=== PATIENT | male | born 1945 | race Caucasian/White ===

== ENCOUNTER 2019-11-08 08:17 | Observation (INO) ==
[2019-11-08] MEDS ORDERED: fentaNYL citrate 100 MCG/2 ML VIAL ONE (10:12)
[2019-11-08] MEDS ORDERED: MIDAZOLAM HCL 1 MG/ML 2ML VIAL ONE ×3 (10:12→12:33)
[2019-11-08] MEDS ORDERED: HEPARIN (PORCINE) 1000 UNIT/ML 10 ML (CATH LAB USE ONLY) ONE ×2 (10:12→12:31)
[2019-11-08] MEDS ORDERED: NiCARDipine HCL INJ 2.5 MG/ML 10 ML AMP ONE (10:12)
[2019-11-08] MEDS ORDERED: NITROGLYCERIN/D5W 100MCG/ML 20ML SYR ONE (10:13)
--- NOTE | 2019-11-08 10:23 | Pre Anesthesia Assessment ---
Date of Service November 08, 2019 Pre Sedation Assessment Vital Signs Temp Pulse Pulse Pulse Pulse Resp BP 11/09/19 07:48 36.7 C 71 18 159/84 H 11/09/19 03:35 36.7 C 74 16 136/77 11/08/19 23:16 36.8 C 77 16 142/76 H 11/08/19 19:45 36.7 C 70 18 156/75 H 11/08/19 18:44 72 138/69 11/08/19 17:45 72 153/92 H 11/08/19 17:00 74 154/80 H 11/08/19 16:43 60 154/82 H 11/08/19 16:30 69 11/08/19 16:28 71 157/85 H 11/08/19 16:13 67 163/79 H 11/08/19 16:00 36.5 C 70 22 159/81 H 11/08/19 15:15 65 18 11/08/19 15:00 66 18 11/08/19 14:45 68 18 11/08/19 14:30 64 18 11/08/19 14:15 66 18 11/08/19 14:00 63 18 11/08/19 13:45 61 18 11/08/19 13:30 75 18 11/08/19 13:15 36.5 C 82 18 BP Pulse Ox 11/09/19 07:48 95 11/09/19 03:35 94 11/08/19 23:16 94 11/08/19 19:45 93 11/08/19 18:44 11/08/19 17:45 11/08/19 17:00 11/08/19 16:43 11/08/19 16:30 11/08/19 16:28 11/08/19 16:13 11/08/19 16:00 96 11/08/19 15:15 147/89 H 96 11/08/19 15:00 148/98 H 96 11/08/19 14:45 165/92 H 96 11/08/19 14:30 152/90 H 96 11/08/19 14:15 148/73 H 96 11/08/19 14:00 135/69 96 11/08/19 13:45 131/78 96 11/08/19 13:30 130/87 96 11/08/19 13:15 191/56 H 96 Cardiovascular + irregularly irregular + S1 normal, + S2 normal and + murmur (1/6 holosystolic murmur heard best at the apex) + femoral pulses present and + radial pulses present; no JVD no edema Respiratory normal respiratory effort, lungs clear to auscultation Pre-Sedation Airway Assessment Smoking Status: Former smoker Hx Difficult Intubation: No Mallampati Class: III ASA: ASA3 Procedure Planning Contraindications for Sedation: none Current Medications Reviewed: Yes Notes The planned sedation has been discussed with the patient. Informed Consent was obtained. I have identified the patient, determined the appropriateness of sedation and have assessed the patient immediately prior to the procedure. All medicine(s) and interventions are by my order.
--- NOTE | 2019-11-08 10:24 | History & Physical Bridge Note ---
Date of Service November 08, 2019 History & Physical Bridge Note I have examined the patient, reviewed the History & Physical and in the interval since the performance of the History & Physical I have noted the following changes of clinical significance: no changes noted
--- NOTE | 2019-11-08 11:37 | Post Anesthesia Assessment ---
Date of Service November 08, 2019 Post Sedation Assessment Vital Signs Temp Pulse Pulse Pulse Pulse Resp BP 11/09/19 07:48 36.7 C 71 18 159/84 H 11/09/19 03:35 36.7 C 74 16 136/77 11/08/19 23:16 36.8 C 77 16 142/76 H 11/08/19 19:45 36.7 C 70 18 156/75 H 11/08/19 18:44 72 138/69 11/08/19 17:45 72 153/92 H 11/08/19 17:00 74 154/80 H 11/08/19 16:43 60 154/82 H 11/08/19 16:30 69 11/08/19 16:28 71 157/85 H 11/08/19 16:13 67 163/79 H 11/08/19 16:00 36.5 C 70 22 159/81 H 11/08/19 15:15 65 18 11/08/19 15:00 66 18 11/08/19 14:45 68 18 11/08/19 14:30 64 18 11/08/19 14:15 66 18 11/08/19 14:00 63 18 11/08/19 13:45 61 18 11/08/19 13:30 75 18 11/08/19 13:15 36.5 C 82 18 BP Pulse Ox 11/09/19 07:48 95 11/09/19 03:35 94 11/08/19 23:16 94 11/08/19 19:45 93 11/08/19 18:44 11/08/19 17:45 11/08/19 17:00 11/08/19 16:43 11/08/19 16:30 11/08/19 16:28 11/08/19 16:13 11/08/19 16:00 96 11/08/19 15:15 147/89 H 96 11/08/19 15:00 148/98 H 96 11/08/19 14:45 165/92 H 96 11/08/19 14:30 152/90 H 96 11/08/19 14:15 148/73 H 96 11/08/19 14:00 135/69 96 11/08/19 13:45 131/78 96 11/08/19 13:30 130/87 96 11/08/19 13:15 191/56 H 96 Recovery Score Activity: Moves 4 extremities Respiration: Deep Breath/Cough Circulation: +/-20% PreAnes Value Consciousness: Fully Awake Oxygen Saturation: > 92% On Room Air Discharge Sedation Level of Care: Phase I Post Sedation Plan On clinical assessment, the patient appears to have tolerated the sedation without complications. Patient is recovering as anticipated. Patient will continue to be monitored by nursing and may be discharged when sedation discharge criteria are met per below protocol. Upon Completions of procedure up to 15 minutes continue every 5 minute vital si gns and the P.A.R. score; then discharge to a Phase I or Fast Track to Phase II per the following guidelines: * Discharge Patient to appropriate Phase II area if PAR is 8 or greater or return to pre- procedure baseline. The post - procedure orders will be as directed. * If PAR score is less than 8 or not return to pre-procedure baseline then patient will follow Phase I monitoring till PAR is reached for Phase II. The Phase I may be done in procedure room or may call to secure a Phase I area. * If naloxone or flumazenil are used for reversal, hold in Phase I for continued monitoring from when last reversal dose was given for a minimum of 60 minutes or longer pending the nurse and/or physician discretion of patient condition before discharge to Phase II. Please call the Sedation Physician to re-evaluate and complete post-note for discharge to Phase II area. Do NOT discharge from procedure sedation or Phase 1 until post- sedation evaluation note is complete by procedure /sedation MD Sedation Discharge Instructions to be given to the patient at discharge to home.
--- NOTE | 2019-11-08 11:39 | Cardiac Catheterization ---
Cardiac Cath Procedure Full Procedure Date November 08, 2019 Pre-Procedure Diagnosis Pre-Procedure Diagnosis: Positive Stress Test AUC Score AUC Score: 7 Post-Procedure Diagnosis Post-Procedure Diagnosis: Severe CAD Procedure(s) Performed Procedure(s) Performed: Coronary Angiography, Left Heart Cath and Right Heart Cath Vision Therapist Brandon Alarcon DO Consumer Science Teacher(s) Randy RTBjorn Estimated Blood Loss Estimated Blood Loss: 8cc Medication(s) Medication(s): Fentanyl, Heparin, Lidocaine 1%, Nicardipine and Versed Summary of Findings Right heart catheterization demonstrates moderate pulmonary hypertension and elevated PCWP. Pulmonary capillary wedge pressure waveforms demonstrating large V waves s uggesting significant mitral regurgitation. CO per yolanda : 6.55 CI per yolanda : 2.84 CO per thermodilution: 6.93 Coronary angiography demonstrates 40% proximal LAD followed by a 70% mid stenosis. The second diagonal branch vessel is totally occluded. The apical segment of the diagonal fills via left to left collaterals. There is a moderate caliber ramus intermedius with a 60% mid stenosis. The left circumflex is a large nondominant vessel giving rise to a moderate caliber posterior lateral branch vessel. Circumflex and its branch vessels demonstrate mild luminal irregularities. The right coronary artery is a large dominant vessel giving rise to posterior descending artery and 2 posterior lateral branch vessels. The right coronary artery and its branch vessels demonstrate luminal irregularities, 10%, without significant obstructive disease. Hemodynamics Rest Ao:: 121/62/86 Final Ao: 164/77/109 LV: 119/3/13 RA: 10 RV: 45/1/12 PA: 50/22/33 PW: 20 Recommendations Recommendations: PCI without planned CABG Specimens Specimens: None Radiation Exposure (mGy) 1724 Contrast (mls) 75 Fluids (cc crystalloids) Fluids (cc crystalloids): 17 Nss Drains Drains: N/A Anesthesia Moderate sedation. Start 1040. End 1142. Sedation monitor, Clay GUIDO Procedural Complication(s) None Disposition Patient remained in [employer] for FFR of LAD I attest to the content of the Intraoperative Record and any orders documented therein. Any exceptions are noted below. ACC Data: [employer] Cardiac Status Clinical evaluation leading to the procedure CAD Presenation: Positive Stress Test and Stable angina Anginal Classification: CCS II Heart Failure: No Imaging Studies Past 6 Months: Yes Stress Studies Past 6 Months: Yes Stress Testing w/SPECT MPI: Yes - Positive and Risk/Extent of Ischemia (High) Coronary Anatomy Dominant: Right LAD (% Stenosis): Proximal (40%) and Mid (70% distal to D2) D1 (% Stenosis): Mid (60%) D2 (% Stenosis): Proximal (100%) Circumflex (% Stenosis): Mid (10 -20% diffuse) L PL1 (% Stenosis): Mid (10%v diffuse) RCA (% Stenosis): Mid (10-20% diffuse) R PDA (% Stenosis): Distal (10%) R PL1 (% Stenosis): Mid (10%) R PL2 (% Stenosis): Mid (10%) Diagnostic Physicians Name: Brandon Alarcon DO Closure Device Recommendations: PCI without planned CABG Intraprocedure Events Significant Disection: No Perforation: No
[2019-11-08 11:43] LABS: iSTAT Arterial Blood Gas HCO3 26 meg/L (19-24); iSTAT Arterial Blood Gas pCO2 38 mmHg (35-46); iSTAT Arterial Blood Gas pH 7.44 (7.35-7.45); iSTAT Arterial Blood Gas pO2 63 mmHg (80-95); iSTAT Carbon Dioxide 27 mmol/L (24-31); iSTAT Hematocrit 40 % (42-52); iSTAT Hemoglobin 13.6 g/dl (14.0-18.0); iSTAT Potassium 3.6 mmol/L (3.3-5.0); iSTAT Sodium 138 mmol/L (135-144)
[2019-11-08 11:43] LABS: iSTAT Arterial Blood Gas HCO3 28 meg/L (19-24); iSTAT Arterial Blood Gas pCO2 42 mmHg (35-46); iSTAT Arterial Blood Gas pH 7.43 (7.35-7.45); iSTAT Arterial Blood Gas pO2 37 mmHg (80-95); iSTAT Carbon Dioxide 29 mmol/L (24-31); iSTAT Hematocrit 41 % (42-52); iSTAT Hemoglobin 13.9 g/dl (14.0-18.0); iSTAT Potassium 3.5 mmol/L (3.3-5.0); iSTAT Sodium 139 mmol/L (135-144)
[2019-11-08] MEDS ORDERED: ADENOSINE IV SOLN 3 MG/ML 20 ML VIAL IV ONE (12:03)
[2019-11-08] MEDS ORDERED: CLOPIDOGREL BISULFATE 300 MG TAB ONE (12:52)
[2019-11-08] MEDS ORDERED: NITROGLYCERIN SL 0.4 MG/TAB TAB SL PRN (12:58)
[2019-11-08] MEDS ORDERED: ACETAMINOPHEN 325 MG TAB PO PRN (12:58)
[2019-11-08] MEDS ORDERED: ONDANSETRON INJ 2 MG/ML 2 ML VIAL IV PRN (12:58)
[2019-11-08] MEDS ORDERED: SODIUM CHLORIDE 0.9% 1000ML 1,000 ML IV SCH (13:00)
--- NOTE | 2019-11-08 13:08 | Post Anesthesia Assessment ---
Date of Service November 08, 2019 Post Sedation Assessment Vital Signs Temp Pulse Resp BP Pulse Ox 11/08/19 08:40 98.8 F 92 H 16 163/81 H 98 Recovery Score Activity: Moves 4 extremities Respiration: Deep Breath/Cough Circulation: +/-20% PreAnes Value Consciousness: Fully Awake Oxygen Saturation: > 92% On Room Air Discharge Sedation Level of Care: Fast Track Phase II Post Sedation Plan On clinical assessment, the patient appears to have tolerated the sedation without complications. Patient is recovering as anticipated. Patient will continue to be monitored by nursing and may be discharged when sedation discharge criteria are met per below protocol. Upon Completions of procedure up to 15 minutes continue every 5 minute vital signs and the P.A.R. score; then discharge to a Phase I or Fast Track to Phase II per the following guidelines: * Discharge Patient to appropriate Phase II area if PAR is 8 or greater or return to pre- procedure baseline. The post - procedure orders will be as directed. * If PAR score is less than 8 or not return to pre-procedure baseline then patient will follow Phase I monitoring till PAR is reached for Phase II. The Phase I may be done in procedure room or may call to secure a Phase I area. * If naloxone or flumazenil are used for reversal, hold in Phase I for continued monitoring from when last reversal dose was given for a minimum of 60 minutes or longer pending the nurse and/or physician discretion of patient condition before discharge to Phase II. Please call the Sedation Physician to re-evaluate and complete post-note for discharge to Phase II area. Do NOT discharge from procedure sedation or Phase 1 until post- sedation evaluation note is complete by procedure /sedation MD Sedation Discharge Instructions to be given to the patient at discharge to home.
--- NOTE | 2019-11-08 13:11 | Cardiac Catheterization ---
[facility] Data: [place] Cardiac Status Clinical evaluation leading to the procedure CAD Presenation: Positive Stress Test Anginal Classification: CCS III Heart Failure: No Cardiogenic Shock within 24 Hours: No Cardiac Arrest within 24 Hours: No Imaging Studies Past 6 Months: Yes Stress Studies Past 6 Months: Yes Stress Echocardiogram: Yes - Positive Diagnostic Physicians Name: Filemon Rome MD Status: Elective Closure Device Percutaneous Entry Location: Radial Closure Device: Radial Band Recommendations: PCI without planned CABG PCI Indication: + Stress Test Lesion Segment Name: Mid LAD Culprit Artery: Yes Stenosis Prior to Rx (%): 70 Chronic Total Occlusion: No IVUS: No FFR: Yes Ratio: less than or equal to 0.75% Pre-Procedure CALEB Flow: 3 Previously Treated Lesion: No Lesion Complexity: Non-High/Non-C Lesion Length (mm): 28 Thrombus Present: No Bifurcation Lesion: Yes Guidewire Across Lesion: Stenosis Post-Procedure (%): 0 Post-Procedure CALEB Flow: 3 Devices(s) Deployed: Yes Yes Intraprocedure Events Significant Disection: No Perforation: No Cardiac Cath Procedure Full Procedure Date November 08, 2019 Pre-Procedure Diagnosis Pre-Procedure Diagnosis: Positive Stress Test AUC Score AUC Score: 7 Post-Procedure Diagnosis Post-Procedure Diagnosis: Severe CAD and Successful PCI Procedure(s) Performed Procedure(s) Performed: Coronary Angiography, Right Heart Cath and Drug Eluting Stent Plate Shear Operator Filemon Rome MD Weatherseal Technician(s) Randy KWON Estimated Blood Loss Estimated Blood Loss: 15 Medication(s) Medication(s): Clopidogrel, Fentanyl, Heparin, Nicardipine, Nitroglycerin and Versed Summary of Findings Indication: Positive stress test Access: 6 Fr slender right radial artery Catheters: EBU 3.5 guide Findings: For full details of patient's coronary angiography please see cath report dictated by Dr. Alarcon. Briefly, patient found to have moderate to severe single vessel disease with a 60 to 70% mid LAD stenosis. Decision to proceed with FFR and possible PCI --FFR/PCI -- Antithrombotic therapy: Heparin, clopidogrel Procedure: Left main cannulated with EBU 3.5 Second Vp Hr Assessment 50 wire passed across lesion into distal vessel ACIST FFR catheter placed into mid vessel across stenosis Pd/Pa 0.88 FFR 0.71 ACIST Catheter removed and decision to proceed with PCI Mid LAD lesion predilated with 2.5 compliant balloon Dilated lesion stented with 2.5 x 30 mm [place] drug-eluting Stent post-dilated with 2.75 noncompliant balloon IC vasodilators administered for spasm Post procedure CALEB 3 flow, stent well expanded with minimal residual stenosis and no apparent cardiac complications. Arterial Closure: TR band Summary: 1. Severe diffuse mid LAD coronary artery disease (FFR 0.71). 2. Successful PCI of proximal to mid LAD with single drug-eluting stent (2.5 x 30 mm [place]; postdilated with 2.75 NC). Recommendations: To PCU for continued monitoring Loaded with clopidogrel 600 mg in [place] Continue triple therapy with aspirin, clopidogrel, Xarelto while admitted Long-term on dual therapy with clopidogrel, Xarelto for at least 1 year. Hemodynamics Rest Ao:: 160/79/117 Final Ao: 132/78/95 LV: -- Recommendations Recommendations: PCI without planned CABG Specimens Specimens: None Radiation Exposure (mGy) 3732 Contrast (mls) 140 Fluids (cc crystalloids) Fluids (cc crystalloids): 35 Drains Drains: N/A Anesthesia Moderate sedation. Procedural Complication(s) None Disposition PCU I attest to the content of the Intraoperative Record and any orders documented therein. Any exceptions are noted below. [facility] Card Cath Procedure Codes Cardiac Catheterization Procedure 1: Cardiovascular Cath Procedures: 89032 (Doppler) Pressure Wire Moderate Sedation Procedure 1: Sedation/Anesthesia: 95821 Mod Sedation by a different physician ;Init15 Min Child Age 5&Up Procedure 2: Sedation/Anesthesia: 91356 Mod Sedation by a different physician;Ea Additional 15 Minutes Stenting Procedure 1: Cardiovascular Stent Procedures: 90404 Perc transcatheter placement of intracoronary stent(s), with ang PG Care Time/CCT Total # of Minutes Spent Total Time Spent with Patient: Total time spent is greater than 50% in coordination of care (as documented) at patient's floor/unit and/or counseling patient:
[2019-11-09 07:15] LABS: Basophils # (auto) 0.05 K/uL (0-0.2); Basophils % (auto) 0.9 %; Eosinophils # (auto) 0.24 K/uL (0-0.5); Eosinophils % (auto) 4.3 %; Hemoglobin 13.1 g/dL (14.0-18.0); Immature Granulocytes # (auto) 0.01 K/uL (0.00-0.02); Immature Granulocytes % (auto) 0.2 %; Lymphocytes # (auto) 1.65 K/uL (1.2-3.4); Lymphocytes % (auto) 29.5 %; Mean Corpuscular Hemoglobin 27.8 pg (25-34); Mean Corpuscular Hgb Conc 31.2 g/dL (32-36); Monocytes # (auto) 0.83 K/uL (0.11-0.59); Monocytes % (auto) 14.8 %; Neutrophils # (auto) 2.82 K/uL (1.4-6.5); Neutrophils % (auto) 50.3 %; Platelet Count 245 K/uL (130-400); RDW Standard Deviation 48.5 fL (36.4-46.3); Red Blood Count 4.72 M/uL (4.7-6.1)
[2019-11-09 07:43] LABS: BUN Creatinine Ratio 17.8 (10-20); Calcium 8.5 mg/dl (8.5-10.1); Est GFR (African American) 91.2; Est GFR (Non-African American) 78.7; Potassium 4.2 mmol/L (3.5-5.1)
[2019-11-09] MEDS ORDERED: hydroCHLOROthiazide 25 MG TAB PO SCH (09:00)
[2019-11-09] MEDS ORDERED: FLUTICASONE/VILANTEROL 200/25MCG 14 PUFFS/INHALER INH SCH (09:00)
[2019-11-09] MEDS ORDERED: CLOPIDOGREL BISULFATE 75 MG TAB PO SCH (09:00)
[2019-11-09] MEDS ORDERED: MULTIVITAMIN TAB PO SCH (09:00)
[2019-11-09] MEDS ORDERED: AMLODIPINE BESYLATE 5 MG TAB PO SCH (09:00)
[2019-11-09] MEDS ORDERED: LOSARTAN POTASSIUM 50 MG TAB PO SCH (09:00)
[2019-11-09] MEDS ORDERED: ASPIRIN 81 MG ECTAB PO SCH (09:00)
[2019-11-09] MEDS ORDERED: RIVAROXABAN 20 MG TAB PO SCH (09:00)
--- NOTE | 2019-11-09 09:46 | Cardiology Progress Note ---
Date of Service November 09, 2019 Assessment & Plan (1) Abnormal nuclear stress test: (2) Status post insertion of drug-eluting stent into left anterior descending (LAD) artery: (3) Mitral regurgitation: (4) Pulmonary HTN: (5) Atrial fibrillation: Post cardiac catheterization activity restrictions noted below. Continue triple therapy, aspirin, Plavix, and Xarelto for 4 weeks. Patient will then continue Plavix plus Xarelto long-term. Add atorvastatin 40 mg daily. Current medications clarified: Digoxin discontinued. Resume metoprolol succinate 50 mg daily. Other medications as previously ordered. Discuss outpatient sleep medicine evaluation. Patient reports history of sleep apnea treated surgically. Outpatient cardiology follow-up in 1 to 2 weeks. Subjective Patient seen exam at the bedside. Feeling well from a cardiovascular perspective. Notes improvement of dyspnea since stent implantation. Denies chest discomfort or heaviness. Telemetry demonstrates rate controlled atrial fibrillation. Review of Systems Review of Systems: All systems reviewed & are unremarkable except as noted in HPI & below Physical Exam ENMT: Mallampati Class: III Respiratory: normal respiratory effort, lungs clear to auscultation Cardiovascular: Rate/Rhythm: + irregularly irregular Heart Sounds: normal S1, normal S2 and + murmur (1/6 holosystolic murmur heard best at the apex) Vessels: femoral pulses present and radial pulses present; no JVD Extremities: no edema Gastrointestinal (Abdomen): Inspection/Auscultation: abdomen normal to inspection, normal bowel sounds and + abdominal edema; abdomen not distended Percussion/Palpation: abdomen soft; abdomen nontender, no guarding and abdomen not rigid Musculoskeletal: Extremities: strength 5/5 throughout Skin: no rashes, warm and dry Neurologic: moves all extremities and awake; no focal motor deficits Motor/ Sensory: no tremor Psychiatric: A+Ox3, euthymic affect Results & Data Vital Signs (Past 12 Hours) Vital Signs Temp Pulse Resp BP Pulse Ox 11/09/19 07:48 36.7 C 71 18 159/84 H 95 11/09/19 03:35 36.7 C 74 16 136/77 94 11/08/19 23:16 36.8 C 77 16 142/76 H 94 (1) Mitral regurgitation Cardiac valve disease etiology: nonrheumatic Qualified Code(s): I34.0 - Nonrheumatic mitral (valve) insufficiency (2) Atrial fibrillation Atrial fibrillation type: permanent Qualified Code(s): I48.21 - Permanent atrial fibrillation
--- NOTE | 2019-11-09 09:57 | Discharge Summary ---
Date of Service November 09, 2019 Discharge Data Allergies Allergy/AdvReac Type Severity Reaction Status Date / Time No Known Allergies Allergy Verified 07/12/19 08:59 Consultations 11/08/19 13:04 Consult Cardiac Rehabilitation Routine Procedures Performed Operation Date: 11/08/19 09:30 Actual Procedures p Cath, Right and Left Heart - DO radha Boudreaux Cineradiography w/Routine Exam - Jared Rome MD s Drug Eluting Stent SGl Vessel - Jared Rome MD s Fraction Flow [place] SGL Ves - Jared Rome MD Ordered Studies 11/08/19 06:50 CL Cath Imgs for PACS use only Stat Hospital Course (1) Abnormal nuclear stress test: (2) Status post insertion of drug-eluting stent into left anterior descending (LAD) artery: (3) Mitral regurgitation: (4) Pulmonary HTN: (5) Atrial fibrillation: Post cardiac catheterization activity restrictions noted below. Continue triple therapy, aspirin, Plavix, and Xarelto for 4 weeks. Patient will then continue Plavix plus Xarelto long-term. Add atorvastatin 40 mg daily. Current medications clarified: Digoxin discontinued. Resume metoprolol succinate 50 mg daily. Other medications as previously ordered. Discuss outpatient sleep medicine evaluation. Patient reports history of sleep apnea treated surgically. Outpatient cardiology follow-up in 1 to 2 weeks. Total Time Total Time Spent Total Time Spent (In Minutes): 30 Total Time Includes: Examination of the Patient, Discharge Planning, Medication Reconciliation and Communication With Other Providers Discharge Plan Discharge Items Reason For Visit: POST PCI Discharge Diagnosis: Abnormal nuclear stress testing status post drug-eluting stent implantation to the left anterior descending artery. Activity: Per Instructions section Non-emergency contact: Mail List Librarian Call non-emergency contact if: you have any medication questions and your pain is not controlled Follow-up/Referrals: Villa Duff MD [Primary Care Provider] - Diet: Heart Healthy Addtl Attending Provider Instructions: ACTIVITY RECOMMENDATIONS: It is common to feel weak and fatigue for a few days. * Do not drive or operate any motorized equipment for the next three days. * Limit stair usage (2 or 3 trips a day only) for the next three days. * Do not lift anything heavier than 10 pounds for the next three days. * Do not engage in vigorous exercise or any sports for the next five days. * You may shower the day after your procedure, but do not immerse the area for three days. Cleanse the site gently with soap and water. SPECIAL CARE INSTRUCTIONS: * You may replace the pressure dressing or band-aid the morning after the procedure. * After your procedure, it is normal to have a small bruise or small lump at the site. Examine your site daily for any change in the bruise or lump, redness, swelling, drainage or numbness. Notify your doctor if any change. BLEEDING: * If there is a small amount of bleeding at the site, lie down and apply firm pressure with a clean cloth for ten minutes. When the bleeding stops, lie quietly keeping the procedure limb straight for six hours. Notify your doctor as soon as possible. * If the bleeding does not stop after ten minutes or if there is a large amount of bleeding or spurting, call 911 immediately. Continue to lie down and hold firm pressure until help arrives. SKIN IRRITATION: * You may experience some redness and/or swelling in the area where radiation was administered. If any skin irritation occurs, please contact your family physician. FOLLOW UP VISIT: Keep any scheduled doctor appointments. Addtl Leave Coordinator Provider Instructions: Continue aspirin x4 weeks then stop. Continue Plavix plus Xarelto uninterrupted long-term. Pending Studies at Discharge: Yes Studies:: Sleep medicine evaluation. Repeat lipid panel and comprehensive metabolic panel in 6 weeks. Stand-Alone Forms: My [facility] [employer], Smoking Cessation Medications and DC Order Prescriptions: New metoprolol succinate 50 mg Tablet Extended Release 24 Hr 50 mg PO QAM Qty: 34 RF: 6 clopidogrel 75 mg Tablet 75 mg PO QAM Qty: 34 RF: 6 aspirin 81 mg Tablet,Delayed Release (Dr/Ec) 81 mg PO QAM Qty: 34 RF: 0 nitroglycerin [Nitrostat] 0.4 mg Tablet, Sublingual 0.4 mg sublingual PRN Qty: 1 RF: 3 atorvastatin 40 mg tablet 40 mg PO DAILY 34 Days Qty: 34 RF: 6 Continued betamethasone dipropionate 0.05 % cream 1 appln TOP BID Qty: 45 RF: 0 hydrochlorothiazide 50 mg tablet 50 mg PO DAILY RF: 0 amlodipine 10 mg tablet 10 mg PO DAILY RF: 0 Xarelto 20 mg tablet 20 mg PO DAILY RF: 0 Symbicort 160-4.5 mcg/actuation HFA aerosol inhaler 2 puffs INH BID RF: 0 multivitamin tablet 1 tab PO DAILY RF: 0 vit A-vit C-vit B-[id number]-[id number] 7,160-113-100 [id number]-[id number] tablet PO RF: 0 Changed losartan 50 mg tablet 100 mg PO DAILY Qty: 0 RF: 0 Discontinued digoxin 250 mcg (0.25 mg) tablet 250 mcg PO DAILY RF: 0 Admission Data Admit Date/Time: 11/08/19 12:38 Attending Provider: Brandon Alarcon Admit Provider: Brandon Alarcon Primary Care Provider: Villa Duff
[2019-11-09] MEDS ORDERED: METOPROLOL SUCC 50MG EXT REL TAB PO SCH (10:00)
--- NOTE | 2019-11-09 14:32 | Electrocardiogram Report ---
Test Reason : Blood Pressure : / mmHG Vent. Rate : 070 BPM Atrial Rate : 078 BPM P-R Int : 000 ms QRS Dur : 120 ms QT Int : 432 ms P-R-T Axes : 000 095 049 degrees QTc Int : 466 ms Atrial fibrillation with premature ventricular or aberrantly conducted complexes Rightward axis Pulmonary disease pattern Non-specific intra-ventricular conduction delay Nonspecific ST abnormality Anterolateral leads Abnormal ECG No previous ECGs available Confirmed by Issa Gomes ([id number]) on 11/09/2019 2:31:49 PM Referred By: Brandon Alarcon Confirmed By:Issa Gomes
[2019-11-09] MEDS ORDERED: DIGOXIN 0.25 MG TAB PO SCH (16:00)
== END 2019-11-09 11:05 | disposition home or self-care (01) ==
LOC: CC 08:17 → 2S 08:17

== ENCOUNTER 2019-12-28 10:27 | Inpatient (IN) ==
[2019-12-28] MEDS ORDERED: SODIUM CHLORIDE 0.9% 250 ML IV PRN ×3 (11:06→20:41)
--- NOTE | 2019-12-28 11:06 | Emergency Department Note ---
Impression & Plan Acute GI bleeding, Symptomatic anemia, Acute blood loss anemia ED Provider Note Normal QTCNAME: VY ROSALES AGE: 74 SEX: M : 1945 ARRIVES VIA: Walk-In INFORMANT: Patient ED PROVIDER(S): Enio Alex DO CHIEF COMPLAINT: Low hemoglobin HPI: Patient is a 74-year-old male who presents the ER referred in by PCP for low hemoglobin. He has been walking and getting short of breath over the past week. He admits to dark tarry stools that have been present for the past 3 weeks. He takes Xarelto and Plavix. He recently got a stent at the end of October. Denies any chest pain. No belly pain nausea vomiting or diarrhea. No dysuria urgency or frequency. No other exacerbating or remitting factors. Shortness of breath resolves with rest. He is never received blood before. ROS: See above HPI for pertinent positives & negatives. A total of 10 systems reviewed and were otherwise negative. PAST MEDICAL HISTORY:See Below PAST SURGICAL HISTORY:See Below FAMILY HISTORY:See Below SOCIAL HISTORY:See Below HOME MEDICATIONS:See Below ALLERGIES:See Below VITALS:See Below PHYSICAL EXAMINATION: GENERAL: Sitting up in bed, alert, well appearing, well nourished, no distress, non-toxic EYE EXAM: normal conjunctiva. OROPHARYNX: no exudate, no erythema, lips, buccal mucosa, and tongue normal and mucous membranes are moist NECK: supple, no nuchal rigidity, no adenopathy, non-tender LUNGS: Clear to auscultation. Normal chest wall mechanics HEART: no murmurs, S1 normal and S2 normal ABDOMEN: abdomen soft, non-tender, normo-active bowel sounds, no masses, no rebound or guarding. RECTAL: hem + BACK: Back is symmetrical on inspection and there is no deformity, no midline tenderness, no CVA tenderness. SKIN: no rashes and no bruising UPPER EXTREMITIES: upper extremities are grossly normal. LOWER EXTREMITIES: No pitting edema. NEURO EXAM: Normal sensorium, cranial nerves II-XII grossly intact, normal speech, no gross weakness of arms, no gross weakness of legs. MEDICAL DECISION MAKING: Patient is a 74-year-old male who presents the ER for dyspnea on exertion. He was evaluated by his PCP and found to have a low hemoglobin. He was referred into the ER. Recently had a drug-eluting stent placed in his LAD on Plavix, aspirin and NOAC. IV was established blood work was obtained. Labs show a hemoglobin of 7. INR at 1.7. BMP with mild hypokalemia. LFTs were unremarkable. Troponin was checked was 0.035. Patient was typed and crossed and given 2 units PRBCs while in the ER. Consent was signed at bedside by myself. Rectal was heme positive. He was updated at bedside and discussed with hospitalist for admission. Triage Nursing notes reviewed. Prior medical records reviewed Vital Signs: reviewed and remarkable for no significant abnormalities Differential diagnosis: Differential diagnosis includes etiologies such as diverticulitis, diverticulosis, AVM, coagulopathy, colitis, inflammatory bowel disease, malignancy, Rosemarie-Muñoz tear, esophagitis, peptic ulcer disease, variceal bleed, gastritis, epistaxis, fissure, hemorrhoids, as well as others were entertained. ER treatment provided: See below Diagnostics interpreted by me: ECG: A. fib rate of 67 Normal axis PVCs Normal QTC Cardiac Monitoring: An order was placed for continuous cardiac monitoring. The monitor shows a rate of 67 with sinus rhythm. Laboratory studies: As stated above and show below. Imaging studies: See below Consultation(s): Discussed with Dr. Kj Collier for admission ED COURSE: Procedures: none Critical Care: I have personally spent 32 minutes of critical care time in the direct management of this patient. This includes bedside care, interpretation of diagnostic studies, and testing, discussion with consultants, patient, and family members, and other required patient management activities. This 32 minutes is in excess of all separately billable procedures. Past Med/Surg History Medical History Asthma Atrial fibrillation Coronary artery disease Surgical History No significant past surgical history Family History Other Hypertension Social History Smoking Status: Former smoker Cigarettes Per Day: Quit 50 years ago; Smoking End Date: ; Second Hand Exposure: No; Do You Dip or Chew Tobacco: No; Tobacco Cessation Education Requested by Patient: No Hx Alcohol Use: No Hx Substance Use: No Preferred Language: [place] Communication Ability: Effective Automobile Painter Required: No Beliefs That Will Affect Care: None Current Living Situation: Spouse Other Information That Helps Us Care for You: No Feels Safe at Home: Yes Safety Concerns: Feels Safe At This Time Allergies Allergies Allergy/AdvReac Type Severity Reaction Status Date / Time No Known Allergies Allergy Verified 12/28/19 11:46 Home Meds Home Medications Medication Instructions Recorded Confirmed amlodipine 10 mg tablet 10 mg PO DAILY 03/31/19 12/28/19 budesonide-formoterol HFA 160 2 puffs INH BID 03/31/19 12/28/19 mcg-4.5 mcg/actuation aerosol inhaler multivitamin 1 tab PO DAILY 03/31/19 12/28/19 rivaroxaban 20 mg tablet 20 mg PO QPM 03/31/19 12/28/19 vit A 7,160 unit-vit C 113 mg-vit 1 tab PO DAILY 03/31/19 12/28/19 E 100 phtw-wrah-gqpbst tablet furosemide 40 mg PO DAILY 12/28/19 12/28/19 potassium chloride 10 meq PO DAILY 12/28/19 12/28/19 Previous Rx's Medication Instructions Recorded betamethasone dipropionate 0.05 % 1 appln TOP BID #45 gm 04/29/19 topical cream atorvastatin 40 mg PO DAILY 34 Days #34 tab 11/09/19 clopidogrel 75 mg PO QAM #34 tab 11/09/19 losartan 100 mg PO DAILY #0 tab 11/09/19 metoprolol succinate 50 mg PO QAM #34 tab 11/09/19 nitroglycerin [Nitrostat] 0.4 mg SUBLINGUAL PRN #1 btl 11/09/19 Results & Data (ED) Vital Signs Vital Signs - 24 hr 12/28/19 10:46 12/28/19 11:33 12/28/19 12:11 Temperature 36.8 C Temperature Source Oral Pulse Rate 75 Pulse Rate [Left Finger] 63 Respiratory Rate 16 20 Blood Pressure 127/68 Blood Pressure [Left Arm] 141/75 H Blood Pressure Mean 87 Blood Pressure Mean [Left Arm] 97 Pulse Oximetry 99 95 97 Oxygen Delivery Method Room Air Room Air Room Air Sepsis Recent Fever Within 48 Hours No Sepsis New/Unexplained Change in Mental Status N/A Sepsis Action Taken by Nursing No Action Required Laboratory Data Result diagrams: 12/28/19 11:14 12/28/19 11:14 Lab Results 12/28/19 12/28/19 12/28/19 Range/Units 11:14 11:14 11:14 WBC 5.32 (4.8-10.8) K/uL RBC 2.79 L (4.7-6.1) M/uL Hgb 7.0 L (14.0-18.0) g/dL Hct 23.6 L (42-52) % MCV 84.6 (80-100) fL MCH 25.1 (25-34) pg MCHC 29.7 L (32-36) g/dL RDW Std Deviation 52.8 H (36.4-46.3) fL RDW Coeff of Eyad 17.1 H (11.5-14.5) % Plt Count 315 (130-400) K/uL MPV 9.0 (7.4-10.4) fL Immature Gran % (Auto) 0.6 % Neut % (Auto) 52.0 % Lymph % (Auto) 25.8 % Sebastian % (Auto) 16.2 % Eos % (Auto) 4.1 % Baso % (Auto) 1.3 % Neut # (Auto) 2.77 (1.4-6.5) K/uL Lymph # (Auto) 1.37 (1.2-3.4) K/uL Sebastian # (Auto) 0.86 H (0.11-0.59) K/uL Eos # (Auto) 0.22 (0-0.5) K/uL Baso # (Auto) 0.07 (0-0.2) K/uL Immature Gran # (Auto) 0.03 H (0.00-0.02) K/uL Polychromasia 1+ Hypochromasia Present Anisocytosis Present Microcytosis Present PT 17.7 H (9.0-12.0) Seconds INR 1.7 H (0.9-1.1) APTT 31.4 H (21.0-31.0) Seconds PTT Ratio 1.1 Sodium (136-145) mmol/L Potassium (3.5-5.1) mmol/L Chloride (98-107) mmol/L Carbon Dioxide (21-32) mmol/L Anion Gap (3-11) BUN (7-18) mg/dl Creatinine (0.6-1.4) mg/dl Est Cr Clr Drug Dosing ml/min Est GFR ( Amer) Est GFR (Non-Af Amer) BUN/Creatinine Ratio (10-20) Glucose (70-99) mg/dl Calcium (8.5-10.1) mg/dl Magnesium (1.8-2.4) mg/dl Iron (35-175) mcg/dl Transferrin (200-360) mg/dl Transferrin % Sat (20-50) % Total Bilirubin (0.2-1) mg/dl AST (15-37) U/L ALT (12-78) U/L Alkaline Phosphatase (45-117) U/L Troponin I (0-0.045) ng/ml Total Protein (6.4-8.2) gm/dl Albumin (3.4-5.0) gm/dl Globulin (2.5-4.0) gm/dl Albumin/Globulin Ratio (0.9-2) Blood Type O Positive Blood Type Recheck Antibody Screen NEGATIVE Crossmatch See Detail 12/28/19 12/28/19 12/28/19 Range/Units 11:14 11:14 11:33 WBC (4.8-10.8) K/uL RBC (4.7-6.1) M/uL Hgb (14.0-18.0) g/dL Hct (42-52) % MCV (80-100) fL MCH (25-34) pg MCHC (32-36) g/dL RDW Std Deviation (36.4-46.3) fL RDW Coeff of Eyad (11.5-14.5) % Plt Count (130-400) K/uL MPV (7.4-10.4) fL Immature Gran % (Auto) % Neut % (Auto) % Lymph % (Auto) % Sebastian % (Auto) % Eos % (Auto) % Baso % (Auto) % Neut # (Auto) (1.4-6.5) K/uL Lymph # (Auto) (1.2-3.4) K/uL Sebastian # (Auto) (0.11-0.59) K/uL Eos # (Auto) (0-0.5) K/uL Baso # (Auto) (0-0.2) K/uL Immature Gran # (Auto) (0.00-0.02) K/uL Polychromasia Hypochromasia Anisocytosis Microcytosis PT (9.0-12.0) Seconds INR (0.9-1.1) APTT (21.0-31.0) Seconds PTT Ratio Sodium 137 (136-145) mmol/L Potassium 3.2 L (3.5-5.1) mmol/L Chloride 102 (98-107) mmol/L Carbon Dioxide 29 (21-32) mmol/L Anion Gap 6.0 (3-11) BUN 19 H (7-18) mg/dl Creatinine 1.10 (0.6-1.4) mg/dl Est Cr Clr Drug Dosing 80.2 ml/min Est GFR ( Amer) 77.3 Est GFR (Non-Af Amer) 66.7 BUN/Creatinine Ratio 17.5 (10-20) Glucose 86 (70-99) mg/dl Calcium 8.7 (8.5-10.1) mg/dl Magnesium 1.9 (1.8-2.4) mg/dl Iron 15 L (35-175) mcg/dl Transferrin 332 (200-360) mg/dl Transferrin % Sat 3 L (20-50) % Total Bilirubin 0.7 (0.2-1) mg/dl AST 20 (15-37) U/L ALT 38 (12-78) U/L Alkaline Phosphatase 73 (45-117) U/L Troponin I 0.035 (0-0.045) ng/ml Total Protein 6.6 (6.4-8.2) gm/dl Albumin 3.6 (3.4-5.0) gm/dl Globulin 3.0 (2.5-4.0) gm/dl Albumin/Globulin Ratio 1.2 (0.9-2) Blood Type Blood Type Recheck O Positive Antibody Screen Crossmatch Administered Medications Pantoprazole Sodium 40 mg/ (Dextrose) 100 mls @ 20 mls/hr IV Q5H PENELOPE Stop: 01/27/20 12:29 Last Admin: 12/28/19 12:52 Dose: 8 mg/hr, 20 mls/hr Documented by: [id number] Discontinued Medications Potassium Chloride (K Malcolm / Wtr) 10 meq in 100 mls @ 100 mls/hr IV Q1H PENELOPE Stop: 12/28/19 14:19 Last Infusion: 12/28/19 16:27 Dose: 0 mls/hr Documented by: [id number] Admin: 12/28/19 14:30 Dose: 100 mls/hr Documented by: [id number] Infusion: 12/28/19 13:34 Dose: 100 mls/hr Documented by: [id number] Admin: 12/28/19 12:34 Dose: 100 mls/hr Documented by: [id number] Pantoprazole Sodium 80 mg/ (Dextrose) 120 mls @ 400 mls/hr IV NOW ONE Stop: 12/28/19 12:27 Last Infusion: 12/28/19 13:01 Dose: 0 mls/hr Documented by: [id number] Admin: 12/28/19 12:36 Dose: 400 mls/hr Documented by: [id number] Discharge Plan Visit Data Chief Complaint: Abnormal Labs/Diagnostic Testing Stated Complaint: SENT BY [facility] Betsy [facility] ED Provider: Enio Alex Discharge Problem: Acute GI bleeding, Symptomatic anemia, Acute blood loss anemia Patient Disposition: Admitted As Inpatient Discharge Instructions Interventions: ED Discharge Assessment Last Done: 12/28/19 13:00
[2019-12-28 11:26] LABS: Basophils # (auto) 0.07 K/uL (0-0.2); Basophils % (auto) 1.3 %; Eosinophils # (auto) 0.22 K/uL (0-0.5); Eosinophils % (auto) 4.1 %; Hematocrit (blood only) 23.6 % (42-52); Immature Granulocytes # (auto) 0.03 K/uL (0.00-0.02); Immature Granulocytes % (auto) 0.6 %; Lymphocytes # (auto) 1.37 K/uL (1.2-3.4); Lymphocytes % (auto) 25.8 %; Mean Corpuscular Hemoglobin 25.1 pg (25-34); Mean Corpuscular Hgb Conc 29.7 g/dL (32-36); Mean Corpuscular Volume 84.6 fL (80-100); Monocytes # (auto) 0.86 K/uL (0.11-0.59); Monocytes % (auto) 16.2 %; Neutrophils # (auto) 2.77 K/uL (1.4-6.5); Platelet Count 315 K/uL (130-400); RDW Coefficient of Variation 17.1 % (11.5-14.5); RDW Standard Deviation 52.8 fL (36.4-46.3); Red Blood Count 2.79 M/uL (4.7-6.1); White Blood Count 5.32 K/uL (4.8-10.8)
[2019-12-28 11:41] LABS: INR 1.7 (0.9-1.1); Partial Thromboplastin Ratio 1.1; Partial Thromboplastin Time 31.4 Seconds (21.0-31.0); Prothrombin Time 17.7 Seconds (9.0-12.0)
[2019-12-28 11:49] LABS: Albumin Level 3.6 gm/dl (3.4-5.0); BUN Creatinine Ratio 17.5 (10-20); Calcium 8.7 mg/dl (8.5-10.1); Creatinine Clr Calc Pharmacy 80.2 ml/min; Est GFR (African American) 77.3; Est GFR (Non-African American) 66.7; Potassium 3.2 mmol/L (3.5-5.1)
[2019-12-28 11:52] LABS: Anisocytosis Present; Hypochromasia Present; Microcytosis Present; Polychromasia 1+
[2019-12-28 11:54] LABS: Albumin Globulin Ratio 1.2 (0.9-2); Bilirubin,Total 0.7 mg/dl (0.2-1); Total Protein 6.6 gm/dl (6.4-8.2); Troponin I 0.035 ng/ml (0-0.045)
[2019-12-28] MEDS ORDERED: PANTOPRAZOLE BOLUS/DRIP 1 EA IV STA (11:58)
[2019-12-28] MEDS ORDERED: PANTOprazole 80 MG in DEXTROSE 5% 100 ML IV ONE (12:10)
[2019-12-28] MEDS: POTASSIUM CHLORIDE / WTR 10 MEQ/100 ML PLCT IV SCH ×2 (12:34→14:30)
--- NOTE | 2019-12-28 12:37 | History & Physical Report ---
Date of Service December 28, 2019 Assessment & Plan (1) Symptomatic anemia: Transfuse 1 unit repeat H&H. Aim Hgb > 8 or if having any shortness of breath on ambulation. (2) Acute blood loss anemia: Melena for 3 weeks. Suggests a slow GI bleed. We will discuss continuing Xarelto with gastroenterology, okay to hold 1 dose if needed for endoscopy however ideally should continue this given drug-eluting stent placed less than 3 months ago and suspect GI bleed will improve while continuing this but with the addition of pantoprazole (and already stopping aspirin). Continue clopidogrel 75 mg every morning given recent drug eluting stent. Consult gastroenterology (3) Acute congestive heart failure: Significantly improved symptoms with 40 mg p.o. Lasix given last night by his manager actuarial. Will avoid IV fluids, chest x-ray without pulmonary edema, given n.p.o. will avoid further Lasix today. Once off n.p.o. he should be on a heart healthy, low-sodium, fluid restricted diet. I&Os, daily weights (4) Leg swelling: As above (5) Dyspnea: Secondary to a combination of anemia and congestive heart failure as above. (6) Atrial fibrillation: Continue rate control with metoprolol succinate 50 mg p.o. every morning Xarelto discussion as above (7) Coronary artery disease: Continue clopidogrel, metoprolol succinate, losartan, atorvastatin Xarelto discussion as above (8) Status post insertion of drug-eluting stent into left anterior descending (LAD) artery: (9) Mitral regurgitation: (10) Pulmonary HTN: Recommend repeating outpatient sleep apnea testing given ongoing symptoms suggestive of this (11) Asthma: Continue Symbicort oral hospital equivalent inhaler Albuterol PRN No exacerbation suspected Admission and Anticipated Discharge Date Admission Date: 12/28/2019 History of Present Illness Chief Complaint: Anemia on outpatient labs Primary Care Provider: Villa Duff MD Tarun Zhong is a 74-year-old male with coronary artery disease and recent stent placement on November 07 who presents to the ER on the advice of his cardiology office due to significant anemia on his outpatient labs. Patient had a drug-eluting stent placed to LAD on November 07 after an abnormal myocardial perfusion scan for ongoing shortness of breath on exertion. He was placed on triple therapy with aspirin, clopidogrel, Xarelto for 1 month following this. Nearing the end of this month approximately 3 weeks ago he started having melena. For the last 3 weeks he has been getting progressively short of breath and on follow-up with his cardiology office arranged outpatient labs showing the anemia. He denies any abdominal pain, nausea, vomiting. No shortness of breath at rest. No fevers, chills, cough, loss of taste or smell, COVID-19 exposure. Allergies Allergy/AdvReac Type Severity Reaction Status Date / Time No Known Allergies Allergy Verified 12/28/19 11:46 Home Medications Home Medications Medication Instructions Recorded Confirmed Type amlodipine 10 mg tablet 10 mg PO DAILY 03/31/19 12/28/19 History budesonide-formoterol HFA 160 2 puffs INH BID 03/31/19 12/28/19 History mcg-4.5 mcg/actuation aerosol inhaler multivitamin 1 tab PO DAILY 03/31/19 12/28/19 History vit A 7,160 unit-vit C 113 mg-vit 1 tab PO DAILY 03/31/19 12/28/19 History E 100 xadr-ejkg-ifdoer tablet betamethasone dipropionate 0.05 % 1 appln TOP BID #45 gm 04/29/19 12/28/19 Rx topical cream atorvastatin 40 mg PO DAILY 34 Days #34 tab 11/09/19 12/28/19 Rx clopidogrel 75 mg PO QAM #34 tab 11/09/19 12/28/19 Rx losartan 100 mg PO DAILY #0 tab 11/09/19 12/28/19 Rx metoprolol succinate 50 mg PO QAM #34 tab 11/09/19 12/28/19 Rx nitroglycerin [Nitrostat] 0.4 mg SUBLINGUAL PRN #1 btl 11/09/19 12/28/19 Rx furosemide 40 mg PO DAILY 12/28/19 12/28/19 History potassium chloride 10 meq PO DAILY 12/28/19 12/28/19 History ferrous sulfate 325 mg PO BID #60 tab 12/29/19 Rx Past Med/Surg History Medical History Acute blood loss anemia Acute congestive heart failure Acute GI bleeding Asthma Atrial fibrillation Coronary artery disease Mitral regurgitation Pulmonary HTN Status post insertion of drug-eluting stent into left anterior descending (LAD) artery Done at end of October Surgical History No significant past surgical history Family History Other Hypertension Social History Smoking Status: Former smoker Cigarettes Per Day: Quit 50 years ago; Second Hand Exposure: No; Hx Alcohol Use: No Hx Substance Use: No Preferred Language: [place]in Communication Ability: Effective Embroidery Designer Required: No Beliefs That Will Affect Care: None Current Living Situation: Spouse Feels Safe at Home: Yes Review of Systems Review of Systems: All systems reviewed & are unremarkable except as noted in HPI & below Physical Exam Constitutional: well developed; + not well nourished and no acute distress Eyes: + conjunctival abnormality (Pale) ENMT: external ear and nose normal, oropharynx normal Neck: trachea midline, no thyromegaly Respiratory: normal respiratory effort, lungs clear to auscultation Cardiovascular: Rate/Rhythm: regular rate and + irregularly irregular Vessels: no JVD Extremities: normal capillary refill and + pedal edema (1+ bilateral equal to knees); no calf tenderness Gastrointestinal (Abdomen): normal bowel sounds, soft, nontender, no hepatosplenomegaly Musculoskeletal: no cyanosis or clubbing, extremities motor strength 5/5 Skin: no rashes, warm and dry Neurologic: moves all extremities and awake; not confused Psychiatric: A+Ox3, euthymic affect Genitourinary: no CVA tenderness Lymphatic: no cervical or axillary lymphadenopathy Results & Data Results & Data ([facility]) Vital Signs (Past 12 Hours) Vital Signs Temp Pulse Pulse Resp BP BP Pulse Ox 12/28/19 12:11 63 20 141/75 H 97 12/28/19 11:33 95 12/28/19 10:46 36.8 C 75 16 127/68 99 Diagnostic Findings XR chest 1V portable IMPRESSION: Cardiomegaly without acute process. ECG Indication: other (Irregular heart rate) Rate (beats per minute): 67 Rhythm: atrial fibrillation Findings: + PVC Comparison ECG Date: from (November 08, 2019) Change: no significant change Code Status & VTE Plan Code Status Full VTE Prophylaxis Plan VTE Prophylaxis will be ordered: No PG Care Time/CCT Total # of Minutes Spent Total Time Spent with Patient: Total time spent is greater than 50% in coordination of care (as documented) at patient's floor/unit and/or counseling patient: Coding Level of Care Code 22762 Initial Inpt Care Lvl 3 Diagnoses Symptomatic anemia D64.9 Acute blood loss anemia D62 Acute congestive heart failure I50.9 Leg swelling M79.89 Dyspnea R06.00 Atrial fibrillation I48.21 Atrial fibrillation type: permanent Coronary artery disease I25.10 Status post insertion of drug-eluting stent into left anterior descending (LAD) artery Z95.5 Mitral regurgitation I34.0 Cardiac valve disease etiology: nonrheumatic Pulmonary HTN I27.20 Asthma J45.909 (1) Atrial fibrillation Atrial fibrillation type: permanent Qualified Code(s): I48.21 - Permanent atrial fibrillation (2) Mitral regurgitation Cardiac valve disease etiology: nonrheumatic Qualified Code(s): I34.0 - Nonrheumatic mitral (valve) insufficiency
--- NOTE | 2019-12-28 12:42 | Electrocardiogram Report ---
Test Reason : Blood Pressure : / mmHG Vent. Rate : 067 BPM Atrial Rate : 072 BPM P-R Int : 000 ms QRS Dur : 106 ms QT Int : 430 ms P-R-T Axes : 000 053 -05 degrees QTc Int : 454 ms Atrial fibrillation with premature ventricular or aberrantly conducted complexes Nonspecific ST abnormality Abnormal ECG When compared with ECG of 08-NOV-2019 16:32, No significant change Confirmed by Matt Dorado ([id number]) on 12/28/2019 12:42:01 PM Referred By: James Cole Confirmed By:Matt Dorado
[2019-12-28] MEDS: PANTOprazole 40 MG in DEXTROSE 5% 100 ML IV SCH ×3 (12:52→22:10)
[2019-12-28 12:57] LABS: Magnesium 1.9 mg/dl (1.8-2.4)
--- NOTE | 2019-12-28 13:05 | XRay Report ---
XR chest 1V portable HISTORY: 74 years-old Male Shortness of breath acute shortness of breath COMPARISON: None TECHNIQUE: Portable AP view of the chest FINDINGS: Cardiac silhouette is moderately enlarged. Moderate right hemidiaphragmatic elevation. Calcified plaq ue of the thoracic aortic arch. No pneumothorax, pleural effusion, airspace consolidation or overt pu lmonary edema. Degenerative changes of the shoulders and spine. IMPRESSION: Cardiomegaly without acute process. ACT 112: Negative or not required by law. The above report was generated using voice recognition software. It may contain grammatical, syntax o r spelling errors. Electronically signed by: Teto Kwok M.D. 12/28/2019 1:04 PM
[2019-12-28 13:21] LABS: Folate (Folic Acid) > 24.00 ng/ml (>5.38); Vitamin B12 689 pg/ml (211-911)
--- NOTE | 2019-12-28 15:15 | Gastrointestinal Consultation ---
Date of Consultation December 28, 2019 Assessment & Plan (1) Acute blood loss anemia: 74 year old male s/p JOSR in October on triple therapy (ASA recently stopped, on clopidogrel, xarelto) who presents with symptomatic anemia, HGB 7 w/o BUN elevation w/ report of 1 dark, tarry BM daily x 2/3 weeks concerning for a slow UGI bleed. Has never had EGD, last colon as OSH in 2018 w/ TA due for recall in 2020 NPO after midnight No current plan for endoscopic evaluation, will re-evaluate in the AM Consult cardiology for risk assessment in the event any disruption is needed in dual therapy for endoscopic evaluation IV PPI and bolus for 72 hours Trend HGB Monitor and document all GI output Transfuse PRN No NSAIDs Thank you for allowing us to participate in the care of this patient. Please call with any acute changes, questions or concerns. Please see addendum below with additional recommendation from my supervising physician. Supervising Physician Co-Signing Physician Notes I have seen and examined the patient with NELIDA Hinton whose note reflects our findings and plan. Triple anticoag therapy with ASA, Plavix, and Xarelto with melena. Drop in H/H. Hemodynamically stable. ASA was stopped by cardiology. On PPI IV. EGD planned for . History of Present Illness Reason for Consultation: anemia, melena Requesting Physician: Amira Attending Physician: Kj Collier MD History of Present Illness 74 year old male w/ HTN, fatty liver, AFIB, COPD, status post diagnostic cardiac catheterization on November 08, 2019 demonstrating right-dominant coronary anatomy with mild diffuse RCA disease, mild diffuse left circumflex disease, and significant disease within the LAD including a 40% proximal LAD, 70% distal LAD stenosis beyond the 2nd diagonal branch, 60% 1st diagonal branch stenosis, 100% 2nd diagonal branch stenosis s/p JOSR treated with triple therapy (aspirin, clopidogrel, Xarelto) until December 06, 2019 at which time aspirin was discontinued. Notes a few days after DC ASA he started experiencing change in BM where his stools appeared dark. Dark, tarry. Once daily. No increased frequency. No abd pain. No nausea/vomiting. No GERD. No dysphagia. No prior emesis, coffee ground emesis or hematemesis. No BRBPR. Over the past 1-2 weeks noted dyspnea. Saw cardiology who repeated labs and noted anemia, HGB 6.8. In the ED he was started on IV PPI BID and continued xarelto and plavix. HGB 7. BUN 19. LFts unelevated. EGD: none Colonoscopy 2019: [facility] in 3 mm cecal polyp c/w tubular adenoma, due for recall 2020 Allergies Allergy/AdvReac Type Severity Reaction Status Date / Time No Known Allergies Allergy Verified 12/28/19 11:46 Home Medications Home Medications Medication Instructions Recorded Confirmed Type amlodipine 10 mg tablet 10 mg PO DAILY 03/31/19 12/28/19 History budesonide-formoterol HFA 160 2 puffs INH BID 03/31/19 12/28/19 History mcg-4.5 mcg/actuation aerosol inhaler multivitamin 1 tab PO DAILY 03/31/19 12/28/19 History rivaroxaban 20 mg tablet 20 mg PO QPM 03/31/19 12/28/19 History vit A 7,160 unit-vit C 113 mg-vit 1 tab PO DAILY 03/31/19 12/28/19 History E 100 rfht-ogqu-poqujk tablet betamethasone dipropionate 0.05 % 1 appln TOP BID #45 gm 04/29/19 12/28/19 Rx topical cream atorvastatin 40 mg PO DAILY 34 Days #34 tab 11/09/19 12/28/19 Rx clopidogrel 75 mg PO QAM #34 tab 11/09/19 12/28/19 Rx losartan 100 mg PO DAILY #0 tab 11/09/19 12/28/19 Rx metoprolol succinate 50 mg PO QAM #34 tab 11/09/19 12/28/19 Rx nitroglycerin [Nitrostat] 0.4 mg SUBLINGUAL PRN #1 btl 11/09/19 12/28/19 Rx furosemide 40 mg PO DAILY 12/28/19 12/28/19 History potassium chloride 10 meq PO DAILY 12/28/19 12/28/19 History Patient History Medical History Asthma Atrial fibrillation Coronary artery disease Surgical History No significant past surgical history Family History Other Hypertension Social History Smoking Status: Former smoker Cigarettes Per Day: Quit 50 years ago; Smoking End Date: ; Second Hand Exposure: No; Do You Dip or Chew Tobacco: No; Tobacco Cessation Education Requested by Patient: No Hx Alcohol Use: No Hx Substance Use: No Preferred Language: Yakut Communication Ability: Effective Lead Network Architect Required: No Beliefs That Will Affect Care: None Current Living Situation: Spouse Other Information That Helps Us Care for You: No Feels Safe at Home: Yes Safety Concerns: Feels Safe At This Time Review of Systems Constitutional: + fatigue; no fever and no chills Respiratory: + dyspnea; no cough Cardiovascular: + dyspnea; no chest pain Gastrointestinal: + melena; no abdominal pain, no nausea, no vomiting and no blood in stools Physical Exam Constitutional: well developed and well nourished; no acute distress Respiratory: normal respiratory effort Cardiovascular: Rate/Rhythm: regular rate and regular rhythm Gastrointestinal (Abdomen): Percussion/Palpation: abdomen soft; abdomen nontender, no guarding and abdomen not rigid Skin: no rashes, warm and dry Results & Data ([facility]) Vital Signs (Past 12 Hours) Vital Signs Temp Pulse Pulse Resp BP BP Pulse Ox 12/28/19 15:04 36.5 C 77 16 142/62 H 97 12/28/19 14:59 36.5 C 60 16 120/72 98 12/28/19 13:46 36.6 C 69 16 139/68 98 12/28/19 12:43 77 18 156/76 H 98 12/28/19 12:11 63 20 141/75 H 97 12/28/19 11:33 95 12/28/19 10:46 36.8 C 75 16 127/68 99 Laboratory Results 12/28/19 12/28/19 12/28/19 Range/Units Unknown 12:33 11:33 WBC (4.8-10.8) K/uL RBC (4.7-6.1) M/uL Hgb (14.0-18.0) g/dL Hct (42-52) % MCV (80-100) fL MCH (25-34) pg MCHC (32-36) g/dL RDW Std Deviation (36.4-46.3) fL RDW Coeff of Eyad (11.5-14.5) % Plt Count (130-400) K/uL MPV (7.4-10.4) fL Immature Gran % (Auto) % Neut % (Auto) % Lymph % (Auto) % Charles % (Auto) % Eos % (Auto) % Baso % (Auto) % Neut # (Auto) (1.4-6.5) K/uL Lymph # (Auto) (1.2-3.4) K/uL Charles # (Auto) (0.11-0.59) K/uL Eos # (Auto) (0-0.5) K/uL Baso # (Auto) (0-0.2) K/uL Immature Gran # (Auto) (0.00-0.02) K/uL Polychromasia Hypochromasia Anisocytosis Microcytosis PT (9.0-12.0) Seconds INR (0.9-1.1) APTT (21.0-31.0) Seconds PTT Ratio Sodium (136-145) mmol/L Potassium (3.5-5.1) mmol/L Chloride (98-107) mmol/L Carbon Dioxide (21-32) mmol/L Anion Gap (3-11) BUN (7-18) mg/dl Creatinine (0.6-1.4) mg/dl Est Cr Clr Drug Dosing ml/min Est GFR ( Amer) Est GFR (Non-Af Amer) BUN/Creatinine Ratio (10-20) Glucose (70-99) mg/dl Calcium (8.5-10.1) mg/dl Magnesium (1.8-2.4) mg/dl Iron (35-175) mcg/dl Transferrin (200-360) mg/dl Transferrin % Sat (20-50) % Total Bilirubin (0.2-1) mg/dl AST (15-37) U/L ALT (12-78) U/L Alkaline Phosphatase (45-117) U/L Troponin I (0-0.045) ng/ml Total Protein (6.4-8.2) gm/dl Albumin (3.4-5.0) gm/dl Globulin (2.5-4.0) gm/dl Albumin/Globulin Ratio (0.9-2) Vitamin B12 689 (211-911) pg/ml Folate > 24.00 (>5.38) ng/ml POC Stool Occult Blood Positive A (Negative) Blood Type Blood Type Recheck O Positive Antibody Screen Crossmatch 12/28/19 12/28/19 12/28/19 Range/Units 11:14 11:14 11:14 WBC (4.8-10.8) K/uL RBC (4.7-6.1) M/uL Hgb (14.0-18.0) g/dL Hct (42-52) % MCV (80-100) fL MCH (25-34) pg MCHC (32-36) g/dL RDW Std Deviation (36.4-46.3) fL RDW Coeff of Eyad (11.5-14.5) % Plt Count (130-400) K/uL MPV (7.4-10.4) fL Immature Gran % (Auto) % Neut % (Auto) % Lymph % (Auto) % Charles % (Auto) % Eos % (Auto) % Baso % (Auto) % Neut # (Auto) (1.4-6.5) K/uL Lymph # (Auto) (1.2-3.4) K/uL Charles # (Auto) (0.11-0.59) K/uL Eos # (Auto) (0-0.5) K/uL Baso # (Auto) (0-0.2) K/uL Immature Gran # (Auto) (0.00-0.02) K/uL Polychromasia Hypochromasia Anisocytosis Microcytosis PT 17.7 H (9.0-12.0) Seconds INR 1.7 H (0.9-1.1) APTT 31.4 H (21.0-31.0) Seconds PTT Ratio 1.1 Sodium 137 (136-145) mmol/L Potassium 3.2 L (3.5-5.1) mmol/L Chloride 102 (98-107) mmol/L Carbon Dioxide 29 (21-32) mmol/L Anion Gap 6.0 (3-11) BUN 19 H (7-18) mg/dl Creatinine 1.10 (0.6-1.4) mg/dl Est Cr Clr Drug Dosing 80.2 ml/min Est GFR ( Amer) 77.3 Est GFR (Non-Af Amer) 66.7 BUN/Creatinine Ratio 17.5 (10-20) Glucose 86 (70-99) mg/dl Calcium 8.7 (8.5-10.1) mg/dl Magnesium 1.9 (1.8-2.4) mg/dl Iron 15 L (35-175) mcg/dl Transferrin 332 (200-360) mg/dl Transferrin % Sat 3 L (20-50) % Total Bilirubin 0.7 (0.2-1) mg/dl AST 20 (15-37) U/L ALT 38 (12-78) U/L Alkaline Phosphatase 73 (45-117) U/L Troponin I 0.035 (0-0.045) ng/ml Total Protein 6.6 (6.4-8.2) gm/dl Albumin 3.6 (3.4-5.0) gm/dl Globulin 3.0 (2.5-4.0) gm/dl Albumin/Globulin Ratio 1.2 (0.9-2) Vitamin B12 (211-911) pg/ml Folate (>5.38) ng/ml POC Stool Occult Blood (Negative) Blood Type Blood Type Recheck Antibody Screen Crossmatch 12/28/19 12/28/19 Range/Units 11:14 11:14 WBC 5.32 (4.8-10.8) K/uL RBC 2.79 L (4.7-6.1) M/uL Hgb 7.0 L (14.0-18.0) g/dL Hct 23.6 L (42-52) % MCV 84.6 (80-100) fL MCH 25.1 (25-34) pg MCHC 29.7 L (32-36) g/dL RDW Std Deviation 52.8 H (36.4-46.3) fL RDW Coeff of Eyad 17.1 H (11.5-14.5) % Plt Count 315 (130-400) K/uL MPV 9.0 (7.4-10.4) fL Immature Gran % (Auto) 0.6 % Neut % (Auto) 52.0 % Lymph % (Auto) 25.8 % Charles % (Auto) 16.2 % Eos % (Auto) 4.1 % Baso % (Auto) 1.3 % Neut # (Auto) 2.77 (1.4-6.5) K/uL Lymph # (Auto) 1.37 (1.2-3.4) K/uL Charles # (Auto) 0.86 H (0.11-0.59) K/uL Eos # (Auto) 0.22 (0-0.5) K/uL Baso # (Auto) 0.07 (0-0.2) K/uL Immature Gran # (Auto) 0.03 H (0.00-0.02) K/uL Polychromasia 1+ Hypochromasia Present Anisocytosis Present Microcytosis Present PT (9.0-12.0) Seconds INR (0.9-1.1) APTT (21.0-31.0) Seconds PTT Ratio Sodium (136-145) mmol/L Potassium (3.5-5.1) mmol/L Chloride (98-107) mmol/L Carbon Dioxide (21-32) mmol/L Anion Gap (3-11) BUN (7-18) mg/dl Creatinine (0.6-1.4) mg/dl Est Cr Clr Drug Dosing ml/min Est GFR ( Amer) Est GFR (Non-Af Amer) BUN/Creatinine Ratio (10-20) Glucose (70-99) mg/dl Calcium (8.5-10.1) mg/dl Magnesium (1.8-2.4) mg/dl Iron (35-175) mcg/dl Transferrin (200-360) mg/dl Transferrin % Sat (20-50) % Total Bilirubin (0.2-1) mg/dl AST (15-37) U/L ALT (12-78) U/L Alkaline Phosphatase (45-117) U/L Troponin I (0-0.045) ng/ml Total Protein (6.4-8.2) gm/dl Albumin (3.4-5.0) gm/dl Globulin (2.5-4.0) gm/dl Albumin/Globulin Ratio (0.9-2) Vitamin B12 (211-911) pg/ml Folate (>5.38) ng/ml POC Stool Occult Blood (Negative) Blood Type O Positive Blood Type Recheck Antibody Screen NEGATIVE Crossmatch See Detail
--- NOTE | 2019-12-28 16:03 | Cardiology Consultation ---
Date of Consultation December 28, 2019 Assessment & Plan (1) Symptomatic anemia: Patient with melena times several weeks with associated fatigue dyspnea and lower extremity edema Now receiving transfusion Culprit may have been medical therapies with aspirin clopidogrel and chronic Xarelto usage Gastroenterology involved. Patient does carry history of chronic atrial fibrillation on chronic anticoagulation with Xarelto. Endoscopy may be helpful in management for long- term medication usage given recent coronary stent Ultimate goal be to continue anticoagulation and antiplatelet therapy for at least 6 months Anticipate if anticoagulation able to be resumed using Eliquis over Xarelto as it has indications for usage as single agent in chronic coronary artery disease. Anticoagulant on hold for now We will follow as clinical course progresses (2) Acute blood loss anemia: Receiving transfusion will need to follow volume status currently euvolemic (3) Coronary artery disease: (4) Status post insertion of drug-eluting stent into left anterior descending (LAD) artery: (5) Leg swelling: (6) Mitral regurgitation: (7) Pulmonary HTN: (8) Atrial fibrillation: History of Present Illness Reason for Consultation: Anemia, GI bleed Attending Physician: Kj Collier MD History of Present Illness Patient is a 74-year-old male with complex underlying history which includes 1. Coronary artery disease status post drug-eluting stent implantation to left anterior descending artery 11/08/2019 for exertional dyspnea and abnormal stress test 2. Chronic rate controlled atrial fibrillation on anticoagulation with Xarelto 3. Moderate mitral regurgitation 4. At least moderate pulmonary hypertension -multifactorial: SABINE, COPD 5. Dyslipidemia goal LDL less than 70mg/dL 6. HTN - controlled Patient referred after admission today for symptomatic anemia. Previously on "triple therapy" Xarelto, clopidogrel, aspirin following coronary invention as above. Aspirin discontinued on 12/06/2019 Patient seen yesterday for symptoms of increasing exertional fatigue shortness of breath and mild fluid retention edema. Lab work drawn and patient begun on increased diuretic with oral furosemide. Patient felt improved after initial dosing. Laboratory studies returned significant reduction in hemoglobin at 6.8. Patient had been aware of intermittent dark stools for the past 3 weeks. Noted no overt bleeding episode or hematochezia. Noted no syncope or near syncope. Patient currently comfortable receiving IV transfusion no shortness of breath, chest pain Allergies Allergy/AdvReac Type Severity Reaction Status Date / Time No Known Allergies Allergy Verified 12/28/19 11:46 Home Medications Home Medications Medication Instructions Recorded Confirmed Type amlodipine 10 mg tablet 10 mg PO DAILY 03/31/19 12/28/19 History budesonide-formoterol HFA 160 2 puffs INH BID 03/31/19 12/28/19 History mcg-4.5 mcg/actuation aerosol inhaler multivitamin 1 tab PO DAILY 03/31/19 12/28/19 History rivaroxaban 20 mg tablet 20 mg PO QPM 03/31/19 12/28/19 History vit A 7,160 unit-vit C 113 mg-vit 1 tab PO DAILY 03/31/19 12/28/19 History E 100 dubw-nykl-odizrt tablet betamethasone dipropionate 0.05 % 1 appln TOP BID #45 gm 04/29/19 12/28/19 Rx topical cream atorvastatin 40 mg PO DAILY 34 Days #34 tab 11/09/19 12/28/19 Rx clopidogrel 75 mg PO QAM #34 tab 11/09/19 12/28/19 Rx losartan 100 mg PO DAILY #0 tab 11/09/19 12/28/19 Rx metoprolol succinate 50 mg PO QAM #34 tab 11/09/19 12/28/19 Rx nitroglycerin [Nitrostat] 0.4 mg SUBLINGUAL PRN #1 btl 11/09/19 12/28/19 Rx furosemide 40 mg PO DAILY 12/28/19 12/28/19 History potassium chloride 10 meq PO DAILY 12/28/19 12/28/19 History Patient History Medical History Asthma Atrial fibrillation Coronary artery disease Surgical History No significant past surgical history Family History Other Hypertension Social History Smoking Status: Former smoker Cigarettes Per Day: Quit 50 years ago; Smoking End Date: ; Second Hand Exposure: No; Do You Dip or Chew Tobacco: No; Tobacco Cessation Education Requested by Patient: No Hx Alcohol Use: No Hx Substance Use: No Preferred Language: Greek Communication Ability: Effective Bag Hanger Required: No Beliefs That Will Affect Care: None Current Living Situation: Spouse Other Information That Helps Us Care for You: No Feels Safe at Home: Yes Safety Concerns: Feels Safe At This Time Physical Exam Constitutional: WD/WN, vitals as above Eyes: PERRL, conjunctivae normal, anicteric sclerae ENMT: external ear and nose normal, oropharynx normal Neck: trachea midline, no thyromegaly Respiratory: normal respiratory effort, lungs clear to auscultation Cardiovascular: Rate/Rhythm: + irregularly irregular Heart Sounds: normal S1 and normal S2; no gallop and no murmur Palpation: normal PMI Vessels: normal carotid upstroke and radial pulses present; no JVD and no carotid bruit Extremities: + edema (Trace to 1+) Gastrointestinal (Abdomen): normal bowel sounds, soft, nontender, no hepatosplenomegaly Musculoskeletal: no cyanosis or clubbing, extremities motor strength 5/5 Skin: no rashes, warm and dry Neurologic: PERRL, EOMI, accommodation nl, no face palsy, no dysarthria Psychiatric: A+Ox3, euthymic affect Results & Data ([facility]) Vital Signs (Past 12 Hours) Vital Signs Temp Pulse Pulse Resp BP BP Pulse Ox 12/28/19 15:35 36.5 C 67 18 131/69 97 12/28/19 15:20 36.4 C L 69 16 142/62 H 97 12/28/19 15:04 36.5 C 77 16 142/62 H 97 12/28/19 14:59 36.5 C 60 16 120/72 98 12/28/19 13:46 36.6 C 69 16 139/68 98 12/28/19 12:43 77 18 156/76 H 98 12/28/19 12:11 63 20 141/75 H 97 12/28/19 11:33 95 12/28/19 10:46 36.8 C 75 16 127/68 99 Laboratory Results Laboratory Results - last 24 hr 12/28/19 12/28/19 12/28/19 11:14 11:14 11:14 WBC 5.32 RBC 2.79 L Hgb 7.0 L Hct 23.6 L MCV 84.6 MCH 25.1 MCHC 29.7 L RDW Std Deviation 52.8 H RDW Coeff of Eyad 17.1 H Plt Count 315 MPV 9.0 Immature Gran % (Auto) 0.6 Neut % (Auto) 52.0 Lymph % (Auto) 25.8 Garfield % (Auto) 16.2 Eos % (Auto) 4.1 Baso % (Auto) 1.3 Neut # (Auto) 2.77 Lymph # (Auto) 1.37 Garfield # (Auto) 0.86 H Eos # (Auto) 0.22 Baso # (Auto) 0.07 Immature Gran # (Auto) 0.03 H Polychromasia 1+ Hypochromasia Present Anisocytosis Present Microcytosis Present PT 17.7 H INR 1.7 H APTT 31.4 H PTT Ratio 1.1 Sodium Potassium Chloride Carbon Dioxide Anion Gap BUN Creatinine Est Cr Clr Drug Dosing Est GFR ( Amer) Est GFR (Non-Af Amer) BUN/Creatinine Ratio Glucose Calcium Magnesium Iron Transferrin Transferrin % Sat Total Bilirubin AST ALT Alkaline Phosphatase Troponin I Total Protein Albumin Globulin Albumin/Globulin Ratio Vitamin B12 Folate POC Stool Occult Blood Blood Type O Positive Blood Type Recheck Antibody Screen NEGATIVE Crossmatch See Detail 12/28/19 12/28/19 12/28/19 11:14 11:14 11:33 WBC RBC Hgb Hct MCV MCH MCHC RDW Std Deviation RDW Coeff of Eyad Plt Count MPV Immature Gran % (Auto) Neut % (Auto) Lymph % (Auto) Garfield % (Auto) Eos % (Auto) Baso % (Auto) Neut # (Auto) Lymph # (Auto) Garfield # (Auto) Eos # (Auto) Baso # (Auto) Immature Gran # (Auto) Polychromasia Hypochromasia Anisocytosis Microcytosis PT INR APTT PTT Ratio Sodium 137 Potassium 3.2 L Chloride 102 Carbon Dioxide 29 Anion Gap 6.0 BUN 19 H Creatinine 1.10 Est Cr Clr Drug Dosing 80.2 Est GFR ( Amer) 77.3 Est GFR (Non-Af Amer) 66.7 BUN/Creatinine Ratio 17.5 Glucose 86 Calcium 8.7 Magnesium 1.9 Iron 15 L Transferrin 332 Transferrin % Sat 3 L Total Bilirubin 0.7 AST 20 ALT 38 Alkaline Phosphatase 73 Troponin I 0.035 Total Protein 6.6 Albumin 3.6 Globulin 3.0 Albumin/Globulin Ratio 1.2 Vitamin B12 Folate POC Stool Occult Blood Blood Type Blood Type Recheck O Positive Antibody Screen Crossmatch 12/28/19 12/28/19 12:33 Unknown WBC RBC Hgb Hct MCV MCH MCHC RDW Std Deviation RDW Coeff of Eyad Plt Count MPV Immature Gran % (Auto) Neut % (Auto) Lymph % (Auto) Garfield % (Auto) Eos % (Auto) Baso % (Auto) Neut # (Auto) Lymph # (Auto) Garfield # (Auto) Eos # (Auto) Baso # (Auto) Immature Gran # (Auto) Polychromasia Hypochromasia Anisocytosis Microcytosis PT INR APTT PTT Ratio Sodium Potassium Chloride Carbon Dioxide Anion Gap BUN Creatinine Est Cr Clr Drug Dosing Est GFR ( Amer) Est GFR (Non-Af Amer) BUN/Creatinine Ratio Glucose Calcium Magnesium Iron Transferrin Transferrin % Sat Total Bilirubin AST ALT Alkaline Phosphatase Troponin I Total Protein Albumin Globulin Albumin/Globulin Ratio Vitamin B12 689 Folate > 24.00 POC Stool Occult Blood Positive A Blood Type Blood Type Recheck Antibody Screen Crossmatch ECG Additional Comments: 28-DEC-2019 12:03:56 [facility]-EDSTAT ROUTINE RETRIEVAL Atrial fibrillation with premature ventricular or aberrantly conducted complexes Nonspecific ST abnormality Abnormal ECG When compared with ECG of 08-NOV-2019 16:32, No significant change (1) Mitral regurgitation Cardiac valve disease etiology: nonrheumatic Qualified Code(s): I34.0 - Nonrheumatic mitral (valve) insufficiency (2) Atrial fibrillation Atrial fibrillation type: permanent Qualified Code(s): I48.21 - Permanent atrial fibrillation
[2019-12-28 19:56] LABS: BUN Creatinine Ratio 18.8 (10-20); Calcium 8.5 mg/dl (8.5-10.1); Creatinine Clr Calc Pharmacy 91.9 ml/min; Est GFR (African American) 91.2; Est GFR (Non-African American) 78.7; Potassium 3.7 mmol/L (3.5-5.1)
[2019-12-28 20:02] LABS: Hematocrit (blood only) 26.2 % (42-52); Hemoglobin 7.9 g/dL (14.0-18.0)
[2019-12-28] MEDS ORDERED: APIXABAN 5 MG TABLET PO SCH (21:00)
[2019-12-28] MEDS: CLOTRIMAZOLE/BETAMETHASONE CR 15 GM TUBE EXT SCH (21:50)
[2019-12-29] MEDS: PANTOprazole 40 MG in DEXTROSE 5% 100 ML IV SCH ×3 (03:13→14:13)
[2019-12-29 05:59] LABS: Hematocrit (blood only) 26.4 % (42-52); Mean Corpuscular Hemoglobin 25.6 pg (25-34); Mean Corpuscular Hgb Conc 30.3 g/dL (32-36); Mean Corpuscular Volume 84.3 fL (80-100); Platelet Count 260 K/uL (130-400); RDW Coefficient of Variation 16.7 % (11.5-14.5); RDW Standard Deviation 51.4 fL (36.4-46.3); Red Blood Count 3.13 M/uL (4.7-6.1); White Blood Count 5.49 K/uL (4.8-10.8)
[2019-12-29 06:40] LABS: BUN Creatinine Ratio 16.6 (10-20); Calcium 8.7 mg/dl (8.5-10.1); Creatinine Clr Calc Pharmacy 90.9 ml/min; Est GFR (Non-African American) 77.7; Potassium 3.9 mmol/L (3.5-5.1)
[2019-12-29] MEDS: CLOTRIMAZOLE/BETAMETHASONE CR 15 GM TUBE EXT SCH (08:42)
--- NOTE | 2019-12-29 08:48 | Gastroenterology Progress Note ---
Date of Service December 29, 2019 Assessment & Plan (1) Acute blood loss anemia: 74 year old male s/p JOSR in October on triple therapy (ASA recently stopped, on clopidogrel, xarelto) who presents with symptomatic anemia, HGB 7 w/o BUN elevation w/ report of 1 dark, tarry BM daily x 2/3 weeks concerning for a slow UGI bleed. Has never had EGD, last colon as OSH in 2018 w/ TA due for recall in 2020. Was evaluated by cardiology, they note endoscopy would be helpful in determining the safely of continuous dual therapy NPO Tentative plan for EGD today pending anesthesia clearance Continue IV PPI drip No current plan for endoscopic evaluation, will re-evaluate in the AM Trend HGB Monitor and document all GI output Transfuse PRN No NSAIDs Thank you for allowing us to participate in the care of this patient. Please call with any acute changes, questions or concerns. Please see addendum below with additional recommendation from my supervising physician. Admission and Anticipated Discharge Date Admission Date: December 28, 2019 Supervising Physician Co-Signing Physician Notes I have seen and examined the patient with NELIDA Hinton whose note reflects our findings and plan. Heart cath and stent in late October. Triple anticoag therapy with ASA, Plavix, and Xarelto with melena. Drop in H/H. BUN not signif elevated. Received unit of blood. Hemodynamically stable. ASA was stopped by cardiology. On PPI IV. EGD planned for today. Subjective Pt was seen and evaluated, chart reviewed. S/P 2 units RBC HGB this AM 8 No BUN elevation No further melena reported Was evaluated by cardiology "Endoscopy may be helpful in management for long- term medication usage given recent coronary stent Ultimate goal be to continue anticoagulation and antiplatelet therapy for at least 6 months" Review of Systems Constitutional: no fever, no chills and no fatigue Respiratory: no cough and no dyspnea Cardiovascular: no chest pain and no dyspnea Gastrointestinal: no abdominal pain and no melena (last was two days ago) Physical Exam Constitutional: well developed and well nourished; no acute distress Neck: trachea midline Respiratory: normal respiratory effort Cardiovascular: Rate/Rhythm: regular rate Gastrointestinal (Abdomen): normal bowel sounds, soft, nontender, no hepatosplenomegaly Results & Data ([facility]) Vital Signs (Past 12 Hours) Vital Signs Temp Pulse Pulse Resp BP BP Pulse Ox 12/29/19 07:56 36.7 C 58 L 16 132/68 98 12/29/19 03:50 36.6 C 65 18 122/67 93 12/29/19 00:07 36.7 C 80 22 136/75 96 12/29/19 00:05 36.7 C 80 20 140/73 96 12/28/19 23:10 36.6 C 66 16 119/66 95 12/28/19 23:08 36.6 C 66 16 119/66 95 12/28/19 22:40 36.6 C 63 19 138/75 95 12/28/19 22:25 36.6 C 69 20 115/92 95 12/28/19 22:03 36.6 C 74 18 135/82 97
[2019-12-29] MEDS ORDERED: ATORVASTATIN 40 MG TAB PO SCH (09:00)
[2019-12-29] MEDS ORDERED: FUROSEMIDE 40 MG TAB PO SCH (09:00)
[2019-12-29] MEDS ORDERED: CEROVITE ADV FORMULA TAB PO SCH (09:00)
[2019-12-29] MEDS ORDERED: AMLODIPINE BESYLATE 5 MG TAB PO SCH (09:00)
[2019-12-29] MEDS ORDERED: POTASSIUM CHLORIDE 10 MEQ TABCR PO SCH (09:00)
[2019-12-29] MEDS ORDERED: CLOPIDOGREL BISULFATE 75 MG TAB PO SCH (09:00)
[2019-12-29] MEDS ORDERED: METOPROLOL SUCC 50MG EXT REL TAB PO SCH (09:00)
[2019-12-29] MEDS ORDERED: FLUTICASONE/VILANTEROL 200/25MCG 14 PUFFS/INHALER INH SCH (09:00)
[2019-12-29] MEDS ORDERED: MULTIVITAMIN TAB PO SCH ×2 (09:00)
[2019-12-29] MEDS ORDERED: LOSARTAN POTASSIUM 50 MG TAB PO SCH (09:00)
--- NOTE | 2019-12-29 09:26 | Anesthesiology Consultation ---
Date of Service December 29, 2019 Assessment & Plan (1) Encounter for pre-operative examination: Chart Review Chart Review: Acceptable Risk for Surgery and Patient NOT seen in Pre Admission Testing Consults Requested none ASA ASA4 Proposed Anesthesia Anesthesia Type: MAC Risk / Benefits Reviewed With: PT / POA / Parent / Guardian, Accepts Plan and Informed Consent Obtained History Surgery Operation Date: 12/29/19 09:00 Proposed Procedures p Esophagogastroduodenoscopy Dr Tripp - Katalina Tripp Height/Weight Height: 5 ft 10 in Weight: 123.8 kg Allergies Allergy/AdvReac Type Severity Reaction Status Date / Time No Known Allergies Allergy Verified 12/28/19 11:46 Medications Home Medications Medication Instructions Recorded Confirmed Last Taken amlodipine 10 mg tablet 10 mg PO DAILY 03/31/19 12/28/19 12/28/19 budesonide-formoterol HFA 160 2 puffs INH BID 03/31/19 12/28/19 12/28/19 mcg-4.5 mcg/actuation aerosol inhaler multivitamin 1 tab PO DAILY 03/31/19 12/28/19 12/28/19 rivaroxaban 20 mg tablet 20 mg PO QPM 03/31/19 12/28/19 12/27/19 vit A 7,160 unit-vit C 113 mg-vit 1 tab PO DAILY 03/31/19 12/28/19 12/28/19 E 100 [id number] tablet betamethasone dipropionate 0.05 % 1 appln TOP BID #45 gm 04/29/19 12/28/19 Unknown topical cream atorvastatin 40 mg PO DAILY 34 Days #34 tab 11/09/19 12/28/19 12/28/19 clopidogrel 75 mg PO QAM #34 tab 11/09/19 12/28/19 12/28/19 losartan 100 mg PO DAILY #0 tab 11/09/19 12/28/19 12/28/19 metoprolol succinate 50 mg PO QAM #34 tab 11/09/19 12/28/19 12/28/19 nitroglycerin [Nitrostat] 0.4 mg SUBLINGUAL PRN #1 btl 11/09/19 12/28/19 Unknown furosemide 40 mg PO DAILY 12/28/19 12/28/19 12/28/19 potassium chloride 10 meq PO DAILY 12/28/19 12/28/19 12/28/19 Active Medications Generic Name Dose Route Start Last Admin Trade Name Javid PRN Reason Stop Dose Admin Amlodipine Besylate 10 mg 12/29/19 09:00 12/29/19 08:45 Amlodipine Besylate 5 Mg Tab PO 01/28/20 08:59 10 mg DAILY PENELOPE Administration Apixaban 5 mg 12/28/19 21:00 12/28/19 21:49 Apixaban 5 Mg Tablet PO 01/27/20 20:59 5 mg BID PENELOPE Administration Atorvastatin Calcium 40 mg 12/29/19 09:00 12/29/19 08:42 Atorvastatin 40 Mg Tab PO 01/28/20 08:59 40 mg DAILY PENELOPE Administration Betamethasone/Clotrimazole 1 appln 12/28/19 21:00 12/29/19 08:42 Clotrimazole/Betamethasone Cr 15 Gm Tube EXT 01/04/20 20:59 1 appln BID PENELOPE Administration Clopidogrel Bisulfate 75 mg 12/29/19 09:00 12/29/19 08:45 Clopidogrel Bisulfate 75 Mg Tab PO 01/28/20 08:59 75 mg QAM PENELOPE Administration Fluticasone/Vilanterol 1 puffs 12/29/19 09:00 12/29/19 08:41 Fluticasone/Vilanterol 200/25mcg 14 Puffs/Inhaler INH 01/28/20 08:59 1 puffs DAILY PENELOPE Administration Furosemide 40 mg 12/29/19 09:00 12/29/19 08:44 Furosemide 40 Mg Tab PO 01/28/20 08:59 40 mg DAILY PENELOPE Administration Pantoprazole Sodium 40 mg/ 100 mls @ 20 mls/hr 12/28/19 12:30 12/29/19 08:40 Dextrose IV 01/27/20 12:29 8 mg/hr Q5H PENELOPE 20 mls/hr Administration 8 MG/HR Losartan Potassium 100 mg 12/29/19 09:00 12/29/19 08:44 Losartan Potassium 50 Mg Tab PO 01/28/20 08:59 100 mg DAILY PENELOPE Administration Metoprolol Succinate 50 mg 12/29/19 09:00 12/29/19 08:43 Metoprolol Succ 50mg Ext Rel Tab PO 01/28/20 08:59 50 mg QAM PENELOPE Administration Multivitamins/Minerals 1 tab 12/29/19 09:00 12/29/19 08:43 Cerovite Adv Formula Tab PO 01/28/20 08:59 1 tab DAILY PENELOPE Administration Potassium Chloride 10 meq 12/29/19 09:00 12/29/19 08:45 Potassium Chloride 10 Meq Tabcr PO 01/28/20 08:59 10 meq DAILY PENELOPE Administration NPO Date Last Intake of Fluids: 12/28/19 Time Last Intake of Fluids: 06:00 Date Last Intake of Solids: 12/27/19 Time Last Intake of Solids: 06:00 Past Medical History Medical History Acute blood loss anemia Acute congestive heart failure Acute GI bleeding Asthma Atrial fibrillation Coronary artery disease Mitral regurgitation Pulmonary HTN Status post insertion of drug-eluting stent into left anterior descending (LAD) artery Done at end october Exercise / Class Metabolic Activity III < 4 Walking/Shop/Light housework Negative for chest pain or shortness of breath. Past Family History Family History Other Hypertension Past Surgical History Surgical History No significant past surgical history Past Anesthesia History No Hx of Anesthesia Complications History of PONV No Hx of PONV Social History Smoking Status: Former smoker tobacco type: cigarettes Smoking cigarettes per day: Quit 50 years ago Do You Dip or Chew Tobacco: No Smoking End Date: Hx Alcohol Use: No Alcohol type: beer alcohol intake frequency: a few times a week Hx Substance Use: No substance use type: does not use Review of Systems Patient denies active symptoms of GERD. Physical Exam Vital Signs Last Vital Signs Temp 36.6 C 12/29/19 11:13 Pulse 81 12/29/19 11:13 Resp 20 12/29/19 11:13 BP 155/89 H 12/29/19 11:13 Pulse Ox 98 12/29/19 11:13 Constitutional + obese ENMT Mouth: no TMJ abnormality and oral opening not small Thyromental Distance: > or= 3.5 Finger Breadths Mallampati Class: II Mouth / Teeth: 1. Many missing teeth Neck normal visual inspection; neck extension not limited Respiratory normal respiratory effort Auscultation: lungs clear to auscultation bilaterally Cardiovascular Rate/Rhythm: regular rate; + abnormal rhythm Heart Sounds: no murmur Neurologic moves all extremities Psychiatric Orientation: alert and oriented x 3 Testing Laboratory Results 12/29/19 05:47 12/29/19 05:47 PT 17.7 Seconds (9.0-12.0) H 12/28/19 11:14 INR 1.7 (0.9-1.1) H 12/28/19 11:14 APTT 31.4 Seconds (21.0-31.0) H 12/28/19 11:14 Blood Type O Positive 12/28/19 11:14 Antibody Screen NEGATIVE 12/28/19 11:14 Electrocardiogram Date: 12/28/19 Findings: + AFIB @ (97) Atrial fibrillation with premature ventricular or aberrantly conducted complexes Nonspecific ST abnormality Abnormal ECG When compared with ECG of 08-NOV-2019 16:32, No significant change Chest X-Ray Date: 12/28/19 Cardiomegaly without acute process.
--- NOTE | 2019-12-29 10:44 | Cardiology Progress Note ---
Date of Service December 29, 2019 Assessment & Plan (1) Symptomatic anemia: Patient with melena times several weeks with associated fatigue dyspnea and lower extremity edema Now receiving transfusion Culprit may have been medical therapies with aspirin clopidogrel and chronic Xarelto usage Gastroenterology involved. Patient does carry history of chronic atrial fibrillation on chronic anticoagulation with Xarelto. Endoscopy may be helpful in management for long- term medication usage given recent coronary stent Ultimate goal be to continue anticoagulation and antiplatelet therapy for at least 6 months Anticipate if anticoagulation able to be resumed using Eliquis over Xarelto as it has indications for usage as single agent in chronic coronary artery disease. Anticoagulant on hold for now As above with anticipated endoscopy today (2) Acute blood loss anemia: Receiving transfusion will need to follow volume status currently euvolemic (3) Coronary artery disease: (4) Status post insertion of drug-eluting stent into left anterior descending (LAD) artery: Single-vessel significant disease with successful stent (5) Leg swelling: (6) Mitral regurgitation: (7) Pulmonary HTN: (8) Atrial fibrillation: Admission and Anticipated Discharge Date Admission Date: December 28, 2019 Subjective Patient seen and examined, chart, medications, telemetry reviewed. No cardiac complaints with only difficulties being poor sleep overnight. No overt bleeding no worsening shortness of breath. Hemoglobin up to 8 point Physical Exam Constitutional: WD/WN, vitals as above Eyes: PERRL, conjunctivae normal, anicteric sclerae ENMT: external ear and nose normal, oropharynx normal Neck: trachea midline, no thyromegaly Respiratory: normal respiratory effort, lungs clear to auscultation Cardiovascular: Rate/Rhythm: + irregularly irregular Heart Sounds: normal S1 and normal S2; no gallop and no murmur Palpation: normal PMI Vessels: normal carotid upstroke and radial pulses present; no JVD and no carotid bruit Extremities: + edema (Trace to 1+) Gastrointestinal (Abdomen): normal bowel sounds, soft, nontender, no hepatosplenomegaly Musculoskeletal: no cyanosis or clubbing, extremities motor strength 5/5 Skin: no rashes, warm and dry Neurologic: PERRL, EOMI, accommodation nl, no face palsy, no dysarthria Psychiatric: A+Ox3, euthymic affect Results & Data ([facility]) Vital Signs (Past 12 Hours) Vital Signs Temp Pulse Pulse Resp BP BP Pulse Ox 12/29/19 07:56 36.7 C 58 L 16 132/68 98 12/29/19 03:50 36.6 C 65 18 122/67 93 12/29/19 00:07 36.7 C 80 22 136/75 96 12/29/19 00:05 36.7 C 80 20 140/73 96 12/28/19 23:10 36.6 C 66 16 119/66 95 12/28/19 23:08 36.6 C 66 16 119/66 95 Laboratory Results Laboratory Results - last 24 hr 12/28/19 12/28/19 12/28/19 11:14 11:14 11:14 WBC 5.32 RBC 2.79 L Hgb 7.0 L Hct 23.6 L MCV 84.6 MCH 25.1 MCHC 29.7 L RDW Std Deviation 52.8 H RDW Coeff of Eyad 17.1 H Plt Count 315 MPV 9.0 Immature Gran % (Auto) 0.6 Neut % (Auto) 52.0 Lymph % (Auto) 25.8 [place] % (Auto) 16.2 Eos % (Auto) 4.1 Baso % (Auto) 1.3 Neut # (Auto) 2.77 Lymph # (Auto) 1.37 [place] # (Auto) 0.86 H Eos # (Auto) 0.22 Baso # (Auto) 0.07 Immature Gran # (Auto) 0.03 H Polychromasia 1+ Hypochromasia Present Anisocytosis Present Microcytosis Present PT 17.7 H INR 1.7 H APTT 31.4 H PTT Ratio 1.1 Sodium Potassium Chloride Carbon Dioxide Anion Gap BUN Creatinine Est Cr Clr Drug Dosing Est GFR ( Amer) Est GFR (Non-Af Amer) BUN/Creatinine Ratio Glucose Calcium Magnesium Iron Transferrin Transferrin % Sat Ferritin Total Bilirubin AST ALT Alkaline Phosphatase Troponin I Total Protein Albumin Globulin Albumin/Globulin Ratio Vitamin B12 Folate POC Stool Occult Blood Blood Type O Positive Blood Type Recheck Antibody Screen NEGATIVE Crossmatch See Detail 12/28/19 12/28/19 12/28/19 11:14 11:14 11:33 WBC RBC Hgb Hct MCV MCH MCHC RDW Std Deviation RDW Coeff of Eyad Plt Count MPV Immature Gran % (Auto) Neut % (Auto) Lymph % (Auto) [place] % (Auto) Eos % (Auto) Baso % (Auto) Neut # (Auto) Lymph # (Auto) [place] # (Auto) Eos # (Auto) Baso # (Auto) Immature Gran # (Auto) Polychromasia Hypochromasia Anisocytosis Microcytosis PT INR APTT PTT Ratio Sodium 137 Potassium 3.2 L Chloride 102 Carbon Dioxide 29 Anion Gap 6.0 BUN 19 H Creatinine 1.10 Est Cr Clr Drug Dosing 80.2 Est GFR ( Amer) 77.3 Est GFR (Non-Af Amer) 66.7 BUN/Creatinine Ratio 17.5 Glucose 86 Calcium 8.7 Magnesium 1.9 Iron 15 L Transferrin 332 Transferrin % Sat 3 L Ferritin Total Bilirubin 0.7 AST 20 ALT 38 Alkaline Phosphatase 73 Troponin I 0.035 Total Protein 6.6 Albumin 3.6 Globulin 3.0 Albumin/Globulin Ratio 1.2 Vitamin B12 Folate POC Stool Occult Blood Blood Type Blood Type Recheck O Positive Antibody Screen Crossmatch 12/28/19 12/28/19 12/28/19 12:33 19:00 19:49 WBC RBC Hgb 7.9 L Hct 26.2 L MCV MCH MCHC RDW Std Deviation RDW Coeff of Eyad Plt Count MPV Immature Gran % (Auto) Neut % (Auto) Lymph % (Auto) [place] % (Auto) Eos % (Auto) Baso % (Auto) Neut # (Auto) Lymph # (Auto) [place] # (Auto) Eos # (Auto) Baso # (Auto) Immature Gran # (Auto) Polychromasia Hypochromasia Anisocytosis Microcytosis PT INR APTT PTT Ratio Sodium 138 Potassium 3.7 D Chloride 104 Carbon Dioxide 26 Anion Gap 8.0 BUN 18 Creatinine 0.96 Est Cr Clr Drug Dosing 91.9 Est GFR ( Amer) 91.2 Est GFR (Non-Af Amer) 78.7 BUN/Creatinine Ratio 18.8 Glucose 78 Calcium 8.5 Magnesium Iron Transferrin Transferrin % Sat Ferritin Total Bilirubin AST ALT Alkaline Phosphatase Troponin I Total Protein Albumin Globulin Albumin/Globulin Ratio Vitamin B12 689 Folate > 24.00 POC Stool Occult Blood Blood Type Blood Type Recheck Antibody Screen Crossmatch 12/28/19 12/29/19 12/29/19 Unknown 05:47 05:47 WBC 5.49 RBC 3.13 L Hgb 8.0 L Hct 26.4 L MCV 84.3 MCH 25.6 MCHC 30.3 L RDW Std Deviation 51.4 H RDW Coeff of Eyad 16.7 H Plt Count 260 MPV 9.0 Immature Gran % (Auto) Neut % (Auto) Lymph % (Auto) [place] % (Auto) Eos % (Auto) Baso % (Auto) Neut # (Auto) Lymph # (Auto) [place] # (Auto) Eos # (Auto) Baso # (Auto) Immature Gran # (Auto) Polychromasia Hypochromasia Anisocytosis Microcytosis PT INR APTT PTT Ratio Sodium 139 Potassium 3.9 Chloride 105 Carbon Dioxide 29 Anion Gap 5.0 BUN 16 Creatinine 0.97 Est Cr Clr Drug Dosing 90.9 Est GFR ( Amer) 90.0 Est GFR (Non-Af Amer) 77.7 BUN/Creatinine Ratio 16.6 Glucose 79 Calcium 8.7 Magnesium Iron Transferrin Transferrin % Sat Ferritin Total Bilirubin AST ALT Alkaline Phosphatase Troponin I Total Protein Albumin Globulin Albumin/Globulin Ratio Vitamin B12 Folate POC Stool Occult Blood Positive A Blood Type Blood Type Recheck Antibody Screen Crossmatch 12/29/19 09:54 WBC RBC Hgb Hct MCV MCH MCHC RDW Std Deviation RDW Coeff of Eyad Plt Count MPV Immature Gran % (Auto) Neut % (Auto) Lymph % (Auto) [place] % (Auto) Eos % (Auto) Baso % (Auto) Neut # (Auto) Lymph # (Auto) [place] # (Auto) Eos # (Auto) Baso # (Auto) Immature Gran # (Auto) Polychromasia Hypochromasia Anisocytosis Microcytosis PT INR APTT PTT Ratio Sodium Potassium Chloride Carbon Dioxide Anion Gap BUN Creatinine Est Cr Clr Drug Dosing Est GFR ( Amer) Est GFR (Non-Af Amer) BUN/Creatinine Ratio Glucose Calcium Magnesium Iron Transferrin Transferrin % Sat Ferritin 7.8 L Total Bilirubin AST ALT Alkaline Phosphatase Troponin I Total Protein Albumin Globulin Albumin/Globulin Ratio Vitamin B12 Folate POC Stool Occult Blood Blood Type Blood Type Recheck Antibody Screen Crossmatch (1) Atrial fibrillation Atrial fibrillation type: permanent Qualified Code(s): I48.21 - Permanent atrial fibrillation (2) Mitral regurgitation Cardiac valve disease etiology: nonrheumatic Qualified Code(s): I34.0 - Nonrheumatic mitral (valve) insufficiency
--- NOTE | 2019-12-29 12:22 | GI REPORT ---
Patient Name: Tarun Zhong Procedure Date: 12/29/2019 11:48 AM Date of : 1945 Admit Type: Inpatient Age: 74 Gender: Male Attending MD: Katalina Tripp DO Procedure: Upper GI endoscopy Providers: Katalina Tripp DO Referring MD: Chetan Cowan Indications: Melena Medicines: Propofol per Anesthesia Complications: No immediate complications. Estimated blood loss: None. Estimated Blood Loss: Estimated blood loss: none. Procedure: Pre-Anesthesia Assessment: - Prior to the procedure, a History and Physical was performed, and patient medications, allergies and sensitivities were reviewed. The patient's tolerance of previous anesthesia was reviewed. - The risks and benefits of the procedure and the sedation options and risks were discussed with the patient. All questions were answered and informed consent was obtained. - Patient identification and proposed procedure were verified prior to the procedure by the physician and the nurse. The procedure was verified in the pre-procedure area in the procedure room. - Mental Status Examination: alert and oriented. Airway Examination: normal oropharyngeal airway and neck mobility. Respiratory Examination: clear to auscultation. CV Examination: normal. Abdominal Examination: bowel sounds present, abdomen soft and non-tender, no masses or organomegaly noted. - ASA Grade Assessment: III - A patient with severe systemic disease. After obtaining informed consent, the endoscope was passed under direct vision. Throughout the procedure, the patient's blood pressure, pulse, and oxygen saturations were monitored continuously. The Endoscope was introduced through the mouth, and advanced to the third part of duodenum. The upper GI endoscopy was accomplished without difficulty. The patient tolerated the procedure well. Findings: The esophagus was normal. The stomach was normal. The examined duodenum was normal. Impression: - Normal esophagus. - Normal stomach. No fresh or altered blood. No ulcers. No dielafoys or AVM visualized. - Normal examined duodenum. No AVMs visualized. - No specimens collected. Recommendation: - Consider colonoscopy. - Return patient to [facility] for ongoing care. Liz Arguello DO 12/29/2019 12:22:19 PM This report has been signed electronically. Note Initiated On: 12/29/2019 11:48 AM Number of Addenda: 0 I attest to the content of the Intraoperative Record and orders documented therein, exceptions below {[id number]}
--- NOTE | 2019-12-29 12:55 | Anesthesiology Progress Note ---
Date of Service December 29, 2019 Anesthesia Post Procedure Vital Signs Vital Signs: Temp Pulse Pulse Resp BP BP Pulse Ox 12/29/19 12:40 71 16 147/78 H 94 12/29/19 12:25 89 16 138/98 92 12/29/19 11:13 36.6 C 81 20 155/89 H 98 12/29/19 08:00 82 12/29/19 07:56 36.7 C 58 L 16 132/68 98 12/29/19 03:50 36.6 C 65 18 122/67 93 12/29/19 00:07 36.7 C 80 22 136/75 96 12/29/19 00:05 36.7 C 80 20 140/73 96 12/28/19 23:10 36.6 C 66 16 119/66 95 12/28/19 23:08 36.6 C 66 16 119/66 95 12/28/19 22:40 36.6 C 63 19 138/75 95 12/28/19 22:25 36.6 C 69 20 115/92 95 12/28/19 22:03 36.6 C 74 18 135/82 97 12/28/19 19:34 36.5 C 73 22 145/81 H 94 12/28/19 17:31 36.6 C 68 16 131/87 94 12/28/19 17:05 36.6 C 72 18 140/77 92 12/28/19 16:05 36.6 C 64 18 128/64 96 12/28/19 15:35 36.5 C 67 18 131/69 97 12/28/19 15:20 36.4 C L 69 16 142/62 H 97 12/28/19 15:04 36.5 C 77 16 142/62 H 97 12/28/19 15:00 69 12/28/19 14:59 36.5 C 60 16 120/72 98 12/28/19 13:46 36.6 C 69 16 139/68 98 12/28/19 13:37 68 Transfer of Care Handoff Completed per policy Notes Mental Status: alert / awake / arousable and participated in evaluation Nausea / Vomiting: adequately controlled Pain: adequately controlled Airway Patency, RR, SpO2: stable & adequate BP & HR: stable & adequate Hydration State: stable & adequate Anesthetic Complications: no major complications apparent and Pt Satisfied with anesthetic care
[2019-12-29] MEDS ORDERED: IRON SUCROSE 200 MG in 0.9 % SODIUM CHLORIDE 100 ML IV ONE (14:30)
--- NOTE | 2019-12-29 15:27 | Discharge Summary ---
Date of Service December 29, 2019 Admission HPI Per Admitting Provider Tarun Zhong is a 74-year-old male with coronary artery disease and recent stent placement on November 07 who presents to the ER on the advice of his cardiology office due to significant anemia on his outpatient labs. Patient had a drug-eluting stent placed to LAD on November 07 after an abnormal myocardial perfusion scan for ongoing shortness of breath on exertion. He was placed on triple therapy with aspirin, clopidogrel, Xarelto for 1 month following this. Nearing the end of this month approximately 3 weeks ago he started having melena. For the last 3 weeks he has been getting progressively short of breath and on follow-up with his cardiology office arranged outpatient labs showing the anemia. He denies any abdominal pain, nausea, vomiting. No shortness of breath at rest. No fevers, chills, cough, loss of taste or smell, COVID-19 exposure. Principal Diagnosis Blood loss anemia, profound iron deficiency Discharge Exam Constitutional WD/WN, vitals as above Eyes PERRL, conjunctivae normal, anicteric sclerae ENMT external ear and nose normal, oropharynx normal Neck trachea midline, no thyromegaly Respiratory normal respiratory effort, lungs clear to auscultation Cardiovascular Rate/Rhythm: regular rate and + irregularly irregular Heart Sounds: normal S1 and normal S2; no murmur Extremities: normal capillary refill; no edema Gastrointestinal (Abdomen) normal bowel sounds, soft, nontender, no hepatosplenomegaly Musculoskeletal no cyanosis or clubbing, extremities motor strength 5/5 Skin no rashes, warm and dry Neurologic patellar DTR's 2+ bilat, sensation intact and PERRL, EOMI, accommodation nl, no face palsy, no dysarthria Psychiatric A+Ox3, euthymic affect Lymphatic no cervical or axillary lymphadenopathy Discharge Data Allergies Allergy/AdvReac Type Severity Reaction Status Date / Time No Known Allergies Allergy Verified 12/28/19 11:46 Consultations 12/28/19 11:36 ED Decision to Admit Stat 12/28/19 14:19 Consult Gastroenterology Routine 12/28/19 14:53 Consult Cardiology Routine Procedures Performed Operation Date: 12/29/19 09:00 Actual Procedures p Esophagogastroduodenoscopy(Not Applicable) - Katalina Tripp Hospital Course (1) Symptomatic anemia: transfused one unit PRBC, Hb up to 8, no need to transfuse further as he has no active coronary ischemia found to be profoundly iron deficient with ferritin level of 7 gave dose of Venofer 200mg IV x 1 will arrange for outpatient infusion of Venofer at [facility] for 4 doses next week start on Ferrous Sulfate 325mg BID (2) Acute blood loss anemia: Melena for 3 weeks. Suggests a slow GI bleed. EGD today with normal findings GI recommends getting colonoscopy, offered to complete bowel prep here and get colonoscopy tomorrow, he would rather go home [facility] will contact him to arrange a colonoscopy soon discussed with cardiology, they recommend to continue holding aspirin, will stop Xarelto continue on Plavix and monitor for any further blood loss (3) Acute congestive heart failure: Significantly improved symptoms with 40 mg p.o. Lasix given last night by his district attorney. Will avoid IV fluids, chest x-ray without pulmonary edema, given n.p.o. will avoid further Lasix today. continue Lasix on discharge (4) Leg swelling: As above (5) Dyspnea: Secondary to a combination of anemia and congestive heart failure as above. (6) Atrial fibrillation: Continue rate control with metoprolol succinate 50 mg p.o. every morning Xarelto discontinued may consider single agent with Eliquis in the future and stop Plavix will follow up with cardiology (7) Coronary artery disease: Continue clopidogrel, metoprolol succinate, losartan, atorvastatin Xarelto stopped again, might consider single agent with Eliquis in the future need to determine source of bleeding (8) Status post insertion of drug-eluting stent into left anterior descending (LAD) artery: (9) Mitral regurgitation: (10) Pulmonary HTN: Recommend repeating outpatient sleep apnea testing given ongoing symptoms suggestive of this (11) Asthma: Continue Symbicort oral hospital equivalent inhaler Albuterol PRN No exacerbation suspected Total Time Total Time Spent Total Time Spent (In Minutes): 32 minutes Total Time Includes: Examination of the Patient, Discharge Planning, Medication Reconciliation, Communication With Other Providers (Dr. Tripp, Dr. James Cole) and Other Discharge Plan Discharge Items Patient Disposition: Home - Self-Care Reason For Visit: SYMPTOMATIC ANEMIA Discharge Diagnosis: Iron deficiency anemia Coronary artery disease with recent stent to LAD Possible GI bleed Condition on Discharge: Good Goals: follow up with [facility] for colonoscopy follow up with [facility] for intravenous iron treatments, need 4 more treatments follow up with cardiology in a few weeks, discuss anticoagulation Activity: Resume your previous activity Non-emergency contact: Primary Care Provider, Executive Creative Director and Brush Cutter Call non-emergency contact if: you have any medication questions and your symptoms worsen Follow-up/Referrals: Brandon Alarcon DO [Executive Creative Director] - (2-3 weeks) Katalina Tripp [Physician] - (next few weeks for colonoscopy, GI office will contact patient) Villa Duff MD [Primary Care Provider] - (one week) Diet: Heart Healthy Addtl Attending Provider Instructions: Medications: cardiology recommends STOPPING Xarelto, will continue on Plavix, no other changes Dark stools, worsening anemia, profound iron deficiency suspected GI bleed, EGD today was completely normal need to get colonoscopy, GI will contact you about setting that up in near future you will need IV iron to quickly restore your iron levels in addition to oral iron twice a day Dr. Alarcon will need to see you in a few weeks, they may consider stopping the Plavix and only using Eliquis as treatment for CAD if you would have any signs of brisk GI bleeding such are bloody stools, frequent loose dark stools, feeling light headed, return to hospital for repeat work up Pending Studies at Discharge: No Stand-Alone Forms: [facility], Smoking Cessation Medications and DC Order Prescriptions: New ferrous sulfate 325 mg (65 mg iron) tablet 325 mg PO BID Qty: 60 RF: 3 Continued betamethasone dipropionate 0.05 % cream 1 appln TOP BID Qty: 45 RF: 0 amlodipine 10 mg tablet 10 mg PO DAILY RF: 0 Symbicort 160-4.5 mcg/actuation HFA aerosol inhaler 2 puffs INH BID RF: 0 multivitamin tablet 1 tab PO DAILY RF: 0 vit A-vit C-vit H-wdjy-jabkxc 7,160-113-100 wzrl-fh-iuis tablet 1 tab PO DAILY RF: 0 metoprolol succinate 50 mg Tablet Extended Release 24 Hr 50 mg PO QAM Qty: 34 RF: 6 clopidogrel 75 mg Tablet 75 mg PO QAM Qty: 34 RF: 6 nitroglycerin [Nitrostat] 0.4 mg Tablet, Sublingual 0.4 mg sublingual PRN Qty: 1 RF: 3 losartan 50 mg tablet 100 mg PO DAILY Qty: 0 RF: 0 atorvastatin 40 mg tablet 40 mg PO DAILY 34 Days Qty: 34 RF: 6 furosemide 40 mg tablet 40 mg PO DAILY RF: 0 potassium chloride 10 mEq tablet,ER particles/crystals 10 meq PO DAILY RF: 0 Discontinued Xarelto 20 mg tablet 20 mg PO QPM RF: 0 Discharge Orders: Discharge Order (Routine); Ordered 12/29/19 Ordered By: Chetan Chanel/Other Patient Handouts: Iron tablets capsules extended-release tablets Admission Data Admit Date/Time: 12/28/19 12:13 Attending Provider: Chetan Taylor Admit Provider: Kj Collier Primary Care Provider: Villa Duff Other Providers: Kj Collier ; Katalina Tripp ; Brandon Alarcon Other Interventions: Discharge Summary Assessment (RN) Last Done: 12/29/19 16:01 Coding Level of Care Code D/C Day Management >30 mins Diagnoses Symptomatic anemia D64.9 Acute blood loss anemia D62 Acute congestive heart failure I50.9 Leg swelling M79.89 Dyspnea R06.00 Atrial fibrillation I48.21 Atrial fibrillation type: permanent Coronary artery disease I25.10 Status post insertion of drug-eluting stent into left anterior descending (LAD) artery Z95.5 Mitral regurgitation I34.0 Cardiac valve disease etiology: nonrheumatic Pulmonary HTN I27.20 Asthma J45.909
== END 2019-12-29 16:36 | disposition home or self-care (01) | DRG 812 ==
LOC: ED 10:27 → SUATTDRO 12:13 → 2E 12:13

== ENCOUNTER 2020-01-13 10:22 | Inpatient (IN) ==
[2020-01-13] MEDS ORDERED: SODIUM CHLORIDE 0.9% 1000ML 500 ML IV ONE (11:21)
--- NOTE | 2020-01-13 11:26 | Emergency Department Note ---
Impression & Plan Ventricular tachycardia, Status post insertion of drug-eluting stent into left anterior descending (LAD) artery, Vertigo, Breath, shortness ED Provider Note NAME: VY ROSALES AGE: 75 SEX: M : 1945 ARRIVES VIA: Walk-In INFORMANT: Patient ED PROVIDER(S): Enio Alex DO CHIEF COMPLAINT: dizzy HPI: Patient is a 75-year-old male who presents the ER for dizziness. This started around 830 and lasted for about an hour. He felt as though the whole room was spinning. He had no chest pain. He has had shortness of breath since he woke up this morning. He denies any belly pain nausea vomiting or diarrhea. No dysuria urgency or frequency. The dizziness is completely resolved. He does admit that he had a recent catheterization back in October and had one stent placed. He is never had this dizziness before. He admits to chronic A. fib. He does take Plavix. ROS: See above HPI for pertinent positives & negatives. A total of 10 systems reviewed and were otherwise negative. PAST MEDICAL HISTORY:See Below PAST SURGICAL HISTORY:See Below FAMILY HISTORY:See Below SOCIAL HISTORY:See Below HOME MEDICATIONS:See Below ALLERGIES:See Below VITALS:See Below PHYSICAL EXAMINATION: GENERAL: Sitting up in bed, alert, well appearing, well nourished, no distress, non-toxic EYE EXAM: normal conjunctiva. PERRL and EOM's intact. OROPHARYNX: no exudate, no erythema, lips, buccal mucosa, and tongue normal and mucous membranes are moist NECK: supple, no nuchal rigidity, no adenopathy, non-tender LUNGS: Clear to auscultation. Normal chest wall mechanics HEART: no murmurs, S1 normal and S2 normal ABDOMEN: abdomen soft, non-tender, normo-active bowel sounds, no masses, no rebound or guarding. BACK: Back is symmetrical on inspection and there is no deformity, no midline tenderness, no CVA tenderness. SKIN: no rashes and no bruising UPPER EXTREMITIES: upper extremities are grossly normal. LOWER EXTREMITIES: No pitting edema. NEURO EXAM: Normal sensorium, cranial nerves II-XII intact, normal speech, no weakness of arms, no weakness of legs. No drift. Finger to nose intact. Gross sensation intact. MEDICAL DECISION MAKING: Patient is a 75-year-old male who presents the ER for dizziness. Upon arrival he had 2 episodes of VT which lasted about 3 to 4 seconds. IV was established blood work was obtained. He remained on the monitor. At this time I discussed the case with Dr. Tho Fernandez we made the decision to hold on any antiarrhythmics. Labs showed mild leukopenia. Mild anemia 10. BMP along with LFTs bilirubin was unremarkable. Troponin was detectable but not positive at 0.028. As he remained on the monitor he went back into V. tach following urinating. I was called to bedside. We loaded him with amiodarone IV bolus and placed him on amiodarone drip. Dr. Fernandez was again contacted and he agreed with this treatment. He continued to go in and out of VT and eventually went back into VT fairly consistently. He was bolused with IV lidocaine at this time. He was placed on a lidocaine drip. Dr. Fernandez was reconsulted and he recommended calling heart alert. Her alert was called. Dr. Rome presented to bedside. He was in agreement with current treatment and he took the patient to the [facility] Assistant as the patient still had stuttering VT with systolic pressures in the 130s to 140s. Patient is a full code. Chest x-ray was unremarkable. CT angios was performed as well which showed no PEs. Triage Nursing notes reviewed. Prior medical records reviewed Vital Signs: reviewed and remarkable for tachy Differential diagnosis: Differential diagnoses includes but is not limited to acute coronary syndrome, myocardial infarction, pericarditis, pulmonary embolus, aortic dissection, pneumonia, pneumothorax, musculoskeletal, shingles, esophageal. ER treatment provided: See below Diagnostics interpreted by me: ECG: A. fib rate of 95 Normal axis PVCs Nonspecific ST wave changes in the lateral leads Cardiac Monitoring: An order was placed for continuous cardiac monitoring. The monitor shows a rate of 110 with Afib rhythm. Laboratory studies: As stated above and show below. Imaging studies: See below Consultation(s): Discussed with Dr. Fernandez on 3 separate occasions. We initially held on anti- rhythmic's. Then gave amiodarone drip and bolus followed by lidocaine drip and bolus and both agreed to call heart alert. Discussed with Dr. Kj Collier at bedside for admission Discussed with Dr. Brian Rome for catheterization to assess recent LAD stent in light of persistent VT ED COURSE: Procedures: none Critical Care: I have personally spent 80 minutes of critical care time in the direct management of this patient. This includes bedside care, interpretation of diagnostic studies, and testing, discussion with consultants, patient, and family members, and other required patient management activities. This 80 minutes is in excess of all separately billable procedures. Past Med/Surg History Medical History Acute blood loss anemia Acute congestive heart failure Acute GI bleeding Asthma Atrial fibrillation Coronary artery disease Mitral regurgitation Pulmonary HTN Status post insertion of drug-eluting stent into left anterior descending (LAD) artery Done at end of October Surgical History H/O carpal tunnel repair B/L History of throat surgery No significant past surgical history Family History Other Hypertension Social History Smoking Status: Former smoker Cigarettes Per Day: Quit 50 years ago; Second Hand Exposure: No; Hx Alcohol Use: No Hx Substance Use: No Preferred Language: Kinyarwanda Communication Ability: Effective Speech Language Pathology Assistant Required: No Beliefs That Will Affect Care: None Current Living Situation: Spouse Feels Safe at Home: Yes Allergies Allergies Allergy/AdvReac Type Severity Reaction Status Date / Time banana Allergy Severe eyes swell Unverified 01/13/20 12:45 shut No Known Drug Allergies AdvReac Unknown Unknown Unverified 01/13/20 12:45 Home Meds Home Medications Medication Instructions Recorded Confirmed amlodipine 10 mg tablet 10 mg PO QAM 03/31/19 01/13/20 budesonide-formoterol HFA 160 2 puffs INH BID 03/31/19 01/13/20 mcg-4.5 mcg/actuation aerosol inhaler multivitamin 1 tab PO QAM 03/31/19 01/13/20 vit A 7,160 unit-vit C 113 mg-vit 1 tab PO QAM 03/31/19 01/13/20 E 100 nqst-gsmn-[id number] tablet furosemide 40 mg PO QAM 12/28/19 01/13/20 potassium chloride 10 meq PO QAM 12/28/19 01/13/20 atorvastatin 40 mg PO QAM 01/13/20 01/13/20 losartan 100 mg PO QAM 01/13/20 01/13/20 Previous Rx's Medication Instructions Recorded betamethasone dipropionate 0.05 % 1 appln TOP BID #45 gm 04/29/19 topical cream clopidogrel 75 mg PO QAM #34 tab 11/09/19 metoprolol succinate 50 mg PO QAM #34 tab 11/09/19 nitroglycerin [Nitrostat] 0.4 mg SUBLINGUAL PRN #1 btl 11/09/19 ferrous sulfate 325 mg PO BID #60 tab 12/29/19 Results & Data (ED) Vital Signs Vital Signs - 24 hr 01/13/20 10:27 01/13/20 11:15 01/13/20 11:27 Temperature 37.0 C Temperature Source Oral Pulse Rate 100 H 185 H Pulse Rate from SpO2 Sensor 92 H Pulse Rhythm Respiratory Rate 18 36 H Respiratory Effort / Characteristics Non-Labored Respiratory Depth Normal Respiratory Pattern Regular Blood Pressure 144/83 H 156/97 H Blood Pressure Mean 103 117 Blood Pressure Position Sitting Pulse Oximetry 98 95 Oxygen Delivery Method Room Air Sepsis Recent Fever Within 48 Hours No Sepsis New/Unexplained Change in Mental Status No Sepsis Action Taken by Nursing No Action Required 01/13/20 11:28 01/13/20 11:30 01/13/20 11:31 Temperature Temperature Source Pulse Rate 103 H 90 89 Pulse Rate from SpO2 Sensor 97 H 87 90 Pulse Rhythm Irregular Respiratory Rate 28 H 14 22 Respiratory Effort / Characteristics Respiratory Depth Respiratory Pattern Blood Pressure 143/100 H Blood Pressure Mean 117 Blood Pressure Position Pulse Oximetry 96 96 96 Oxygen Delivery Method Room Air Sepsis Recent Fever Within 48 Hours Sepsis New/Unexplained Change in Mental Status Sepsis Action Taken by Nursing 01/13/20 11:53 01/13/20 12:00 01/13/20 12:01 Temperature Temperature Source Pulse Rate 98 H 87 91 H Pulse Rate from SpO2 Sensor 97 H 91 H 96 H Pulse Rhythm Respiratory Rate 19 23 Respiratory Effort / Characteristics Respiratory Depth Respiratory Pattern Blood Pressure 155/85 H 145/76 H Blood Pressure Mean 102 78 Blood Pressure Position Pulse Oximetry 98 98 99 Oxygen Delivery Method Sepsis Recent Fever Within 48 Hours Sepsis New/Unexplained Change in Mental Status Sepsis Action Taken by Nursing 01/13/20 12:30 01/13/20 12:31 01/13/20 13:00 Temperature Temperature Source Pulse Rate 95 H 85 90 Pulse Rate from SpO2 Sensor 98 H 85 94 H Pulse Rhythm Respiratory Rate 16 23 Respiratory Effort / Characteristics Respiratory Depth Respiratory Pattern Blood Pressure 145/91 H 137/97 Blood Pressure Mean 116 118 Blood Pressure Position Pulse Oximetry 99 99 96 Oxygen Delivery Method Sepsis Recent Fever Within 48 Hours Sepsis New/Unexplained Change in Mental Status Sepsis Action Taken by Nursing 01/13/20 13:01 01/13/20 13:41 01/13/20 13:42 Temperature Temperature Source Pulse Rate 85 115 H 97 H Pulse Rate from SpO2 Sensor 90 119 H 94 H Pulse Rhythm Respiratory Rate 15 19 Respiratory Effort / Characteristics Respiratory Depth Respiratory Pattern Blood Pressure 129/80 Blood Pressure Mean 89 Blood Pressure Position Pulse Oximetry 98 99 99 Oxygen Delivery Method Sepsis Recent Fever Within 48 Hours Sepsis New/Unexplained Change in Mental Status Sepsis Action Taken by Nursing 01/13/20 13:55 01/13/20 14:00 Temperature Temperature Source Pulse Rate 83 88 Pulse Rate from SpO2 Sensor 99 H 85 Pulse Rhythm Respiratory Rate 27 H 33 H Respiratory Effort / Characteristics Respiratory Depth Respiratory Pattern Blood Pressure 151/82 H 149/86 H Blood Pressure Mean 122 120 Blood Pressure Position Pulse Oximetry 87 L 97 Oxygen Delivery Method Sepsis Recent Fever Within 48 Hours Sepsis New/Unexplained Change in Mental Status Sepsis Action Taken by Nursing Laboratory Data Result diagrams: 01/13/20 11:20 01/13/20 13:48 Lab Results 01/13/20 01/13/20 01/13/20 Range/Units 11:20 11:20 13:48 WBC 4.59 L (4.8-10.8) K/uL RBC 3.73 L (4.7-6.1) M/uL Hgb 9.9 L (14.0-18.0) g/dL Hct 33.9 L (42-52) % MCV 90.9 (80-100) fL MCH 26.5 (25-34) pg MCHC 29.2 L (32-36) g/dL RDW Std Deviation 72.4 H (36.4-46.3) fL RDW Coeff of Eyad 22.2 H (11.5-14.5) % Plt Count 208 (130-400) K/uL MPV 10.0 (7.4-10.4) fL Immature Gran % (Auto) 0.4 % Neut % (Auto) 61.3 % Lymph % (Auto) 20.9 % [place] % (Auto) 12.6 % Eos % (Auto) 3.9 % Baso % (Auto) 0.9 % Neut # (Auto) 2.81 (1.4-6.5) K/uL Lymph # (Auto) 0.96 L (1.2-3.4) K/uL [place] # (Auto) 0.58 (0.11-0.59) K/uL Eos # (Auto) 0.18 (0-0.5) K/uL Baso # (Auto) 0.04 (0-0.2) K/uL Immature Gran # (Auto) 0.02 (0.00-0.02) K/uL Polychromasia 1+ Sodium 139 (136-145) mmol/L Potassium 4.2 (3.5-5.1) mmol/L Chloride 104 (98-107) mmol/L Carbon Dioxide 28 (21-32) mmol/L Anion Gap 7.0 (3-11) BUN 17 (7-18) mg/dl Creatinine 1.04 (0.6-1.4) mg/dl Est Cr Clr Drug Dosing Not Reportable Est GFR ( Amer) 82.2 Est GFR (Non-Af Amer) 70.9 BUN/Creatinine Ratio 16.1 (10-20) Glucose 89 (70-99) mg/dl Calcium 9.4 (8.5-10.1) mg/dl Magnesium 2.3 (1.8-2.4) mg/dl Total Bilirubin 0.6 (0.2-1) mg/dl AST 18 (15-37) U/L ALT 28 (12-78) U/L Alkaline Phosphatase 78 (45-117) U/L Troponin I 0.029 (0-0.045) ng/ml Total Protein 7.0 (6.4-8.2) gm/dl Albumin 3.6 (3.4-5.0) gm/dl Globulin 3.4 (2.5-4.0) gm/dl Albumin/Globulin Ratio 1.1 (0.9-2) Administered Medications Amiodarone HCl/Dextrose (Nexterone / D5w) 360 mg in 200 mls @ 33.333 mls/hr IV ONE ONE Stop: 01/13/20 20:12 Last Admin: 01/13/20 14:52 Dose: 33.3 mls/hr Documented by: [id number] Cosigned by: [id number] Discontinued Medications Amiodarone HCl (Amiodarone Iv Bolus & Drip) 1 ea IV NOW STA; Protocol Stop: 01/13/20 14:14 Last Admin: 01/13/20 16:15 Dose: 1 ea Documented by: [id number] Sodium Chloride (Nss 1000ml) 500 mls @ 999 mls/hr IV .Q31M ONE Stop: 01/13/20 11:51 Last Infusion: 01/13/20 13:26 Dose: 0 mls/hr Documented by: [id number] Admin: 01/13/20 12:01 Dose: 999 mls/hr Documented by: [id number] N/A (0.2 Micron Filter Set 17" W/Clave,Non-Dehp) 0 mls @ 0.333 mls/hr IV ONE ONE Stop: 01/13/20 14:14 Last Admin: 01/13/20 16:15 Dose: 0.333 mls/hr Documented by: [id number] Amiodarone HCl/Dextrose (Nexterone / D5w) 150 mg in 100 mls @ 600 mls/hr IV NOW STA Stop: 01/13/20 14:22 Last Infusion: 01/13/20 14:49 Dose: 0 mls/hr Documented by: [id number] Cosigned by: [id number] Admin: 01/13/20 14:38 Dose: 600 mls/hr Documented by: [id number] Cosigned by: [id number] Lidocaine HCl/Dextrose (Xylocaine/D5w Drip 4mg/Ml) 2,000 mg in 500 mls @ 30 mls/hr IV .[id number] [facility]; Protocol Stop: 02/12/20 15:14 Last Admin: 01/13/20 15:13 Dose: 2 mg/min, 30 mls/hr Documented by: [id number] Cosigned by: [id number] Ioversol (Optiray 320 125ml) 118 ml IV ONCE ONE Stop: 01/13/20 13:39 Last Admin: 01/13/20 13:39 Dose: 118 ml Documented by: [id number] Lidocaine HCl (Lidocaine 2% 20 Mg/Ml 5 Ml Syr) 100 mg IV NOW STA Stop: 01/13/20 14:57 Last Admin: 01/13/20 14:57 Dose: 100 mg Documented by: [id number] Miscellaneous (Stat Iv Infusion Titration Per Protocol) 1 pop N/A NOW STA Stop: 01/13/20 14:14 Last Admin: 01/13/20 16:16 Dose: 1 ea Documented by: [id number] Discharge Plan Visit Data Chief Complaint: Dizziness Stated Complaint: DIZZINESS, CAN'T STAND UP, SOB ED Provider: Enio Alex Discharge Problem: Ventricular tachycardia, Status post insertion of drug-eluting stent into left anterior descending (LAD) artery, Vertigo, Breath, shortness Patient Disposition: Still a Patient Discharge Instructions Interventions: ED Discharge Assessment Last Done: 01/13/20 15:07
[2020-01-13 11:48] LABS: Hematocrit (blood only) 33.9 % (42-52); Hemoglobin 9.9 g/dL (14.0-18.0); Mean Corpuscular Hemoglobin 26.5 pg (25-34); Mean Corpuscular Hgb Conc 29.2 g/dL (32-36); Mean Corpuscular Volume 90.9 fL (80-100); Platelet Count 208 K/uL (130-400); RDW Coefficient of Variation 22.2 % (11.5-14.5); RDW Standard Deviation 72.4 fL (36.4-46.3); Red Blood Count 3.73 M/uL (4.7-6.1); White Blood Count 4.59 K/uL (4.8-10.8)
--- NOTE | 2020-01-13 11:51 | CT Scan Report ---
CT head/brain wo con CLINICAL HISTORY: Dizziness COMPARISON STUDY: No previous studies for comparison. TECHNIQUE: Axial CT of the brain is performed from the vertex to the skull base. IV contrast was not administered for this examination. A dose lowering technique was utilized adhering to the principles of ALARA. CT DOSE: 1547.15 mGy.cm FINDINGS: No intra or extra-axial mass lesions are visualized. There is no CT evidence of acute cortical infarc tion. There is no evidence of midline shift. There is no acute hemorrhage. No calvarial fractures ar e visualized. There are minor white matter hypodensities likely on a small vessel basis. There is no evidence of pathologic ventricular dilatation. There is no evidence of acute sinusitis IMPRESSION: No acute intracranial findings ACT 112: Negative or not required by law. Electronically signed by: Luke Lloyd M.D. 01/13/2020 11:49 AM
[2020-01-13 12:09] LABS: Basophils # (auto) 0.04 K/uL (0-0.2); Basophils % (auto) 0.9 %; Eosinophils # (auto) 0.18 K/uL (0-0.5); Eosinophils % (auto) 3.9 %; Immature Granulocytes # (auto) 0.02 K/uL (0.00-0.02); Immature Granulocytes % (auto) 0.4 %; Lymphocytes # (auto) 0.96 K/uL (1.2-3.4); Lymphocytes % (auto) 20.9 %; Monocytes # (auto) 0.58 K/uL (0.11-0.59); Monocytes % (auto) 12.6 %; Neutrophils # (auto) 2.81 K/uL (1.4-6.5); Neutrophils % (auto) 61.3 %; Polychromasia 1+
[2020-01-13 12:19] LABS: Alanine Aminotransferase 28 U/L (12-78); Albumin Globulin Ratio 1.1 (0.9-2); Albumin Level 3.6 gm/dl (3.4-5.0); Alkaline Phosphatase 78 U/L (45-117); BUN Creatinine Ratio 16.1 (10-20); Bilirubin,Total 0.6 mg/dl (0.2-1); Blood Urea Nitrogen 17 mg/dl (7-18); Calcium 9.4 mg/dl (8.5-10.1); Carbon Dioxide 28 mmol/L (21-32); Chloride 104 mmol/L (98-107); Est GFR (African American) 82.2; Est GFR (Non-African American) 70.9; Globulin 3.4 gm/dl (2.5-4.0); Glucose 89 mg/dl (70-99); Sodium 139 mmol/L (136-145); Troponin I 0.029 ng/ml (0-0.045)
[2020-01-13] MEDS ORDERED: OPTIRAY 320 125ml IV ONE (13:38)
--- NOTE | 2020-01-13 13:50 | CT Scan Report ---
CT angio chest PE protocol CT DOSE: 1039.99 mGy.cm HISTORY: 75 years-old Male with SOB intermittent VT. Acute shortness of breath with ventricular tac hycardia TECHNIQUE: Multiple CTA images of the chest were obtained after the intravenous administration of 119 ml Optiray 320. Coronal and sagittal MIPS were obtained from the axial data set and were submitted for review. All measurements were obtained according to NASCET criteria. A dose lowering technique w as utilized adhering to the principles of ALARA. COMPARISON: Chest radiograph 12/28/2019 FINDINGS: CTA: Moderate cardiomegaly. No pericardial effusion. Extensive coronary artery calcifications. Mild fusifo rm dilation of the ascending thoracic aorta, 4.2 x 4.2 cm. Moderate calcified plaque the thoracic aor tic arch. Patency of the imaged great vessels. No dissection. Dilation of the pulmonary artery measur es up to 4.6 cm. No filling defects identified to suggest pulmonary thromboembolic disease. The subse gmental pulmonary arterial branches are suboptimally opacified which limits the study. CT CHEST: Unremarkable thyroid. Mildly enlarged paratracheal, and subcarinal lymph nodes measure up to 1.4 cm i n short axis. Prominent bilateral hilar lymph nodes. Trace pleural effusions. No pneumothorax. Modera te right hemidiaphragmatic elevation. Intralobular septal thickening with intermixed groundglass opac ities and bronchial wall thickening. Linear subsegmental consolidation of the right lung base. 5 mm s ubpleural nodule of the posterior segment right upper lobe. 4 mm subpleural nodule of the left upper lobe, image 239 series 4. Central airways appear patent. Enlarged periportal lymph nodes measure up to 1.4 cm. No acute process of the imaged upper abdomen. T he soft tissues are within normal limits. Degenerative changes of the spine and shoulders. No acute f racture or suspicious bone lesion. IMPRESSION: 1. Cardiomegaly with mild pulmonary edema and trace pleural effusions. 2. No evidence of pulmonary thromboembolic disease. 3. Fusiform dilation of the ascending thoracic aorta, 4.2 x 4.2 cm. No dissection. 4. Dilated pulmonary artery is suggestive of pulmonary artery hypertension. 5. Moderate right diaphragmatic elevation with linear subsegmental right lung base atelectasis. 6. Nonspecific mediastinal and periportal adenopathy. ACT 112: Negative or not required by law. The above report was generated using voice recognition software. It may contain grammatical, syntax o r spelling errors. Electronically signed by: Teto Kwok M.D. 01/13/2020 1:49 PM
--- NOTE | 2020-01-13 13:53 | History & Physical Report ---
Date of Service January 13, 2020 Assessment & Plan (1) Sustained ventricular tachycardia: Admit to ICU - discussed patient with Dr Oh Patient to go to the cardiac chemical laboratory assistant emergently due to concern for ischemic cause since he has only been on clopidogrel since Dec 28 with JOSR placed on 11/07. Discussed with Dr Alex, Dr Rome at bedside and Dr Fernandez over the phone. Start IV amiodarone (2) Dizziness: Although description is that of vertigo suspect he is actually having hypoperfusion during ventricular tachyarrythmias. CT head negative for acute pathology. (3) Atrial fibrillation: Restart on Eliquis for anticoagulation when recommended per ICU - discussed with Dr Oh. (4) Hx of gastrointestinal hemorrhage: Will need follow up outpaitent colonoscopy if not already arranged. Occurred initially in setting of DAPT and Xarelto (5) Breath, shortness: Secondary to above (6) Coronary artery disease: Clopidogrel + start Eliquis (discussed with Dr Oh and will defer this for now pending EP study), atorvastatin 40mg PO HS (7) Status post insertion of drug-eluting stent into left anterior descending (LAD) artery: 11/07 PCI with single JOSR to LAD - Dr Rome (8) Hypertension: Continue losartan, amlodipine. Will defer diuresis with lasix to ICU team as patient present with mild pulmonary edema on CT Admission and Anticipated Discharge Date Admission Date: 01/13/2020 History of Present Illness Chief Complaint: Dizziness Primary Care Provider: Villa Duff MD Tarun Zhong is a 75-year-old male with coronary artery disease who presents to the ER due to dizziness. Reports acute onset room spinning sensation starting at 8:30 AM this morning. Approximately 30 minutes later he started having associated shortness of breath. No chest pain, orthopnea, PND, claudication. Never had similar vertigo-like sensations before. He feels his dizziness is more consistent with the room spinning than lightheadedness, presyncope or lack of coordination. He was recently admitted from December 27- due to melena and symptomatic anemia after a month of dual antiplatelet therapy and Xarelto after cardiac drug-eluting stent placed on November 07. He was off aspirin prior to that admission, but had continued melanic stools. EGD during hospitalization did not show any source of his bleeding. His Xarelto was discontinued at that time and he remains on single antiplatelet therapy with clopidogrel coming into hospital today. He denies any cough, loss of taste or smell, fevers or chills, known COVID-19 exposure. In the ER he was noted to have increasing runs of nonsustained ventricular tachycardia, discussed case with Dr. Fernandez and patient was started on IV amiodarone. Stat echocardiogram ordered. Despite amiodarone he went into sustained ventricular tachycardia after going to the bathroom. Discussed case with Dr. Rome from interventional cardiology at bedside and he will be taken to the cardiac catheter lab at this time. Allergies Allergy/AdvReac Type Severity Reaction Status Date / Time banana Allergy Severe eyes swell Unverified 01/13/20 12:45 shut No Known Drug Allergies AdvReac Unknown Unknown Unverified 01/13/20 12:45 Home Medications Home Medications Medication Instructions Recorded Confirmed Type amlodipine 10 mg tablet 10 mg PO QAM 03/31/19 01/13/20 History budesonide-formoterol HFA 160 2 puffs INH BID 03/31/19 01/13/20 History mcg-4.5 mcg/actuation aerosol inhaler multivitamin 1 tab PO QAM 03/31/19 01/13/20 History vit A 7,160 unit-vit C 113 mg-vit 1 tab PO QAM 03/31/19 01/13/20 History E 100 enzf-zakq-gfkwtb tablet betamethasone dipropionate 0.05 % 1 appln TOP BID #45 gm 04/29/19 01/13/20 Rx topical cream clopidogrel 75 mg PO QAM #34 tab 11/09/19 01/13/20 Rx metoprolol succinate 50 mg PO QAM #34 tab 11/09/19 01/13/20 Rx nitroglycerin [Nitrostat] 0.4 mg SUBLINGUAL PRN #1 btl 11/09/19 01/13/20 Rx furosemide 40 mg PO QAM 12/28/19 01/13/20 History potassium chloride 10 meq PO QAM 12/28/19 01/13/20 History ferrous sulfate 325 mg PO BID #60 tab 12/29/19 01/13/20 Rx atorvastatin 40 mg PO QAM 01/13/20 01/13/20 History losartan 100 mg PO QAM 01/13/20 01/13/20 History Past Med/Surg History Medical History Acute blood loss anemia Acute congestive heart failure Acute GI bleeding Asthma Atrial fibrillation Coronary artery disease Mitral regurgitation Pulmonary HTN Status post insertion of drug-eluting stent into left anterior descending (LAD) artery Done at end of October Surgical History H/O carpal tunnel repair B/L History of throat surgery No significant past surgical history Family History Other Hypertension Social History Smoking Status: Former smoker Cigarettes Per Day: quit 50 years ago; Second Hand Exposure: No; Hx Alcohol Use: Yes Alcohol type: beer Hx Substance Use: No Preferred Language: Nauruan Communication Ability: Effective 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 Beliefs That Will Affect Care: None Current Living Situation: Spouse Feels Safe at Home: Yes Review of Systems Review of Systems: All systems reviewed & are unremarkable except as noted in HPI & below Physical Exam Constitutional: well developed; + not well nourished and no acute distress Eyes: + anicteric sclerae; normal pupil size and no nystagmus ENMT: external ear and nose normal, oropharynx normal Neck: trachea midline, no thyromegaly Respiratory: normal respiratory effort and able to speak in complete sentences; no respiratory distress and does not use accessory muscles Auscultation: + crackles (bibasal) Cardiovascular: Rate/Rhythm: regular rate and regular rhythm Heart Sounds: no murmur Extremities: normal capillary refill and + pedal edema; no calf tenderness Gastrointestinal (Abdomen): normal bowel sounds, soft, nontender, no hepatosplenomegaly Musculoskeletal: no cyanosis or clubbing, extremities motor strength 5/5 Skin: no rashes, warm and dry Neurologic: moves all extremities and awake; no focal motor deficits and not confused Motor/Sensory: no tremor and no pronator drift Psychiatric: A+Ox3, euthymic affect Genitourinary: no CVA tenderness Lymphatic: no cervical or axillary lymphadenopathy Results & Data Results & Data ([facility]) Vital Signs (Past 12 Hours) Vital Signs Temp Pulse Resp BP Pulse Ox 01/13/20 13:01 85 15 98 01/13/20 13:00 90 137/97 96 01/13/20 12:31 85 23 99 01/13/20 12:30 95 H 16 145/91 H 99 01/13/20 12:01 91 H 99 01/13/20 12:00 87 23 145/76 H 98 01/13/20 11:53 98 H 19 155/85 H 98 01/13/20 11:31 89 22 96 01/13/20 11:30 90 14 143/100 H 96 01/13/20 11:28 103 H 28 H 96 01/13/20 11:27 156/97 H 95 01/13/20 11:15 185 H 36 H 01/13/20 10:27 37.0 C 100 H 18 144/[address] head/brain wo con IMPRESSION: No acute intracranial findings CT angio chest PE protocol IMPRESSION: 1. Cardiomegaly with mild pulmonary edema and trace pleural effusions. 2. No evidence of pulmonary thromboembolic disease. 3. Fusiform dilation of the ascending thoracic aorta, 4.2 x 4.2 cm. No dissection. 4. Dilated pulmonary artery is suggestive of pulmonary artery hypertension. 5. Moderate right diaphragmatic elevation with linear subsegmental right lung base atelectasis. 6. Nonspecific mediastinal and periportal adenopathy. ECG Indication: chest pain Rate (beats per minute): 95 Findings: + PVC Comparison ECG Date: from (Dec 28, 2019) Change: no significant change Code Status & VTE Plan Code Status Full as discussed with the patient and his VTE Prophylaxis Plan VTE Prophylaxis will be ordered: Yes Critical Care Time Prolonged Care Time Prolonged Care Time: Yes PG Care Time/CCT Total # of Minutes Spent Total Time Spent: 130 Total Time Spent with Patient: Total time spent is greater than 50% in coordination of care (as documented) at patient's floor/unit and/or counseling patient: Prolonged Care Time Prolonged Care Time: Yes Coding Level of Care Code 33444 Initial Inpt Care Lvl 3 Diagnoses Sustained ventricular tachycardia I47.2 Dizziness R42 Atrial fibrillation I48.21 Atrial fibrillation type: permanent Hx of gastrointestinal hemorrhage Z87.19 Breath, shortness R06.02 Coronary artery disease I25.10 Status post insertion of drug-eluting stent into left anterior descending (LAD) artery Z95.5 Hypertension I10 Additional Codes Prolonged Care Time - Prolonged Care Time: Yes ([id number]) (1) Atrial fibrillation Atrial fibrillation type: permanent Qualified Code(s): I48.21 - Permanent atrial fibrillation
[2020-01-13] MEDS ORDERED: AMIODARONE IV BOLUS & DRIP IV STA (14:13)
[2020-01-13] MEDS ORDERED: AMIODARONE / D5W 150 MG/100 ML BAG IV STA (14:13)
[2020-01-13] MEDS ORDERED: STAT IV Infusion **Titration per Protocol STA ×2 (14:13→16:20)
[2020-01-13] MEDS ORDERED: AMIODARONE / D5W 360 MG/200 ML BAG IV ONE ×2 (14:13→16:20)
[2020-01-13] MEDS ORDERED: 0.2 MICRON FILTER SET 1 EA IV ONE ×2 (14:13→16:20)
[2020-01-13 14:19] LABS: Potassium 4.2 mmol/L (3.5-5.1)
[2020-01-13 14:25] LABS: Magnesium 2.3 mg/dl (1.8-2.4)
[2020-01-13] MEDS ORDERED: LIDOCAINE 2% 20 MG/ML 5 ML SYR IV STA (14:56)
[2020-01-13] MEDS ORDERED: LIDOCAINE IV BOLUS & DRIP IV STA (15:03)
[2020-01-13] MEDS ORDERED: LIDOCAINE/D5W DRIP 4MG/ML 2,000 MG/500 ML BAG IV SCH (15:15)
[2020-01-13] MEDS: ESMOLOL / NSS 2,500 MG/250 ML BAG IV SCH ×2 (16:00→21:04)
--- NOTE | 2020-01-13 16:03 | Pre Anesthesia Assessment ---
Date of Service January 13, 2020 Pre Sedation Assessment Vital Signs Temp Pulse Resp BP Pulse Ox 01/13/20 15:07 172 H 27 H 125/107 H 01/13/20 15:01 103 H 35 H 96 01/13/20 15:00 100 H 34 H 161/88 H 97 01/13/20 14:56 102 H 28 H 148/94 H 95 01/13/20 14:51 165 H 28 H 208/190 H 95 01/13/20 14:50 134 H 33 H 172/154 H 01/13/20 14:31 95 01/13/20 14:30 149/94 H 95 01/13/20 14:01 100 H 32 H 96 01/13/20 14:00 88 33 H 149/86 H 97 01/13/20 13:55 83 27 H 151/82 H 87 L 01/13/20 13:42 97 H 129/80 99 01/13/20 13:41 115 H 19 99 01/13/20 13:01 85 15 98 01/13/20 13:00 90 137/97 96 01/13/20 12:31 85 23 99 01/13/20 12:30 95 H 16 145/91 H 99 01/13/20 12:01 91 H 99 01/13/20 12:00 87 23 145/76 H 98 01/13/20 11:53 98 H 19 155/85 H 98 01/13/20 11:31 89 22 96 01/13/20 11:30 90 14 143/100 H 96 01/13/20 11:28 103 H 28 H 96 01/13/20 11:27 156/97 H 95 01/13/20 11:15 185 H 36 H 01/13/20 10:27 98.6 F 100 H 18 144/83 H 98 Cardiovascular RRR, no murmur, no edema Respiratory normal respiratory effort, lungs clear to auscultation Pre-Sedation Airway Assessment Smoking Status: Former smoker Hx Sleep Apnea: No Hx Difficult Intubation: No Short, Thick Neck: No Thyromental Distance: > or= 3.5 Finger Breadths Mallampati Class: III ASA: ASA3 Procedure Planning Contraindications for Sedation: none Current Medications Reviewed: Yes Notes The planned sedation has been discussed with the patient. Informed Consent was obtained. I have identified the patient, determined the appropriateness of sedation and have assessed the patient immediately prior to the procedure. All medicine(s) and interventions are by my order.
--- NOTE | 2020-01-13 16:04 | Post Anesthesia Assessment ---
Date of Service January 13, 2020 Post Sedation Assessment Vital Signs Temp Pulse Resp BP Pulse Ox 01/13/20 15:07 172 H 27 H 125/107 H 01/13/20 15:01 103 H 35 H 96 01/13/20 15:00 100 H 34 H 161/88 H 97 01/13/20 14:56 102 H 28 H 148/94 H 95 01/13/20 14:51 165 H 28 H 208/190 H 95 01/13/20 14:50 134 H 33 H 172/154 H 01/13/20 14:31 95 01/13/20 14:30 149/94 H 95 01/13/20 14:01 100 H 32 H 96 01/13/20 14:00 88 33 H 149/86 H 97 01/13/20 13:55 83 27 H 151/82 H 87 L 01/13/20 13:42 97 H 129/80 99 01/13/20 13:41 115 H 19 99 01/13/20 13:01 85 15 98 01/13/20 13:00 90 137/97 96 01/13/20 12:31 85 23 99 01/13/20 12:30 95 H 16 145/91 H 99 01/13/20 12:01 91 H 99 01/13/20 12:00 87 23 145/76 H 98 01/13/20 11:53 98 H 19 155/85 H 98 01/13/20 11:31 89 22 96 01/13/20 11:30 90 14 143/100 H 96 01/13/20 11:28 103 H 28 H 96 01/13/20 11:27 156/97 H 95 01/13/20 11:15 185 H 36 H 01/13/20 10:27 98.6 F 100 H 18 144/83 H 98 Recovery Score Activity: Moves 4 extremities Respiration: Deep Breath/Cough Circulation: +/-20% PreAnes Value Consciousness: Fully Awake Oxygen Saturation: O2 needed for >90% Discharge Sedation Level of Care: Fast Track Phase II Post Sedation Plan On clinical assessment, the patient appears to have tolerated the sedation without complications. Patient is recovering as anticipated. Patient will continue to be monitored by nursing and may be discharged when sedation discharge criteria are met per below protocol. Upon Completions of procedure up to 15 minutes continue every 5 minute vital signs and the P.A.R. score; then discharge to a Phase I or Fast Track to Phase II per the following guidelines: * Discharge Patient to appropriate Phase II area if PAR is 8 or greater or return to pre- procedure baseline. The post - procedure orders will be as directed. * If PAR score is less than 8 or not return to pre-procedure baseline then patient will follow Phase I monitoring till PAR is reached for Phase II. The Phase I may be done in procedure room or may call to secure a Phase I area. * If naloxone or flumazenil are used for reversal, hold in Phase I for continued monitoring from when last reversal dose was given for a minimum of 60 minutes or longer pending the nurse and/or physician discretion of patient condition before discharge to Phase II. Please call the Sedation Physician to re-evaluate and complete post-note for discharge to Phase II area. Do NOT discharge from procedure sedation or Phase 1 until post- sedation evaluation note is complete by procedure /sedation MD Sedation Discharge Instructions to be given to the patient at discharge to home.
--- NOTE | 2020-01-13 16:20 | Cardiac Catheterization ---
[facility] Data: Monitor Tech Cardiac Status Clinical evaluation leading to the procedure CAD Presenation: Sx unlikely to be ischemic (Sustained VT) and Unstable angina Anginal Classification: CCS III Heart Failure: NYHA Class: CCS III Cardiogenic Shock within 24 Hours: No Cardiac Arrest within 24 Hours: No Imaging Studies Past 6 Months: Yes Stress Studies Past 6 Months: No Diagnostic Physicians Name: Filemon Rome MD Status: Emergency Closure Device Percutaneous Entry Location: Radial Closure Device: Radial Band Recommendations: Medical Therapy and/or Counseling Intraprocedure Events Significant Disection: No Perforation: No Cardiac Cath Procedure Full Procedure Date January 13, 2020 Pre-Procedure Diagnosis Pre-Procedure Diagnosis: Arrhythmia (Sustainded VT) AUC Score AUC Score: 8 Post-Procedure Diagnosis Post-Procedure Diagnosis: Severe CAD and Elevated Intracardiac Pressures Procedure(s) Performed Procedure(s) Performed: Coronary Angiography, Left Heart Cath and Ultrasound Guided Vascular Access Site Inspector Filemon Rome MD Photography Assistant(s) Ike Estimated Blood Loss Estimated Blood Loss: 15 Medication(s) Medication(s): Fentanyl, Heparin, Lidocaine 1%, Nicardipine, Nitroglycerin and Versed Summary of Findings Indication: Dyspnea, recurrent sustained VT Access: 6 Fr slender right radial artery under ultrasound guidance Catheters: JL4, JR4, pigtail Findings: LM -large caliber, 20% ostial, 20% distal disease at bifurcation LAD -moderate caliber, widely patent proximal to mid stent. Mid and distal vessel small with luminal irregularities second diagonal occluded at the ostium. Circumflex -medium caliber, luminal irregularities, large OM 2 without significant disease Ramus - small, 60% mid segment stenosis RCA -dominant, large caliber vessel without significant disease. Small PDA with mild diffuse disease LVEDP -25 Arterial Closure: TR band Patient came to the Monitor Tech hemodynamically stable but with intermittent sustained VT. Patient post bolus/IV amiodarone and lidocaine. In Monitor Tech received additional metoprolol 5 mg IV and then started on esmolol infusion. Ventricular ectopy reduced. Lidocaine, IV fluids discontinued during procedure. Summary: 1. Widely patent proximal to mid LAD stent 2. Chronic second diagonal total occlusion 3. Elevated intracardiac filling pressure 4. Intermittent sustained VT Recommendations: Admit to ICU Continue on IV amiodarone, esmolol Continue antiplatelet therapy with clopidogrel alone in the setting of prior GI bleeding Further evaluation by EP Hemodynamics Rest Ao:: 129/74/94 Final Ao: 129/76/98 LV: 138/23 Recommendations Recommendations: Medical Therapy and/or Counseling Specimens Specimens: None Radiation Exposure (mGy) 1365 Contrast (mls) 50 Fluids (cc crystalloids) Fluids (cc crystalloids): 50 Drains Drains: None Anesthesia Moderate Procedural Complication(s) None Disposition ICU I attest to the content of the Intraoperative Record and any orders documented therein. Any exceptions are noted below. [facility] [place] Card Cath Procedure Codes Cardiac Catheterization Procedure 1: Cardiovascular Cath Procedures: 85697 Coronaries and LHC (+/-LV) Therapeutic Services & Ancillary Proc Procedure 1: Cardiovascular Tx and Anc Procedures: 71161 IV Ultrasound (Coronary or Graft) Moderate Sedation Procedure 1: Sedation/Anesthesia: 77349 Mod Sedation by the same physician;Init15 Min Child Age 5 & Up Procedure 2: Sedation/Anesthesia: 39342 Mod Sedation by the same physician; Ea [id number] Minutes PG Care Time/CCT Total # of Minutes Spent Total Time Spent with Patient: Total time spent is greater than 50% in coordination of care (as documented) at patient's floor/unit and/or counseling patient:
--- NOTE | 2020-01-13 16:28 | Cardiology Consultation ---
Date of Consultation January 13, 2020 Assessment & Plan (1) NSVT (nonsustained ventricular tachycardia): (2) Atrial fibrillation: (3) CAD (coronary artery disease): (4) Coronary stent patent: The patient will be admitted to the ICU. The amiodarone and esmolol infusions will be continued. I spoke directly to the EP service, Dr. Geiger. An echocardiogram will be obtained for LV function that will provide prognostic information that will be utilized to determine further care. Patient should remain on Eliquis and Plavix. History of Present Illness Attending Physician: Kj Collier History of Present Illness This is a 75-year-old male patient who follows with Dr. Mast through our clinic. He has a history of chronic atrial fibrillation that dates back approximately 10 years. He was a refugee from cardiac care until this summer when he presented with increasing shortness of breath and dyspnea with activity. He underwent a nuclear stress test which indicated anterior wall ischemia. Both nuclear stress test and echocardiogram indicated normal LV function with an estimated left ventricular ejection fraction of 55%. The patient underwent a cardiac catheterization in November and was found to have a high-grade stenosis of the LAD for which she received a drug-eluting stent. He was then discharged and returned in December with melanotic stools while on Xarelto and dual antiplatelet therapy. A GI evaluation failed to show any etiology of his melanotic stools. He was then started on Xarelto and Plavix only. He had additional melena and the Xarelto was discontinued and the patient remained on Plavix only. He had been doing well up until this past week when he noticed some lower extremity edema. He was told to increase his Lasix for 3 days which improved his edema and he felt better. This morning he awoke and was having episodic lightheadedness and dizziness with associated shortness of breath. He came to the emergency department for an evaluation. He had a CT scan which excluded pulmonary emboli. He was in his chronic atrial fibrillation with appropriate heart rates and then began to have a wide-complex tachycardia which increased in duration up to 30 to 40 seconds reproducing his presenting symptoms. He was brought emergently to the cardiac catheterization lab where his coronary anatomy including the prior stent in the LAD were found to be widely patent. The patient now was admitted to the ICU. He is currently on an amiodarone and esmolol infusion. His wide-complex tachycardia has stabilized and he is in a rate controlled atrial fibrillation without complaints. Allergies Allergy/AdvReac Type Severity Reaction Status Date / Time banana Allergy Severe eyes swell Unverified 01/13/20 12:45 shut No Known Drug Allergies AdvReac Unknown Unknown Unverified 01/13/20 12:45 Home Medications Home Medications Medication Instructions Recorded Confirmed Type amlodipine 10 mg tablet 10 mg PO QAM 03/31/19 01/13/20 History budesonide-formoterol HFA 160 2 puffs INH BID 03/31/19 01/13/20 History mcg-4.5 mcg/actuation aerosol inhaler multivitamin 1 tab PO QAM 03/31/19 01/13/20 History vit A 7,160 unit-vit C 113 mg-vit 1 tab PO QAM 03/31/19 01/13/20 History E 100 swip-zroj-naksfd tablet betamethasone dipropionate 0.05 % 1 appln TOP BID #45 gm 04/29/19 01/13/20 Rx topical cream clopidogrel 75 mg PO QAM #34 tab 11/09/19 01/13/20 Rx metoprolol succinate 50 mg PO QAM #34 tab 11/09/19 01/13/20 Rx nitroglycerin [Nitrostat] 0.4 mg SUBLINGUAL PRN #1 btl 11/09/19 01/13/20 Rx furosemide 40 mg PO QAM 12/28/19 01/13/20 History potassium chloride 10 meq PO QAM 12/28/19 01/13/20 History ferrous sulfate 325 mg PO BID #60 tab 12/29/19 01/13/20 Rx atorvastatin 40 mg PO QAM 01/13/20 01/13/20 History losartan 100 mg PO QAM 01/13/20 01/13/20 History Patient History Medical History Acute blood loss anemia Acute congestive heart failure Acute GI bleeding Asthma Atrial fibrillation Coronary artery disease Mitral regurgitation Pulmonary HTN Status post insertion of drug-eluting stent into left anterior descending (LAD) artery Done at end of October Surgical History H/O carpal tunnel repair B/L History of throat surgery No significant past surgical history Family History Other Hypertension Social History Smoking Status: Former smoker Cigarettes Per Day: Quit 50 years ago; Second Hand Exposure: No; Hx Alcohol Use: No Hx Substance Use: No Preferred Language: Kinyarwanda Communication Ability: Effective Gin Clerk Required: No Beliefs That Will Affect Care: None Current Living Situation: Spouse Feels Safe at Home: Yes Review of Systems Review of Systems: All systems reviewed & are unremarkable except as noted in HPI & below Nothing additional to add Physical Exam Physical Exam: General: no acute distress and stated age Head: normocephalic, no masses, lesions, tenderness or abnormalities Eyes: conjunctiva are pink and non-injected, sclera clear Neck: supple, no adenopathy, no bruits, normal jugular venous pulse, no hepatojugular reflux Chest: normal shape and normal respiratory effort Lungs: clear to auscultation and percussion Cardiac Exam: - regular rate & rhythm, no murmurs gallops or rubs - normal S1, normal S2 Pulses: 2(+) throughout Abdomen: abdomen soft, non-tender, no abnormal masses and no hepatosplenomegaly Musculoskeletal: no gait disturbance, no joint inflammation, no deforming arthritis Extremities: no edema and no cyanosis Neuro: grossly normal exam Results & Data ([facility]) Vital Signs (Past 12 Hours) Vital Signs Temp Pulse Resp BP Pulse Ox 01/13/20 15:07 172 H 27 H 125/107 H 01/13/20 15:01 103 H 35 H 96 01/13/20 15:00 100 H 34 H 161/88 H 97 01/13/20 14:56 102 H 28 H 148/94 H 95 01/13/20 14:51 165 H 28 H 208/190 H 95 01/13/20 14:50 134 H 33 H 172/154 H 01/13/20 14:31 95 01/13/20 14:30 149/94 H 95 01/13/20 14:01 100 H 32 H 96 01/13/20 14:00 88 33 H 149/86 H 97 01/13/20 13:55 83 27 H 151/82 H 87 L 01/13/20 13:42 97 H 129/80 99 01/13/20 13:41 115 H 19 99 01/13/20 13:01 85 15 98 01/13/20 13:00 90 137/97 96 01/13/20 12:31 85 23 99 01/13/20 12:30 95 H 16 145/91 H 99 01/13/20 12:01 91 H 99 01/13/20 12:00 87 23 145/76 H 98 01/13/20 11:53 98 H 19 155/85 H 98 01/13/20 11:31 89 22 96 01/13/20 11:30 90 14 143/100 H 96 01/13/20 11:28 103 H 28 H 96 01/13/20 11:27 156/97 H 95 01/13/20 11:15 185 H 36 H 01/13/20 10:27 37.0 C 100 H 18 144/83 H 98 Laboratory Results Laboratory Results - last 24 hr 01/13/20 01/13/20 01/13/20 11:20 11:20 13:48 WBC 4.59 L RBC 3.73 L Hgb 9.9 L Hct 33.9 L MCV 90.9 MCH 26.5 MCHC 29.2 L RDW Std Deviation 72.4 H RDW Coeff of Eyad 22.2 H Plt Count 208 MPV 10.0 Immature Gran % (Auto) 0.4 Neut % (Auto) 61.3 Lymph % (Auto) 20.9 [place] % (Auto) 12.6 Eos % (Auto) 3.9 Baso % (Auto) 0.9 Neut # (Auto) 2.81 Lymph # (Auto) 0.96 L [place] # (Auto) 0.58 Eos # (Auto) 0.18 Baso # (Auto) 0.04 Immature Gran # (Auto) 0.02 Polychromasia 1+ Sodium 139 Potassium 4.2 Chloride 104 Carbon Dioxide 28 Anion Gap 7.0 BUN 17 Creatinine 1.04 Est Cr Clr Drug Dosing Not Reportable Est GFR ( Amer) 82.2 Est GFR (Non-Af Amer) 70.9 BUN/Creatinine Ratio 16.1 Glucose 89 Calcium 9.4 Magnesium 2.3 Total Bilirubin 0.6 AST 18 ALT 28 Alkaline Phosphatase 78 Troponin I 0.029 Total Protein 7.0 Albumin 3.6 Globulin 3.4 Albumin/Globulin Ratio 1.1 COVID-19 Eval Order SARS-CoV-2, RNA, NAAT 01/13/20 01/13/20 Unknown Unknown WBC RBC Hgb Hct MCV MCH MCHC RDW Std Deviation RDW Coeff of Eyad Plt Count MPV Immature Gran % (Auto) Neut % (Auto) Lymph % (Auto) [place] % (Auto) Eos % (Auto) Baso % (Auto) Neut # (Auto) Lymph # (Auto) [place] # (Auto) Eos # (Auto) Baso # (Auto) Immature Gran # (Auto) Polychromasia Sodium Potassium Chloride Carbon Dioxide Anion Gap BUN Creatinine Est Cr Clr Drug Dosing Est GFR ( Amer) Est GFR (Non-Af Amer) BUN/Creatinine Ratio Glucose Calcium Magnesium Total Bilirubin AST ALT Alkaline Phosphatase Troponin I Total Protein Albumin Globulin Albumin/Globulin Ratio COVID-19 Eval Order Covid19 [facility] SARS-CoV-2, RNA, NAAT NEGATIVE Medications Administered Current Inpatient Medications Amiodarone HCl/Dextrose (Nexterone / D5w) 360 mg in 200 mls @ 33.333 mls/hr IV ONE ONE Stop: 01/13/20 20:12 Last Admin: 01/13/20 14:52 Dose: 33.3 mls/hr Documented by: Amiodarone HCl/Dextrose (Nexterone / D5w) 360 mg in 200 mls @ 16.667 mls/hr IV .Q12H [facility] Stop: 02/12/20 20:12 Esmolol HCl (Brevibloc) 2,500 mg in 250 mls @ 44.906 mls/hr IV .Q5H35M [facility]; Protocol Stop: 02/12/20 16:29
[2020-01-13] MEDS ORDERED: AMIODARONE / D5W 360 MG/200 ML BAG IV SCH (16:30)
[2020-01-13] MEDS ORDERED: ONDANSETRON INJ 2 MG/ML 2 ML VIAL IV PRN (17:24)
[2020-01-13] MEDS ORDERED: POLYETHYLENE (MIRALAX) 17 GM PACK PO PRN (17:24)
[2020-01-13] MEDS ORDERED: NITROGLYCERIN SL 0.4 MG/TAB TAB SL PRN (17:24)
[2020-01-13] MEDS ORDERED: ALUMINUM/MAGNESIUM SUSP 30 ML UDC PO PRN (17:24)
--- NOTE | 2020-01-13 18:07 | Critical Care Consultation ---
Date of Consultation January 13, 2020 Assessment & Plan (1) Ventricular tachycardia: Reason Critically Ill: Continued episodes of nonsustained ventricular tachycardia PLAN: Neuro: Dizziness -Likely secondary to hemodynamic instabilities Resp: Wean oxygen as tolerated CV: Coronary artery disease -Continue Plavix Paroxysmal atrial fibrillation -Previously on systemic anticoagulation Nonsustained ventricular tachycardia -Amiodarone infusion -Esmolol infusion -Pending electrophysiology evaluation Fluids/Renal: Maintenance fluids after midnight when n.p.o. -Optimize electrolytes ID: Monitor fever curve GI/Nutrition: Heart healthy diet this evening -N.p.o. after midnight Heme: Anemia -Likely secondary to recent GI losses DVT prophylaxis: Lovenox to begin after any possible cardiac procedure tomorrow. Endocrine: ICU hyperglycemia protocol Vascular access: Peripheral IVs Code Status: Full code Disposition: ICU (2) Breath, shortness: (3) Coronary stent patent: (4) CAD (coronary artery disease): (5) Atrial fibrillation: (6) NSVT (nonsustained ventricular tachycardia): (7) Sustained ventricular tachycardia: (8) Vertigo: (9) Hx of gastrointestinal hemorrhage: History of Present Illness Reason for Consultation: Post cardiac cath management status post sustained ventricular tachycardia with hemodynamic instability Requesting Physician: Kj Collier MD Attending Physician: Filemon Rome MD History of Present Illness Patient is a 75-year-old male with a known history of cardiac disease who presents to the emergency department with dizziness. Patient was found to be undergoing nonsustained episodes of ventricular tachycardia. Eventually the episodes lasted longer and developed a sustained pattern which included hemodynamic instability and the patient was taken emergently to the cardiac Super[facility] [employer] for additional evaluation. Patient has been started on esmolol infusion as well as amiodarone. He has been seen by the cardiology service who spoke with the electrophysiology service. Cardiac catheterization did not reveal a intervene able lesion. Of note the patient has had a recent gastrointestinal hemorrhage (approximately 12/29/2019) which has led to Plavix use alone given recent (November 08, 2019) drug- eluting stent placement During my evaluation the patient was chest pain-free, denied shortness of breath, denied dizziness or vertigo. Denies abdominal pain belly pain. He does not feel palpitations when they occur. Allergies Allergy/AdvReac Type Severity Reaction Status Date / Time banana Allergy Severe eyes swell Unverified 01/13/20 12:45 shut No Known Drug Allergies AdvReac Unknown Unknown Unverified 01/13/20 12:45 Home Medications Home Medications Medication Instructions Recorded Confirmed Type amlodipine 10 mg tablet 10 mg PO QAM 03/31/19 01/13/20 History budesonide-formoterol HFA 160 2 puffs INH BID 03/31/19 01/13/20 History mcg-4.5 mcg/actuation aerosol inhaler multivitamin 1 tab PO QAM 03/31/19 01/13/20 History vit A 7,160 unit-vit C 113 mg-vit 1 tab PO QAM 03/31/19 01/13/20 History E 100 gqtg-ygor-alqfeb tablet betamethasone dipropionate 0.05 % 1 appln TOP BID #45 gm 04/29/19 01/13/20 Rx topical cream clopidogrel 75 mg PO QAM #34 tab 11/09/19 01/13/20 Rx metoprolol succinate 50 mg PO QAM #34 tab 11/09/19 01/13/20 Rx nitroglycerin [Nitrostat] 0.4 mg SUBLINGUAL PRN #1 btl 11/09/19 01/13/20 Rx furosemide 40 mg PO QAM 12/28/19 01/13/20 History potassium chloride 10 meq PO QAM 12/28/19 01/13/20 History ferrous sulfate 325 mg PO BID #60 tab 12/29/19 01/13/20 Rx atorvastatin 40 mg PO QAM 01/13/20 01/13/20 History losartan 100 mg PO QAM 01/13/20 01/13/20 History Patient History Medical History Acute blood loss anemia Acute congestive heart failure Acute GI bleeding Asthma Atrial fibrillation Coronary artery disease Mitral regurgitation Pulmonary HTN Status post insertion of drug-eluting stent into left anterior descending (LAD) artery Done at end of October Surgical History H/O carpal tunnel repair B/L History of throat surgery No significant past surgical history Family History Other Hypertension Social History Smoking Status: Former smoker Cigarettes Per Day: quit 50 years ago; Second Hand Exposure: No; Hx Alcohol Use: Yes Alcohol type: beer Hx Substance Use: No Preferred Language: Lithuanian Communication Ability: Effective Family Practice Doctor Required: No Beliefs That Will Affect Care: None Current Living Situation: Spouse Feels Safe at Home: Yes Review of Systems Review of Systems: All systems reviewed & are unremarkable except as noted in HPI & below Physical Exam Physical Exam: General: Alert. nontoxic. Skin: Warm, dry, Head: Atraumatic Ears, nose, mouth and throat: airway patent Cardiovascular: Normal peripheral perfusion bedside monitor demonstrates nonsustained ventricular tachycardia approximately 3-second duration or less Respiratory: no respiratory distress, speaks in full sentences Gastrointestinal: Non distended Musculoskeletal: No deformity Results & Data Results & Data ([facility]) Vital Signs (Past 12 Hours) Vital Signs Temp Pulse Resp BP Pulse Ox 01/13/20 15:07 172 H 27 H 125/107 H 01/13/20 15:01 103 H 35 H 96 01/13/20 15:00 100 H 34 H 161/88 H 97 01/13/20 14:56 102 H 28 H 148/94 H 95 01/13/20 14:51 165 H 28 H 208/190 H 95 01/13/20 14:50 134 H 33 H 172/154 H 01/13/20 14:31 95 01/13/20 14:30 149/94 H 95 01/13/20 14:01 100 H 32 H 96 01/13/20 14:00 88 33 H 149/86 H 97 01/13/20 13:55 83 27 H 151/82 H 87 L 01/13/20 13:42 97 H 129/80 99 01/13/20 13:41 115 H 19 99 01/13/20 13:01 85 15 98 01/13/20 13:00 90 137/97 96 01/13/20 12:31 85 23 99 01/13/20 12:30 95 H 16 145/91 H 99 01/13/20 12:01 91 H 99 01/13/20 12:00 87 23 145/76 H 98 01/13/20 11:53 98 H 19 155/85 H 98 01/13/20 11:31 89 22 96 01/13/20 11:30 90 14 143/100 H 96 01/13/20 11:28 103 H 28 H 96 01/13/20 11:27 156/97 H 95 01/13/20 11:15 185 H 36 H 01/13/20 10:27 37.0 C 100 H 18 144/83 H 98 Laboratory Results 01/13/20 01/13/20 01/13/20 Range/Units Unknown Unknown 13:48 WBC (4.8-10.8) K/uL RBC (4.7-6.1) M/uL Hgb (14.0-18.0) g/dL Hct (42-52) % MCV (80-100) fL MCH (25-34) pg MCHC (32-36) g/dL RDW Std Deviation (36.4-46.3) fL RDW Coeff of Eyad (11.5-14.5) % Plt Count (130-400) K/uL MPV (7.4-10.4) fL Immature Gran % (Auto) % Neut % (Auto) % Lymph % (Auto) % [place] % (Auto) % Eos % (Auto) % Baso % (Auto) % Neut # (Auto) (1.4-6.5) K/uL Lymph # (Auto) (1.2-3.4) K/uL [place] # (Auto) (0.11-0.59) K/uL Eos # (Auto) (0-0.5) K/uL Baso # (Auto) (0-0.2) K/uL Immature Gran # (Auto) (0.00-0.02) K/uL Polychromasia Sodium (136-145) mmol/L Potassium 4.2 (3.5-5.1) mmol/L Chloride (98-107) mmol/L Carbon Dioxide (21-32) mmol/L Anion Gap (3-11) BUN (7-18) mg/dl Creatinine (0.6-1.4) mg/dl Est Cr Clr Drug Dosing Est GFR ( Amer) Est GFR (Non-Af Amer) BUN/Creatinine Ratio (10-20) Glucose (70-99) mg/dl Calcium (8.5-10.1) mg/dl Magnesium 2.3 (1.8-2.4) mg/dl Total Bilirubin (0.2-1) mg/dl AST 18 (15-37) U/L ALT (12-78) U/L Alkaline Phosphatase (45-117) U/L Troponin I (0-0.045) ng/ml Total Protein (6.4-8.2) gm/dl Albumin (3.4-5.0) gm/dl Globulin (2.5-4.0) gm/dl Albumin/Globulin Ratio (0.9-2) COVID-19 Eval Order [facility] SARS-CoV-2, RNA, NAAT NEGATIVE (NEGATIVE) 01/13/20 01/13/20 Range/Units 11:20 11:20 WBC 4.59 L (4.8-10.8) K/uL RBC 3.73 L (4.7-6.1) M/uL Hgb 9.9 L (14.0-18.0) g/dL Hct 33.9 L (42-52) % MCV 90.9 (80-100) fL MCH 26.5 (25-34) pg MCHC 29.2 L (32-36) g/dL RDW Std Deviation 72.4 H (36.4-46.3) fL RDW Coeff of Eyad 22.2 H (11.5-14.5) % Plt Count 208 (130-400) K/uL MPV 10.0 (7.4-10.4) fL Immature Gran % (Auto) 0.4 % Neut % (Auto) 61.3 % Lymph % (Auto) 20.9 % [place] % (Auto) 12.6 % Eos % (Auto) 3.9 % Baso % (Auto) 0.9 % Neut # (Auto) 2.81 (1.4-6.5) K/uL Lymph # (Auto) 0.96 L (1.2-3.4) K/uL [place] # (Auto) 0.58 (0.11-0.59) K/uL Eos # (Auto) 0.18 (0-0.5) K/uL Baso # (Auto) 0.04 (0-0.2) K/uL Immature Gran # (Auto) 0.02 (0.00-0.02) K/uL Polychromasia 1+ Sodium 139 (136-145) mmol/L Potassium (3.5-5.1) mmol/L Chloride 104 (98-107) mmol/L Carbon Dioxide 28 (21-32) mmol/L Anion Gap 7.0 (3-11) BUN 17 (7-18) mg/dl Creatinine 1.04 (0.6-1.4) mg/dl Est Cr Clr Drug Dosing Not Reportable Est GFR ( Amer) 82.2 Est GFR (Non-Af Amer) 70.9 BUN/Creatinine Ratio 16.1 (10-20) Glucose 89 (70-99) mg/dl Calcium 9.4 (8.5-10.1) mg/dl Magnesium (1.8-2.4) mg/dl Total Bilirubin 0.6 (0.2-1) mg/dl AST (15-37) U/L ALT 28 (12-78) U/L Alkaline Phosphatase 78 (45-117) U/L Troponin I 0.029 (0-0.045) ng/ml Total Protein 7.0 (6.4-8.2) gm/dl Albumin 3.6 (3.4-5.0) gm/dl Globulin 3.4 (2.5-4.0) gm/dl Albumin/Globulin Ratio 1.1 (0.9-2) COVID-19 Eval Order SARS-CoV-2, RNA, NAAT (NEGATIVE) Diagnostic Findings I have reviewed the cardiac cath results. Coding Level of Care Code Critical Care 1st 30-74 mins Diagnoses Ventricular tachycardia I47.2 Breath, shortness R06.02 Coronary stent patent Z95.5 CAD (coronary artery disease) I25.10 Coronary Disease-Associated Artery/Lesion type: [place] artery [place] vs. transplanted heart: [place] heart Associated angina: without angina Atrial fibrillation I48.0 Atrial fibrillation type: paroxysmal NSVT (nonsustained ventricular tachycardia) I47.2 Sustained ventricular tachycardia I47.2 Vertigo R42 Hx of gastrointestinal hemorrhage Z87.19 Time Spent (min) 45 Comment I have personally spent 45 minutes of critical care time in the direct management of this patient. This is a life/limb threatening event. This includes time spent evaluating patient, direct bedside care, chart review, placing orders, interpretation of diagnostic studies, discussion with consul tants, patient, and/or family members regarding treatment decisions, as well as other required patient management activities. This time is exclusive of all separately billable procedures, and teaching time and separate from and in addition to any other critical care service time. (1) CAD (coronary artery disease) Coronary Disease-Associated Artery/Lesion type: [place] artery [place] vs. transplanted heart: [place] heart Associated angina: without angina Qualified Code(s): I25.10 - Atherosclerotic heart disease of [place] coronary artery without angina pectoris (2) Atrial fibrillation Atrial fibrillation type: paroxysmal Qualified Code(s): I48.0 - Paroxysmal atrial fibrillation
[2020-01-13] MEDS ORDERED: METOPROLOL TARTRATE 1 MG/ML VIAL IV ONE (19:03)
[2020-01-13] MEDS ORDERED: METOPROLOL TARTRATE 1 MG/ML VIAL IV STA (19:15)
[2020-01-13] MEDS: AMIODARONE / D5W 360 MG/200 ML BAG IV SCH (20:40)
[2020-01-13] MEDS: FERROUS SULFATE 325 MG TAB PO SCH (20:44)
[2020-01-14] MEDS: NORMOSOL-R 1,000 ML IV SCH ×2 (01:23→13:52)
[2020-01-14] MEDS: ESMOLOL / NSS 2,500 MG/250 ML BAG IV SCH (03:22)
--- NOTE | 2020-01-14 05:43 | Critical Care Progress Note ---
Date of Service January 14, 2020 Assessment & Plan (1) Ventricular tachycardia: Reason Critically Ill: 75y/o male with coronary artery disease presented to the hospital following dizziness, was found to be in nonsustained wide- complex tachycardia. Status post cardiac catheterization demonstrating patent coronary anatomy including prior stent. Continuing to require amiodarone infusion, with the new addition of an increased Toprol-XL dose, and addition of amiodarone p.o. 200mg TID. Neuro: -CAM ICU negative -Dizziness -Likely secondary to hemodynamic instabilities Resp: -No previous home oxygen supplementation requirements -Wean oxygen as tolerated Cardiac/Vascular: -Coronary artery disease -Continue Plavix -Paroxysmal atrial fibrillation -Previously on systemic anticoagulation, stopped due to melanotic stool -Nonsustained ventricular tachycardia -Continue amiodarone infusion, with addition of 200 mg p.o. 3 times daily -Stopped esmolol infusion -Restarted Toprol 75 mg daily GI/Nutrition: -Heart healthy diet Endocrine: -No history of diabetes or thyroid disorder -ICU hyperglycemia protocol Renal/Lytes: -No significant electrolyte abnormalities -Continue to monitor Heme: -Anemia -Likely secondary to recent GI losses ID: -No current concern for infectious etiology Lines: -PIV x2 DVT prophylaxis: -Lovenox to be started following cardiac evaluation (2) Breath, shortness: (3) Coronary stent patent: (4) CAD (coronary artery disease): (5) Atrial fibrillation: (6) NSVT (nonsustained ventricular tachycardia): Admission and Anticipated Discharge Date Admission Date: January 13, 2020 Supervising Physician Co-Signing Physician Notes Dr. Loyd was resident physician during care of patient. I separately evaluated patient for nicole portions of the history and the exam. I was present during the critical portion of medical decision making, and I discussed the case with the resident. I generally agree with the findings and plan. Increased beta-blockade from 50 mg to 75 milligrams discontinued esmolol per cardiology recommendations we will continue amiodarone IV while also initiating oral. Patient critically ill due to ongoing ventricular tachycardia and needs for intravenous vasoactive medication. Subjective Last night patient feels like he did very well, had no events where he felt lightheaded, dizziness, shortness of breath; since being started on the IV medications patient feels like he is done considerably better. Last observed episodes of wide-complex tachycardia demonstrated on telemetry were at approximately 1900 last night. Review of Systems Review of Systems: All systems reviewed & are unremarkable except as noted in Subjective Physical Exam Constitutional: WD/WN, vitals as above Eyes: PERRL, conjunctivae normal, anicteric sclerae ENMT: external ear and nose normal, oropharynx normal Respiratory: normal respiratory effort, lungs clear to auscultation Cardiovascular: Rate/Rhythm: regular rate Heart Sounds: no gallop, no murmur and no cardiac rub Vessels: normal peripheral pulses; no JVD Gastrointestinal (Abdomen): normal bowel sounds, soft, nontender, no hepatosplenomegaly Musculoskeletal: no cyanosis or clubbing, extremities motor strength 5/5 Skin: no rashes, warm and dry Neurologic: patellar DTR's 2+ bilat, sensation intact and PERRL, EOMI, accommodation nl, no face palsy, no dysarthria Psychiatric: Orientation: alert and oriented x 3 Lymphatic: no cervical lymphadenopathy Results & Data Results & Data ([facility]) Vital Signs (Past 12 Hours) Vital Signs Temp Pulse Resp BP Pulse Ox 01/14/20 02:05 36.4 C L 52 L 21 137/80 95 01/14/20 01:05 52 L 21 127/76 95 01/14/20 00:05 36.4 C L 59 L 13 115/58 L 89 L 01/14/20 00:00 73 01/13/20 23:05 36.6 C 65 30 H 130/80 98 01/13/20 22:05 36.7 C 76 19 136/81 91 01/13/20 21:05 64 27 H 143/91 H 01/13/20 20:00 62 29 H 140/71 01/13/20 19:45 74 19 153/77 H 01/13/20 19:30 68 26 H 149/77 H 01/13/20 19:26 176 H 01/13/20 19:15 79 21 145/95 H 97 01/13/20 19:08 83 29 H 144/90 H 95 01/13/20 19:04 105 H 35 H 90/88 L 96 01/13/20 19:03 167 H 23 162/104 H 92 01/13/20 19:00 169 H 25 H 144/112 H 95 01/13/20 18:45 68 36 H 147/92 H 99 01/13/20 18:30 70 26 H 169/92 H 98 01/13/20 18:15 68 36 H 149/99 H 95 01/13/20 18:00 36.5 C 70 19 136/85 98 Laboratory Results 01/14/20 01/14/20 01/13/20 Range/Units 06:04 06:04 Unknown WBC Pending (4.8-10.8) K/uL RBC Pending (4.7-6.1) M/uL Hgb Pending (14.0-18.0) g/dL Hct Pending (42-52) % MCV Pending (80-100) fL MCH Pending (25-34) pg MCHC Pending (32-36) g/dL RDW Std Deviation (36.4-46.3) fL RDW Coeff of Eyad (11.5-14.5) % Plt Count Pending (130-400) K/uL MPV (7.4-10.4) fL Immature Gran % (Auto) % Neut % (Auto) % Lymph % (Auto) % Dolores % (Auto) % Eos % (Auto) % Baso % (Auto) % Neut # (Auto) (1.4-6.5) K/uL Lymph # (Auto) (1.2-3.4) K/uL [place]ores # (Auto) (0.11-0.59) K/uL Eos # (Auto) (0-0.5) K/uL Baso # (Auto) (0-0.2) K/uL Immature Gran # (Auto) (0.00-0.02) K/uL Polychromasia Sodium Pending (136-145) mmol/L Potassium Pending (3.5-5.1) mmol/L Chloride Pending (98-107) mmol/L Carbon Dioxide Pending (21-32) mmol/L Anion Gap Pending (3-11) BUN Pending (7-18) mg/dl Creatinine Pending (0.6-1.4) mg/dl Est Cr Clr Drug Dosing Pending Est GFR ( Amer) Pending Est GFR (Non-Af Amer) Pending BUN/Creatinine Ratio Pending (10-20) Glucose Pending (70-99) mg/dl Calcium Pending (8.5-10.1) mg/dl Magnesium (1.8-2.4) mg/dl Total Bilirubin (0.2-1) mg/dl AST (15-37) U/L ALT (12-78) U/L Alkaline Phosphatase (45-117) U/L Troponin I (0-0.045) ng/ml Total Protein (6.4-8.2) gm/dl Albumin (3.4-5.0) gm/dl Globulin (2.5-4.0) gm/dl Albumin/Globulin Ratio (0.9-2) COVID-19 Eval Order SARS-CoV-2, RNA, NAAT NEGATIVE (NEGATIVE) 01/13/20 01/13/20 01/13/20 Range/Units Unknown 13:48 11:20 WBC (4.8-10.8) K/uL RBC (4.7-6.1) M/uL Hgb (14.0-18.0) g/dL Hct (42-52) % MCV (80-100) fL MCH (25-34) pg MCHC (32-36) g/dL RDW Std Deviation (36.4-46.3) fL RDW Coeff of Eyad (11.5-14.5) % Plt Count (130-400) K/uL MPV (7.4-10.4) fL Immature Gran % (Auto) % Neut % (Auto) % Lymph % (Auto) % [place]ores % (Auto) % Eos % (Auto) % Baso % (Auto) % Neut # (Auto) (1.4-6.5) K/uL Lymph # (Auto) (1.2-3.4) K/uL [place] # (Auto) (0.11-0.59) K/uL Eos # (Auto) (0-0.5) K/uL Baso # (Auto) (0-0.2) K/uL Immature Gran # (Auto) (0.00-0.02) K/uL Polychromasia Sodium 139 (136-145) mmol/L Potassium 4.2 (3.5-5.1) mmol/L Chloride 104 (98-107) mmol/L Carbon Dioxide 28 (21-32) mmol/L Anion Gap 7.0 (3-11) BUN 17 (7-18) mg/dl Creatinine 1.04 (0.6-1.4) mg/dl Est Cr Clr Drug Dosing Not Reportable Est GFR ( Amer) 82.2 Est GFR (Non-Af Amer) 70.9 BUN/Creatinine Ratio 16.1 (10-20) Glucose 89 (70-99) mg/dl Calcium 9.4 (8.5-10.1) mg/dl Magnesium 2.3 (1.8-2.4) mg/dl Total Bilirubin 0.6 (0.2-1) mg/dl AST 18 (15-37) U/L ALT 28 (12-78) U/L Alkaline Phosphatase 78 (45-117) U/L Troponin I 0.029 (0-0.045) ng/ml Total Protein 7.0 (6.4-8.2) gm/dl Albumin 3.6 (3.4-5.0) gm/dl Globulin 3.4 (2.5-4.0) gm/dl Albumin/Globulin Ratio 1.1 (0.9-2) COVID-19 Eval [facility] SARS-CoV-2, RNA, NAAT (NEGATIVE) 01/13/20 Range/Units 11:20 WBC 4.59 L (4.8-10.8) K/uL RBC 3.73 L (4.7-6.1) M/uL Hgb 9.9 L (14.0-18.0) g/dL Hct 33.9 L (42-52) % MCV 90.9 (80-100) fL MCH 26.5 (25-34) pg MCHC 29.2 L (32-36) g/dL RDW Std Deviation 72.4 H (36.4-46.3) fL RDW Coeff of Eyad 22.2 H (11.5-14.5) % Plt Count 208 (130-400) K/uL MPV 10.0 (7.4-10.4) fL Immature Gran % (Auto) 0.4 % Neut % (Auto) 61.3 % Lymph % (Auto) 20.9 % Dolores % (Auto) 12.6 % Eos % (Auto) 3.9 % Baso % (Auto) 0.9 % Neut # (Auto) 2.81 (1.4-6.5) K/uL Lymph # (Auto) 0.96 L (1.2-3.4) K/uL [place]ores # (Auto) 0.58 (0.11-0.59) K/uL Eos # (Auto) 0.18 (0-0.5) K/uL Baso # (Auto) 0.04 (0-0.2) K/uL Immature Gran # (Auto) 0.02 (0.00-0.02) K/uL Polychromasia 1+ Sodium (136-145) mmol/L Potassium (3.5-5.1) mmol/L Chloride (98-107) mmol/L Carbon Dioxide (21-32) mmol/L Anion Gap (3-11) BUN (7-18) mg/dl Creatinine (0.6-1.4) mg/dl Est Cr Clr Drug Dosing Est GFR ( Amer) Est GFR (Non-Af Amer) BUN/Creatinine Ratio (10-20) Glucose (70-99) mg/dl Calcium (8.5-10.1) mg/dl Magnesium (1.8-2.4) mg/dl Total Bilirubin (0.2-1) mg/dl AST (15-37) U/L ALT (12-78) U/L Alkaline Phosphatase (45-117) U/L Troponin I (0-0.045) ng/ml Total Protein (6.4-8.2) gm/dl Albumin (3.4-5.0) gm/dl Globulin (2.5-4.0) gm/dl Albumin/Globulin Ratio (0.9-2) COVID-19 Eval Order SARS-CoV-2, RNA, NAAT (NEGATIVE) Medications Administered Current Inpatient Medications Acetaminophen (Acetaminophen 325 Mg Tab) 650 mg PO Q4H PRN PRN Reason: Pain or Fever Stop: 02/12/20 17:23 Al Hydrox/Mg Hydrox/Simethicone (Aluminum/Magnesium Susp 30 Ml Udc) 15 ml PO Q4H PRN PRN Reason: Dyspepsia Stop: 02/12/20 17:23 Amlodipine Besylate (Amlodipine Besylate 5 Mg Tab) 10 mg PO QAM [facility] Stop: 02/13/20 08:59 Atorvastatin Calcium (Atorvastatin 40 Mg Tab) 40 mg PO QAM [facility] Stop: 02/13/20 08:59 Clopidogrel Bisulfate (Clopidogrel Bisulfate 75 Mg Tab) 75 mg PO QAM [facility] Stop: 02/13/20 08:59 Ferrous Sulfate (Ferrous Sulfate 325 Mg Tab) 325 mg PO BID [facility] Stop: 02/12/20 20:59 Last Admin: 01/13/20 20:44 Dose: 325 mg Documented by: Fluticasone/Vilanterol (Fluticasone/Vilanterol 200/25mcg 14 Puffs/Inhaler) 1 puffs INH DAILY [facility] Stop: 02/13/20 08:59 Amiodarone HCl/Dextrose (Nexterone / D5w) 360 mg in 200 mls @ 16.667 mls/hr IV .Q12H [facility] Stop: 02/12/20 20:12 Last Admin: 01/13/20 20:40 Dose: 0.5 mg/min, 16.7 mls/hr Documented by: Esmolol HCl (Brevibloc) 2,500 mg in 250 mls @ 44.906 mls/hr IV .Q5H35M [facility]; Protocol Stop: 02/12/20 16:29 Last Admin: 01/14/20 03:22 Dose: 50 mcg/kg/min, 44.9 mls/hr Documented by: Parenteral Electrolytes (Normosol-R) 1,000 mls @ 80 mls/hr IV .[id number] [facility] Stop: 02/13/20 00:59 Last Admin: 01/14/20 01:23 Dose: 80 mls/hr Documented by: Losartan Potassium (Losartan Potassium 50 Mg Tab) [facility] Stop: 02/13/20 08:59 Multivitamins (Multivitamin Tab) 1 tab PO [facility] Stop: 02/13/20 08:59 Nitroglycerin (Nitroglycerin Sl 0.4 Mg/Tab Tab) 0.4 mg SL UD PRN PRN Reason: Chest Pain Stop: 02/12/20 17:23 Polyethylene Glycol (Polyethylene (Miralax) 17 Gm Pack) 17 gm PO DAILY PRN PRN Reason: Constipation Stop: 02/12/20 17:23 Potassium Chloride (Potassium Chloride 10 Meq Tabcr) 10 meq PO QAM [facility] Stop: 02/13/20 08:59 Critical Care Time Critical Care Time: Yes Total Critical Care Time: 35 I have personally spent 35 minutes of critical care time in the direct management of this patient. This is a life/limb threatening event. This includes time spent evaluating patient, direct bedside care, chart review, placing orders, interpretation of diagnostic studies, discussion with consultants, patient, and/or family members regarding treatment decisions, as well as other required patient management activities. This time is exclusive of all separately billable procedures, and teaching time and separate from and in addition to any other critical care service time. Resident Activity Tracking Resident Involvement: Resident Care Provided Care Provided: Adult [facility] Medicine (Critical Care) (1) CAD (coronary artery disease) Associated angina: without angina Coronary Disease-Associated Artery/Lesion type: [place] artery [place] vs. transplanted heart: [place] heart Qualified Code(s): I25.10 - Atherosclerotic heart disease of [place] coronary artery without angina pectoris (2) Atrial fibrillation Atrial fibrillation type: paroxysmal Qualified Code(s): I48.0 - Paroxysmal atrial fibrillation
[2020-01-14 06:22] LABS: Basophils # (auto) 0.05 K/uL (0-0.2); Basophils % (auto) 1.2 %; Eosinophils # (auto) 0.23 K/uL (0-0.5); Eosinophils % (auto) 5.4 %; Hematocrit (blood only) 31.9 % (42-52); Hemoglobin 9.5 g/dL (14.0-18.0); Immature Granulocytes # (auto) 0.02 K/uL (0.00-0.02); Immature Granulocytes % (auto) 0.5 %; Lymphocytes # (auto) 0.95 K/uL (1.2-3.4); Lymphocytes % (auto) 22.1 %; Mean Corpuscular Hemoglobin 27.8 pg (25-34); Mean Corpuscular Hgb Conc 29.8 g/dL (32-36); Mean Corpuscular Volume 93.3 fL (80-100); Mean Platelet Volume 9.6 fL (7.4-10.4); Monocytes % (auto) 11.7 %; Neutrophils # (auto) 2.54 K/uL (1.4-6.5); Neutrophils % (auto) 59.1 %; Platelet Count 260 K/uL (130-400); RDW Standard Deviation 74.3 fL (36.4-46.3); Red Blood Count 3.42 M/uL (4.7-6.1); White Blood Count 4.29 K/uL (4.8-10.8)
[2020-01-14 06:38] LABS: BUN Creatinine Ratio 16.9 (10-20); Calcium 8.6 mg/dl (8.5-10.1); Est GFR (African American) 86.2; Est GFR (Non-African American) 74.3; Potassium 4.6 mmol/L (3.5-5.1)
[2020-01-14 06:44] LABS: Anisocytosis Present; Hypochromasia Present
[2020-01-14] MEDS: AMIODARONE / D5W 360 MG/200 ML BAG IV SCH ×2 (07:34→18:48)
[2020-01-14] MEDS: FERROUS SULFATE 325 MG TAB PO SCH ×2 (08:20→21:32)
[2020-01-14] MEDS: FLUTICASONE/VILANTEROL 200/25MCG 14 PUFFS/INHALER INH SCH (08:20)
[2020-01-14] MEDS: MULTIVITAMIN TAB PO SCH (08:20)
[2020-01-14] MEDS: METOPROLOL SUCC 25MG EXT REL TAB PO SCH (08:20)
[2020-01-14] MEDS: ATORVASTATIN 40 MG TAB PO SCH (08:21)
[2020-01-14] MEDS: CLOPIDOGREL BISULFATE 75 MG TAB PO SCH (08:21)
[2020-01-14] MEDS: LOSARTAN POTASSIUM 50 MG TAB PO SCH (08:21)
[2020-01-14] MEDS: AMLODIPINE BESYLATE 5 MG TAB PO SCH (08:21)
[2020-01-14] MEDS: POTASSIUM CHLORIDE 10 MEQ TABCR PO SCH (08:21)
[2020-01-14] MEDS ORDERED: [UNRECOGNIZED DRUG - OTHER] PO SCH (09:00)
[2020-01-14] MEDS ORDERED: METOPROLOL SUCC 50MG EXT REL TAB PO SCH (09:00)
--- NOTE | 2020-01-14 09:47 | Billing Data ---
Date of Service January 14, 2020 Coding Level of Care Code 26276 Subseq Hosp Care Lvl 3
--- NOTE | 2020-01-14 10:37 | Cardiology Progress Note ---
Date of Service January 14, 2020 Assessment & Plan (1) NSVT (nonsustained ventricular tachycardia): Patient presented yesterday 01/13/2020 to the emergency room having had abrupt onset of episodic dizziness. He notes never having felt this in the past. While monitored on telemetry in the emergency room he was noted to have sustained episodes of monomorphic wide-complex tachycardia with rate over 200 bpm, the morphology of which is consistent with ventricular tachycardia. Treatment was initiated with amiodarone and IV esmolol with interval improvement in the arrhythmia. Emergent cardiac catheterization performed revealing patent LAD stent, 100% proximal stenosis of the second diagonal branch of the LAD which was a chronic finding noted on the 11/08/2019 catheterization. No culprit stenosis elsewhere. Echocardiogram performed yesterday revealed grossly normal LVEF. Most recent episode of ventricular tachycardia occurred 01/13/2020 at 19:03, noted rate controlled atrial fibrillation in the meantime. Per review of historical EKGs, rate controlled atrial fibrillation is been noted in the past, with occasional monomorphic PVCs captured on previous EKG tracings. The patient denies any previous history of syncope or near syncope recently, or otherwise prior to yesterday. Electrolytes are within normal limits. IV esmolol discontinued. Prior to hospital dose of metoprolol succinate 50 mg daily has been increased to 75 mg daily. Continue IV plus oral amiodarone loading. The IV infusion of amiodarone is to continue at 0.5 mg/h, the interim 200 mg p.o. 3 times daily with meals for heart rate less than 50 bpm. Liver function tests are baseline this admission. TSH performed today 01/13/2021 within normal limits. Repeat transthoracic echocardiogram planned for today for reassessment of LVEF the arrhythmia has subsided. Anticipate consideration of ICD prior to discharge unless reversible cause of the arrhythmia is otherwise determined. (2) Atrial fibrillation: Patient with a history of (permanent) atrial fibrillation. At the time of his LAD drug-eluting stent which was placed on 11/08/2019, been discharged on triple therapy including aspirin, clopidogrel, Xarelto. At time of hospital follow-up last month, December,, he described 3 weeks of interval melena, hemoglobin found to be severely diminished just below 7 patient, prompting hospitalization 12/28/2019, during which time patient received 1 unit of packed red blood cells. But has trended up to 9.9 yesterday, 9.5 today, on iron supplementation. EGD performed 12/29/2019 without culprit for bleeding. Aspirin and Xarelto have been on hold since discharge 12/29/2019. He has been on clopidogrel monotherapy. (3) CAD (coronary artery disease): As noted above, emergent cardiac catheterization yesterday reveals patent stent. Percent proximal stenosis of the second diagonal branch of the LAD, unchanged compared to 11/08/2019. Patient on undergo monotherapy due to recent anemia episode. Continue metoprolol, atorvastatin. (4) Valvular heart disease: At least moderate mitral regurgitation, moderate tricuspid regurgitation noted on outpatient echo 11/08/2019, reassess today. Doubt valvular heart disease would be the inciting factor for his VT in the setting of normal LVEF. (5) Pulmonary HTN: Estimated pulmonary artery systolic pressure in the 60s on resting echo, precardiac catheterization,, 2019. Estimated to be in the 40s did focused echo, 01/13/2020. Pending reassessment. Allergies of the pulmonary hypertension include heart disease, or underlying lung disease diastolic dysfunction. -Would consider having the patient stay in the ICU and reassessment tomorrow. -Although patient had recent significant anemia, I have a low threshold for adding pharmacologic DVT prophylaxis given his risk, such as Lovenox 40 mg SQ daily. Admission and Anticipated Discharge Date Admission Date: January 13, 2020 Subjective Patient seen in cardiology follow-up. He was sitting in the bedside chair and feeling well. Amiodarone was infusing, as well having previously been discontinued. Per review of telemetry, his most recent episode of ventricular tachycardia occurred last evening 01/13/2020 at 1903. Previously, the majority of the episodes as taken place between [id number]. Review of Systems Review of Systems: All systems reviewed & are unremarkable except as noted in HPI & below Physical Exam Physical Exam: Temp Pulse Resp BP Pulse Ox 36.4 C L 52 L 22 136/75 93 01/14/20 05:05 01/14/20 08:00 01/14/20 05:05 01/14/20 05:05 01/14/20 05:05 Constitutional: WD/WN, vitals as above Respiratory: normal respiratory effort, lungs clear to auscultation Cardiovascular: Rate/Rhythm: + irregularly irregular Heart Sounds: + murmur (1/6 systolic murmur heard best at the apex) Vessels: no JVD Extremities: no edema Chest (Breasts): normal inspection/palpation of breasts Gastrointestinal (Abdomen): normal bowel sounds, soft, nontender, no hepatosplenomegaly Skin: no rashes, warm and dry Neurologic: PERRL, EOMI, accommodation nl, no face palsy, no dysarthria Results & Data ([facility]) Vital Signs (Past 12 Hours) Vital Signs Temp Pulse Resp BP Pulse Ox 01/14/20 08:00 52 L 01/14/20 05:05 36.4 C L 52 L 22 136/75 93 01/14/20 04:05 36.4 C L 56 L 18 121/67 86 L 01/14/20 03:49 48 L 18 130/72 89 L 01/14/20 03:05 36.4 C L 58 L 23 130/72 97 01/14/20 02:05 36.4 C L 52 L 21 137/80 95 01/14/20 01:05 52 L 21 127/76 95 01/14/20 00:05 36.4 C L 59 L 13 115/58 L 89 L 01/14/20 00:00 73 01/13/20 23:05 36.6 C 65 30 H 130/80 98 (1) Atrial fibrillation Atrial fibrillation type: paroxysmal Qualified Code(s): I48.0 - Paroxysmal atrial fibrillation (2) CAD (coronary artery disease) Coronary Disease-Associated Artery/Lesion type: [place] artery [place] vs. transplanted heart: [place] heart Associated angina: without angina Qualified Code(s): I25.10 - Atherosclerotic heart disease of [place] coronary artery without angina pectoris
[2020-01-14] MEDS: AMIODARONE 200 MG TAB PO SCH ×2 (11:49→16:52)
[2020-01-14] MEDS ORDERED: AMIODARONE 200 MG TAB PO SCH (17:00)
--- NOTE | 2020-01-14 18:05 | Hospitalist Progress Note ---
Date of Service January 14, 2020 Assessment & Plan (1) Sustained ventricular tachycardia: Admit to ICU s/p dairy and food laboratory assistant on 01/12, pat LAD stent, however chronic occlusion noted Was started on amio/esmolol on admission Cardiology has d/c'd esmolol and monitoring on amio and increased metoprolol d osing Awaiting ECHO Monitor, t/c ICD placement prior to d/c if ongoing issues (2) Dizziness: Although description is that of vertigo suspect he is actually having hypoperfusion during ventricular tachyarrythmias. CT head negative for acute pathology. (3) Atrial fibrillation: Restart on Eliquis for anticoagulation when recommended per ICU (4) Hx of gastrointestinal hemorrhage: Will need follow up outpaitent colonoscopy if not already arranged. Occurred initially in setting of DAPT and Xarelto (5) Breath, shortness: (6) Status post insertion of drug-eluting stent into left anterior descending (LAD) artery: (7) Pulmonary HTN: (8) Coronary artery disease: As above (9) Hypertension: Continue losartan, amlodipine. Will defer diuresis with lasix to ICU team as patient present with mild pulmonary edema Admission and Anticipated Discharge Date Admission Date: January 13, 2020 Subjective Pt states he has had no further SOB or dizziness. He has never had chest pain with any of this. Tolerating PO without issue. He is feeling overall improved. Pt denies fever, abd pain, n/v/c/d, LE pain. He has mild LE swelling that is at baseline. Review of Systems Review of Systems: Pertinent positives and negatives reviewed in HPI--all others negative Physical Exam Constitutional: WD/WN, vitals as above Eyes: normal visual ariza by confrontation and + anicteric sclerae Neck: normal visual inspection and trachea midline Respiratory: normal respiratory effort, lungs clear to auscultation Cardiovascular: Rate/Rhythm: regular rate and regular rhythm Extremities: + edema (trace) Gastrointestinal (Abdomen): Inspection/Auscultation: abdomen not distended Percussion/Palpation: abdomen soft; abdomen nontender Musculoskeletal: Head/Neck/Chest: normocephalic and head atraumatic peripheral pulses intact Skin: no rashes, warm and dry Neurologic: awake; not confused Speech / Cognition: normal speech Psychiatric: A+Ox3, euthymic affect Results & Data Results & Data ([facility]) Vital Signs (Past 12 Hours) Vital Signs Temp Pulse Resp BP Pulse Ox 01/14/20 16:05 36.6 C 67 27 H 169/77 H 94 01/14/20 16:00 68 01/14/20 15:05 65 7 L 157/85 H 91 01/14/20 14:05 66 10 L 153/93 H 92 01/14/20 13:05 66 23 155/76 H 90 01/14/20 12:32 36.6 C 72 30 H 159/80 H 88 L 01/14/20 10:05 75 29 H 144/80 H 90 01/14/20 09:05 64 25 H 160/82 H 92 01/14/20 08:05 66 26 H 161/98 H 91 01/14/20 08:00 52 L 01/14/20 07:05 55 L 21 149/75 H 91 PG Care Time/CCT Total # of Minutes Spent Total Time Spent with Patient: Total time spent is greater than 50% in coordination of care (as documented) at patient's floor/unit and/or counseling patient: Coding Level of Care Code 29244 Subseq Hosp Care Lvl 3 Diagnoses Sustained ventricular tachycardia I47.2 Dizziness R42 Atrial fibrillation I48.21 Atrial fibrillation type: permanent Hx of gastrointestinal hemorrhage Z87.19 Breath, shortness R06.02 Status post insertion of drug-eluting stent into left anterior descending (LAD) artery Z95.5 Pulmonary HTN I27.20 Coronary artery disease I25.10 Hypertension I10 (1) Atrial fibrillation Atrial fibrillation type: permanent Qualified Code(s): I48.21 - Permanent atrial fibrillation
[2020-01-15] MEDS: ACETAMINOPHEN 325 MG TAB PO PRN (02:12)
[2020-01-15] MEDS: NORMOSOL-R 1,000 ML IV SCH (02:13)
[2020-01-15 04:24] LABS: Basophils # (auto) 0.03 K/uL (0-0.2); Basophils % (auto) 0.5 %; Eosinophils # (auto) 0.15 K/uL (0-0.5); Eosinophils % (auto) 2.6 %; Hematocrit (blood only) 33.1 % (42-52); Hemoglobin 9.7 g/dL (14.0-18.0); Immature Granulocytes # (auto) 0.02 K/uL (0.00-0.02); Immature Granulocytes % (auto) 0.3 %; Lymphocytes # (auto) 0.88 K/uL (1.2-3.4); Lymphocytes % (auto) 15.1 %; Mean Corpuscular Hgb Conc 29.3 g/dL (32-36); Mean Corpuscular Volume 92.2 fL (80-100); Mean Platelet Volume 9.6 fL (7.4-10.4); Monocytes % (auto) 15.5 %; Neutrophils # (auto) 3.83 K/uL (1.4-6.5); Platelet Count 278 K/uL (130-400); RDW Coefficient of Variation 22.3 % (11.5-14.5); RDW Standard Deviation 74.2 fL (36.4-46.3); Red Blood Count 3.59 M/uL (4.7-6.1); White Blood Count 5.81 K/uL (4.8-10.8)
--- NOTE | 2020-01-15 04:42 | Electrocardiogram Report ---
Test Reason : Blood Pressure : / mmHG Vent. Rate : 095 BPM Atrial Rate : 120 BPM P-R Int : 000 ms QRS Dur : 112 ms QT Int : 372 ms P-R-T Axes : 000 013 038 degrees QTc Int : 467 ms Atrial fibrillation with premature ventricular or aberrantly conducted complexes Cannot rule out Anterior infarct , age undetermined Nonspecific ST abnormality Abnormal ECG When compared with ECG of 28-DEC-2019 12:03, No significant change was found Confirmed by Gerald Prescott ([id number]) on 01/15/2020 4:41:53 AM Referred By: REFERRED SELF Confirmed By:Gerald Prescott
[2020-01-15 04:44] LABS: Acanthocytes 1+; Anisocytosis Present; Polychromasia 1+; Tear Drop Cells 1+
[2020-01-15 04:47] LABS: Calcium 8.5 mg/dl (8.5-10.1); Creatinine Clr Calc Pharmacy 82.8 ml/min; Est GFR (African American) 81.2; Est GFR (Non-African American) 70.1; Magnesium 2.5 mg/dl (1.8-2.4); Phosphorus 3.7 mg/dl (2.5-4.9); Potassium 3.9 mmol/L (3.5-5.1)
[2020-01-15] MEDS ORDERED: ONDANSETRON INJ 2 MG/ML 2 ML VIAL IV PRN (07:25)
[2020-01-15] MEDS ORDERED: ONDANSETRON INJ 2 MG/ML 2 ML VIAL ONE (07:46)
[2020-01-15] MEDS: AMIODARONE / D5W 360 MG/200 ML BAG IV SCH (07:48)
[2020-01-15] MEDS: AMIODARONE 200 MG TAB PO SCH ×3 (07:54→17:12)
[2020-01-15] MEDS: FLUTICASONE/VILANTEROL 200/25MCG 14 PUFFS/INHALER INH SCH (08:32)
[2020-01-15] MEDS: MULTIVITAMIN TAB PO SCH (08:33)
[2020-01-15] MEDS: ATORVASTATIN 40 MG TAB PO SCH (08:33)
[2020-01-15] MEDS: LOSARTAN POTASSIUM 50 MG TAB PO SCH (08:33)
[2020-01-15] MEDS: METOPROLOL SUCC 25MG EXT REL TAB PO SCH (08:33)
[2020-01-15] MEDS: AMLODIPINE BESYLATE 5 MG TAB PO SCH (08:33)
[2020-01-15] MEDS: FERROUS SULFATE 325 MG TAB PO SCH ×2 (08:33→20:48)
[2020-01-15] MEDS: CLOPIDOGREL BISULFATE 75 MG TAB PO SCH (08:33)
[2020-01-15] MEDS: POTASSIUM CHLORIDE 10 MEQ TABCR PO SCH (08:33)
--- NOTE | 2020-01-15 08:56 | Critical Care Progress Note ---
Date of Service January 15, 2020 Assessment & Plan (1) Ventricular tachycardia: Reason Critically Ill: Continued episodes of nonsustained ventricular tachycardia PLAN: Neuro: Dizziness resolved Resp: No oxygen requirement CV: Coronary artery disease -Continue Plavix Paroxysmal atrial fibrillation -Previously on systemic anticoagulation -This is been held secondary to gastrointestinal hemorrhage will defer to cardiology opinion with regards to initiating systemic anticoagulation Nonsustained ventricular tachycardia -Amiodarone infusion: Discontinued -Amiodarone 200 mg 3 times daily -Esmolol infusion: Discontinued -Metoprolol succinate 50 mg home dose, increase to 75 mg yesterday, increased to 100 mg today Fluids/Renal: Discontinue additional IV fluids ID: Monitor fever curve GI/Nutrition: Heart healthy diet this evening Heme: Anemia -Likely secondary to recent GI losses DVT prophylaxis: Lovenox Endocrine: ICU hyperglycemia protocol Vascular access: Peripheral IVs Code Status: Full code Disposition: Stable for downgrade out of ICU (2) Breath, shortness: (3) Coronary stent patent: (4) CAD (coronary artery disease): (5) Atrial fibrillation: (6) NSVT (nonsustained ventricular tachycardia): Admission and Anticipated Discharge Date Admission Date: January 13, 2020 Subjective He is hoping to be discharged soon Pt states he has had no further SOB or dizziness. He has never had chest pain with any of this. Tolerating PO without issue. He is feeling overall improved. Pt denies fever, abd pain, n/v/c/d, LE pain. He has mild LE swelling that is at baseline. Review of Systems 2 Review of Systems: All systems reviewed & are unremarkable except as noted in Subjective Physical Exam Physical Exam: General: Alert. nontoxic. Skin: Warm, dry, Head: Atraumatic Ears, nose, mouth and throat: airway patent Cardiovascular: Normal peripheral perfusion bedside monitor demonstrates normal sinus rhythm Respiratory: no respiratory distress, speaks in full sentences Gastrointestinal: Non distended Musculoskeletal: No deformity Results & Data Results & Data ([facility]) Vital Signs (Past 12 Hours) Vital Signs Temp Pulse Resp BP Pulse Ox 01/15/20 08:05 36.7 C 76 25 H 150/81 H 88 L 01/15/20 08:00 64 01/15/20 07:06 62 20 158/71 H 96 01/15/20 06:06 36.5 C 64 26 H 186/98 H 92 01/15/20 05:05 65 26 H 167/83 H 91 01/15/20 04:05 36.4 C L 69 28 H 154/79 H 92 01/15/20 03:05 65 26 H 158/88 H 87 L 01/15/20 02:05 36.6 C 70 28 H 169/80 H 85 L 01/15/20 01:05 67 24 164/88 H 89 L 01/15/20 00:06 36.6 C 77 21 161/83 H 87 L 01/15/20 00:00 57 L 01/14/20 23:05 66 28 H 171/86 H 90 01/14/20 22:05 36.7 C 68 27 H 162/94 H 92 01/14/20 21:05 63 22 175/104 H 92 Laboratory Results 01/15/20 01/15/20 01/15/20 Range/Units 03:59 03:59 00:29 WBC 5.81 (4.8-10.8) K/uL RBC 3.59 L (4.7-6.1) M/uL Hgb 9.7 L (14.0-18.0) g/dL Hct 33.1 L (42-52) % MCV 92.2 (80-100) fL MCH 27.0 (25-34) pg MCHC 29.3 L (32-36) g/dL RDW Std Deviation 74.2 H (36.4-46.3) fL RDW Coeff of Eyad 22.3 H (11.5-14.5) % Plt Count 278 (130-400) K/uL MPV 9.6 (7.4-10.4) fL Immature Gran % (Auto) 0.3 % Neut % (Auto) 66.0 % Lymph % (Auto) 15.1 % [place] % (Auto) 15.5 % Eos % (Auto) 2.6 % Baso % (Auto) 0.5 % Neut # (Auto) 3.83 (1.4-6.5) K/uL Lymph # (Auto) 0.88 L (1.2-3.4) K/uL [place] # (Auto) 0.90 H (0.11-0.59) K/uL Eos # (Auto) 0.15 (0-0.5) K/uL Baso # (Auto) 0.03 (0-0.2) K/uL Immature Gran # (Auto) 0.02 (0.00-0.02) K/uL Polychromasia 1+ Anisocytosis Present Tear Drop Cells 1+ Acanthocytes (Spur) 1+ Sodium 139 (136-145) mmol/L Potassium 3.9 D (3.5-5.1) mmol/L Chloride 106 (98-107) mmol/L Carbon Dioxide 28 (21-32) mmol/L Anion Gap 5.0 (3-11) BUN 19 H (7-18) mg/dl Creatinine 1.05 (0.6-1.4) mg/dl Est Cr Clr Drug Dosing 82.8 ml/min Est GFR ( Amer) 81.2 Est GFR (Non-Af Amer) 70.1 BUN/Creatinine Ratio 18.0 (10-20) Glucose 107 H (70-99) mg/dl POC Glucose 120 H (70-99) mg/dl Calcium 8.5 (8.5-10.1) mg/dl Phosphorus 3.7 (2.5-4.9) mg/dl Magnesium 2.5 H (1.8-2.4) mg/dl TSH (0.300-4.500) uIu/ml 01/14/20 01/14/20 01/14/20 Range/Units 17:48 12:31 06:04 WBC (4.8-10.8) K/uL RBC (4.7-6.1) M/uL Hgb (14.0-18.0) g/dL Hct (42-52) % MCV (80-100) fL MCH (25-34) pg MCHC (32-36) g/dL RDW Std Deviation (36.4-46.3) fL RDW Coeff of Eyad (11.5-14.5) % Plt Count (130-400) K/uL MPV (7.4-10.4) fL Immature Gran % (Auto) % Neut % (Auto) % Lymph % (Auto) % [place] % (Auto) % Eos % (Auto) % Baso % (Auto) % Neut # (Auto) (1.4-6.5) K/uL Lymph # (Auto) (1.2-3.4) K/uL [place] # (Auto) (0.11-0.59) K/uL Eos # (Auto) (0-0.5) K/uL Baso # (Auto) (0-0.2) K/uL Immature Gran # (Auto) (0.00-0.02) K/uL Polychromasia Anisocytosis Tear Drop Cells Acanthocytes (Spur) Sodium (136-145) mmol/L Potassium (3.5-5.1) mmol/L Chloride (98-107) mmol/L Carbon Dioxide (21-32) mmol/L Anion Gap (3-11) BUN (7-18) mg/dl Creatinine (0.6-1.4) mg/dl Est Cr Clr Drug Dosing ml/min Est GFR ( Amer) Est GFR (Non-Af Amer) BUN/Creatinine Ratio (10-20) Glucose (70-99) mg/dl POC Glucose 130 H 116 H (70-99) mg/dl Calcium (8.5-10.1) mg/dl Phosphorus (2.5-4.9) mg/dl Magnesium (1.8-2.4) mg/dl TSH 2.660 (0.300-4.500) uIu/ml Diagnostic Findings I have reviewed the cardiology note of January 13 as well as the hospitalist note Coding Level of Care Code 72053 Subseq Hosp Care Lvl 3 Diagnoses Ventricular tachycardia I47.2 Breath, shortness R06.02 Coronary stent patent Z95.5 CAD (coronary artery disease) I25.10 Coronary Disease-Associated Artery/Lesion type: [place] artery [place] vs. transplanted heart: [place] heart Associated angina: without angina Atrial fibrillation I48.0 Atrial fibrillation type: paroxysmal NSVT (nonsustained ventricular tachycardia) I47.2 (1) CAD (coronary artery disease) Coronary Disease-Associated Artery/Lesion type: [place] artery [place] vs. transplanted heart: [place] heart Associated angina: without angina Qualified Code(s): I25.10 - Atherosclerotic heart disease of [place] coronary artery without angina pectoris (2) Atrial fibrillation Atrial fibrillation type: paroxysmal Qualified Code(s): I48.0 - Paroxysmal atrial fibrillation
[2020-01-15] MEDS ORDERED: METOPROLOL SUCC 25MG EXT REL TAB PO ONE (09:00)
[2020-01-15] MEDS: ENOXAPARIN INJ 40 MG/0.4 ML SYR SQ SCH (09:13)
--- NOTE | 2020-01-15 11:28 | Cardiology Progress Note ---
Date of Service January 15, 2020 Assessment & Plan (1) Ventricular tachycardia: Follow-up echocardiogram performed 01/14/2020 revealed stable findings compared to his pre-cardiac catheterization/pre-stent echo performed as an outpatient in October, with normal LVEF, mitral regurgitation, moderate tricuspid regurgitation, pulmonary hypertension. IV amiodarone infusion has been discontinued. Continue oral amiodarone 200 mg p.o. 3 times daily with meals. Agree with increase metoprolol to 100 mg daily. Patient stable from cardiac perspective for transfer to PCU. Would favor PCU/2 [facility], not 2 [place]. Patient to remain in hospital for tentative ICD, 01/17/2020. (2) CAD (coronary artery disease): Status post drug-eluting stent to the LAD 11/08/2019. PCI was performed for chief complaint of exertional shortness of breath, anterior ischemia on nuclear stress test. Chronic proximal occlusion of the second diagonal branch the LAD noted at that time. Repeat emergent cardiac catheterization this admission revealed patent LAD stent, chronic diagonal 2 occlusion which is chronic, no obstructive disease elsewhere. Due to presentation with 3-week history of melena, symptomatic anemia in December,, aspirin has been discontinued and he remains on clopidogrel monotherapy. Continue metoprolol and atorvastatin. (3) Hx of gastrointestinal hemorrhage: Presented with 3 weeks of melena, symptomatic anemia with presenting hemoglobin just under 7 as an outpatient. Hemoglobin has trended up on iron supplementation having received 1 unit of packed red blood cells during that admission. EGD without culprit that admission. Aspirin discontinued. He is on clopidogrel monotherapy, and his stroke prophylaxis for atrial fibrillation has been on hold since last month. Future considerations include resuming Eliquis (had been on Xarelto) however will hold off on this until after recovers from ICD to minimize risk of pocket hematoma or risk of recurrent anemia. (4) Atrial fibrillation: Has noted above. Continue metoprolol for rate control. Anticoagulation on hold given recent symptomatic anemia. (5) Hypertension: Continue metoprolol, losartan, amlodipine. Prior to home treatment with furosemide 40 mg p.o. daily reinitiated, 01/15/2020. (6) Valvular heart disease: Moderate mitral regurgitation, moderate tricuspid regurgitation on echocardiogram 01/14/2020 with moderate to severe pulmonary hypertension in the range of 45-66 mmHg. Furosemide reinitiated. Patient has a history of remote surgical uvuloplasty for sleep apnea. He has a consultation with sleep medicine tentatively planned as an outpatient on . DVT prophylaxis: Agree with cautious Lovenox 40 mg subcutaneous daily, future STOP order placed for p.m. 01/16/2020 in preparation for ICD 01/17/2020. Will reassess benefits and risks of bleeding and DVT prophylaxis strategy after ICD in an effort to reduce the risk of pocket hematoma. Admission and Anticipated Discharge Date Admission Date: January 13, 2020 Subjective Patient seen in follow-up of chief complaint of intermittent episodes of dizziness. He has had no additional episodes of ventricular tachycardia since 01/13/2020, 19: 03. Rate controlled atrial fibrillation in the 70s noted overnight last night and again this morning. Blood pressure has trended up. Review of Systems Review of Systems: All systems reviewed & are unremarkable except as noted in HPI & below Physical Exam Physical Exam: Temp Pulse Resp BP Pulse Ox 36.7 C 76 25 H 150/81 H 88 L 01/15/20 08:05 01/15/20 08:05 01/15/20 08:05 01/15/20 08:05 01/15/20 08:05 Constitutional: WD/WN, vitals as above Respiratory: normal respiratory effort, lungs clear to auscultation Cardiovascular: Rate/Rhythm: + irregularly irregular Heart Sounds: + murmur (I/ systolic murmur) Vessels: no JVD Extremities: no edema Gastrointestinal (Abdomen): normal bowel sounds, soft, nontender, no hepatosplenomegaly Neurologic: PERRL, EOMI, accommodation nl, no face palsy, no dysarthria Results & Data ([facility]) Vital Signs (Past 12 Hours) Vital Signs Temp Pulse Resp BP Pulse Ox 01/15/20 08:05 36.7 C 76 25 H 150/81 H 88 L 01/15/20 08:00 64 01/15/20 07:06 62 20 158/71 H 96 01/15/20 06:06 36.5 C 64 26 H 186/98 H 92 01/15/20 05:05 65 26 H 167/83 H 91 01/15/20 04:05 36.4 C L 69 28 H 154/79 H 92 01/15/20 03:05 65 26 H 158/88 H 87 L 01/15/20 02:05 36.6 C 70 28 H 169/80 H 85 L 01/15/20 01:05 67 24 164/88 H 89 L 01/15/20 00:06 36.6 C 77 21 161/83 H 87 L 01/15/20 00:00 57 L Laboratory Results CBC 01/15/20 Range/Units 03:59 WBC 5.81 (4.8-10.8) K/uL RBC 3.59 L (4.7-6.1) M/uL Hgb 9.7 L (14.0-18.0) g/dL Hct 33.1 L (42-52) % Plt Count 278 (130-400) K/uL Neut # (Auto) 3.83 (1.4-6.5) K/uL Lymph # (Auto) 0.88 L (1.2-3.4) K/uL [place] # (Auto) 0.90 H (0.11-0.59) K/uL Eos # (Auto) 0.15 (0-0.5) K/uL Baso # (Auto) 0.03 (0-0.2) K/uL Comprehensive Metabolic Panel 01/15/20 Range/Units 03:59 Sodium 139 (136-145) mmol/L Potassium 3.9 D (3.5-5.1) mmol/L Chloride 106 (98-107) mmol/L Carbon Dioxide 28 (21-32) mmol/L BUN 19 H (7-18) mg/dl Creatinine 1.05 (0.6-1.4) mg/dl Glucose 107 H (70-99) mg/dl Calcium 8.5 (8.5-10.1) mg/dl Intake and Output 01/14/20 01/15/20 01/15/20 22:59 06:59 14:59 Intake Total 537.597 / 3495.555 1188 / 3495.555 808.099 / 808.099 Output Total 101 / 751 375 / 751 Balance 436.597 / 2744.555 813 / 2744.555 808.099 / 808.099 Intake: IV 187.597 / 2775.555 1188 / 2775.555 572.099 / 572.099 NEXTERONE / D5W 360 mg In 200 187.597 / 569.627 200 / 569.627 21.432 / 21.432 ml @ 0.5 MG/MIN 16.667 mls/hr IV .Q12H PENELOPE Rx#:[id number] Normosol-R 1,000 ml @ 80 mls/hr 988 / 1986.667 550.667 / 550.667 IV .[id number] P[facility]ELOPE Rx#:[id number] Oral 350 / 720 236 / 236 Output: Urine 100 / 750 375 / 750 # Bowel Movements Other: # Unmeasured Voids 1 Weight 124.6 kg (1) CAD (coronary artery disease) Coronary Disease-Associated Artery/Lesion type: [place] artery [place] vs. transplanted heart: [place] heart Associated angina: without angina Qualified Code(s): I25.10 - Atherosclerotic heart disease of [place] coronary artery without angina pectoris (2) Atrial fibrillation Atrial fibrillation type: paroxysmal Qualified Code(s): I48.0 - Paroxysmal atrial fibrillation
[2020-01-15] MEDS: FUROSEMIDE 40 MG TAB PO SCH (12:16)
--- NOTE | 2020-01-15 16:01 | Hospitalist Progress Note ---
Date of Service January 15, 2020 Assessment & Plan (1) Sustained ventricular tachycardia: Admit to ICU s/p laboratory development technician on 01/12, pat LAD stent, however chronic occlusion noted Was started on amio/esmolol on admission Cardiology has d/c'd esmolol and converted IV amio to PO, further increased me toprolol dosing ECHO is stable from prior with EF WNL Monitor, planning ICD placement on 01/16 (2) Dizziness: Although description is that of vertigo suspect he is actually having hypoperfusion during ventricular tachyarrythmias. CT head negative for acute pathology. (3) Atrial fibrillation: Restart on Eliquis for anticoagulation when recommended per ICU (4) Hx of gastrointestinal hemorrhage: Will need follow up outpaitent colonoscopy if not already arranged. Occurr ed initially in setting of DAPT and Xarelto (5) Breath, shortness: (6) Status post insertion of drug-eluting stent into left anterior descending (LAD) artery: (7) Pulmonary HTN: (8) Coronary artery disease: As above (9) Hypertension: Continue losartan, amlodipine. Will defer diuresis with lasix to ICU team as patient present with mild pulmonary edema Admission and Anticipated Discharge Date Admission Date: January 13, 2020 Subjective Pt continues to feel improved. Pt denies fever, SOB, chest pain, abd pain, n/v/c/d, LE pain. Still with slight swelling in LE. Tolerating PO without issue. Review of Systems Review of Systems: Pertinent positives and negatives reviewed in HPI--all others negative Physical Exam Constitutional: WD/WN, vitals as above Eyes: normal visual ariza by confrontation and + anicteric sclerae Neck: normal visual inspection and trachea midline Respiratory: normal respiratory effort, lungs clear to auscultation Cardiovascular: Rate/Rhythm: regular rate and regular rhythm Extremities: + edema (trace) Gastrointestinal (Abdomen): Inspection/Auscultation: abdomen not distended Percussion/Palpation: abdomen soft; abdomen nontender Musculoskeletal: Head/Neck/Chest: normocephalic and head atraumatic Skin: no rashes, warm and dry Neurologic: awake; not confused Speech / Cognition: normal speech Psychiatric: A+Ox3, euthymic affect Results & Data Results & Data ([facility]) Vital Signs (Past 12 Hours) Vital Signs Temp Pulse Resp BP Pulse Ox 01/15/20 14:05 66 28 H 138/73 92 09/06/20 13:05 61 26 H 137/70 90 01/15/20 12:05 36.6 C 66 24 137/70 92 01/15/20 11:06 67 25 H 141/82 H 94 01/15/20 10:05 71 28 H 149/82 H 91 01/15/20 09:05 74 33 H 149/82 H 91 01/15/20 08:05 36.7 C 76 25 H 150/81 H 88 L 01/15/20 08:00 64 01/15/20 07:06 62 20 158/71 H 96 01/15/20 06:06 36.5 C 64 26 H 186/98 H 92 01/15/20 05:05 65 26 H 167/83 H 91 01/15/20 04:05 36.4 C L 69 28 H 154/79 H 92 PG Care Time/CCT Total # of Minutes Spent Total Time Spent with Patient: Total time spent is greater than 50% in coordination of care (as documented) at patient's floor/unit and/or counseling patient: Coding Level of Care Code 92904 Subseq Hosp Care Lvl 3 Diagnoses Sustained ventricular tachycardia I47.2 Dizziness R42 Atrial fibrillation I48.21 Atrial fibrillation type: permanent Hx of gastrointestinal hemorrhage Z87.19 Breath, shortness R06.02 Status post insertion of drug-eluting stent into left anterior descending (LAD) artery Z95.5 Pulmonary HTN I27.20 Coronary artery disease I25.10 Hypertension I10 (1) Atrial fibrillation Atrial fibrillation type: permanent Qualified Code(s): I48.21 - Permanent atrial fibrillation
[2020-01-16] MEDS: FLUTICASONE/VILANTEROL 200/25MCG 14 PUFFS/INHALER INH SCH (07:52)
[2020-01-16] MEDS: POTASSIUM CHLORIDE 10 MEQ TABCR PO SCH (07:53)
[2020-01-16] MEDS: LOSARTAN POTASSIUM 50 MG TAB PO SCH (07:53)
[2020-01-16] MEDS: FUROSEMIDE 40 MG TAB PO SCH (07:53)
[2020-01-16] MEDS: AMLODIPINE BESYLATE 5 MG TAB PO SCH (07:53)
[2020-01-16] MEDS: AMIODARONE 200 MG TAB PO SCH ×3 (07:53→17:41)
[2020-01-16] MEDS: CLOPIDOGREL BISULFATE 75 MG TAB PO SCH (07:54)
[2020-01-16] MEDS: MULTIVITAMIN TAB PO SCH (07:54)
[2020-01-16] MEDS: METOPROLOL SUCC 50MG EXT REL TAB PO SCH (07:54)
[2020-01-16] MEDS: ATORVASTATIN 40 MG TAB PO SCH (07:54)
[2020-01-16] MEDS: ENOXAPARIN INJ 40 MG/0.4 ML SYR SQ SCH (07:55)
[2020-01-16] MEDS: FERROUS SULFATE 325 MG TAB PO SCH ×2 (09:24→20:02)
--- NOTE | 2020-01-16 11:00 | Cardiology Progress Note ---
Date of Service January 16, 2020 Assessment & Plan (1) Ventricular tachycardia: Follow-up echocardiogram performed 01/14/2020 revealed stable findings compared to his pre-cardiac catheterization/pre-stent echo performed as an outpatient in October, with normal LVEF, mitral regurgitation, moderate tricuspid regurgitation, pulmonary hypertension. Patient on metoprolol succinate 100 mg p.o. daily and amiodarone p.o. 3 times daily Anticipated ICD tomorrow. EKG ordered for a.m. We will keep n.p.o. after midnight Additional dose of furosemide 40 mg p.o. ordered today with volume status positive (2) CAD (coronary artery disease): Status post drug-eluting stent to the LAD 11/08/2019. PCI was performed for chief complaint of exertional shortness of breath, anterior ischemia on nuclear stress test. Chronic proximal occlusion of the second diagonal branch the LAD noted at that time. Repeat emergent cardiac catheterization this admission revealed patent LAD stent, chronic diagonal 2 occlusion which is chronic, no obstructive disease elsewhere. Due to presentation with 3-week history of melena, symptomatic anemia in December,, aspirin has been discontinued and he remains on clopidogrel monotherapy. Continue metoprolol and atorvastatin. (3) Hx of gastrointestinal hemorrhage: Presented with 3 weeks of melena, symptomatic anemia with presenting hemoglobin just under 7 as an outpatient. Hemoglobin has trended up on iron supplementation having received 1 unit of packed red blood cells during that admission. EGD without culprit that admission. Aspirin discontinued. He is on clopidogrel monotherapy, and his stroke prophylaxis for atrial fibrillation has been on hold since last month. Future considerations include resuming Eliquis (had been on Xarelto) however will hold off on this until after recovers from ICD to minimize risk of pocket hematoma or risk of recurrent anemia. (4) Atrial fibrillation: Has noted above. Continue metoprolol for rate control. Anticoagulation on hold given recent symptomatic anemia. (5) Hypertension: Continue metoprolol, losartan, amlodipine. Prior to home treatment with furosemide 40 mg p.o. daily reinitiated, 01/15/2020. (6) Valvular heart disease: Moderate mitral regurgitation, moderate tricuspid regurgitation on echocardiogram 01/14/2020 with moderate to severe pulmonary hypertension in the range of 45-66 mmHg. Furosemide reinitiated. Patient has a history of remote surgical uvuloplasty for sleep apnea. He has a consultation with sleep medicine tentatively planned as an outpatient on . DVT prophylaxis: Agree with cautious Lovenox 40 mg subcutaneous daily, future STOP order placed for p.m. 01/16/2020 in preparation for ICD 01/17/2020. Will reassess benefits and risks of bleeding and DVT prophylaxis strategy after ICD in an effort to reduce the risk of pocket hematoma. Admission and Anticipated Discharge Date Admission Date: January 13, 2020 Subjective Patient seen and examined, chart, medications, telemetry reviewed. No complaints overnight no significant arrhythmias only 2 short brief 5 beat runs of ventricular tachycardia. No syncope or near syncope. No chest pains or shortness of breath. Review of Systems Review of Systems: All systems reviewed & are unremarkable except as noted in HPI & below Physical Exam Constitutional: WD/WN, vitals as above + obese; no acute distress Eyes: PERRL, conjunctivae normal, anicteric sclerae ENMT: external ear and nose normal, oropharynx normal Neck: trachea midline, no thyromegaly + thick neck Respiratory: normal respiratory effort, lungs clear to auscultation Cardiovascular: Rate/Rhythm: regular rate and regular rhythm Heart Sounds: normal S1 and normal S2; no gallop and no murmur Palpation: normal PMI Vessels: normal carotid upstroke and radial pulses present; no JVD and no carotid bruit Extremities: + edema (1-2+) Gastrointestinal (Abdomen): normal bowel sounds, soft, nontender, no hepatosplenomegaly Musculoskeletal: no cyanosis or clubbing, extremities motor strength 5/5 Skin: no rashes, warm and dry Neurologic: PERRL, EOMI, accommodation nl, no face palsy, no dysarthria Psychiatric: A+Ox3, euthymic affect Results & Data ([facility]) Vital Signs (Past 12 Hours) Vital Signs Temp Pulse Pulse Pulse Resp BP Pulse Ox 01/16/20 07:39 90 01/16/20 07:23 36.6 C 82 24 155/79 H 85 L 01/16/20 04:00 36.8 C 74 19 123/72 90 01/16/20 00:00 74 01/15/20 23:43 37 C 78 20 129/78 93 (1) CAD (coronary artery disease) Coronary Disease-Associated Artery/Lesion type: [place] artery [place] vs. transplanted heart: [place] heart Associated angina: without angina Qualified Code(s): I25.10 - Atherosclerotic heart disease of [place] coronary artery without angina pectoris (2) Atrial fibrillation Atrial fibrillation type: paroxysmal Qualified Code(s): I48.0 - Paroxysmal atrial fibrillation
[2020-01-16] MEDS ORDERED: POTASSIUM CHLORIDE 20 MEQ TABCR PO ONE (11:30)
[2020-01-16] MEDS ORDERED: FUROSEMIDE 40 MG TAB PO ONE (13:00)
--- NOTE | 2020-01-16 15:26 | Hospitalist Progress Note ---
Date of Service January 16, 2020 Assessment & Plan (1) Sustained ventricular tachycardia: Admit to ICU s/p labor relations teacher on 01/12, pat LAD stent, however chronic occlusion noted Was started on amio/esmolol on admission Cardiology has d/c'd esmolol and converted IV amio to PO, further increased me toprolol dosing to 100mg ECHO is stable from prior with EF WNL Monitor, planning ICD placement on 01/16 Additional lasix 01/15 AM per cardiology (2) Dizziness: Although description is that of vertigo suspect he is actually having hypoperfusion during ventricular tachyarrythmias. CT head negative for acute pathology. (3) Atrial fibrillation: Restart on Eliquis for anticoagulation when recommended per ICU (4) Hx of gastrointestinal hemorrhage: Will need follow up outpaitent colonoscopy if not already arranged. Occurred initially in setting of DAPT and Xarelto (5) Breath, shortness: Secondary to above (6) Coronary artery disease: Clopidogrel + start Eliquis (discussed with Dr Oh and will defer this for now pending EP study), atorvastatin 40mg PO HS (7) Status post insertion of drug-eluting stent into left anterior descending (LAD) artery: 11/07 PCI with single JOSR to LAD - Dr Rome (8) Hypertension: Continue losartan, amlodipine. Will defer diuresis with lasix to ICU team as patient present with mild pulmonary edema on CT Admission and Anticipated Discharge Date Admission Date: January 13, 2020 Subjective Pt continues to feel overall improved. He states that he has been sleeping a lot. He was placed on NC this AM due to his O2 sats when VS were checked. He did not have any SOB prompting this. Pt denies fever, chest pain, abd pain, n/v/c/d, LE pain. LE is ongoing and minimal, stable. Tolerating PO without issue. Review of Systems Review of Systems: Pertinent positives and negatives reviewed in HPI--all others negative Physical Exam Constitutional: WD/WN, vitals as above Eyes: normal visual ariza by confrontation and + anicteric sclerae Neck: normal visual inspection and trachea midline Respiratory: normal respiratory effort, lungs clear to auscultation Cardiovascular: Rate/Rhythm: regular rate and regular rhythm Extremities: + edema (trace) Gastrointestinal (Abdomen): Inspection/Auscultation: abdomen not distended Percussion/Palpation: abdomen soft; abdomen nontender Musculoskeletal: Head/Neck/Chest: normocephalic and head atraumatic Skin: no rashes, warm and dry Neurologic: awake; not confused Speech / Cognition: normal speech Psychiatric: A+Ox3, euthymic affect Results & Data Results & Data ([facility]) Vital Signs (Past 12 Hours) Vital Signs Temp Pulse Pulse Resp BP Pulse Ox 01/16/20 11:15 36.7 C 69 20 122/74 93 01/16/20 07:39 90 01/16/20 07:23 36.6 C 82 24 155/79 H 85 L 01/16/20 04:00 36.8 C 74 19 123/72 90 PG Care Time/CCT Total # of Minutes Spent Total Time Spent with Patient: Total time spent is greater than 50% in coordination of care (as documented) at patient's floor/unit and/or counseling patient: Coding Level of Care Code 15412 Subseq Hosp Care Lvl 3 Diagnoses Sustained ventricular tachycardia I47.2 Dizziness R42 Atrial fibrillation I48.21 Atrial fibrillation type: permanent Hx of gastrointestinal hemorrhage Z87.19 Breath, shortness R06.02 Coronary artery disease I25.10 Status post insertion of drug-eluting stent into left anterior descending (LAD) artery Z95.5 Hypertension I10 (1) Atrial fibrillation Atrial fibrillation type: permanent Qualified Code(s): I48.21 - Permanent atrial fibrillation
[2020-01-17 06:11] LABS: Hematocrit (blood only) 34.6 % (42-52); Hemoglobin 10.2 g/dL (14.0-18.0); Mean Corpuscular Hemoglobin 27.3 pg (25-34); Mean Corpuscular Hgb Conc 29.5 g/dL (32-36); Mean Corpuscular Volume 92.5 fL (80-100); Mean Platelet Volume 9.4 fL (7.4-10.4); Platelet Count 322 K/uL (130-400); RDW Coefficient of Variation 22.6 % (11.5-14.5); RDW Standard Deviation 75.2 fL (36.4-46.3); Red Blood Count 3.74 M/uL (4.7-6.1); White Blood Count 8.34 K/uL (4.8-10.8)
[2020-01-17 06:40] LABS: Albumin Level 3.5 gm/dl (3.4-5.0); BUN Creatinine Ratio 17.1 (10-20); Calcium 8.7 mg/dl (8.5-10.1); Creatinine Clr Calc Pharmacy 62.9 ml/min; Est GFR (African American) 57.9; Est GFR (Non-African American) 49.9; Potassium 4.2 mmol/L (3.5-5.1)
[2020-01-17 06:43] LABS: Bilirubin,Total 0.9 mg/dl (0.2-1); Globulin 3.6 gm/dl (2.5-4.0); Total Protein 7.1 gm/dl (6.4-8.2)
[2020-01-17] MEDS: FLUTICASONE/VILANTEROL 200/25MCG 14 PUFFS/INHALER INH SCH (08:01)
[2020-01-17] MEDS: AMIODARONE 200 MG TAB PO SCH ×3 (08:02→16:02)
[2020-01-17] MEDS: AMLODIPINE BESYLATE 5 MG TAB PO SCH (08:05)
[2020-01-17] MEDS: METOPROLOL SUCC 50MG EXT REL TAB PO SCH (08:05)
[2020-01-17] MEDS: MULTIVITAMIN TAB PO SCH (08:06)
[2020-01-17] MEDS: LOSARTAN POTASSIUM 50 MG TAB PO SCH (08:06)
[2020-01-17] MEDS: FERROUS SULFATE 325 MG TAB PO SCH ×2 (08:06→20:53)
[2020-01-17] MEDS: FUROSEMIDE 40 MG TAB PO SCH (08:06)
[2020-01-17] MEDS: POTASSIUM CHLORIDE 10 MEQ TABCR PO SCH (08:06)
[2020-01-17] MEDS: ATORVASTATIN 40 MG TAB PO SCH (08:06)
[2020-01-17 09:42] LABS: INR 1.4 (0.9-1.1); Partial Thromboplastin Ratio 1.1; Partial Thromboplastin Time 29.8 Seconds (21.0-31.0); Prothrombin Time 14.5 Seconds (9.0-12.0)
--- NOTE | 2020-01-17 10:19 | Hospitalist Progress Note ---
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 CT head negative for acute pathology. (3) Atrial fibrillation: Restart on Eliquis for anticoagulation when recommended per ICU (4) Hx of gastrointestinal hemorrhage: Will need follow up outpaitent colonoscopy if not already arranged. Occurred initially in setting of DAPT and Xarelto (5) Breath, shortness: Secondary to above (6) Coronary artery disease: Clopidogrel + start Eliquis (discussed with Dr Oh and will defer this for now pending EP study), atorvastatin 40mg PO HS (7) Status post insertion of drug-eluting stent into left anterior descending (LAD) artery: 11/07 PCI with single JOSR to LAD - Dr Rome (8) Hypertension: Continue losartan, amlodipine. Will defer diuresis with lasix to ICU team as patient present with mild pulmonary edema on CT Admission and Anticipated Discharge Date Admission Date: January 13, 2020 Subjective Pt is currently awaiting ICD placement later today. He is anxious to have the procedure completed, but otherwise feels as he has the last few days. Pt denies fever, SOB, chest pain, abd pain, n/v/c/d, LE pain. LE swelling is ongoing and minimal, stable. Tolerating PO without issue. Review of Systems Review of Systems: Pertinent positives and negatives reviewed in HPI--all others negative Physical Exam Constitutional: WD/WN, vitals as above Eyes: normal visual ariza by confrontation and + anicteric sclerae Neck: normal visual inspection and trachea midline Respiratory: normal respiratory effort, lungs clear to auscultation Cardiovascular: Rate/Rhythm: regular rate and regular rhythm Extremities: + edema (trace) Gastrointestinal (Abdomen): Inspection/Auscultation: abdomen not distended Percussion/Palpation: abdomen soft; abdomen nontender Musculoskeletal: Head/Neck/Chest: normocephalic and head atraumatic Skin: no rashes, warm and dry Neurologic: awake; not confused Speech / Cognition: normal speech Psychiatric: A+Ox3, euthymic affect Results & Data Results & Data ([facility]) Vital Signs (Past 12 Hours) Vital Signs Temp Pulse Pulse Resp BP Pulse Ox 01/17/20 07:26 70 01/17/20 07:06 36.4 C L 66 20 123/69 97 01/17/20 03:37 37.2 C 73 18 132/68 95 01/16/20 23:05 36.7 C 80 20 130/78 99 01/16/20 23:00 69 PG Care Time/CCT Total # of Minutes Spent Total Time Spent with Patient: Total time spent is greater than 50% in coordination of care (as documented) at patient's floor/unit and/or counseling patient: Coding Level of Care Code 49283 Subseq Hosp Care Lvl 2 Diagnoses Sustained ventricular tachycardia I47.2 Dizziness R42 Atrial fibrillation I48.21 Atrial fibrillation type: permanent Hx of gastrointestinal hemorrhage Z87.19 Breath, shortness R06.02 Coronary artery disease I25.10 Status post insertion of drug-eluting stent into left anterior descending (LAD) artery Z95.5 Hypertension I10 (1) Atrial fibrillation Atrial fibrillation type: permanent Qualified Code(s): I48.21 - Permanent atrial fibrillation
[2020-01-17] MEDS ORDERED: BACITRACIN INJ 50,000 UNIT VIAL ONE (10:22)
[2020-01-17] MEDS ORDERED: BUPIVACAINE 0.25% 30 ML VIAL ONE (10:22)
[2020-01-17] MEDS ORDERED: LIDOCAINE HCL 1% 20 ML VIAL ONE (10:22)
[2020-01-17] MEDS ORDERED: MIDAZOLAM HCL 5 MG/ML 1 ML VIAL ONE (10:43)
[2020-01-17] MEDS ORDERED: fentaNYL citrate 100 MCG/2 ML VIAL ONE (10:43)
[2020-01-17] MEDS ORDERED: CEFAZOLIN 250 MG/ML 1 GM VIAL ONE (10:43)
--- NOTE | 2020-01-17 10:44 | Pre Anesthesia Assessment ---
Date of Service January 17, 2020 Pre Sedation Assessment Vital Signs Temp Pulse Pulse Resp BP Pulse Ox 01/17/20 07:26 70 01/17/20 07:06 36.4 C L 66 20 123/69 97 01/17/20 03:37 37.2 C 73 18 132/68 95 01/16/20 23:05 36.7 C 80 20 130/78 99 01/16/20 23:00 69 01/16/20 19:12 37.0 C 72 19 124/58 L 96 01/16/20 16:00 71 01/16/20 15:12 36.7 C 77 18 112/68 96 01/16/20 11:15 36.7 C 69 20 122/74 93 Cardiovascular + irregularly irregular Respiratory normal respiratory effort, lungs clear to auscultation Pre-Sedation Airway Assessment Smoking Status: Former smoker Hx Sleep Apnea: No Hx Difficult Intubation: No Short, Thick Neck: No Thyromental Distance: > or= 3.5 Finger Breadths Mallampati Class: III ASA: ASA3 NPO Status Date of Last Intake of Fluids: 01/16/20 Date of Last Intake of Solid Food: 01/16/20 Procedure Planning Contraindications for Sedation: none Current Medications Reviewed: Yes Notes The planned sedation has been discussed with the patient. Informed Consent was obtained. I have identified the patient, determined the appropriateness of sedation and have assessed the patient immediately prior to the procedure. All medicine(s) and interventions are by my order.
--- NOTE | 2020-01-17 10:45 | History & Physical Bridge Note ---
Date of Service January 17, 2020 History & Physical Bridge Note I have examined the patient, reviewed the History & Physical and in the interval since the performance of the History & Physical I have noted the following changes of clinical significance: Pt with sustained VT; underlying permanent AF; cath revealed patent LAD stent; EF preserved; he is for a single chamber ICD due to VT.
--- NOTE | 2020-01-17 11:55 | Post Anesthesia Assessment ---
Date of Service January 17, 2020 Post Sedation Assessment Vital Signs Temp Pulse Pulse Resp BP Pulse Ox 01/17/20 07:26 70 01/17/20 07:06 36.4 C L 66 20 123/69 97 01/17/20 03:37 37.2 C 73 18 132/68 95 01/16/20 23:05 36.7 C 80 20 130/78 99 01/16/20 23:00 69 01/16/20 19:12 37.0 C 72 19 124/58 L 96 01/16/20 16:00 71 01/16/20 15:12 36.7 C 77 18 112/68 96 Recovery Score Activity: Moves 4 extremities Respiration: Deep Breath/Cough Circulation: +/-20% PreAnes Value Consciousness: Fully Awake Oxygen Saturation: O2 needed for >90% Discharge Sedation Level of Care: Fast Track Phase II Post Sedation Plan On clinical assessment, the patient appears to have tolerated the sedation without complications. Patient is recovering as anticipated. Patient will continue to be monitored by nursing and may be discharged when sedation discharge criteria are met per below protocol. Upon Completions of procedure up to 15 minutes continue every 5 minute vital si gns and the P.A.R. score; then discharge to a Phase I or Fast Track to Phase II per the following guidelines: * Discharge Patient to appropriate Phase II area if PAR is 8 or greater or return to pre- procedure baseline. The post - procedure orders will be as directed. * If PAR score is less than 8 or not return to pre-procedure baseline then patient will follow Phase I monitoring till PAR is reached for Phase II. The Phase I may be done in procedure room or may call to secure a Phase I area. * If naloxone or flumazenil are used for reversal, hold in Phase I for continued monitoring from when last reversal dose was given for a minimum of 60 minutes or longer pending the nurse and/or physician discretion of patient condition before discharge to Phase II. Please call the Sedation Physician to re-evaluate and complete post-note for discharge to Phase II area. Do NOT discharge from procedure sedation or Phase 1 until post- sedation evaluation note is complete by procedure /sedation MD Sedation Discharge Instructions to be given to the patient at discharge to home.
--- NOTE | 2020-01-17 11:55 | Operative Report ---
Post Operative Report Pre & Post Diagnosis VT Operation Date: 01/13/20 15:15 <No data on this case meets the specified criteria> Operation Date: 01/17/20 15:00 <No data on this case meets the specified criteria> I identified the patient and participated in the time-out.: Yes Procedure Operation Date: 01/13/20 15:15 Actual Procedures p Cath, Left with Cors and Vent - Jared Rome MD s Ultrasound Vascular Access - Jared Rome MD Operation Date: 01/17/20 15:00 Single [facility] Surgeon Kaylee Geiger, DO Camera Technician none Estimated Blood Loss 15 Findings Consistent with Post-Op Diagnosis Specimens nones Description of Procedure see official report I attest to the content of the Intraoperative Record and any orders documented therein. Any exceptions are noted below.
[2020-01-17] MEDS: CLOPIDOGREL BISULFATE 75 MG TAB PO SCH (12:24)
--- NOTE | 2020-01-17 13:34 | Cardiology Progress Note ---
Date of Service January 17, 2020 Assessment & Plan (1) Ventricular tachycardia: Follow-up echocardiogram performed 01/14/2020 revealed stable findings compared to his pre-cardiac catheterization/pre-stent echo performed as an outpatient in October, with normal LVEF, mitral regurgitation, moderate tricuspid regurgitation, pulmonary hypertension. Since the time the patient was seen and examined this morning, and the initiation of this note, he has since undergone single-chamber ICD performed by Dr. Geiger of EP. Continue metoprolol and amiodarone. Will likely transition amiodarone dosing to 200 mg twice daily tomorrow, 01/18/2020. (2) CAD (coronary artery disease): Status post drug-eluting stent to the LAD 11/08/2019. PCI was performed for chief complaint of exertional shortness of breath, anterior ischemia on nuclear stress test. Chronic proximal occlusion of the second diagonal branch the LAD noted at that time. Repeat emergent cardiac catheterization this admission revealed patent LAD stent, chronic diagonal 2 occlusion which is chronic, no obstructive disease elsewhere. Due to presentation with 3-week history of melena, symptomatic anemia in December,, aspirin has been discontinued and he remains on clopidogrel monotherapy. Continue metoprolol and atorvastatin. (3) Hx of gastrointestinal hemorrhage: Presented with 3 weeks of melena, symptomatic anemia with presenting hemoglobin just under 7 as an outpatient. Hemoglobin has trended up on iron supplementation having received 1 unit of packed red blood cells during that admission. EGD without culprit that admission. Aspirin discontinued. He is on clopidogrel monotherapy, and his stroke prophylaxis for atrial fibrillation has been on hold since last month. Future considerations include resuming Eliquis (had been on Xarelto) however will hold off on this until after recovers from ICD to minimize risk of pocket hematoma or risk of recurrent anemia. Patient has GI follow-up tentatively scheduled as an outpatient on 01/19/2020. We will likely proceed with anoscopy shortly after that appointment. In the meantime , remain off of andicoagulation for now. (4) Atrial fibrillation: Has noted above. Continue metoprolol for rate control. Anticoagulation on hold given recent symptomatic anemia. (5) Hypertension: Continue metoprolol, losartan, amlodipine. Prior to home treatment with furosemide 40 mg p.o. daily reinitiated, 01/15/2020. (6) Valvular heart disease: Moderate mitral regurgitation, moderate tricuspid regurgitation on echocardiogram 01/14/2020 with moderate to severe pulmonary hypertension in the range of 45-66 mmHg. Furosemide reinitiated. Patient has a history of remote surgical uvuloplasty for sleep apnea. He has a consultation with sleep medicine tentatively planned as an outpatient on . DVT prophylaxis: Pt ambulatory. SQ lovenox discontinued for ICD, remain off for now to reduce risk of pocket hematoma. Admission and Anticipated Discharge Date Admission Date: January 13, 2020 Subjective Patient seen this morning accompanied by his spouse. He was feeling well. He has not had any recurrent episodes of ventricular tachycardia on telemetry since day 1 of his hospital stay. Review of Systems Review of Systems: All systems reviewed & are unremarkable except as noted in HPI & below Physical Exam Physical Exam: Temp Pulse Resp BP Pulse Ox 37.0 C 61 20 109/62 91 01/17/20 13:11 01/17/20 13:11 01/17/20 13:11 01/17/20 13:11 01/17/20 13:11 Constitutional: WD/WN, vitals as above Respiratory: normal respiratory effort, lungs clear to auscultation Cardiovascular: RRR, no murmur, no edema Gastrointestinal (Abdomen): normal bowel sounds, soft, nontender, no hepatosplenomegaly Neurologic: PERRL, EOMI, accommodation nl, no face palsy, no dysarthria Results & Data ([facility]) Vital Signs (Past 12 Hours) Vital Signs Temp Pulse Pulse Resp BP Pulse Ox 01/17/20 13:11 37.0 C 61 20 109/62 91 01/17/20 12:41 37.2 C 77 20 126/45 L 91 01/17/20 12:11 37.2 C 77 20 153/73 H 92 01/17/20 12:00 84 16 171/90 H 93 01/17/20 07:26 70 01/17/20 07:06 36.4 C L 66 20 123/69 97 01/17/20 03:37 37.2 C 73 18 132/68 95 (1) CAD (coronary artery disease) Coronary Disease-Associated Artery/Lesion type: [place] artery [place] vs. transplanted heart: [place] heart Associated angina: without angina Qualified Code(s): I25.10 - Atherosclerotic heart disease of [place] coronary artery without angina pectoris (2) Atrial fibrillation Atrial fibrillation type: paroxysmal Qualified Code(s): I48.0 - Paroxysmal atrial fibrillation
--- NOTE | 2020-01-17 18:04 | Electrocardiogram Report ---
Test Reason : Blood Pressure : / mmHG Vent. Rate : 080 BPM Atrial Rate : 075 BPM P-R Int : 000 ms QRS Dur : 112 ms QT Int : 408 ms P-R-T Axes : 000 002 045 degrees QTc Int : 470 ms Atrial fibrillation with premature ventricular or aberrantly conducted complexes Abnormal ECG When compared with ECG of 13-JAN-2020 10:36, No significant change was found Confirmed by Filemon Fuentes ([id number]) on 01/17/2020 6:04:20 PM Referred By: REFERRED SELF Confirmed By:Emanuel Fuentes
--- NOTE | 2020-01-17 18:10 | Electrocardiogram Report ---
Test Reason : Blood Pressure : / mmHG Vent. Rate : 077 BPM Atrial Rate : 000 BPM P-R Int : 000 ms QRS Dur : 116 ms QT Int : 430 ms P-R-T Axes : 000 -38 095 degrees QTc Int : 486 ms Atrial fibrillation Left axis deviation Incomplete right bundle branch block Possible Anterior infarct , age undetermined Abnormal ECG When compared with ECG of 13-JAN-2020 16:56, (unconfirmed) Incomplete right bundle branch block is now Present Borderline criteria for Anterior infarct are now Present Confirmed by Filemon Fuentes ([id number]) on 01/17/2020 6:10:18 PM Referred By: REFERRED SELF Confirmed By:Emanuel Fuentes
--- NOTE | 2020-01-17 18:17 | Electrocardiogram Report ---
Test Reason : Blood Pressure : / mmHG Vent. Rate : 070 BPM Atrial Rate : 000 BPM P-R Int : 000 ms QRS Dur : 116 ms QT Int : 430 ms P-R-T Axes : 000 -24 105 degrees QTc Int : 464 ms Atrial fibrillation with premature ventricular or aberrantly conducted complexes Incomplete right bundle branch block Nonspecific ST and T wave abnormality Prolonged QT Abnormal ECG When compared with ECG of 17-JAN-2020 07:09, (unconfirmed) Nonspecific T wave abnormality now evident in Lateral leads Confirmed by Filemon Fuentes ([id number]) on 01/17/2020 6:16:37 PM Referred By: REFERRED SELF Confirmed By:Emanuel Fuentes
[2020-01-17] MEDS: ACETAMINOPHEN 325 MG TAB PO PRN (21:03)
[2020-01-18] MEDS: ACETAMINOPHEN 325 MG TAB PO PRN (05:06)
[2020-01-18 06:36] LABS: Creatinine Clr Calc Pharmacy 70.5 ml/min; Est GFR (African American) 66.4; Est GFR (Non-African American) 57.3
[2020-01-18] MEDS: FUROSEMIDE 40 MG TAB PO SCH (07:36)
[2020-01-18] MEDS: METOPROLOL SUCC 50MG EXT REL TAB PO SCH (07:36)
[2020-01-18] MEDS: MULTIVITAMIN TAB PO SCH (07:36)
[2020-01-18] MEDS: ATORVASTATIN 40 MG TAB PO SCH (07:37)
[2020-01-18] MEDS: CLOPIDOGREL BISULFATE 75 MG TAB PO SCH (07:37)
[2020-01-18] MEDS: LOSARTAN POTASSIUM 50 MG TAB PO SCH (07:37)
[2020-01-18] MEDS: FERROUS SULFATE 325 MG TAB PO SCH (07:37)
[2020-01-18] MEDS: AMIODARONE 200 MG TAB PO SCH (07:37)
[2020-01-18] MEDS: POTASSIUM CHLORIDE 10 MEQ TABCR PO SCH (07:37)
[2020-01-18] MEDS: AMLODIPINE BESYLATE 5 MG TAB PO SCH (07:38)
[2020-01-18] MEDS: FLUTICASONE/VILANTEROL 200/25MCG 14 PUFFS/INHALER INH SCH (07:41)
--- NOTE | 2020-01-18 08:44 | XRay Report ---
XR chest 2V PA/lateral CLINICAL HISTORY: Post ICD COMPARISON STUDY: Chest CT January 13, 2020. FINDINGS: There is no pneumothorax following placement of a left subclavian pacer/AICD. The tip proje cts over the right ventricle. There is moderate cardiomegaly without evidence for pulmonary edema. El evation of the right hemidiaphragm is unchanged. IMPRESSION: No pneumothorax placement of a left subclavian pacer/AICD. ACT 112: Negative or not required by law. Electronically signed by: August Duarte M.D. 01/18/2020 8:43 AM
--- NOTE | 2020-01-18 10:53 | Hospitalist Progress Note ---
Date of Service January 18, 2020 Assessment & Plan (1) Ventricular tachycardia: POD #1 s/p ICD placement by Dr Geiger. doing well from cardiac standpoint. will need incision check in her office within the next week. discussed with patient what restrictions he will have with the left arm. (2) CAD (coronary artery disease): no ischemic symptoms at this time. cont statin, plavix, ARB, BB, lasix. Admission and Anticipated Discharge Date Admission Date: January 13, 2020 Subjective pt resting comfortably in bed no issues overnight either a.fib or pacing on tele no chest pain, dyspnea, or LEPE Review of Systems Constitutional: no fever Respiratory: no cough and no dyspnea Cardiovascular: no chest pain and no dyspnea on exertion Gastrointestinal: no abdominal pain Physical Exam Constitutional: + obese; no acute distress ENMT: external ear and nose normal, oropharynx normal Respiratory: normal respiratory effort, lungs clear to auscultation Cardiovascular: Rate/Rhythm: regular rate and + irregularly irregular Heart Sounds: normal S1 and normal S2; no murmur Vessels: posterior tibial pulses present and dorsalis pedis pulses present; no JVD Extremities: + edema (1-2+ b/l ) Chest (Breasts): Additional Comments: dressing intact left upper chest Gastrointestinal (Abdomen): normal bowel sounds, soft, nontender, no hepatosplenomegaly Psychiatric: A+Ox3, euthymic affect Results & Data Results & Data ([facility]) Vital Signs (Past 12 Hours) Vital Signs Temp Pulse Resp BP Pulse Ox 01/18/20 07:24 36.2 C L 64 22 110/71 94 01/18/20 03:44 36.4 C L 64 18 135/80 92 01/17/20 23:40 36.6 C 57 L 18 114/68 95 Laboratory Results Laboratory Results - last 24 hr 01/18/20 05:33 Creatinine 1.24 Est Cr Clr Drug Dosing 70.5 Est GFR ( Amer) 66.4 Est GFR (Non-Af Amer) 57.3 PG Care Time/CCT Total # of Minutes Spent Total Time Spent with Patient: Total time spent is greater than 50% in coordination of care (as documented) at patient's floor/unit and/or counseling patient: Coding Level of Care Code None Diagnoses Ventricular tachycardia I47.2 CAD (coronary artery disease) I25.10 Coronary Disease-Associated Artery/Lesion type: [place] artery [place] vs. transplanted heart: [place] heart Associated angina: without angina (1) CAD (coronary artery disease) Coronary Disease-Associated Artery/Lesion type: [place] artery [place] vs. transplanted heart: [place] heart Associated angina: without angina Qualified Code(s): I25.10 - Atherosclerotic heart disease of [place] coronary artery without angina pectoris
--- NOTE | 2020-01-18 11:11 | Cardiology Progress Note ---
Date of Service January 18, 2020 Assessment & Plan (1) Ventricular tachycardia: Follow-up echocardiogram performed 01/14/2020 revealed stable findings compared to his pre-cardiac catheterization/pre-stent echo performed as an outpatient in October, with normal LVEF, mitral regurgitation, moderate tricuspid regurgitation, pulmonary hypertension. Patient status post single-chamber Medtronic ICD on 01/17/2020. Post procedure device interrogation performed this morning is within normal mcallister its. Chest x-ray reveals appropriate lead position, no pneumothorax. Plan to discharge on amiodarone 200 mg twice daily (new medication), metoprolol succinate 100 mg p.o. daily, increased compared to 50 mg prehospital. Continue remaining cardiac medications including amlodipine, atorvastatin, losartan, furosemide 40 mg daily. Continue clopidogrel monotherapy for now. (2) CAD (coronary artery disease): Status post drug-eluting stent to the LAD 11/08/2019. PCI was performed for chief complaint of exertional shortness of breath, anterior ischemia on nuclear stress test. Chronic proximal occlusion of the second diagonal branch the LAD noted at that time. Repeat emergent cardiac catheterization this admission revealed patent LAD stent, chronic diagonal 2 occlusion which is chronic, no obstructive disease elsewhere. Due to presentation with 3-week history of melena, symptomatic anemia in December,, aspirin has been discontinued and he remains on clopidogrel monotherapy. Continue metoprolol and atorvastatin. (3) Hx of gastrointestinal hemorrhage: Presented with 3 weeks of melena, symptomatic anemia with presenting hemoglobin just under 7 as an outpatient. Continue clopidogrel monotherapy. Has GI follow-up tomorrow 01/19/2020 at which time timing of colonoscopy will be discussed, hopefully next week. (4) Atrial fibrillation: Has noted above. Continue metoprolol for rate control. Anticoagulation on hold given recent symptomatic anemia. (5) Hypertension: Continue metoprolol, losartan, amlodipine, furosemide. (6) Valvular heart disease: Moderate mitral regurgitation, moderate tricuspid regurgitation on echocardiogram 01/14/2020 with moderate to severe pulmonary hypertension in the range of 45-66 mmHg. Furosemide reinitiated. Patient has a history of remote surgical uvuloplasty for sleep apnea. He has a consultation with sleep medicine tentatively planned as an outpatient on . DVT prophylaxis: Pt ambulatory. SQ lovenox discontinued for ICD, remain off for now to reduce risk of pocket hematoma. Stable for discharge from a cardiac perspective: Appointments: GI / Hepatology, Stephani Medrnao, 01/19/2020, 10:30 AM Cardiac Device clinic, Stephani Medrano, wound check and pacemaker interrogation, 01/24/2020, 1 PM General cardiology follow-up, Dr Alarcon, 01/30/2020, 8 AM Admission and Anticipated Discharge Date Admission Date: January 13, 2020 Subjective Patient seen and examined. He is without complaint. Telemetry reveals atrial fibrillation for the most part in the 60s, with occasional PVCs. No recurrence of ventricular tachycardia overnight last night. Tolerated implantation of left infraclavicular single-chamber ICD well. Physical Exam Physical Exam: Temp Pulse Resp BP Pulse Ox 36.2 C L 64 22 110/71 94 01/18/20 07:24 01/18/20 07:24 01/18/20 07:24 01/18/20 07:24 01/18/20 07:24 Constitutional: WD/WN, vitals as above Respiratory: normal respiratory effort, lungs clear to auscultation Cardiovascular: Rate/Rhythm: + irregularly irregular Heart Sounds: + murmur (1/6 systolic murmur) Vessels: no JVD Extremities: no edema Gastrointestinal (Abdomen): normal bowel sounds, soft, nontender, no hepatosplenomegaly Neurologic: PERRL, EOMI, accommodation nl, no face palsy, no dysarthria Results & Data ([facility]) Vital Signs (Past 12 Hours) Vital Signs Temp Pulse Resp BP Pulse Ox 01/18/20 07:24 36.2 C L 64 22 110/71 94 01/18/20 03:44 36.4 C L 64 18 135/80 92 01/17/20 23:40 36.6 C 57 L 18 114/68 95 Laboratory Results Comprehensive Metabolic Panel 01/18/20 Range/Units 05:33 Creatinine 1.24 (0.6-1.4) mg/dl Intake and Output 01/17/20 01/18/20 01/18/20 22:59 06:59 14:59 Intake Total 360 / 610 250 / 610 Output Total 500 / 1500 400 / 1500 Balance -140 / -890 -150 / -890 Intake: Oral 360 / 610 250 / 610 Output: Urine 500 / 1500 400 / 1500 Other: Weight 125.2 kg Diagnostic Findings EKG performed 01/17/2020, atrial fibrillation at 70 bpm with occasional PVCs, incomplete right bundle branch block, nonspecific repolarization changes, stable findings. (1) CAD (coronary artery disease) Coronary Disease-Associated Artery/Lesion type: [place] artery [place] vs. transplanted heart: [place] heart Associated angina: without angina Qualified Code(s): I25.10 - Atherosclerotic heart disease of [place] coronary artery without angina pectoris (2) Atrial fibrillation Atrial fibrillation type: paroxysmal Qualified Code(s): I48.0 - Paroxysmal atrial fibrillation
--- NOTE | 2020-01-18 16:04 | Discharge Summary ---
Date of Service date of admission - January 13, 2020 date of discharge - January 18, 2020 Admission HPI Per Admitting Provider Tarun Zhong is a 75-year-old male with coronary artery disease who presents to the ER due to dizziness. Reports acute onset room spinning sensation starting at 8:30 AM this morning. Approximately 30 minutes later he started having associated shortness of breath. No chest pain, orthopnea, PND, claudication. Never had similar vertigo-like sensations before. He feels his dizziness is more consistent with the room spinning than lightheadedness, presyncope or lack of coordination. He was recently admitted from December 27- due to melena and symptomatic anemia after a month of dual antiplatelet therapy and Xarelto after cardiac drug-eluting stent placed on November 07. He was off aspirin prior to that admission, but had continued melanic stools. EGD during hospitalization did not show any source of his bleeding. His Xarelto was discontinued at that time and he remains on single antiplatelet therapy with clopidogrel coming into hospital today. He denies any cough, loss of taste or smell, fevers or chills, known COVID-19 exposure. In the ER he was noted to have increasing runs of nonsustained ventricular tachycardia, discussed case with Dr. Fernandez and patient was started on IV amiodarone. Stat echocardiogram ordered. Despite amiodarone he went into sustained ventricular tachycardia after going to the bathroom. Discussed case with Dr. Rome from interventional cardiology at bedside and he will be taken to the cardiac labor standards director at this time. Principal Diagnosis ventricular tachycardia s/p AICD placement Discharge Exam Constitutional well developed, well nourished and + obese; no acute distress and no altered mental status ENMT Mouth: + oropharynx abnormality (anatomy c/w prior UPPP ) Respiratory normal respiratory effort, lungs clear to auscultation Auscultation: + diminished lung sounds (mild - bases ) Cardiovascular Rate/Rhythm: regular rate and + irregularly irregular Heart Sounds: normal S1 and normal S2; no murmur Vessels: posterior tibial pulses present and dorsalis pedis pulses present; no JVD Extremities: + edema (1-2+ b/l ) Chest (Breasts) Additional Comments: dressing intact left upper chest Gastrointestinal (Abdomen) normal bowel sounds, soft, nontender, no hepatosplenomegaly Psychiatric A+Ox3, euthymic affect Discharge Data Allergies Allergy/AdvReac Type Severity Reaction Status Date / Time banana Allergy Severe eyes swell Unverified 01/13/20 12:45 shut No Known Drug Allergies AdvReac Unknown Unknown Unverified 01/13/20 12:45 Consultations 1. [facility] Cardiology - Filemon Rome MD 2. [facility] Cardiology & electrophysiology - Kaylee Geiger DO 3. Multimedia Artist Procedures Performed Operation Date: 01/13/20 15:15 Actual Procedures p Cath, Left with Cors and Vent - Filemon Rome MD s Ultrasound Vascular Access - Filemon Rome MD Findings: LM -large caliber, 20% ostial, 20% distal disease at bifurcation LAD -moderate caliber, widely patent proximal to mid stent. Mid and distal vessel small with luminal irregularities second diagonal occluded at the ostium. Circumflex -medium caliber, luminal irregularities, large OM 2 without significant disease Ramus - small, 60% mid segment stenosis RCA -dominant, large caliber vessel without significant disease. Small PDA with mild diffuse disease Operation Date: 01/17/20 15:00 Actual Procedures p ICD Insertion Single - Kaylee Geiger DO Ordered Studies 01/13/20 11:21 CT head/brain wo con Stat - no acute findings 01/13/20 12:39 CT angio chest PE protocol Stat IMPRESSION: 1. Cardiomegaly with mild pulmonary edema and trace pleural effusions. 2. No evidence of pulmonary thromboembolic disease. 3. Fusiform dilation of the ascending thoracic aorta, 4.2 x 4.2 cm. No dissection. 4. Dilated pulmonary artery is suggestive of pulmonary artery hypertension. 5. Moderate right diaphragmatic elevation with linear subsegmental right lung base atelectasis. 6. Nonspecific mediastinal and periportal adenopathy. 7. 5 mm subpleural nodule of the posterior segment right upper lobe. 8. 4 mm subpleural nodule of the left upper lobe. echocardiogram: * mild concentric LVH * no regional wall motion abnormalities * moderate mitral regurgitation * moderate tricuspid regurgitation * mild pulmonary HTN (42mmHg) * EF grossly normal Hospital Course (1) Ventricular tachycardia: At time of presentation the patient was found to have recurrent episodes of nonsustained ventricular tachycardia. These episodes became more frequent and ultimately he developed sustained ventricular tachycardia. In light of the patient's known CAD history he was taken emergently to the cardiac labor standards director by Dr Filemon Rome. He was initiated on esmolol infusion as well as amiodarone infusion for the ventricular tachycardia. Cardiac catheterization revealed a patent LAD stent. Other major vessels had nonobstructive CAD. Thus, ischemia was ruled out as the cause of the ventricular tachycardia. Following the patient's cardiac catheterization he was admitted to the ICU and remained there until 01/15/2020. Amiodarone drip was continued and he was ultimately transitioned to PO amiodarone on 01/14/2020. He had no additional runs of ventricular tachycardia thereafter. Patient was transitioned to the telemetry unit on 01/15/2020 and remained hemodynamically stable. [facility] electrophysiology was consulted, and on 01/17/2020 Dr Kaylee Geiger performed AICD placement with a single-chamber Medtronic ICD. On day of discharge the patient was stable from a cardiac standpoint with normal vitals, telemetry, and chest x-ray (no complicating procedural pneumothorax). Device interrogation on 01/18/2020 prior to discharge was normal. He will follow-up with Dr Geiger's office within a week of discharge for incision check. He will remain on amiodarone 200mg BID upon discharge. (2) AICD (automatic cardioverter/defibrillator) present: s/p single-chamber Medtronic ICD placement on 01/17/20. by Dr Kaylee Geiger. (3) CAD (coronary artery disease): Patient was taken to the cardiac labor standards director with Dr Filemon Rome on hospital day #1 to ensure ischemia was not the cause of his recurrent ventricular tachycardia. LAD stent placed in October 2019 was fully patent; other vessels showed nonobstructive disease. Thus, ischemia was ruled out as the cause of his ventricular tachycardia. See above re: full cath results. He will remain on statin, plavix, ARB, BB, lasix. (4) Acute heart failure with preserved ejection fraction (HFpEF): Received multiple doses of lasix while here for mild decompensation in the setting of his recurrent ventricular tachycardia. He will continue beta stewart along with lasix 40mg daily as previous. He was counseled about importance of daily weights, etc. (5) Dizziness: 2nd to ventricular tachycardia. Resolved with treatment of the v-tach. CT head wnl. (6) Hypertension: Continue losartan, amlodipine and metoprolol xl. (7) Hx of gastrointestinal hemorrhage: Hospitalized in 12/2019 for GI bleeding, source uncertain. This was in the setting of dual antiplatelet therapy and xarelto. Both his aspirin and xarelto were discontinued at that time. EGD during that admission was completely normal. He will need follow up with Stephani MELTON for consideration of outpatient colonoscopy. He had no evidence of GI bleeding during this admission. Hb was 10.2 on 01/17/2020. (8) Atrial fibrillation: Anticoagulation currently on hold due to recent GI bleeding/iron deficiency. Remains on metoprolol xl. (9) Pulmonary HTN: As noted on echocardiogram. (10) SABINE (obstructive sleep apnea): Prior h/o UPPP surgery for such. Has f/u with sleep specialist in the near future for consideration of repeat sleep study. (11) Morbid obesity with BMI of 40.0-44.9, adult: BMI ~40 Total Time Total Time Spent Total Time Spent (In Minutes): 35 Total Time Includes: Examination of the Patient, Discharge Planning, Medication Reconciliation and Communication With Other Providers Discharge Plan Discharge Items Patient Disposition: Home - Self-Care Reason For Visit: VERTIGO,NSVT,SOB Discharge Diagnosis: Presyncope due to episodes of ventricular tachycardia Condition on Discharge: Good Activity: As commented below Activity Comment: do not raise the left elbow over the left shoulder for 1 week Lifting: No more than 10 pounds Lifting Comment: do not lift more than 10 pounds with the left arm for 2 weeks Bathing: Keep incision dry Bathing Comment: keep dressing on & dry until wound check next week; sponge bath around it Sexual Activity: After two weeks Non-emergency contact: Resident Associate Call non-emergency contact if: you have any medication questions, your symptoms worsen, your pain is not controlled, you have a fever, your wound has increased redness, your wound has increased drainage and your wound pain has increased Follow-up/Referrals: Villa Duff MD [Primary Care Provider] - Diet: Heart Healthy Addtl Attending Provider Instructions: UPCOMING APPOINTMENTS: GI / Hepatology, Stephani Medrano, 01/19/2020, 10:30 AM Sleep Medicine , [facility], 01/19/2020 1:00 PM Provider :Brenda Salinas, DO Device and wound check at [facility] Cardiology on Thursday01/24/2020 at 12:45pm General cardiology follow-up, Dr Alarcon, 01/30/2020, 8 AM Pending Studies at Discharge: No Stand-Alone Forms: My [facility] KUBOO, Smoking Cessation Medications and DC Order Prescriptions: New losartan 100 mg tablet 100 mg PO DAILY Qty: 30 RF: 11 amiodarone 200 mg tablet 200 mg PO BID Qty: 60 RF: 11 metoprolol succinate 100 mg tablet extended release 24 hr 100 mg PO DAILY Qty: 30 RF: 11 Continued betamethasone dipropionate 0.05 % cream 1 appln TOP BID Qty: 45 RF: 0 amlodipine 10 mg tablet 10 mg PO QAM RF: 0 Symbicort 160-4.5 mcg/actuation HFA aerosol inhaler 2 puffs INH BID RF: 0 multivitamin tablet 1 tab PO QAM RF: 0 vit A-vit C-vit N-jrdv-rrihvr 7,160-113-100 ffpy-ck-lvlm tablet 1 tab PO QAM RF: 0 clopidogrel 75 mg Tablet 75 mg PO QAM Qty: 34 RF: 6 nitroglycerin [Nitrostat] 0.4 mg Tablet, Sublingual 0.4 mg sublingual PRN Qty: 1 RF: 3 furosemide 40 mg tablet 40 mg PO QAM RF: 0 potassium chloride 10 mEq tablet,ER particles/crystals 10 meq PO QAM RF: 0 ferrous sulfate 325 mg (65 mg iron) tablet 325 mg PO BID Qty: 60 RF: 3 atorvastatin 40 mg tablet 40 mg PO QAM RF: 0 Discontinued metoprolol succinate 50 mg Tablet Extended Release 24 Hr 50 mg PO QAM Qty: 34 RF: 6 losartan 50 mg tablet 100 mg PO QAM RF: 0 Discharge Orders: Discharge Order (Routine); Ordered 01/18/20 Ordered By: Julio Cesar Hogan Admission Data Admit Date/Time: 01/13/20 14:01 Attending Provider: Jared Rome Admit Provider: Kj Collier Primary Care Provider: Villa Duff Other Providers: Kj Collier ; Jayden Fernandez ; Drew Oh Other Interventions: Discharge Summary Assessment (RN) Last Done: 01/18/20 11:22 Coding Level of Care Code D/C Day Management >30 mins Diagnoses Ventricular tachycardia I47.2 AICD (automatic cardioverter/defibrillator) present Z95.810 CAD (coronary artery disease) I25.10 Associated angina: without angina Coronary Disease-Associated Artery/Lesion type: [place] artery [place] vs. transplanted heart: [place] heart Acute heart failure with preserved ejection fraction (HFpEF) I50.31 Dizziness R42 Hypertension I10 Hx of gastrointestinal hemorrhage Z87.19 Atrial fibrillation I48.0 Atrial fibrillation type: paroxysmal Pulmonary HTN I27.20 SABINE (obstructive sleep apnea) G47.33 Morbid obesity with BMI of 40.0-44.9, adult E66.01; Z68.41
[2020-01-18] MEDS ORDERED: AMIODARONE 200 MG TAB PO SCH (17:00)
--- NOTE | 2020-01-24 16:44 | Operative Report (OR) ---
DATE OF OPERATION: 01/17/2020 PREOPERATIVE DIAGNOSIS: Sustained ventricular tachycardia. POSTOPERATIVE DIAGNOSIS: Sustained ventricular tachycardia. PROCEDURE: Single chamber rate responsive implantable cardiac defibrillator under fluoroscopic guidance. SURGEON: Kaylee Geiger DO. ASSISTANTS: None. BLOOD LOSS: 15 mL URINE OUTPUT: Not applicable. SPECIMENS: None. FINDINGS: See below. DRAINS: None. ANESTHESIA: Monitored conscious sedation administered under my supervision by Shanika Ruiz. Start time 11:05, end time 11:49. Total of 3 mg of Versed and 75 mcg fentanyl. INTRAVENOUS FLUIDS: 30 mL. INDICATIONS: This is a 75-year-old gentleman who was admitted to [facility] on 01/13/2020 secondary to sustained ventricular tachycardia. He underwent a cardiac catheterization which showed that his stent was patent and so prior to being discharged, he was recommended a defibrillator. His other past medical history is coronary artery disease where he is status post drug-eluting stent to the LAD on 11/08/2019. He also has a history of gastrointestinal hemorrhage, permanent atrial fibrillation, on Coumadin. No anticoagulation given the GI hemorrhage, hypertension, moderate mitral regurgitation, moderate tricuspid regurgitation and severe pulmonary hypertension. CONSENT: Consent was obtained prior to the patient going into electrophysiology lab. The patient was informed of the risks, benefits and alternative procedure. Risks include but not limited to sudden cardiac , myocardial infarction, , arrhythmias, injury to the blood vessels, chamber of the heart, lungs, bleeding and infection. The patient understood these risks and agreed to the procedure as planned. Informed consent was obtained. DESCRIPTION OF THE PROCEDURE: The patient was brought into the electrophysiology lab in fasting state was connected to continuous refrigerated company driver. Timeout was performed to ensure patient identity and procedure correctly. The patient was prepped and draped over the left inferior space in normal surgical standard fashion. Monitored conscious sedation was given throughout the procedure for patient's comfort level. He received prophylactic antibiotics prior to incision. [place] precautions obtained throughout the procedure. 10 mL of 1% lidocaine, bupivacaine mixture were given in the left deltopectoral groove. Incision was made in the left deltopectoral groove. Blunt dissection performed down to identify cephalic vein. Cephalic vein was identified and isolated using silk ties. The vein was nicked with an 11 blade and a guidewire was inserted without any resistance. A 9.5-[place] SafeSheath was advanced over the guidewire without any resistance. Guidewire and dilator removed. The right ventricular lead was then advanced into right ventricle and positioned in intraventricular apex under fluoroscopic guidance. There was adequate pacing and sensing thresholds and no diaphragmatic stimulation in high output pacing. The 9.5-[place] sheath was peeled away and lead was fixated to pectoralis muscle using 0 silk suture. A defibrillator pocket was created using blunt dissection over the pectoralis muscle within the pectoralis fascia. The pocket was flushed with copious amounts of bacitracin saline wash and inspected for hemostasis. Pulse generator was then attached to leads making sure the pins were in appropriate position, passed set screw and set screws were all tightened. The defibrillator was then placed in the antibiotic pouch followed then by being placed in the pocket, making sure the leads were lying flat beneath the device. The incision was then closed in 3-layer fashion with 2-0 Vicryl interrupted suture followed by 3-0 Vicryl interrupted suture, followed by 4-0 Monocryl running stitch and Dermabond was applied followed by a Telfa and Tegaderm dressing. EQUIPMENT: 1. The generator is a [employer] AF MRI VR SureScan [id number], serial number [id number]. 2. The Tyrx pouch is reference [id number], lot number [id number]. 3. Right ventricular lead, Medtronic 6935M-62 cm, serial number [id number]. INTRAOPERATIVE TESTING: Right ventricular lead R-wave 5.5 millivolts, impedance 593 ohms, threshold 0.4 volts at 0.4 milliseconds. FINAL MEASUREMENTS THROUGH THE DEVICE: 1. R-wave 5.8 millivolts, impedance 399 ohms, threshold 0.5 volts at 0.4 milliseconds. 2. The RV coil 60 ohms. FINAL PARAMETERS: VVI 40 with the right ventricular amplitude 3.5 volts, pulse width 0.4 milliseconds, sensitivity 0.3 millivolts and the VT monitor zone at 130 beats per minute for 32 detection intervals, VT zone at 154 beats per minute for 16 detection intervals and VF zone at 200 beats per minute for 30/40 detection intervals. IMPRESSION: Successful single chamber rate responsive implantable cardiac defibrillator implantation secondary to sustained ventricular tachycardia. PLAN: Monitor patient overnight, 12-lead ECG, chest x-ray. He cannot lift left elbow or left shoulder for 1 month. He cannot lift more than 10 pounds with the left arm for 2 weeks. He is to keep the dressing on and dry until his wound check next week in [place] cardiology office and recommend starting amiodarone. I attest to the content of the Intraoperative Record and any orders documented therein. Any exceptions are noted below. MTDD
== END 2020-01-18 13:18 | disposition home or self-care (01) | DRG 224 ==
LOC: ED 10:22 → CC 15:07 → 1E 16:37 → 2S 01-15 16:10
PROC: EPB.ICD (2020-01-17 15:00)

== ENCOUNTER 2021-01-02 05:56 | Inpatient (IN) ==
--- NOTE | 2020-12-10 16:37 | PAT Medication Instructions ---
Medication Instructions Date of Service December 10, 2020 Home Medications Medication Instructions Recorded nitroglycerin 0.4 mg sublingual 0.4 mg SUBLINGUAL PRN #1 btl 11/09/19 tablet (Nitrostat) ferrous sulfate 325 mg (65 mg 325 mg PO BID #60 tab 12/29/19 iron) tablet betamethasone dipropionate 0.05 % 1 applic TOP BID #45 gm 10/10/20 topical cream amlodipine 10 mg tablet 10 mg PO QAM multivitamin 1 tab PO QAM vit A 7,160 unit-vit C 113 mg-vit E 100 glcv-eerm-planxh tablet 1 tab PO QAM nitroglycerin 0.4 mg sublingual tablet (Nitrostat) 0.4 mg SUBLINGUAL PRN furosemide 40 mg tablet 40 mg PO QAM potassium chloride 10 mEq tablet,extended release(part/cryst) 10 meq PO QAM ferrous sulfate 325 mg (65 mg iron) tablet 325 mg PO BID atorvastatin 40 mg tablet 20 mg PO QAM amiodarone 200 mg tablet 200 mg PO QAM losartan 100 mg tablet 100 mg PO QAM metoprolol succinate 100 mg tablet,extended release 24 hr 50 mg PO QAM betamethasone dipropionate 0.05 % topical cream 1 applic TOP BID aspirin 81 mg tablet 81 mg PO QAM budesonide-formoterol HFA 160 mcg-4.5 mcg/actuation aerosol inhaler (Symbicort) 2 puff INHALATION BID Continue as directed nitroglycerin 0.4 mg sublingual tablet (Nitrostat) 0.4 mg SUBLINGUAL PRN (if needed) STOP taking 2 weeks before surgery vit A 7,160 unit-vit C 113 mg-vit E 100 ntau-byar-mqvsuq tablet 1 tab PO QAM STOP taking 24 hours before surgery betamethasone dipropionate 0.05 % topical cream 1 applic TOP BID DO NOT take the morning of surgery multivitamin 1 tab PO QAM furosemide 40 mg tablet 40 mg PO QAM potassium chloride 10 mEq tablet,extended release(part/cryst) 10 meq PO QAM ferrous sulfate 325 mg (65 mg iron) tablet 325 mg PO BID losartan 100 mg tablet 100 mg PO QAM Take morning of surgery With a small sip of water, OTHERWISE NOTHING TO EAT OR DRINK AFTER MIDNIGHT: amlodipine 10 mg tablet 10 mg PO QAM atorvastatin 40 mg tablet 20 mg PO QAM amiodarone 200 mg tablet 200 mg PO QAM metoprolol succinate 100 mg tablet,extended release 24 hr 50 mg PO QAM aspirin 81 mg tablet 81 mg PO QAM budesonide-formoterol HFA 160 mcg-4.5 mcg/actuation aerosol inhaler (Symbicort) 2 puff INHALATION BID Take evening before surgery ferrous sulfate 325 mg (65 mg iron) tablet 325 mg PO BID budesonide-formoterol HFA 160 mcg-4.5 mcg/actuation aerosol inhaler (Symbicort) 2 puff INHALATION BID Other Notes If you have any questions please call us at [phone] or [phone] or [phone] or [phone]
--- NOTE | 2020-12-13 15:38 | Anesthesiology Consultation ---
Date of Service December 13, 2020 Assessment & Plan (1) Encounter for pre-operative examination: Chart Review Chart Review: Acceptable Risk for Surgery (pending preop Covid testing results ) and Patient seen in Pre Admission Testing -Discussed with Dr. Ewing- patient will need pacer rep present DOS secondary to left sided ICD and left shoulder arthroplasty. Janice in the OR was made aware/also put on OR sheet Per PAT appointment 12/13/2020, patient denies any recent travel. No known Covid infection in the past 90 days. Patient is vaccinated for Covid. No known Covid positive contacts or Covid related symptoms. Preop Covid testing scheduled 12/18/20= will await results. Educated on importance of self quarantining, social distancing and wearing mask in public both for the patient after Covid testing done Patient seen by cardiology 11/27/2020 = seen for preoperative cardiovascular evaluation prior to left shoulder replacement. Patient feeling well from cardiovascular perspective. Reports significant discomfort involving his left shoulderplanning replacement in early December. Tolerating cardiovascular medications without issues. " Moderate perioperative cardiovascular risk." VTstatus post ICD implantationtolerating amiodarone. Chronic compensated HF. Symptomatic anemiastatus post IV iron infusions. CADstatus post JOSR to LADrepeat cardiac cath 01/13/2020 showed patent stent. Rate controlled chronic A. fib. Mild to moderate pulmonary hypertensionmultifactorialOSA/COPD/diastolic dysfunction. Echocardiogram was ordered. " Recommend discontinuation of clopidogrel in favor of aspirin. Eliquis may be held 48 hours prior to surgery and resumed 24-48 hours postoperatively when bleeding risk is deemed acceptable by the operating surgeon. Continue low-dose aspirin, metoprolol, and amiodarone uninterrupted perioperatively." History Surgery Operation Date: 12/20/20 11:30 Proposed Procedures p Left Total Shoulder Arthroplasty, Possible Reverse Total Shoulder Arthroplasty - Bassam Spain MD Height/Weight Height: 5 ft 10.5 in Weight: 125 kg Allergies Allergy/AdvReac Type Severity Reaction Status Date / Time banana Allergy Severe eyes swell Verified 12/10/20 14:50 shut No Known Drug Allergies AdvReac Unknown Unknown Verified 12/10/20 14:50 Medications Home Medications Medication Instructions Recorded Confirmed Last Taken amlodipine 10 mg tablet 10 mg PO QAM 03/31/19 12/10/20 03/14/20 07:00 multivitamin 1 tab PO QAM 03/31/19 12/10/20 03/13/20 vit A 7,160 unit-vit C 113 mg-vit 1 tab PO QAM 03/31/19 12/10/20 03/13/20 E 100 yyzg-ifar-ijgbgj tablet nitroglycerin 0.4 mg sublingual 0.4 mg SUBLINGUAL PRN #1 btl 11/09/19 12/10/20 Unknown tablet (Nitrostat) furosemide 40 mg tablet 40 mg PO QAM 12/28/19 12/10/20 03/13/20 potassium chloride 10 mEq 10 meq PO QAM 12/28/19 12/10/20 03/13/20 tablet,extended release(part/cryst) ferrous sulfate 325 mg (65 mg 325 mg PO BID #60 tab 12/29/19 12/10/20 03/07/20 iron) tablet atorvastatin 40 mg tablet 20 mg PO QAM 01/13/20 12/10/20 03/13/20 amiodarone 200 mg tablet 200 mg PO QAM 03/08/20 12/10/20 03/14/20 07:00 losartan 100 mg tablet 100 mg PO QAM 03/08/20 12/10/20 03/13/20 metoprolol succinate 100 mg 50 mg PO QAM 03/08/20 12/10/20 03/14/20 07:00 tablet,extended release 24 hr betamethasone dipropionate 0.05 % 1 applic TOP BID #45 gm 10/10/20 12/10/20 Unknown topical cream apixaban 5 mg tablet (Eliquis) 5 mg PO BID 12/10/20 12/10/20 Unknown aspirin 81 mg tablet 81 mg PO QAM 12/10/20 12/10/20 Unknown budesonide-formoterol HFA 160 2 puff INHALATION BID 12/10/20 12/10/20 Unknown mcg-4.5 mcg/actuation aerosol inhaler (Symbicort) Past Medical History Medical History (Updated 12/14/20 @ 12:31 by Rosi Luna PA-C) Asthma Well controlled per pt Breathing fluctuates with humidity Atrial fibrillation DX 2009> Eliquis CHF (congestive heart failure) Controlled per patient/stable Chronic obstructive pulmonary disease well controlled per pt Coronary artery disease follows Dr. Alarcon S/p cardiac stent to LAD 10/2019 Hyperlipidemia Hypertension ICD (implantable cardioverter-defibrillator) in place Due to ventricular tachycardia- s/p ICD/pacer- Medtronic> 02/2020 [facility] Mitral regurgitation Myocardial Infarction JAN 2020> [facility] Osteoarthritis Pulmonary HTN Sleep apnea no longer needs cpap > due to surgical intervention Exercise / Class Metabolic Activity III < 4 Walking/Shop/Light housework (one flight of stairs - no chest pain, mild SOB ) Past Family History Family History Mother Colon cancer Other Hypertension Past Surgical History Surgical History H/O carpal tunnel repair B/L History of cardiac cath x2> Jan 2020 > [facility] atrial fib History of cataract surgery RIGHT History of tonsillectomy History of tooth extraction History of uvulopalatopharyngoplasty had surgery for sleep apnea and doing well Hx of colonoscopy Hx of esophagogastroduodenoscopy Status post insertion of drug-eluting stent into left anterior descending (LAD) artery OCTOBER 2019 Past Anesthesia History No Hx of Anesthesia Complications and No Family Hx of Anesthesia Complications History of PONV No Hx of PONV and No Hx of Motion Sickness Social History Smoking Status: Former smoker tobacco type: cigarettes Smoking cigarettes per day: quit 50 years ago Do You Dip or Chew Tobacco: No Smoking End Date: quit 50 yrs ago Hx Alcohol Use: Yes Alcohol type: wine alcohol intake frequency: a few times a month Hx Substance Use: No substance use type: does not use Review of Systems Hx of blood transfusion one year ago secondary to anemia. Patient denies chest pain, shortness of breath at rest,, reflux, cough, wheezing, palpitations. No hx of seizures, stroke. No hx of blood clots. Physical Exam Vital Signs VITALS BP 138/85 P 65 TEMP 97.9 SP02 93% RESP 16 Constitutional no acute distress ENMT Mouth: no TMJ clicking Thyromental Distance: > or= 3.5 Finger Breadths (3.5) Mallampati Class: I (smaller airway ) Mouth / Teeth: 1. Chipped Temporary bridge to top left Neck + short neck, + thick neck and + limited neck extension (mild ) Respiratory normal respiratory effort; no respiratory distress Auscultation: lungs clear to auscultation bilaterally; no wheezes Cardiovascular Rate/Rhythm: regular rate and regular rhythm Heart Sounds: no murmur Vessels: no carotid bruit Musculoskeletal Spine: no pain with cervical ROM Extremities: extremities normal to inspection Psychiatric Orientation: alert Lab Results Anesthesia Preop Results Results Anesthesia Widget: WBC 5.21 K/uL (4.8-10.8) 12/13/20 Hgb 13.6 g/dL (14.0-18.0) L 12/13/20 Hct 41.1 % (42-52) L 12/13/20 Plt 232 K/uL (130-400) 12/13/20 Na 140 mmol/L (136-145) 12/13/20 K 4.7 mmol/L (3.5-5.1) 12/13/20 Cl 108 mmol/L (98-107) H 12/13/20 CO2 28 mmol/L (21-32) 12/13/20 BUN 19 mg/dl (7-18) H 12/13/20 Creat 1.09 mg/dl (0.6-1.4) 12/13/20 Glucose Level 82 mg/dl (70-99) 12/13/20 PT 12.3 Seconds (9.0-12.0) H 12/13/20 PTT 30.6 Seconds (21.0-31.0) 12/13/20 INR 1.2 (0.9-1.1) H 12/13/20 HA1c 5.0 % (4.5-5.6) 12/13/20 Urine Color Yellow 12/13/20 Urine Appearance Clear (Clear) 12/13/20 Urine pH 6.0 (4.5-7.5) 12/13/20 Urine Specific [place] 1.021 (1.000-1.030) 12/13/20 Urine Protein Negative (Negative) 12/13/20 Urine Glucose (UA) Negative (Negative) 12/13/20 Urine Ketones Trace (Negative) H 12/13/20 Urine Blood Negative (Negative) 12/13/20 Urine Nitrite Negative (Negative) 12/13/20 Urine Bilirubin Negative (Negative) 12/13/20 Urine Urobilinogen Negative (Negative) 12/13/20 Urine Leukocyte Esterase Negative (Negative) 12/13/20 Blood Type O Positive 12/13/20 Antibody Screen NEGATIVE 12/13/20 Testing Electrocardiogram Date: 11/27/20 Atrial fibrillation with premature ventricular or aberrantly conducted complexes at 75 bpm. Left axis deviation. Incomplete right bundle branch block. Prolonged QT interval at 2 fusion, consider myocardial ischemia, electrolyte imbalance, or drug effects. When compared to EKG from January 30, 2020the axis shifted left, nonspecific T wave abnormality no longer evident in inferior leads per cardio. Chest X-Ray Date: 12/13/20 Cardiac silhouette is enlarged. Single lead left subclavian pacer/AICD. Chronic right hemidiaphragmatic elevation. Unchanged mild bibasilar densities suggestive of atelectasis. No pneumothorax, large pleural effusion or overt pulmonary edema. Loose body of the left subscapularis recess. Degenerative changes of the shoulders and spine. IMPRESSION: Chronic findings as above without acute process. Echocardiogram Date: 12/06/20 EF: 55-59% LV Function: normal RWMA: + none Other Findings: + LVH (Borderline/concentric) Atrial fibrillation with controlled ventricular response during the examination LV cavity size is mildly enlarged. Trivial posterior loculated pericardial effusion is present localized area adjacent to the basal posterior LV wall. Cardiac tamponade is absent. Left atrium is severely enlarged. Right atrium m oderately enlarged. Mild AR. Moderate MR. Moderate TR. RV systolic function is normal. Dilated IVC with reduced collapsibility with sniff indicates an elevated right atrial pressure of 15 mmHg. Stress Test Date: 11/01/19 Type: nuclear Abnormal Lexiscan nuclear stress test suggesting ischemia involving the anterior apical wall and apex. Gated SPECT images reveal normal myocardial thickening and wall motion. LVEF is 55%. The study has what is deemed to be a "significant abnormality." (Had subsequent cardiac cath) Cardiac Catheterization Date: 01/13/20 LM -large caliber, 20% ostial, 20% distal disease at bifurcation LAD -moderate caliber, widely patent proximal to mid stent. Mid and distal vessel small with luminal irregularities second diagonal occluded at the ostium. Circumflex -medium caliber, luminal irregularities, large OM 2 without significant disease Ramus - small, 60% mid segment stenosis RCA -dominant, large caliber vessel without significant disease. Small PDA with mild diffuse disease Summary: Widely patent proximal to mid LAD stent. Chronic second diagonal total occlusion. Elevated intracardiac filling pressures. Intermittent sustained VT. Patient was admitted into the ICU on medications and further evaluation by EP was completed. Other Testing Defibrillator check 10/03/2020 = Medtronic ICD. RV paced 4.6%. Battery 3.01 V. No recent shocks. Pacemaker mode/rate: VVI at 40 bpm. VT/VF episodes (since last evaluation): 1 VT treated episodes of which the longest is 8 seconds with a ventricular rate of 171 bpm, 1 VT monitor episodes which the longest 31 seconds with a ventricular rate of 132 bpm, 39 VT nonsustained episodes of which the longest is 3 seconds with a ventricular rate of 171 bpm Impression: Normal defibrillator function. Adequate battery reserve.
--- NOTE | 2021-01-01 14:10 | History & Physical Report ---
Date of Service January 01, 2021 Assessment & Plan (1) Primary osteoarthritis, left shoulder: Plan: Treatment options discussed with patient. He has failed conservative measures and would like to proceed with surgical intervention. Risks, benefits and alternatives to surgery including but not limited to infection, DVT, pain, stiffness, need for revision surgery, damage to blood vessels, damage to nerves, PE, , were discussed with the patient and they wish to proceed. Plan for left shoulder total shoulder arthroplasty vs reverse total shoulder arthroplasty depending on intraoperative findings as patient was unable to undergo MRI or CT arthrogram preoperative to assess his rotator cuff. Will resume home Eliquis post op. All questions answered. F/u post operatively. History of Present Illness Chief Complaint: Left shoulder pain Primary Care Provider: Joana Alarcon DO 75 year old male with PMHx significant for COPD, hx of GA, afib, pacemaker, HTN, and CHF presents with ongoing right shoulder pain. Pain is interfering with his ability to carry out normal daily activities. He has failed conservative m easures and would like to proceed with surgical intervention. Patient denies headaches, sweats, fevers, chills, double vision, blurred vision, cough, sore throat, dysphagia, chest pain wheezing, n/v/d/c, numbness, tingling, fatigue, urinary symptoms, mood disorders. ROS positive for left shoulder pain and stiffness as well as shortness of breath at baseline. Allergies Allergy/AdvReac Type Severity Reaction Status Date / Time banana Allergy Severe eyes swell Verified 12/10/20 14:50 shut No Known Drug Allergies AdvReac Unknown Unknown Verified 12/10/20 14:50 Home Medications Medication Instructions Recorded Confirmed Type amlodipine 10 mg tablet 10 mg PO QAM 03/31/19 12/10/20 History multivitamin 1 tab PO QAM 03/31/19 12/10/20 History vit A 7,160 unit-vit C 113 mg-vit 1 tab PO QAM 03/31/19 12/10/20 History E 100 aerd-vxoa-tknfwy tablet nitroglycerin 0.4 mg sublingual 0.4 mg SUBLINGUAL PRN #1 btl 11/09/19 12/10/20 Rx tablet (Nitrostat) furosemide 40 mg tablet 40 mg PO QAM 12/28/19 12/10/20 History potassium chloride 10 mEq 10 meq PO QAM 12/28/19 12/10/20 History tablet,extended release(part/cryst) ferrous sulfate 325 mg (65 mg 325 mg PO BID #60 tab 12/29/19 12/10/20 Rx iron) tablet atorvastatin 40 mg tablet 20 mg PO QAM 01/13/20 12/10/20 History amiodarone 200 mg tablet 200 mg PO QAM 03/08/20 12/10/20 History losartan 100 mg tablet 100 mg PO QAM 03/08/20 12/10/20 History metoprolol succinate 100 mg 50 mg PO QAM 03/08/20 12/10/20 History tablet,extended release 24 hr betamethasone dipropionate 0.05 % 1 applic TOP BID #45 gm 10/10/20 12/10/20 Rx topical cream apixaban 5 mg tablet (Eliquis) 5 mg PO BID 12/10/20 12/10/20 History aspirin 81 mg tablet 81 mg PO QAM 12/10/20 12/10/20 History budesonide-formoterol HFA 160 2 puff INHALATION BID 12/10/20 12/10/20 History mcg-4.5 mcg/actuation aerosol inhaler (Symbicort) Past Med/Surg History Medical History (Updated 01/01/21 @ 14:04 by Matt Rock) Asthma Well controlled per pt Breathing fluctuates with humidity Atrial fibrillation DX 2009> Eliquis CHF (congestive heart failure) Controlled per patient/stable Chronic obstructive pulmonary disease well controlled per pt Coronary artery disease follows Dr. Alarcon S/p cardiac stent to LAD 10/2019 Hyperlipidemia Hypertension ICD (implantable cardioverter-defibrillator) in place Due to ventricular tachycardia- s/p ICD/pacer- Medtronic> 02/2020 [facility] Mitral regurgitation Myocardial Infarction JAN 2020> [facility] Osteoarthritis Pulmonary HTN Sleep apnea no longer needs cpap > due to surgical intervention Surgical History H/O carpal tunnel repair B/L History of cardiac cath x2> Jan 2020 > [facility] atrial fib History of cataract surgery RIGHT History of tonsillectomy History of tooth extraction History of uvulopalatopharyngoplasty had surgery for sleep apnea and doing well Hx of colonoscopy Hx of esophagogastroduodenoscopy Status post insertion of drug-eluting stent into left anterior descending (LAD) artery OCTOBER 2019 Family History Mother Colon cancer Other Hypertension Social History Smoking Status: Former smoker Cigarettes Per Day: quit 50 years ago; Second Hand Exposure: Yes; Hx Alcohol Use: Yes Alcohol type: beer Hx Substance Use: No Preferred Language: Upper Sorbian Communication Ability: Effective Metal Tube Cutter Required: No Beliefs That Will Affect Care: None Current Living Situation: Spouse Feels Safe at Home: Yes Assistive Devices: Glasses Review of Systems All systems reviewed & are unremarkable except as noted in HPI & below Physical Exam Constitutional: well developed and well nourished; no acute distress Eyes: PERRL, conjunctivae normal, anicteric sclerae ENMT: external ear and nose normal, oropharynx normal Neck: trachea midline, no thyromegaly Respiratory: normal respiratory effort, lungs clear to auscultation Cardiovascular: RRR, no murmur, no edema Musculoskeletal: Left shoulder: anterior glenoid and tenderness anterolateral acromion. Crepitation noted on ROM. Active painful ROM. Positive impingement signs. Dewey deformity noted. FF to 160, abduction to 100, ER to 40 degrees. Strength is decreased in all directinos. Skin: no rashes, warm and dry Neurologic: patellar DTR's 2+ bilat, sensation intact Psychiatric: A+Ox3, euthymic affect Results & Data ([place]) Diagnostic Findings X-rays left shoulder demonstrate there is advanced glenohumeral osteoarthritis, bone on bone in the glenohumeral joint with large inferior humeral osteophyte and superior humeral osteophyte. There is also advanced hypertrophic AC joint osteoarthritis with calcification of the capsule, subchondral cystic changes with advanced AC joint osteoarthritis. The acromion is type II out outlet view. On the axillary view he is completely bone on bone with type A concentric wear pattern.
[~2021-01-02 05:56] MED LIST: ACETAMINOPHEN 500 MG TAB PO SCH; CeleBREX 200 MG CAP PO SCH; FAMOTIDINE 20 MG TAB PO SCH; GABAPENTIN 300 MG CAP PO SCH; LR 15ML/HR IV SCH; METOCLOPRAMIDE HCL 10 MG TABLET PO SCH; TRANEXAMIC ACID 1,000 MG **IV Intra-op IV SCH; TRANEXAMIC ACID 1,000 MG **IV Pre-op IV SCH; dexAMETHasone 4 MG TAB PO SCH
[2021-01-02] MEDS ORDERED: CeleBREX 200 MG CAP PO SCH (06:00)
[2021-01-02] MEDS ORDERED: LR 15ML/HR IV SCH (06:00)
[2021-01-02] MEDS ORDERED: GABAPENTIN 300 MG CAP PO SCH (06:00)
[2021-01-02] MEDS ORDERED: TRANEXAMIC ACID 1,000 MG **IV Intra-op IV SCH (06:00)
[2021-01-02] MEDS ORDERED: dexAMETHasone 4 MG TAB PO SCH (06:00)
[2021-01-02] MEDS ORDERED: ACETAMINOPHEN 500 MG TAB PO SCH (06:00)
[2021-01-02] MEDS ORDERED: METOCLOPRAMIDE HCL 10 MG TABLET PO SCH (06:00)
[2021-01-02] MEDS ORDERED: TRANEXAMIC ACID 1,000 MG **IV Pre-op IV SCH (06:00)
[2021-01-02] MEDS ORDERED: FAMOTIDINE 20 MG TAB PO SCH (06:00)
[2021-01-02] MEDS ORDERED: ceFAZolin 2000MG 2,000 MG/15 ML SYR IV SCH (06:00)
[2021-01-02] MEDS ORDERED: BUPIVACAINE 0.5 % 5 MG/1 ML PF 10ML VIAL ONE (06:33)
[2021-01-02] MEDS ORDERED: PHENYLEPHRINE HCL 10 MG/ML VIAL ONE (09:25)
[2021-01-02] MEDS ORDERED: LARYING-O-JET KIT (LTA) ONE (09:25)
[2021-01-02] MEDS ORDERED: PROPOFOL IV EMULSION 10 MG/ML 20 ML VIAL IV ONE (09:25)
[2021-01-02] MEDS ORDERED: DEXAMETHASONE SOD INJ 4 MG/ML VIAL ONE (09:25)
[2021-01-02] MEDS ORDERED: ONDANSETRON INJ 2 MG/ML 2 ML VIAL ONE (09:25)
[2021-01-02] MEDS ORDERED: ROCURONIUM BROMIDE 10 MG/ML 5 ML VIAL IV ONE (09:25)
[2021-01-02] MEDS ORDERED: LIDOCAINE 2% 2 ML VIAL/AMP(20MG/ML) INFIL ONE (09:25)
[2021-01-02] MEDS ORDERED: fentaNYL citrate 100 MCG/2 ML VIAL ONE (09:26)
[2021-01-02] MEDS ORDERED: MIDAZOLAM HCL 1 MG/ML 2ML VIAL ONE (09:26)
[2021-01-02] MEDS ORDERED: fentaNYL citrate 100 MCG/2 ML VIAL IV PRN (09:37)
[2021-01-02] MEDS ORDERED: ATROPINE SULFATE 0.1 MG/ML 10ML SYR IV PRN (09:37)
[2021-01-02] MEDS ORDERED: ePHEDrine sulfate 50 MG/ML AMP IV PRN (09:37)
[2021-01-02] MEDS ORDERED: ONDANSETRON INJ 2 MG/ML 2 ML VIAL IV PRN ×2 (09:37→16:57)
[2021-01-02] MEDS ORDERED: HYDROmorphone INJ 2 MG/ML SYR/VIAL IV PRN (09:37)
--- NOTE | 2021-01-02 09:57 | History & Physical Bridge Note ---
Date of Service January 02, 2021 History & Physical Bridge Note I have examined the patient, reviewed the History & Physical and in the interval since the performance of the History & Physical I have noted the following changes of clinical significance: no changes noted
[2021-01-02] MEDS ORDERED: EPINEPHrine HCL INJ 1 MG/ML 30ML ONE (10:31)
[2021-01-02] MEDS ORDERED: ePHEDrine sulfate 50 MG/ML SYR ONE (10:49)
[2021-01-02] MEDS ORDERED: SUCCINYLCHOLINE 100MG/5ML SYR IV ONE (10:55)
--- NOTE | 2021-01-02 13:35 | Post Operative Brief Note ---
Immediate Post Op Note v1 Date of Surgery January 02, 2021 Pre & Post Diagnosis Operation Date: 01/02/21 09:10 Pre-Op Diagnosis: Primary Osteoarthritis, Left shoulder Post-Op Diagnosis: Primary Osteoarthritis, Left shoulder, chronic rotator cuff tear, rotator cuff tendonopathy, biceps tendon rupture I identified the patient and participated in the time-out.: Yes Procedure Operation Date: 01/02/21 09:10 Actual Procedures p Left Reverse Shoulder Arthroplasty, rotator cuff debridement(Left) - Bassam Spain MD Surgeon Bassam Spain MD Back Sewer John LIM Estimated Blood Loss 40 Findings Consistent with Post-Op Diagnosis Specimens Humeral head Drains Hemovac Drain (8" (3.2mm/10fr)) Anesthesia Type General Regional Complications none Disposition Disposition: Recovery Room Overlapping Procedure I was immediately available: during the entire case.
--- NOTE | 2021-01-02 13:53 | Operative Report ---
Post Operative Report Pre & Post Diagnosis Operation Date: 01/02/21 09:10 Pre-Op Diagnosis: Primary Osteoarthritis, Left shoulder, ipsilateral left pacemaker Post-Op Diagnosis: Primary Osteoarthritis, Left shoulder, chronic rotator cuff tear, rotator cuff tendonopathy, biceps tendon rupture, ipsilateral left pacemaker I identified the patient and participated in the time-out.: Yes Procedure Operation Date: 01/02/21 09:10 Actual Procedures p Left Reverse Shoulder Arthroplasty, rotator cuff debridement(Left) - Bassam Spain MD Surgeon Bassam Spain MD Processing Technician John LIM Estimated Blood Loss 40 Findings Consistent with Post-Op Diagnosis Specimens Bone cuts Drains 2 Hemovac Anesthesia Type General Regional Complications none Disposition Disposition: Recovery Room Indications 75-year-old male with chronic left shoulder pain. Radiographs demonstrate he has AC joint and glenohumeral osteoarthritis with grade 4 [id number] glenohumeral osteoarthritis. Patient due ipsilateral pacemaker could not have an MRI and radiology was uncomfortable with performing an arthrogram due to the location of the pacemaker so no advanced imaging was performed. Patient does have chronic pain and weakness. Description of Procedure The patient was taken to the operating room and anesthetized under regional block and general anesthetic. The patient was positioned on the operating table in a 30 beach chair position with a towel roll under the medial border of the left scapula. The arm was draped free to be able to manipulate the shoulder as needed. The left upper extremity was prepped and draped in usual sterile fashion. Exam demonstrated abduction 100 degrees forward flexion 140 degrees external rotation 30 degrees [id number] crepitation. Pacemaker is noted anterior left chest wall. An anterior deltopectoral approach was performed. A longitudinal incision was made in the deltopectoral interval. The skin was incised sharply. Subcutaneous flaps were elevated off the fascia. The deltopectoral interval was developed. Dissection was down identifying the cephalic vein. Proximally there was some sutures and scar tissue adjacent to the cephalic vein and due to the close proximity the pacemaker I chose to dissected out the cephalic vein and divide any branches extending to the deltoid so that the cephalic vein could be retracted medially staying away from any of the pacemaker wires. The clavipectoral fascia was divided at the lateral margin of the conjoined tendon and extended up to the CA ligament. The following findings were noted: Long head of biceps tendon was ruptured and retracted distally. There was some old tenosynovium noted which was resected. The subscapularis tendon was intact. The supraspinatus tendon had a complete rupture with moderate retraction and degenerative end of the tendon with frayed tissue and calcification of the tissue. The infraspinatus tendon was intact but the undersurface demonstrated marked tendinopathy partial tearing of the tendon tissue and more calcifications in the tissue. With amount of rotator cuff tendinopathy present I chose to proceed with reversed total shoulder replacement.. The upper centimeter of the pectoralis was released for inferior exposure. The subscapularis tendon was taken down off the lesser tuberosity using a subperi osteal dissection. A #1 Vicryl traction suture was placed into the free end of the subscapularis tendon and capsule. The subscapular muscle fibers were split longitudinally at the level of the circumflex vessels. The circumflex vessels were identified and tied off with silk ties and divided laterally. A Kitner elevator was used to free up the inferior fibers of the subscapularis off of the capsule. The axillary nerve was identified with a tug test and protected with a blunt Abida retractor between the nerve and the capsule. The subscapularis tendon was then taken down off of the lesser tuberosity subperiosteally and subperiosteal dissection was performed along the neck of the humerus as the arm is gradually externally rotated exposing the humeral head. The humeral head findings demonstrated large inferior humeral osteophytes complete eburnated bone on the humeral head with no articular cartilage. retractors were readjusted and the inferior osteophytes were all resected using an artist chisel. A Mcnamara elevator was used to assist in releasing the capsule of the neck of the humerus. The capsule was divided with Rodrigez scissors down to the glenoid released off the anterior glenoid and the rotator interval was released to meet the capsular release and a 360 release of the subscapularis was accomplished. A Fukuda retractor was placed into the joint retracting the humeral head posterior. Glenoid findings demonstrated a crescent rim of articular cartilage remaining at the anterior rim of the glenoid otherwise complete eburnated bone with some mild posterior glenoid bone wear. There was a degenerative labrum absent biceps tendon.. The labrum was resected. an anterior-inferior and posterior inferior capsular release were performed with electrocautery and a Mcnamara elevator on bone with the axillary nerve protected inferiorly by the retractor. Attention was then taken to the humeral preparation. The cutting guide was placed into the humeral head. It was positioned at 20 of retroversion. Oscillating saw was used to resect the humeral head giving the cut above the level of the posterior rotator cuff insertion site. The humerus was then prepared for the stem. I used the ascend flex stem from [employer]. The sizing broaches were used followed by trial broaches up to a size 5B long which had the appropriate fit and fill. The appropriate sized cut protector was placed. The humerus was then retracted posterior to the glenoid. I was able to better visualize the undersurface of the infraspinatus tendon at this time and there were undersurface tears and spl itting of the tendon and some degenerative flaps that were debrided and some calcifications from the undersurface of the tendon were debrided as well as well as some inflamed synovial tissue. There was only partial tearing but fairly deep partial tearing and tendinopathy of the infraspinatus. The glenoid was then sized for a 29 baseplate. The guide for the baseplate was positioned in a 10 inferior tilt and the central drill hole was made. The reamer for the aequalis hydroxyapatite-coated 29 mm baseplate was used. The central drill was widened for the peg. The aequalis hydroxyapatite-coated 29 mm baseplate was impacted into position. The base plate was transfixed with superior and inferior locking screws and anterior and posterior compression screws with stable fixation. It was noted that the bone was hard and solid. The fan reamer was used for the 42 millimeter glenoid sphere. After irrigation the 42 mm standard glenoid sphere was impacted onto the baseplate and the screw was tightened. Attention was taken back to the humerus. The cut protector was removed and the plus or high offset humeral tray trial was assembled to the trial stem rotated appropriately to get bony coverage and then screwed in position. A trial reduction was performed. A +6 trial insert demonstrated good stability and no shuck. The trials were removed. 3 drill holes are made into the harder bone in the bicipital groove area and 3 #5 FiberWire sutures were placed transosseously. The canal was irrigated with antibiotic solution with bacitracin. The final component was assembled. The final component was ascend flex 5B long stem assembled to the +0 high offset tray with a +6, 42 reversed insert. This was then impacted into the humerus with a tight press-fit. It was reduced to the glenoid sphere. Stability was verified. Subscapularis was repaired with the #5 FiberWire sutures using Marcelino-James suture technique. Lateral row soft tissue repair was performed with #2 FiberWire [id number] sutures. The pectoralis was repaired with #2 FiberWire dcwots-zh-anogy sutures. The arm was taken through a range of motion which demonstrated 150 degrees forward elevation 110 degrees of abduction and external rotation to 50 degrees without tension on repair. The implant was stable through the range of motion tested. The wound was copiously irrigated. 2 Hemovac drains were placed. The deltopectoral interval was closed with rqqnie-pu-[id number] #1 Vicryl sutures. The subcutaneous tissues were closed with 2-0 Vicryl sutures. The skin was closed with jazmin. Sterile dressings were applied and a shoulder immobilizer. John LIM my physician physicians assistant assisted in the procedure to the entire procedure including patient positioning arm positioning prepping and draping so ft tissue retraction instrument management suture management and performed the subcutaneous and skin closure and will participate in the postoperative care of the patient. I attest to the content of the Intraoperative Record and any orders documented therein. Any exceptions are noted below.
[2021-01-02] MEDS ORDERED: ALBUTEROL 0.083% NEBU SOLN 3 ML VIAL INH PRN (14:48)
--- NOTE | 2021-01-02 14:51 | Anesthesiology Progress Note ---
Date of Service January 02, 2021 Anesthesia Post Procedure Vital Signs Vital Signs: Temp Pulse Pulse Resp BP BP Pulse Ox 01/02/21 14:35 36.4 C L 106 H 20 123/86 95 01/02/21 14:25 98 H 20 138/90 93 01/02/21 14:15 96 H 23 129/88 93 01/02/21 14:05 103 H 24 152/87 H 93 01/02/21 13:55 36.1 C L 104 H 22 147/93 H 95 01/02/21 06:45 36.5 C 80 20 165/98 H 96 Transfer of Care Handoff Completed per policy Notes Mental Status: alert / awake / arousable Patient Amnestic to Procedure: Yes Nausea / Vomiting: adequately controlled Pain: adequately controlled Airway Patency, RR, SpO2: stable & adequate BP & HR: stable & adequate Hydration State: stable & adequate Anesthetic Complications: no major complications apparent Notes: O2 sats in high 80's on room air so will go upstairs with oxygen by nasal canula - feels like he can't take a real deep breath = explained that may be a side effect of his nerve block though he says it already feels better as he gets more awake. Rarely uses his rescue inhaler at home but will do an albuterol treatment before going upstairs as well.
--- NOTE | 2021-01-02 15:15 | XRay Report ---
XR shoulder LT min 2V routine CLINICAL HISTORY: Post shoulder surgery COMPARISON: None FINDINGS: Alignment of the reverse total left shoulder arthroplasty is anatomic. There are skin stap les. There is no periprosthetic fracture or unexpected radiopaque foreign body. Surgical drain is in place. Incidental note is made of a left subclavian pacer. IMPRESSION: Expected findings following total left shoulder arthroplasty. ACT 112: Negative or not required by law. Electronically signed by: August Duarte M.D. 01/02/2021 3:13 PM
[2021-01-02] MEDS ORDERED: NALOXONE HCL 0.4 MG/1 ML VIAL/CARP IV PRN (16:57)
[2021-01-02] MEDS ORDERED: SODIUM CHLORIDE 0.9% 1000ML 1,000 ML IV SCH (16:57)
[2021-01-02] MEDS ORDERED: METOCLOPRAMIDE HCL INJ 5 MG/ML 2 ML VIAL IV PRN (16:57)
[2021-01-02] MEDS ORDERED: MAGNESIUM HYDROXIDE SUSP 30 ML UDC PO PRN (16:57)
[2021-01-02] MEDS ORDERED: NITROGLYCERIN SL 0.4 MG/TAB TAB SL SCH (16:57)
[2021-01-02] MEDS ORDERED: oxyCODONE HCL IR 5 MG TAB (IMMEDIATE RELEASE) PO PRN (16:57)
[2021-01-02] MEDS ORDERED: bisacodyL 10 MG SUPP PR PRN (16:57)
[2021-01-02] MEDS ORDERED: HYDROmorphone INJ 0.5 MG/0.5 ML SYR IV PRN (16:57)
[2021-01-02] MEDS: ACETAMINOPHEN 500 MG TAB PO SCH ×2 (17:24→23:00)
[2021-01-02] MEDS: ceFAZolin 2000MG 2,000 MG/15 ML SYR IV SCH (18:27)
[2021-01-02] MEDS ORDERED: SENNA 8.6 MG TAB PO SCH (21:00)
[2021-01-02] MEDS: FERROUS SULFATE 325 MG TAB PO SCH (21:13)
[2021-01-02] MEDS: DOCUSATE SODIUM 100 MG CAP PO SCH (21:14)
[2021-01-02] MEDS: BETAMETHASONE DIP AUG (DIPROLENE) 0.05% CR 15 GM TUBE EXT SCH (21:14)
[2021-01-03] MEDS: ceFAZolin 2000MG 2,000 MG/15 ML SYR IV SCH (01:39)
[2021-01-03] MEDS: ACETAMINOPHEN 500 MG TAB PO SCH (05:48)
[2021-01-03 06:10] LABS: Basophils # (auto) 0.01 K/uL (0-0.2); Basophils % (auto) 0.1 %; Hematocrit (blood only) 37.9 % (42-52); Hemoglobin 12.5 g/dL (14.0-18.0); Immature Granulocytes # (auto) 0.03 K/uL (0.00-0.02); Immature Granulocytes % (auto) 0.3 %; Lymphocytes # (auto) 0.74 K/uL (1.2-3.4); Lymphocytes % (auto) 7.8 %; Mean Corpuscular Hemoglobin 33.4 pg (25-34); Mean Corpuscular Volume 101.3 fL (80-100); Mean Platelet Volume 9.8 fL (7.4-10.4); Monocytes % (auto) 10.5 %; Neutrophils % (auto) 81.3 %; Platelet Count 223 K/uL (130-400); RDW Coefficient of Variation 14.1 % (11.5-14.5); Red Blood Count 3.74 M/uL (4.7-6.1); White Blood Count 9.48 K/uL (4.8-10.8)
[2021-01-03 06:40] LABS: BUN Creatinine Ratio 16.3 (10-20); Calcium 8.6 mg/dl (8.5-10.1); Creatinine Clr Calc Pharmacy 77.1 ml/min; Est GFR (African American) 74.3 ml/min; Est GFR (Non-African American) 64.1 ml/min; Potassium 3.9 mmol/L (3.5-5.1)
--- NOTE | 2021-01-03 07:23 | Orthopedic Progress Note ---
Date of Service January 03, 2021 Assessment & Plan (1) Primary osteoarthritis, left shoulder: Plan: POD#1 left reverse TSA -PT/OT-no formal PT until 6 weeks post op -DVT prophylaxis-SCDs, home Eliquis -Pain management as written -AM labs-hemoglobin 12.5 from 13.6 preop -D/C planning-plan on discharge home later today after PT Admission and Anticipated Discharge Date Admission Date: January 02, 2021 Subjective POD1 left reverse TSA. Doing well, no pain currently. Hoping to go home today. Denies chest pain, sob, dizziness, n/v/d, headache, fever, chills. Review of Systems Review of Systems: All systems reviewed & are unremarkable except as noted in Subjective Physical Exam Physical Exam: Left arm in sling, dressing c/d/i. 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 Distally n/v status and sensation intact. Some residual numbness in thumb likely from nerve block. Constitutional: well developed and well nourished; no acute distress Results & Data ([facility]) Vital Signs (Past 12 Hours) Vital Signs Temp Pulse Resp BP Pulse Ox 01/03/21 02:25 36.6 C 95 H 20 144/74 H 93 01/02/21 22:49 36.7 C 85 16 128/72 94 Laboratory Results Lab Results 01/02/21 01/02/21 01/02/21 Range/Units 06:25 06:25 06:28 WBC (4.8-10.8) K/uL RBC (4.7-6.1) M/uL Hgb (14.0-18.0) g/dL Hct (42-52) % MCV (80-100) fL MCH (25-34) pg MCHC (32-36) g/dL RDW Std Deviation (36.4-46.3) fL RDW Coeff of Eyad (11.5-14.5) % Plt Count (130-400) K/uL MPV (7.4-10.4) fL Immature Gran % (Auto) % Neut % (Auto) % Lymph % (Auto) % Dixie % (Auto) % Eos % (Auto) % Baso % (Auto) % Neut # (Auto) (1.4-6.5) K/uL Lymph # (Auto) (1.2-3.4) K/uL Dixie # (Auto) (0.11-0.59) K/uL Eos # (Auto) (0-0.5) K/uL Baso # (Auto) (0-0.2) K/uL Immature Gran # (Auto) (0.00-0.02) K/uL Sodium (136-145) mmol/L Potassium (3.5-5.1) mmol/L Chloride (98-107) mmol/L Carbon Dioxide (21-32) mmol/L Anion Gap (3-11) BUN (7-18) mg/dl Creatinine (0.6-1.4) mg/dl Est Cr Clr Drug Dosing ml/min Est GFR ( Amer) ml/min Est GFR (Non-Af Amer) ml/min BUN/Creatinine Ratio (10-20) Glucose (70-99) mg/dl POC Glucose (70-99) mg/dl Calcium (8.5-10.1) mg/dl COVID-19 Eval Order Covid19 at [facility] SARS-CoV-2 (PCR) NEGATIVE (Negative) Blood Type O Positive Antibody Screen NEGATIVE 01/02/21 01/03/21 01/03/21 Range/Units 20:42 05:32 05:32 WBC 9.48 (4.8-10.8) K/uL RBC 3.74 L (4.7-6.1) M/uL Hgb 12.5 L (14.0-18.0) g/dL Hct 37.9 L (42-52) % MCV 101.3 H (80-100) fL MCH 33.4 (25-34) pg MCHC 33.0 (32-36) g/dL RDW Std Deviation 52.0 H (36.4-46.3) fL RDW Coeff of Eyad 14.1 (11.5-14.5) % Plt Count 223 (130-400) K/uL MPV 9.8 (7.4-10.4) fL Immature Gran % (Auto) 0.3 % Neut % (Auto) 81.3 % Lymph % (Auto) 7.8 % Dixie % (Auto) 10.5 % Eos % (Auto) 0.0 % Baso % (Auto) 0.1 % Neut # (Auto) 7.70 H (1.4-6.5) K/uL Lymph # (Auto) 0.74 L (1.2-3.4) K/uL Dixie # (Auto) 1.00 H (0.11-0.59) K/uL Eos # (Auto) 0.00 (0-0.5) K/uL Baso # (Auto) 0.01 (0-0.2) K/uL Immature Gran # (Auto) 0.03 H (0.00-0.02) K/uL Sodium 137 (136-145) mmol/L Potassium 3.9 (3.5-5.1) mmol/L Chloride 104 (98-107) mmol/L Carbon Dioxide 27 (21-32) mmol/L Anion Gap 6.0 (3-11) BUN 18 (7-18) mg/dl Creatinine 1.13 (0.6-1.4) mg/dl Est Cr Clr Drug Dosing 77.1 ml/min Est GFR ( Amer) 74.3 ml/min Est GFR (Non-Af Amer) 64.1 ml/min BUN/Creatinine Ratio 16.3 (10-20) Glucose 123 H (70-99) mg/dl POC Glucose 153 H (70-99) mg/dl Calcium 8.6 (8.5-10.1) mg/dl COVID-19 Eval Order SARS-CoV-2 (PCR) (Negative) Blood Type Antibody Screen
--- NOTE | 2021-01-03 08:41 | Hospitalist Consultation ---
Date of Consultation January 03, 2021 Assessment & Plan (1) Primary osteoarthritis, left shoulder: POD#1 left reverse TSA by Dr. Spain on 01/02. EBL 40cc. Pre-op hgb 13.6 Hgb 12.5 -- acute blood loss anemia on chronic anemia -- secondary to surgery as well as dilutional from fluid EBL 40cc. Hemovac output 245cc DVT Proph -- SCDs, Eliquis resumed this morning --> Hx anemia and on iron supplements BID. MCV macrocytic today and will add B12/folate to labs but patient will need to follow up with PCP at d/c regarding these if not resulted by d/c Pain management as written -- well controlled D/C planning-plan on discharge home later today after PT per primary service (2) Atrial fibrillation: continue eliquis BID when deemed appropriate by primary service. had been held 48 hours prior to surgery Continue amiodarone 200mg, metoprolol succ 50mg (3) CAD (coronary artery disease): follows Dr. Alarcon Right cath following an abn lexiscan with 40% proximal LAD followed by 70% mid stenosis, second branch totally occluded, moderate pulm HTN and elevated PCWP, large V waves suggesting signif MR S/p cardiac stent to LAD 10/2019 --> LV EF 55-59%. LV size mildly enlarged, thickness borderline increased, no LV mural thrombus. Trvisal posterior loculated pericardial effusion present localized to area adjacent to basal posterior LV wall, tamponade absent. LA severely enlarged, RA mod enlarged, mild AR, Mod MR, mMod TR, Dilated IVC w reduced collapsibility with sniff indicates elevated right atrial pressure 15mmHg Instructed Dr Alarcon as suggestive patient retaining fluid, recommended additional dose of lasix at that time Appears euvolemic at present Continues on metoprolol succinate 50mg daily, aspirin 81mg, atorvastatin 20mg nitro prn No chest pain reported eliquis resumed post-op as above (hx afib) --> On iron BID for hx anemia as well Follow up with Dr Alarcon routine (4) Ventricular tachycardia: s/p ICD by Dr Geiger (5) Hypertension: Continue home medications-- losartan 100mg, metoprolol succ 50mg, lasix 40mg , amlodipine BP stable (6) AICD (automatic cardioverter/defibrillator) present: placed due to hx vtach (7) SABINE (obstructive sleep apnea): pulm htn due to SABINE, COPD, diastolic dysfunction (8) Asthma: and COPD Continue home meds (substitute formulary while in hospital) Breathing reported at baseline On room air Thank you for allowing hospitalist service to participate in the care of Mr Zhong. Medically stable for d/c when deemed appropriate by primary and drain removed this afternoon. Call with any questions/concerns. History of Present Illness Reason for Consultation: medical management Requesting Physician: Dr Spain Attending Physician: Bassam Spain MD History of Present Illness 75yo male with PMHx significant for CAD (s/p stent to LAD October 2019, follows with Dr. Alarcon), MR, TR, afib, vtach (s/p ICD Dr Geiger) COPD, HTN, HLD, SABINE, presented for elective reverse total R shoulder with Dr. Spain. Doing well post-operatively. pain controlled. no numbness/tingling. remains in sling Eliquis resumed this morning -- previously with bleeding on asa/xarelto. Continued on aspirin through operative period and held Eliquis 48 hours prior to surgery. Eating/drinking without issues. Passing gas but no BM. He states him and use ex-lax with breakfast to keep regular and feels he will have no issue moving bowels once at home in home environment. Worked with therapy this morning and instructed on exercises he can do and things to avoid at d/c. States drain to be removed this afternoon and d/c home with OPPT in 6-8 wks. No fever, chills, chest pain. Chronic shortness of breath with COPD but nothing above his usual. No abdominal pain, nausea, vomiting or dysuria. Questions/concerns addressed at this time. PCP Dr Chidi Duff of [place]. Allergies Allergy/AdvReac Type Severity Reaction Status Date / Time banana Allergy Severe eyes swell Verified 01/02/21 06:40 shut No Known Drug Allergies AdvReac Unknown Unknown Verified 01/02/21 06:40 Home Medications Medication Instructions Recorded Confirmed Type amlodipine 10 mg tablet 10 mg PO QAM 03/31/19 01/02/21 History multivitamin 1 tab PO QAM 03/31/19 01/02/21 History vit A 7,160 unit-vit C 113 mg-vit 1 tab PO QAM 03/31/19 01/02/21 History E 100 [id number] tablet nitroglycerin 0.4 mg sublingual 0.4 mg SUBLINGUAL PRN #1 btl 11/09/19 01/02/21 Rx tablet (Nitrostat) furosemide 40 mg tablet 40 mg PO QAM 12/28/19 01/02/21 History potassium chloride 10 mEq 10 meq PO QAM 12/28/19 01/02/21 History tablet,extended release(part/cryst) ferrous sulfate 325 mg (65 mg 325 mg PO BID #60 tab 12/29/19 01/02/21 Rx iron) tablet atorvastatin 40 mg tablet 20 mg PO QAM 01/13/20 01/02/21 History amiodarone 200 mg tablet 200 mg PO QAM 03/08/20 01/02/21 History losartan 100 mg tablet 100 mg PO QAM 03/08/20 01/02/21 History metoprolol succinate 100 mg 50 mg PO QAM 03/08/20 01/02/21 History tablet,extended release 24 hr betamethasone dipropionate 0.05 % 1 applic TOP BID #45 gm 10/10/20 01/02/21 Rx topical cream apixaban 5 mg tablet (Eliquis) 5 mg PO BID 12/10/20 01/02/21 History aspirin 81 mg tablet 81 mg PO QAM 12/10/20 01/02/21 History budesonide-formoterol HFA 160 2 puff INHALATION BID 12/10/20 01/02/21 History mcg-4.5 mcg/actuation aerosol inhaler (Symbicort) acetaminophen 500 mg tablet 1,000 mg PO Q8 #60 tab 01/03/21 Rx (Tylenol Extra Strength) oxycodone 5 mg tablet 5 - 10 mg PO .Q4h-6h PRN #30 tab 01/03/21 Rx MDD 6 Patient History Medical History Asthma Well controlled per pt Breathing fluctuates with humidity Atrial fibrillation DX 2009> Eliquis CHF (congestive heart failure) Controlled per patient/stable Chronic obstructive pulmonary disease well controlled per pt Coronary artery disease follows Dr. Alarcon S/p cardiac stent to LAD 10/2019 Hyperlipidemia Hypertension ICD (implantable cardioverter-defibrillator) in place Due to ventricular tachycardia- s/p ICD/pacer- [employer]> 02/2020 [facility] Mitral regurgitation Myocardial Infarction JAN 2020> [facility] Osteoarthritis Pulmonary HTN Sleep apnea no longer needs cpap > due to surgical intervention Surgical History H/O carpal tunnel repair B/L History of cardiac cath x2> Jan 2020 > [facility] atrial fib History of cataract surgery RIGHT History of tonsillectomy History of tooth extraction History of uvulopalatopharyngoplasty had surgery for sleep apnea and doing well Hx of colonoscopy Hx of esophagogastroduodenoscopy Status post insertion of drug-eluting stent into left anterior descending (LAD) artery OCTOBER 2019 Family History Mother Colon cancer Other Hypertension Social History Smoking Status: Former smoker Cigarettes Per Day: quit 50 years ago; Smoking End Date: quit 50 yrs ago; Second Hand Exposure: Yes; Do You Dip or Chew Tobacco: No; Tobacco Cessation Education Requested by Patient: No Hx Alcohol Use: Yes Alcohol type: beer Hx Substance Use: No Preferred Language: Italian Communication Ability: Effective Electron Beam Operator Required: No Beliefs That Will Affect Care: None Current Living Situation: Spouse Other Information That Helps Us Care for You: No Feels Safe at Home: Yes Safety Concerns: Feels Safe At This Time Assistive Devices: None Review of Systems Review of Systems: All systems reviewed & are unremarkable except as noted in HPI & below Physical Exam Physical Exam: General: WD/WN, comfortable, NAD Eyes: anicteric, PERRLA ENT: mmm, trachea midline without deviation Resp: CTAB, diminished in the bases, bibasilar crackles, no wheezing/rales CV: irregularly irregular, +murmur, edema at baseline, peripheral pulses palpable, cap refill <3 seconds. ICD noted GI: +BS throughout, soft, non-tender, no guarding or rigidity Skin: warm, dry MSK: sling to R arm, hemovac with bloody drainage. fingers mobile. good biological photographer strength, pulses palpable, expected ecchymosis to shoulder. dressing c/d/i : no randolph Neuro/Psych: AOx3, euthymic effect. CN intact Results & Data Results & Data ([facility]) Vital Signs (Past 12 Hours) Vital Signs Temp Pulse Resp BP Pulse Ox 01/03/21 02:25 36.6 C 95 H 20 144/74 H 93 01/02/21 22:49 36.7 C 85 16 128/72 94 Laboratory Results 01/03/21 01/03/21 01/03/21 Range/Units 05:32 05:32 05:32 WBC 9.48 (4.8-10.8) K/uL RBC 3.74 L (4.7-6.1) M/uL Hgb 12.5 L (14.0-18.0) g/dL Hct 37.9 L (42-52) % MCV 101.3 H (80-100) fL MCH 33.4 (25-34) pg MCHC 33.0 (32-36) g/dL RDW Std Deviation 52.0 H (36.4-46.3) fL RDW Coeff of Eyad 14.1 (11.5-14.5) % Plt Count 223 (130-400) K/uL MPV 9.8 (7.4-10.4) fL Immature Gran % (Auto) 0.3 % Neut % (Auto) 81.3 % Lymph % (Auto) 7.8 % [place] % (Auto) 10.5 % Eos % (Auto) 0.0 % Baso % (Auto) 0.1 % Neut # (Auto) 7.70 H (1.4-6.5) K/uL Lymph # (Auto) 0.74 L (1.2-3.4) K/uL [place] # (Auto) 1.00 H (0.11-0.59) K/uL Eos # (Auto) 0.00 (0-0.5) K/uL Baso # (Auto) 0.01 (0-0.2) K/uL Immature Gran # (Auto) 0.03 H (0.00-0.02) K/uL Sodium 137 (136-145) mmol/L Potassium 3.9 (3.5-5.1) mmol/L Chloride 104 (98-107) mmol/L Carbon Dioxide 27 (21-32) mmol/L Anion Gap 6.0 (3-11) BUN 18 (7-18) mg/dl Creatinine 1.13 (0.6-1.4) mg/dl Est Cr Clr Drug Dosing 77.1 ml/min Est GFR ( Amer) 74.3 ml/min Est GFR (Non-Af Amer) 64.1 ml/min BUN/Creatinine Ratio 16.3 (10-20) Glucose 123 H (70-99) mg/dl POC Glucose (70-99) mg/dl Calcium 8.6 (8.5-10.1) mg/dl Hepatitis C Ab Screen Pending 01/02/21 Range/Units 20:42 WBC (4.8-10.8) K/uL RBC (4.7-6.1) M/uL Hgb (14.0-18.0) g/dL Hct (42-52) % MCV (80-100) fL MCH (25-34) pg MCHC (32-36) g/dL RDW Std Deviation (36.4-46.3) fL RDW Coeff of Eyad (11.5-14.5) % Plt Count (130-400) K/uL MPV (7.4-10.4) fL Immature Gran % (Auto) % Neut % (Auto) % Lymph % (Auto) % [place] % (Auto) % Eos % (Auto) % Baso % (Auto) % Neut # (Auto) (1.4-6.5) K/uL Lymph # (Auto) (1.2-3.4) K/uL [place] # (Auto) (0.11-0.59) K/uL Eos # (Auto) (0-0.5) K/uL Baso # (Auto) (0-0.2) K/uL Immature Gran # (Auto) (0.00-0.02) K/uL Sodium (136-145) mmol/L Potassium (3.5-5.1) mmol/L Chloride (98-107) mmol/L Carbon Dioxide (21-32) mmol/L Anion Gap (3-11) BUN (7-18) mg/dl Creatinine (0.6-1.4) mg/dl Est Cr Clr Drug Dosing ml/min Est GFR ( Amer) ml/min Est GFR (Non-Af Amer) ml/min BUN/Creatinine Ratio (10-20) Glucose (70-99) mg/dl POC Glucose 153 H (70-99) mg/dl Calcium (8.5-10.1) mg/dl Hepatitis C Ab Screen Diagnostic Findings Shoulder X-Ray 01/02/21 13:59 XR shoulder LT min 2V routine CLINICAL HISTORY: Post shoulder surgery COMPARISON: None FINDINGS: Alignment of the reverse total left shoulder arthroplasty is anatomic. There are skin jazmin. There is no periprosthetic fracture or unexpected radiopaque foreign body. Surgical drain is in place. Incidental note is made of a left subclavian pacer. IMPRESSION: Expected findings following total left shoulder arthroplasty. ACT 112: Negative or not required by law. Electronically signed by: August Duarte M.D. 01/02/2021 3:13 PM PG Care Time/CCT Total # of Minutes Spent Total Time Spent with Patient: Total time spent is greater than 50% in coordination of care (as documented) at patient's floor/unit and/or counseling patient: Coding Level of Care Code 33486 Inpt Consult Level 3 Diagnoses Primary osteoarthritis, left shoulder M19.012 Atrial fibrillation I48.0 Atrial fibrillation type: paroxysmal CAD (coronary artery disease) I25.10 Associated angina: without angina Coronary Disease-Associated Artery/Lesion type: [place] artery [place] vs. transplanted heart: [place] heart Ventricular tachycardia I47.2 Hypertension I10 AICD (automatic cardioverter/defibrillator) present Z95.810 SABINE (obstructive sleep apnea) G47.33 Asthma J45.909 (1) CAD (coronary artery disease) Associated angina: without angina Coronary Disease-Associated Artery/Lesion type: [place] artery [place] vs. transplanted heart: [place] heart Qualified Code(s): I25.10 - Atherosclerotic heart disease of [place] coronary artery without angina pectoris (2) Atrial fibrillation Atrial fibrillation type: paroxysmal Qualified Code(s): I48.0 - Paroxysmal atrial fibrillation
[2021-01-03] MEDS: BETAMETHASONE DIP AUG (DIPROLENE) 0.05% CR 15 GM TUBE EXT SCH (08:57)
[2021-01-03] MEDS: DOCUSATE SODIUM 100 MG CAP PO SCH (08:58)
[2021-01-03] MEDS: FERROUS SULFATE 325 MG TAB PO SCH (08:58)
[2021-01-03] MEDS ORDERED: POTASSIUM CHLORIDE 10 MEQ TABCR PO SCH (09:00)
[2021-01-03] MEDS ORDERED: FLUTICASONE/VILANTEROL 100/25MCG 14 PUFFS/INHALER INH SCH (09:00)
[2021-01-03] MEDS ORDERED: MULTIVITAMIN TAB PO SCH ×2 (09:00)
[2021-01-03] MEDS ORDERED: LOSARTAN POTASSIUM 50 MG TAB PO SCH (09:00)
[2021-01-03] MEDS ORDERED: amLODIPine BESYLATE 5 MG TAB PO SCH (09:00)
[2021-01-03] MEDS ORDERED: APIXABAN 5 MG TABLET PO SCH (09:00)
[2021-01-03] MEDS ORDERED: METOPROLOL SUCC 50MG EXT REL TAB PO SCH (09:00)
[2021-01-03] MEDS ORDERED: AMIODARONE 200 MG TAB PO SCH (09:00)
[2021-01-03] MEDS ORDERED: FUROSEMIDE 40 MG TAB PO SCH (09:00)
[2021-01-03] MEDS ORDERED: ATORVASTATIN 20 MG TAB PO SCH (09:00)
[2021-01-03] MEDS ORDERED: ASPIRIN 81 MG ECTAB PO SCH (09:00)
[2021-01-03 12:24] LABS: Folate (Folic Acid) > 20.00 ng/ml (>5.38); Vitamin B12 490 pg/ml (193-986)
--- NOTE | 2021-01-04 07:09 | Discharge Summary ---
Date of Service January 04, 2021 Admission HPI Per Admitting Provider 75 year old male with PMHx significant for COPD, hx of IL, afib, pacemaker, HTN, and CHF (stable and medically managed) presents with ongoing right shoulder pain. Pain is interfering with his ability to carry out normal daily activities. He has failed conservative measures and would like to proceed with surgical intervention. Patient denies headaches, sweats, fevers, chills, double vision, blurred vision, cough, sore throat, dysphagia, chest pain wheezing, n/v/d/c, numbness, tingling, fatigue, urinary symptoms, mood disorders. ROS positive for left shoulder pain and stiffness as well as shortness of breath at baseline. Admission Exam Per Admitting Provider Constitutional: well developed and well nourished; no acute distress Eyes: PERRL, conjunctivae normal, anicteric sclerae ENMT: external ear and nose normal, oropharynx normal Neck: trachea midline, no thyromegaly Respiratory: normal respiratory effort, lungs clear to auscultation Cardiovascular: RRR, no murmur, no edema Musculoskeletal: Left shoulder: anterior glenoid and tenderness anterolateral acromion. Crepitation noted on ROM. Active painful ROM. Positive impingement signs. [place] deformity noted. FF to 160, abduction to 100, ER to 40 degrees. Strength is decreased in all directinos. Skin: no rashes, warm and dry Neurologic: patellar DTR's 2+ bilat, sensation intact Psychiatric: A+Ox3, euthymic affect Principal Diagnosis Left shoulder osteoarthritis, rotator cuff tear Discharge Exam Constitutional well developed and well nourished; no acute distress Eyes PERRL, conjunctivae normal, anicteric sclerae ENMT external ear and nose normal, oropharynx normal Neck trachea midline, no thyromegaly Respiratory normal respiratory effort, lungs clear to auscultation Cardiovascular RRR, no murmur, no edema Skin no rashes, warm and dry Neurologic patellar DTR's 2+ bilat, sensation intact Psychiatric A+Ox3, euthymic affect Discharge Data Allergies Allergy/AdvReac Type Severity Reaction Status Date / Time banana Allergy Severe eyes swell Verified 01/02/21 06:40 shut No Known Drug Allergies AdvReac Unknown Unknown Verified 01/02/21 06:40 Consultations 12/17/20 18:01 Consult Hospitalist Routine Procedures Performed Operation Date: 01/02/21 09:10 Actual Procedures p Left Reverse Shoulder Arthroplasty, rotator cuff debridement(Left) - Bassam Spain MD Ordered Studies 12/20/20 05:00 US - OR guided needle placemen Routine 01/02/21 05:00 US - OR guided needle placemen Routine Hospital Course (1) Primary osteoarthritis, left shoulder: Patient presented for same day admission following left reverse total shoulder arthroplasty on 01/02/21. He tolerated procedure well. The Patient had an uneventful hospital course. Post-operatively, his activity was progressed and well tolerated. They participated in PT without difficulty. Labs remained stable- lowest hemoglobin recorded: 12.5. Dr. Brandon Crump of medical service was consulted for medical management during admission. Pain controlled on oral medications. Please refer to daily progress notes and PT notes for complete details. After exam on 01/03/21, patient was felt to be stable for discharge home. Patient will f/u in the office in about 2 weeks for further evaluation including x-rays and incision check, sooner if having any issues or concerns. POD#1 left reverse TSA -PT/OT-no formal PT until 6 weeks post op -DVT prophylaxis-SCDs, home Eliquis -Pain management as written -AM labs-hemoglobin 12.5 from 13.6 preop -D/C planning-plan on discharge home later today after PT Lab Results 01/02/21 01/02/21 01/02/21 Range/Units 06:25 06:25 06:28 WBC (4.8-10.8) K/uL RBC (4.7-6.1) M/uL Hgb (14.0-18.0) g/dL Hct (42-52) % MCV (80-100) fL MCH (25-34) pg MCHC (32-36) g/dL RDW Std Deviation (36.4-46.3) fL RDW Coeff of Eyad (11.5-14.5) % Plt Count (130-400) K/uL MPV (7.4-10.4) fL Immature Gran % (Auto) % Neut % (Auto) % Lymph % (Auto) % [place] % (Auto) % Eos % (Auto) % Baso % (Auto) % Neut # (Auto) (1.4-6.5) K/uL Lymph # (Auto) (1.2-3.4) K/uL [place] # (Auto) (0.11-0.59) K/uL Eos # (Auto) (0-0.5) K/uL Baso # (Auto) (0-0.2) K/uL Immature Gran # (Auto) (0.00-0.02) K/uL Sodium (136-145) mmol/L Potassium (3.5-5.1) mmol/L Chloride (98-107) mmol/L Carbon Dioxide (21-32) mmol/L Anion Gap (3-11) BUN (7-18) mg/dl Creatinine (0.6-1.4) mg/dl Est Cr Clr Drug Dosing ml/min Est GFR ( Amer) ml/min Est GFR (Non-Af Amer) ml/min BUN/Creatinine Ratio (10-20) Glucose (70-99) mg/dl POC Glucose (70-99) mg/dl Calcium (8.5-10.1) mg/dl Vitamin B12 (193-986) pg/ml Folate (>5.38) ng/ml COVID-19 Eval Order Covid19 at [facility] SARS-CoV-2 (PCR) NEGATIVE (Negative) Hepatitis C Ab Screen (Neg) Blood Type O Positive Antibody Screen NEGATIVE 01/02/21 01/03/21 01/03/21 Range/Units 20:42 05:32 05:32 WBC 9.48 (4.8-10.8) K/uL RBC 3.74 L (4.7-6.1) M/uL Hgb 12.5 L (14.0-18.0) g/dL Hct 37.9 L (42-52) % MCV 101.3 H (80-100) fL MCH 33.4 (25-34) pg MCHC 33.0 (32-36) g/dL RDW Std Deviation 52.0 H (36.4-46.3) fL RDW Coeff of Eyad 14.1 (11.5-14.5) % Plt Count 223 (130-400) K/uL MPV 9.8 (7.4-10.4) fL Immature Gran % (Auto) 0.3 % Neut % (Auto) 81.3 % Lymph % (Auto) 7.8 % [place] % (Auto) 10.5 % Eos % (Auto) 0.0 % Baso % (Auto) 0.1 % Neut # (Auto) 7.70 H (1.4-6.5) K/uL Lymph # (Auto) 0.74 L (1.2-3.4) K/uL [place] # (Auto) 1.00 H (0.11-0.59) K/uL Eos # (Auto) 0.00 (0-0.5) K/uL Baso # (Auto) 0.01 (0-0.2) K/uL Immature Gran # (Auto) 0.03 H (0.00-0.02) K/uL Sodium 137 (136-145) mmol/L Potassium 3.9 (3.5-5.1) mmol/L Chloride 104 (98-107) mmol/L Carbon Dioxide 27 (21-32) mmol/L Anion Gap 6.0 (3-11) BUN 18 (7-18) mg/dl Creatinine 1.13 (0.6-1.4) mg/dl Est Cr Clr Drug Dosing 77.1 ml/min Est GFR ( Amer) 74.3 ml/min Est GFR (Non-Af Amer) 64.1 ml/min BUN/Creatinine Ratio 16.3 (10-20) Glucose 123 H (70-99) mg/dl POC Glucose 153 H (70-99) mg/dl Calcium 8.6 (8.5-10.1) mg/dl Vitamin B12 (193-986) pg/ml Folate (>5.38) ng/ml COVID-19 Eval Order SARS-CoV-2 (PCR) (Negative) Hepatitis C Ab Screen (Neg) Blood Type Antibody Screen 01/03/21 01/03/21 Range/Units 05:32 11:14 WBC (4.8-10.8) K/uL RBC (4.7-6.1) M/uL Hgb (14.0-18.0) g/dL Hct (42-52) % MCV (80-100) fL MCH (25-34) pg MCHC (32-36) g/dL RDW Std Deviation (36.4-46.3) fL RDW Coeff of [place]ad (11.5-14.5) % Plt Count (130-400) K/uL MPV (7.4-10.4) fL Immature Gran % (Auto) % Neut % (Auto) % Lymph % (Auto) % [place] % (Auto) % Eos % (Auto) % Baso % (Auto) % Neut # (Auto) (1.4-6.5) K/uL Lymph # (Auto) (1.2-3.4) K/uL [place] # (Auto) (0.11-0.59) K/uL Eos # (Auto) (0-0.5) K/uL Baso # (Auto) (0-0.2) K/uL Immature Gran # (Auto) (0.00-0.02) K/uL Sodium (136-145) mmol/L Potassium (3.5-5.1) mmol/L Chloride (98-107) mmol/L Carbon Dioxide (21-32) mmol/L Anion Gap (3-11) BUN (7-18) mg/dl Creatinine (0.6-1.4) mg/dl Est Cr Clr Drug Dosing ml/min Est GFR ( Amer) ml/min Est GFR (Non-Af Amer) ml/min BUN/Creatinine Ratio (10-20) Glucose (70-99) mg/dl POC Glucose (70-99) mg/dl Calcium (8.5-10.1) mg/dl Vitamin B12 490 (193-986) pg/ml Folate > 20.00 (>5.38) ng/ml COVID-19 Eval Order SARS-CoV-2 (PCR) (Negative) Hepatitis C Ab Screen Neg (Neg) Blood Type Antibody Screen Total Time Total Time Spent Total Time Spent (In Minutes): 20 Discharge Plan Discharge Items Patient Disposition: Home - Self-Care Reason For Visit: Primary Osteoarthritis, Left shoulder Discharge Diagnosis: Left shoulder osteoarthritis, rotator cuff tear Activity: Per Instructions section Non-emergency contact: Surgeon Call non-emergency contact if: you have any medication questions, your pain is not controlled, your pain is concerning for you, your temperature is above 101, your wound has increased redness and your wound has increased drainage Follow-up/Referrals: Joana Alarcon, [Outside Practitioners] - Diet: Regular Addtl Attending Provider Instructions: ACTIVITY RECOMMENDATIONS: SELF CARE INSTRUCTIONS AFTER TOTAL SHOULDER ARTHROPLASTY REVERSE A. You may do daily exercises as taught in physical therapy while in hospital. No lifting with the operative arm. B. You are to wear your sling/immobilizer at all times EXCEPT when performing your daily exercises and for hygiene purposes. C. You may perform dry, daily dressing changes. Please keep your incision covered. You may shower 48 hours after surgery. Do not apply soap or any ointment/lotions directly over incision. Do not soak incision in bath tub/swimming pool. D. You may use ice as needed to operative shoulder. SPECIAL CARE INSTRUCTIONS: VERY IMPORTANT TO READ AND REVIEW A. There are a few signs you need to watch for after you are home. Call [facility] at [phone] if you experience any of the followin. Increased severe shoulder pain. Some pain is expected especially when you exercise. 2. Increased swelling in you shoulder or arm; pain or swelling in either upper extremity. 3. Any fluid drainage from the incision. 4. Shortness of breath or chest pain. B. Please call [facility] at [phone] if you have any questions or concerns about your operation or recovery. C. Call your physician if: 1. Temperature is greater than 101 degrees (F). 2. Pain is not relieved by prescribed pain medications. 3. Increase drainage or redness from incision. 4. Unanswered questions or concerns. FOLLOW UP VISIT: Please call [facility] at [phone] to schedule a follow up appointment with Dr. Spain or his PA in 12-14 days from your surgery date. Stand-Alone Forms: [employer], Smoking Cessation Medications and DC Order Prescriptions: New acetaminophen [Tylenol Extra Strength] 500 mg Tablet 1,000 mg PO Q8 Qty: 60 RF: 0 oxycodone 5 mg Tablet 5 - 10 mg PO .Q4h-6h MDD 6 PRN (Reason: pain) Qty: 30 RF: 0 Continued amlodipine 10 mg tablet 10 mg PO QAM RF: 0 multivitamin tablet 1 tab PO QAM RF: 0 vit A-vit C-vit H-rxaw-lywzmv 7,160-113-100 lcss-pr-xusn tablet 1 tab PO QAM RF: 0 betamethasone dipropionate 0.05 % cream 1 applic TOP BID Qty: 45 RF: 0 nitroglycerin [Nitrostat] 0.4 mg Tablet, Sublingual 0.4 mg sublingual PRN Qty: 1 RF: 3 furosemide 40 mg tablet 40 mg PO QAM RF: 0 potassium chloride 10 mEq tablet,ER particles/crystals 10 meq PO QAM RF: 0 ferrous sulfate 325 mg (65 mg iron) tablet 325 mg PO BID Qty: 60 RF: 3 atorvastatin 40 mg tablet 20 mg PO QAM RF: 0 amiodarone 200 mg tablet 200 mg PO QAM RF: 0 metoprolol succinate 100 mg tablet extended release 24 hr 50 mg PO QAM RF: 0 losartan 100 mg tablet 100 mg PO QAM RF: 0 aspirin 81 mg Tablet 81 mg PO QAM RF: 0 budesonide-formoterol [Symbicort] 160-4.5 mcg/actuation Hfa Aerosol Inhaler 2 puff INHALATION BID RF: 0 Eliquis 5 mg Tablet 5 mg PO BID RF: 0 Discharge Orders: Discharge Order (Routine); Ordered 01/03/21 Ordered By: Matt Rock Admission Data Admit Date/Time: 01/02/21 13:59 Attending Provider: Bassam Spain Admit Provider: Bassam Spain Primary Care Provider: [place] Other Providers: Brandon Crump Other Interventions: Discharge Summary Assessment (RN) Last Done: 01/03/21 10:49
== END 2021-01-03 13:28 | disposition home or self-care (01) | DRG 483 ==
LOC: ASU 05:56 → 3N 13:59

== ENCOUNTER 2023-12-23 04:57 | Observation (INO) ==
--- NOTE | 2023-11-26 13:07 | PAT Medication Instructions ---
Medication Instructions Date of Service November 26, 2023 Home Medications Medication Instructions Recorded nitroglycerin 0.4 mg sublingual 0.4 mg sublingual PRN #1 btl 11/09/19 tablet (Nitrostat) ferrous sulfate 325 mg (65 mg 325 mg PO BID #60 tabs 12/29/19 iron) tablet betamethasone dipropionate 0.05 % 1 applic topical BID #45 grams 10/10/20 topical cream acetaminophen 500 mg tablet 1,000 mg (2 x 500 mg) PO Q8 #60 01/03/21 (Tylenol Extra Strength) tabs Medication List: amlodipine 10 mg tablet 10 mg PO QAM multivitamin 1 tab PO QAM vit A 7,160 unit-vit C 113 mg-vit E 100 famg-mewy-jjythf tablet 1 tab PO QAM nitroglycerin 0.4 mg sublingual tablet (Nitrostat) 0.4 mg sublingual PRN furosemide 40 mg tablet 40 mg PO QAM potassium chloride 10 mEq tablet,extended release(part/cryst) 10 meq PO QAM ferrous sulfate 325 mg (65 mg iron) tablet 325 mg PO BID atorvastatin 40 mg tablet 20 mg PO QAM amiodarone 200 mg tablet 100 mg PO QAM losartan 100 mg tablet 100 mg PO QAM metoprolol succinate 100 mg tablet,extended release 24 hr 50 mg PO QAM betamethasone dipropionate 0.05 % topical cream 1 applic topical BID apixaban 5 mg tablet (Eliquis) 5 mg PO BID aspirin 81 mg tablet 81 mg PO QAM acetaminophen 500 mg tablet (Tylenol Extra Strength) 1,000 mg (2 x 500 mg) PO Q8 spironolactone 25 mg tablet 25 mg PO QAM isosorbide mononitrate 30 mg tablet,extended release 24 hr 30 mg PO QAM albuterol sulfate 90 mcg/actuation aerosol inhaler 2 inh inhalation QID PRN sob budesonide 160 mcg-glycopyr 9 mcg-formot 4.8 mcg/actuation HFA inhaler (Breztri Aerosphere) 2 inh inhalation BID levothyroxine 25 mcg tablet 25 mcg PO QAM MEDICATION INSTRUCTIONS: Continue as directed nitroglycerin 0.4 mg sublingual tablet (Nitrostat) 0.4 mg sublingual PRN albuterol sulfate 90 mcg/actuation aerosol inhaler 2 inh inhalation QID PRN sob (use if needed; BRING TO HOSPITAL) budesonide 160 mcg-glycopyr 9 mcg-formot 4.8 mcg/actuation HFA inhaler (Breztri Aerosphere) 2 inh inhalation BID betamethasone dipropionate 0.05 % topical cream 1 applic topical BID (do not apply near surgical area after bathing prior to surgery) ASK your prescriber and surgeon apixaban 5 mg tablet (Eliquis) 5 mg PO BID aspirin 81 mg tablet 81 mg PO QAM STOP taking 2 weeks before surgery vit A 7,160 unit-vit C 113 mg-vit E 100 vauf-wgfp-cdfedk tablet 1 tab PO QAM DO NOT take the morning of surgery losartan 100 mg tablet 100 mg PO QAM multivitamin 1 tab PO QAM furosemide 40 mg tablet 40 mg PO QAM potassium chloride 10 mEq tablet,extended release(part/cryst) 10 meq PO QAM spironolactone 25 mg tablet 25 mg PO QAM ferrous sulfate 325 mg (65 mg iron) tablet 325 mg PO BID Take morning of surgery With a small sip of water, OTHERWISE NOTHING TO EAT OR DRINK AFTER MIDNIGHT: amlodipine 10 mg tablet 10 mg PO QAM atorvastatin 40 mg tablet 20 mg PO QAM amiodarone 200 mg tablet 100 mg PO QAM metoprolol succinate 100 mg tablet,extended release 24 hr 50 mg PO QAM isosorbide mononitrate 30 mg tablet,extended release 24 hr 30 mg PO QAM levothyroxine 25 mcg tablet 25 mcg PO QAM acetaminophen 500 mg tablet (Tylenol Extra Strength) 1,000 mg (2 x 500 mg) PO Q8 Take evening before surgery ferrous sulfate 325 mg (65 mg iron) tablet 325 mg PO BID acetaminophen 500 mg tablet (Tylenol Extra Strength) 1,000 mg (2 x 500 mg) PO Q8 Other Notes If you have any questions please call us at [phone] or [phone] or [phone] or [phone]
--- NOTE | 2023-12-09 13:21 | Anesthesiology Consultation ---
Date of Service December 09, 2023 Assessment & Plan (1) Encounter for pre-operative examination: - anemia: awaiting PCP (Dr. Villa Duff, [facility]) response to optimization form. Form and PAT testing to be faxed to PCP. Surgeon's office made aware. - will request most recent Medtronic pacemaker report 07/2023. - Medtronic pacemaker: pacer rep requested for DOS. - cardiology pre-operative evaluation 12/08/23 [facility]: "...Status post drug-eluting stent implantation to left anterior descending artery 11/08/2019. Stent implanted in the setting of exertional angina abnormal nuclear stress testing suggesting a nterior ischemia. Repeat coronary angiography January 13, 2020 performed in the setting of sustained ventricular tachycardia demonstrated widely patent LAD stent. Ventricular tachycardia status post repeat coronary angiography and ICD implantation 01/2020, on low-dose amiodarone. Chronic atrial fibrillation, rate controlled, anticoagulated. Systolic and diastolic congestive heart failure. Pulmonary hypertension. Aortic regurgitation . Mitral regurgitation. Tricuspid regurgitation. History of sleep apnea status post remote surgical intervention. History of symptomatic anemia status post recent IV iron infusions as well as oral iron supplementation. Negative EGD and colonoscopy. Chronic obstructive pulmonary disease...Labile hypertension...preoperative cardiac risk assessment for Right total shoulder arthroplasty with Dr. Spain...feeling stable from cardiac perspective. Denies any significant cardiac concerns. He notes that increased humidity will make him more short of breath...per [place] Criteria, patient was counseled that he would be placed at a moderate risk for any adverse perioperative cardiovascular events associated with shoulder surgery. Patient is on a good medication regimen and no other cardiac testing or interventions would further lower that risk. Patient states he understands and is accepting of that risk and wishes to proceed with surgery...Recent device interrogation demonstrates normal function-may hold Eliquis 2 days prior to procedure with plan to restart on post op day one..." - Outpatient joint assessment: Patient is currently scheduled for inpatient pathway. If re-evaluated and patient/surgeon requests outpatient pathway, patient not advised candidate for outpatient joint program from anesthesia standpoint. Chart Review Chart Review: Pending: Refer to Additional Notes / Consult section and Patient seen in Pre Admission Testing Teaching & Discussion Pre-Anesthesia Teaching/Discussion Notes: Instructed NPO after midnight before surgery, except medications with 15 cc of water. Medication instructions provided according to the PAT guidelines. History Surgery Operation Date: 12/23/23 07:15 Proposed Procedures p Right Shoulder Reverse Total Shoulder Arthroplasty - Bassam Spain MD Height/Weight Height: 5 ft 10 in Weight: 110.6 kg Allergies Allergy/AdvReac Type Severity Reaction Status Date / Time banana Allergy Severe eyes swell Verified 06/16/23 11:04 shut No Known Drug Allergies AdvReac Unknown Unknown Verified 06/16/23 11:04 Medications Home Medications Medication Instructions Recorded Confirmed Last Taken amlodipine 10 mg tablet 10 mg PO QAM 03/31/19 11/26/23 01/02/21 04:00 multivitamin 1 tab PO QAM 03/31/19 11/26/23 01/01/21 06:00 vit A 7,160 unit-vit C 113 mg-vit 1 tab PO QAM 03/31/19 11/26/23 01/01/21 06:00 E 100 hdqj-[id number]-cnbgtm tablet nitroglycerin 0.4 mg sublingual 0.4 mg sublingual PRN #1 btl 11/09/19 11/26/23 Unknown tablet (Nitrostat) furosemide 40 mg tablet 40 mg PO QAM 12/28/19 11/26/23 01/01/21 06:00 potassium chloride 10 mEq 10 meq PO QAM 12/28/19 11/26/23 01/01/21 06:00 tablet,extended release(part/cryst) ferrous sulfate 325 mg (65 mg 325 mg PO BID #60 tabs 12/29/19 11/26/23 01/01/21 06:00 iron) tablet atorvastatin 40 mg tablet 20 mg PO QAM 01/13/20 11/26/23 01/02/21 04:00 amiodarone 200 mg tablet 100 mg PO QAM 03/08/20 11/26/23 01/02/21 04:00 losartan 100 mg tablet 100 mg PO QAM 03/08/20 11/26/23 01/01/21 06:00 metoprolol succinate 100 mg 50 mg PO QAM 03/08/20 11/26/23 01/02/21 04:00 tablet,extended release 24 hr betamethasone dipropionate 0.05 % 1 applic topical BID #45 grams 10/10/20 11/26/23 01/01/21 06:00 topical cream apixaban 5 mg tablet (Eliquis) 5 mg PO BID 12/10/20 11/26/23 12/31/20 06:00 aspirin 81 mg tablet 81 mg PO QAM 12/10/20 11/26/23 01/01/21 06:00 acetaminophen 500 mg tablet 1,000 mg (2 x 500 mg) PO Q8 #60 01/03/21 11/26/23 Unknown (Tylenol Extra Strength) tabs spironolactone 25 mg tablet 25 mg PO QAM 05/29/22 11/26/23 Unknown isosorbide mononitrate 30 mg 30 mg PO QAM 12/11/22 11/26/23 Unknown tablet,extended release 24 hr albuterol sulfate 90 mcg/actuation 2 inh inhalation QID PRN sob 11/26/23 11/26/23 Unknown aerosol inhaler budesonide 160 mcg-glycopyr 9 2 inh inhalation BID 11/26/23 11/26/23 Unknown mcg-formot 4.8 mcg/actuation HFA inhaler (Breztri Aerosphere) levothyroxine 25 mcg tablet 25 mcg PO QAM 11/26/23 11/26/23 Unknown Past Medical History Medical History (Updated 12/10/23 @ 08:43 by Karen Coon PA-C) Asthma Well controlled per pt Breathing fluctuates with humidity-last albuterol inhaler use 2 weeks ago CAD (coronary artery disease) follows w/ Dr Miladis SWANN CHF (congestive heart failure) Controlled per patient/stable Chronic obstructive pulmonary disease well controlled per pt History of anemia (2019) r/t gi bleed - transfused 11/2019 [facility] History of atrial fibrillation states controlled w/ pacemaker; DX 2009> Eliquis History of COVID-19 (2021) no hosp; resolved Hx of gastrointestinal hemorrhage (2019) Hx of pulmonary hypertension Hx of ventricular tachycardia (01/2020) Hx of vertigo resolved- r/t VTach Hyperlipidemia Hypertension controlled, stable per pt Hypothyroidism ICD (implantable cardioverter-defibrillator) in place Due to ventricular tachycardia- s/p ICD/pacer- Medtronic> 02/2020 [facility] Leg swelling "mostly resolved" Mitral regurgitation Myocardial Infarction JAN 2020> [facility] BAL (nonalcoholic steatohepatitis) Osteoarthritis Sleep apnea no longer needs cpap > due to surgical intervention Status post insertion of drug-eluting stent into left anterior descending (LAD) artery (10/2019) Valvular heart disease Patient denies h/o stroke, seizures, or blood clots/DVTs. Exercise / Class Metabolic Activity II 4-5 Yardwork/Stairs/Walk up hill (occasional shortness of breath with one flight of stairs ongoing since 2019 if weather is hot or humid-denies change or worsening-denies chest discomfort) Past Family History Family History Mother Colon cancer Other Hypertension Past Surgical History Surgical History (Updated 12/09/23 @ 13:25 by Karen Coon PA-C) H/O carpal tunnel repair B/L History of cardiac cath x2> Jan 2020 > [facility] atrial fib History of cataract surgery RIGHT/LEFT History of left shoulder replacement History of tonsillectomy History of tooth extraction History of uvulopalatopharyngoplasty had surgery for sleep apnea and doing well Hx of colonoscopy Hx of esophagogastroduodenoscopy Past Anesthesia History No Hx of Anesthesia Complications and No Family Hx of Anesthesia Complications History of PONV No Hx of PONV and No Hx of Motion Sickness Social History Smoking Status: Former smoker tobacco type: cigarettes Smoking cigarettes per day: quit 50 years ago Do You Dip or Chew Tobacco: No Hx Alcohol Use: Yes Alcohol type: wine alcohol intake frequency: a few times a month Hx Substance Use: No substance use type: does not use Review of Systems Patient denies chest pain, reflux, fever, chills, cough, wheezing, dizziness, lightheadedness, presyncope or palpitations. Physical Exam Vital Signs Vitals BP 108/72 left arm manual; repeat check several minutes after 109/71 as automatic machine malfunctioned during initial BP check P 78 TEMP 98.3 SP02 96% on RA RESP 18 Physical Patient resting comfortably in chair in no acute distress, alert and oriented, responding appropriately throughout visit Full cervical extension range of motion without pain TMD 3.5 finger breadths Mallampati Score 3 Dentition: removable bridge and crown, denies chipped or loose teeth, or implants Lungs: normal respiratory effort. Good air movement, clear throughout to auscultation, no adventitious breath sounds Cardiac: regular rate and rhythm, no murmurs noted Carotid arteries: negative bruit bilat Lab Results Anesthesia Preop Results Results Anesthesia Widget: WBC 5.28 K/ul (4.8-10.8) 12/09/23 Hgb 10.5 g/dl (14.0-18.0) L 12/09/23 Hct 34.0 % (42.0-52.0) L 12/09/23 Plt 318 K/uL (130-400) 12/09/23 Na 137 mmol/L (136-145) 12/09/23 K 4.7 mmol/L (3.5-5.1) 12/09/23 Cl 100 mmol/L (98-107) 12/09/23 CO2 30 mmol/L (21-32) 12/09/23 BUN 21 mg/dl (6-23) 12/09/23 Creat 1.21 mg/dl (0.6-1.4) 12/09/23 Glucose Level 128 mg/dl (70-99(Fasting)) H 12/09/23 PT 14.0 Seconds (9.0-12.0) H 12/09/23 PTT 30 Seconds (21-31) 12/09/23 INR 1.3 (0.9-1.1) H 12/09/23 Urine Color Yellow 12/09/23 Urine Appearance Clear (Clear) 12/09/23 Urine pH 7.5 (4.5-7.5) 12/09/23 Urine Specific [place] 1.010 (1.000-1.030) 12/09/23 Urine Protein Negative (Negative) 12/09/23 Urine Glucose (UA) Negative (Negative) 12/09/23 Urine Ketones Negative (Negative) 12/09/23 Urine Blood Negative (Negative) 12/09/23 Urine Nitrite Negative (Negative) 12/09/23 Urine Bilirubin Negative (Negative) 12/09/23 Urine Urobilinogen Negative (Negative) 12/09/23 Urine Leukocyte Esterase Trace (Negative) H 12/09/23 Urine WBC (Auto) 0-5 /hpf (0-5) 12/09/23 Urine RBC (Auto) 0-2 /hpf (0-2) 12/09/23 Urine Hyaline Casts (Auto) 0-2 /lpf (0-2) 12/09/23 Urine Epithelial Cells (Auto) 0-2 /hpf (0-2) 12/09/23 Urine Bacteria (Auto) None Seen (None Seen) 12/09/23 Blood Type O Positive 12/09/23 Antibody Screen NEGATIVE 12/09/23 Testing Electrocardiogram Date: 12/09/23 Afib, rate 77 bpm Low voltage QRS Nonspecific ST and T wave abnormality Chest X-Ray Date: 12/09/23 There is a left-sided pacemaker/defibrillator again noted. No acute fractures. There is a left shoulder prosthesis. The left lung is clear. Mild elevation of the right hemidiaphragm with right basilar linear densities suggesting subsegmental atelectasis or scarring. No significant change compared to the prior study. No acute process.
--- NOTE | 2023-12-21 14:24 | History & Physical Report ---
Date of Service December 21, 2023 Assessment & Plan (1) Rotator cuff tear arthropathy of right shoulder: Plan: End-stage rotator cuff arthropathy right shoulder. Successful reverse shoulder replacement his left shoulder in 2020. Patient wishes to proceed with the reve rse total shoulder replacement on his right shoulder at this time. History of Present Illness Chief Complaint: Chronic right shoulder pain Primary Care Provider: Villa Duff MD 78-year-old male with chronic progressive right shoulder pain failed conservative management. Patient denies headaches, sweats, fevers, chills, double vision, blurred vision, cough, sore throat, dysphagia, chest pain, sob at rest, wheezing, n/v/d/c, fatigue, urinary symptoms, mood disorders. ROS positive for foot numbness, shortness of breath with physical labor, anemia, arthritic symptoms neck and low back. Allergies Allergy/AdvReac Type Severity Reaction Status Date / Time banana Allergy Severe eyes swell Verified 06/16/23 11:04 shut No Known Drug Allergies AdvReac Unknown Unknown Verified 06/16/23 11:04 Home Medications Medication Instructions Recorded Confirmed Type amlodipine 10 mg tablet 10 mg PO QAM 03/31/19 11/26/23 History multivitamin 1 tab PO QAM 03/31/19 11/26/23 History vit A 7,160 unit-vit C 113 mg-vit 1 tab PO QAM 03/31/19 11/26/23 History E 100 hdcf-tsis-yrotna tablet nitroglycerin 0.4 mg sublingual 0.4 mg sublingual PRN #1 btl 11/09/19 11/26/23 Rx tablet (Nitrostat) furosemide 40 mg tablet 40 mg PO QAM 12/28/19 11/26/23 History potassium chloride 10 mEq 10 meq PO QAM 12/28/19 11/26/23 History tablet,extended release(part/cryst) ferrous sulfate 325 mg (65 mg 325 mg PO BID #60 tabs 12/29/19 11/26/23 Rx iron) tablet atorvastatin 40 mg tablet 20 mg PO QAM 01/13/20 11/26/23 History amiodarone 200 mg tablet 100 mg PO QAM 03/08/20 11/26/23 History losartan 100 mg tablet 100 mg PO QAM 03/08/20 11/26/23 History metoprolol succinate 100 mg 50 mg PO QAM 03/08/20 11/26/23 History tablet,extended release 24 hr betamethasone dipropionate 0.05 % 1 applic topical BID #45 grams 10/10/20 11/26/23 Rx topical cream apixaban 5 mg tablet (Eliquis) 5 mg PO BID 12/10/20 11/26/23 History aspirin 81 mg tablet 81 mg PO QAM 12/10/20 11/26/23 History acetaminophen 500 mg tablet 1,000 mg (2 x 500 mg) PO Q8 #60 01/03/21 11/26/23 Rx (Tylenol Extra Strength) tabs spironolactone 25 mg tablet 25 mg PO QAM 05/29/22 11/26/23 History isosorbide mononitrate 30 mg 30 mg PO QAM 12/11/22 11/26/23 History tablet,extended release 24 hr albuterol sulfate 90 mcg/actuation 2 inh inhalation QID PRN sob 11/26/23 11/26/23 History aerosol inhaler budesonide 160 mcg-glycopyr 9 2 inh inhalation BID 11/26/23 11/26/23 History mcg-formot 4.8 mcg/actuation HFA inhaler (Breztri Aerosphere) levothyroxine 25 mcg tablet 25 mcg PO QAM 11/26/23 11/26/23 History Past Med/Surg History Problem List (Updated 12/21/23 @ 14:37 by Bassam Spain MD) 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 Morbid obesity with BMI of 40.0-44.9, adult S/P UPPP (uvulopalatopharyngoplasty) SABINE (obstructive sleep apnea) AICD (automatic cardioverter/defibrillator) present Acute heart failure with preserved ejection fraction (HFpEF) 01/18/20 Valvular heart disease Hypertension Dizziness 01/14/20 Hx of gastrointestinal hemorrhage Breath, shortness (Acute) 01/13/20 Ventricular tachycardia (Acute) 01/13/20 Coronary stent patent CAD (coronary artery disease) Atrial fibrillation NSVT (nonsustained ventricular tachycardia) Sustained ventricular tachycardia 01/13/20 Vertigo (Acute) 01/13/20 Encounter for pre-operative examination Acute GI bleeding (Acute) 12/10/20 Acute congestive heart failure 12/13/20 Dyspnea Leg swelling 12/28/19 Coronary artery disease follows Dr. Alarcon S/p cardiac stent to LAD 10/2019 Asthma Well controlled per pt Breathing fluctuates with humidity Acute blood loss anemia (Acute) TRANSFUSED IN NOVEMBER 2019 [facility] Symptomatic anemia (Acute) Atrial fibrillation DX 2009> Eliquis Pulmonary HTN Mitral regurgitation Status post insertion of drug-eluting stent into left anterior descending (LAD) artery (Acute) OCTOBER 2019 Abnormal nuclear stress test Medical History (Updated 12/21/23 @ 14:37 by Bassam Spain MD) BAL (nonalcoholic steatohepatitis) Leg swelling "mostly resolved" Hypothyroidism Hx of ventricular tachycardia (01/2020) Status post insertion of drug-eluting stent into left anterior descending (LAD) artery (10/2019) Mitral regurgitation Hx of pulmonary hypertension Asthma Well controlled per pt Breathing fluctuates with humidity-last albuterol inhaler use 2 weeks ago CAD (coronary artery disease) follows w/ Dr Miladis SWANN Hx of vertigo resolved- r/t VTach Valvular heart disease History of anemia (2019) r/t gi bleed - transfused 11/2019 [facility] Hx of gastrointestinal hemorrhage (2019) History of COVID-19 (2021) no hosp; resolved History of atrial fibrillation states controlled w/ pacemaker; DX 2009> Eliquis CHF (congestive heart failure) Controlled per patient/stable Osteoarthritis Hypertension controlled, stable per pt Hyperlipidemia Chronic obstructive pulmonary disease well controlled per pt Myocardial Infarction JAN 2020> [facility] ICD (implantable cardioverter-defibrillator) in place Due to ventricular tachycardia- s/p ICD/pacer- Medtronic> 02/2020 [facility] Sleep apnea no longer needs cpap > due to surgical intervention Surgical History (Updated 12/09/23 @ 13:25 by Karen Coon PA-C) History of left shoulder replacement Hx of esophagogastroduodenoscopy Hx of colonoscopy History of tooth extraction History of cataract surgery RIGHT/LEFT History of cardiac cath x2> Jan 2020 > [facility] atrial fib History of tonsillectomy History of uvulopalatopharyngoplasty had surgery for sleep apnea and doing well H/O carpal tunnel repair B/L Family History Mother Colon cancer Other Hypertension Social History Smoking Status: Former smoker Tobacco Type: Cigarettes Cigarettes Per Day: quit 50 years ago; Second Hand Exposure: No; Do You Dip or Chew Tobacco: No; Hx Alcohol Use: Yes Alcohol type: wine Hx Substance Use: No Preferred Language: Slovenian Communication Ability: Effective Visual Impairment: No Limitations Licensing Engineer Required: No Beliefs That Will Affect Care: None Current Living Situation: Spouse Feels Safe at Home: Yes Assistive Devices: Denture - Upper and Glasses Review of Systems All systems reviewed & are unremarkable except as noted in HPI & below Physical Exam Constitutional: WD/WN, vitals as above Respiratory: normal respiratory effort; no respiratory distress Cardiovascular: Rate/Rhythm: regular rate and regular rhythm Musculoskeletal: Right shoulder has positive Patel and Neer impingement signs crepitation with range of motion 120 degrees forward flexion 110 degrees abduction 30 degrees external rotation 40 degrees internal rotation decreased right shoulder strength external rotation 4-/5 internal rotation 4-/5 abduction 3+/5. Distal neurocirculatory exam intact Skin: no rashes, warm and dry Neurologic: normal touch/pain/proprioception Psychiatric: A+Ox3, euthymic affect Results & Data Diagnostic Findings Right shoulder x-rays demonstrate advanced rotator cuff arthropathy [id number] glenohumeral and subacromial with Hamada grade 4 cuff arthropathy.
[2023-12-23] MEDS: LR 15ML/HR IV SCH (05:30)
--- OUTSIDE RECORDS SUMMARY | 2023-12-23 05:56 | External Medical Summary | Summary of Care ---
Author Name Unknown Organization [facility] Address [address] [place] [address] Phone [phone] Care Team Providers Care Energy Project Engineer Name Role Phone Villa Duff MD Primary Care Provider [phone] Encounter Details Date Type Department Care Team (Late st Contact Info) Description 12/08/2023 Telephone Cardiology, [facility] [address] [place] [address] Lorna Lobato CRNP [address] [facility] [place] [address] Allergies Active Allergy Reactions Criticality Noted Date Comments Hydrocodone 04/23/2022 Other reaction(s): rash Lisinopril 04/23/2022 Other reaction(s): cough documented as of this encounter (statuses as of 12/11/2023) Medications Medication Sig Dispensed Refills Start Date End Date Status Multiple Vitamins-Minerals (VISION FORMULA/LUTEIN) TABS Take by mouth. Active Multiple Vitamins-Minerals (MULTIVITAMIN ADULT) TABS Take by mouth daily. Active ferrous sulfate (FEOSOL) 325 (65 FE) MG Tablet Take 1 Tablet by mouth in the morning and 1 Tablet before bedtime. 12/29/2019 Active Aspirin 81 MG Oral Tablet Chewable Take 1 Tab by mouth daily. 34 Tab 11 11/27/2020 Active Breztri Aerosphere 160-9-4.8 MCG/ACT Inhalation Aerosol (Budeson-Glycopyrrol -Formoterol) Inhale by mouth 2 Puffs 2 times a day . Active amLODIPine Besylate 10 MG Oral Tablet (Norvasc) Take 0.5 Tablets by mouth in the morning. 08/19/2021 Active traMADol HCl 50 MG Oral Tablet (Ultram) Take 1 Tablet by mouth 3 times a day as needed. 09/16/2021 Active Amoxicillin 500 MG Oral Capsule (Amoxil) daily. Prior to dental procedure 09/09/2022 Active Furosemide 40 MG Oral Tablet (Lasix)Indications:P ulmonary HTN (HCC),Chronic heart failure with reduced ejection fraction and diastolic dysfunction (HCC) TAKE 1 AND 1/2 TABLETS BY MOUTH IN THE MORNING AND TAKE ONE TABLET IN THE AFTERNOON 270 Tablet 3 03/23/2023 Active Nitroglycerin 0.4 MG Sublingual Tablet Sublingual (Nitrostat)Indicatio ns:Chronic heart failure with reduced ejection fraction and diastolic dysfunction (HCC) Place 1 Tablet under the tongue every 5 minutes as needed for Pain, Chest. up to 3 doses in 15 minutes 25 Tablet 11 03/23/2023 Active Additional Information Patient not taking.Reported on 08/04/2023 Levothyroxine Sodium 25 MCG Oral Tablet (Levoxyl)Indications :Acquired hypothyroidism Take 1 Tablet by mouth in the morning. (at least 30 min prior to breakfast or other meds). 90 Tablet 3 04/15/2023 Active Spironolactone 25 MG Oral Tablet (Aldactone)Indicatio ns:Chronic heart failure with reduced ejection fraction and diastolic dysfunction (HCC) Take 1 Tablet by mouth in the morning. In the morning.. 90 Tablet 3 04/15/2023 Active Isosorbide Mononitrate ER 30 MG Oral Tablet Extended Release 24 Hour (Imdur)Indications:C hronic heart failure with reduced ejection fraction and diastolic dysfunction (HCC),Chronic atrial fibrillation (HCC),ASCVD (arteriosclerotic cardiovascular disease) TAKE ONE TABLET BY MOUTH EVERY DAY IN THE MORNING 90 Tablet 3 06/10/2023 Active Amiodarone HCl 100 MG Oral Tablet (Cordarone)Indicatio ns:Paroxysmal atrial fibrillation (HCC) Take 1 Tablet by mouth in the morning. 100 Tablet 3 07/15/2023 Active B-12 1000 MCG Oral Capsule Take 1 Capsule by mouth in the morning. Active D3-1000 25 MCG (1000 UT) Oral Capsule (Cholecalciferol) Take 1 Capsule by mouth in the morning. Active Metoprolol Succinate ER 50 MG Oral Tablet Extended Release 24 Hour (Toprol XL) Take 1 Tablet by mouth in the morning. 90 Tablet 3 08/04/2023 Active Losartan Potassium 100 MG Oral Tablet (Cozaar)Indications: ASCVD (arteriosclerotic cardiovascular disease),Enlarged aorta (HCC),Hypertension Take 1 Tablet by mouth in the morning. 90 Tablet 3 08/04/2023 Active Atorvastatin Calcium 40 MG Oral Tablet (Lipitor)Indications :Dyslipidemia, goal LDL below 70,ASCVD (arteriosclerotic cardiovascular disease),Enlarged aorta (HCC) Take 1 Tablet by mouth in the morning. 90 Tablet 3 11/23/2023 Active Apixaban 5 MG Oral Tablet (Eliquis)Indications :Dyslipidemia, goal LDL below 70 Take 1 Tablet by mouth in the morning and 1 Tablet before bedtime. 180 Tablet 3 12/08/2023 Active documented as of this encounter (statuses as of 12/11/2023) Active Problems Problem Noted Date Diagnosed Date Carpal tunnel syndrome, bilateral 05/25/2019 Liver mass 01/25/2019 Paroxysmal atrial fibrillation 01/25/2019 Hypertension 01/25/2019 COPD, moderate 01/25/2019 Cervical disc disorder 01/25/2019 Obstructive sleep apnea 01/25/2019 documented as of this encounter (statuses as of 12/11/2023) Immunizations Name Administration Dates Next Due COVID-19 mRNA, LNP-s, No Pre serve, 2-Dose Series (Moderna) 03/27/2021,07/25/2020,06/15/2020 Seasonal Influenza, Quadriva lent Hd (Fluzone Hd) 03/27/2021 documented as of this encounter Social History Tobacco Use Types Packs/Day Years Used Date Smoking Tobacco: Former Smokeless Tobacco: Former Alcohol Use Standard Drinks/Week Comments Yes 0 (1 standard drink = 0.6 oz pure alcohol) a beer on occasion or glass of wine Utilities Answer Date Recorded Do you have trouble paying y our heating, water, or electric bill? (Adult - for ages 18 years and over) Not on file 10/27/2023 Is your family able to pay t he heat, water, or electric bill? (Household - for ages 0-17 years) Not on file 10/27/2023 Does your family have access to good internet? (Household - for ages 0-17 years) Not on file 10/27/2023 Social Connections Answer Date Recorded How often do you feel lonely or isolated from those around you? (Adult - for ages 18 years and over) Not on file 10/27/2023 Sex and Gender Information Value Date Recorded Sex Assigned at Not on file Gender Identity Not on file Sexual Orientation Not on file Job Start Date Occupation Industry Not on file Not on file Not on file documented as of this encounter Miscellaneous Notes * Telephone Encounter - Margaret Orellana CMA - 12/09/2023 4:18 PM EDT Faxed OV note & EKG tracing to [facility] (f): & [facility] (f): . Successful confirmation received from both numbers. * Telephone Encounter - Lorna Lobato CRNP - 12/08/2023 4:45 PM EDT Office note completed. Will you please fax to [facility] as patient is seeing them tomorrow for his pre-surgical work up. I believe he is also seeing PAT at [facility] tomorrow too. May want to send a copy there. Ok for surgery. Thank you, Lorna Right shoulder total replacement. Dr. Spain, [facility] Surgery to be done at [facility] 12/23/23 documented in this encounter Plan of Treatment Upcoming Encounters Date Type Department Care Team (Late st Contact Info) Description 03/24/2024 11:00 AM EST Office Visit Cardiology, [facility] [address] [place] [address] Familia Ambrosio PA-C [address] [place] [phone] 04/25/2024 9:30 AM EST Cardiac Studies Cardiology, [facility] [address] [place] [address] [facility] [address] [place] [address] 08/03/2024 10:30 AM EDT Office Visit Otolaryngology [facility] [address] [place] [address] Arthur Hanks PA-C [address] [place] [address] Health Maintenance Due Date Last Done Comments Depression Screening 1957 Albumin/Creatinine Ratio 1965 Alpha-1 Antitrypsin 1965 Hepatitis C Screening 1965 DTaP,Tdap,and Td Vaccines (1 - Tdap) 1966 Zoster Vaccines (1 of 2) 1997 *COPD SEVERITY VERIFIED BY PFT 01/29/2019 COVID-19 Vaccine ( season) 2023 03/27/2021, 07/25/2020, 06/15/2020 TSH 10/21/2023 10/20/2022, 04/10, 01/17/2022, Additional history exists Influenza Vaccine (FLU shot) (#1) 2024 03/17/2022, 03/27/2021, 03/06/2021, Additional history exists GFR 04/28/2024 04/28/2023, 10/09, 04/23/2022, Additional history exists O2 ASSESSMENT COMPLETED IN PAST YEAR FOR COPD 12/07/2024 12/08/2023 Pneumococcal Vaccine: 65+ Years Completed 08/26/2016, 04/26/2012 Fecal Occult Blood Test Discontinued 03/30/2017 Colonoscopy Discontinued 03/14/2020 Colorectal Cancer Screening Discontinued Cologuard Discontinued HPV (Gardasil) Vaccine Aged Out No lo nger eligible based on patient's age to complete this topic Hepatitis B Vaccine Aged Out No longe r eligible based on patient's age to complete this topic MENINGOCOCCAL (MENACTRA/MENVEO) Aged Out No longer eligible based on patient's age to complete this topic Sigmoidoscopy Discontinued documented as of this encounter Medical Devices Not on filedocumented as of this encounter Care Teams Energy Project Engineer Relationship Specialty Start Date End Date Villa Duff MD [address] [place] [address] PCP - General Family Medicine 02/01/19 documented as of this encounter
[2023-12-23] MEDS ORDERED: VANCOMYCIN HCL 1,750 MG in SODIUM CHLORIDE 0.9% 500 ML IV SCH (06:00)
[2023-12-23] MEDS: ACETAMINOPHEN 500 MG TAB PO SCH ×2 (06:10→12:58)
[2023-12-23] MEDS: GABAPENTIN 300 MG CAP PO SCH (06:10)
[2023-12-23] MEDS: dexAMETHasone**PF** 10 MG/ML VIAL IV SCH (06:10)
[2023-12-23] MEDS: FAMOTIDINE 20 MG TAB PO SCH (06:11)
[2023-12-23] MEDS: CeleBREX 200 MG CAP PO SCH (06:11)
[2023-12-23] MEDS: METOCLOPRAMIDE HCL 10 MG TABLET PO SCH (06:11)
[2023-12-23] MEDS ORDERED: BUPIVACAINE 0.5 % 5 MG/1 ML PF 10ML VIAL ONE (06:18)
[2023-12-23] MEDS ORDERED: LIDOCAINE 2% 2 ML VIAL/AMP(20MG/ML) INFIL ONE ×2 (06:19→08:23)
[2023-12-23] MEDS ORDERED: fentaNYL citrate PF 100 MCG/2 ML VIAL ONE (06:56)
[2023-12-23] MEDS ORDERED: MIDAZOLAM HCL 1 MG/ML 2ML VIAL ONE ×2 (06:56)
--- NOTE | 2023-12-23 07:15 | History & Physical Bridge Note ---
Date of Service December 23, 2023 History & Physical Bridge Note I have examined the patient, reviewed the History & Physical and in the interval since the performance of the History & Physical I have noted the following changes of clinical significance: no changes noted
[2023-12-23] MEDS: TRANEXAMIC ACID 1,000 MG **IV Pre-op IV SCH (07:16)
[2023-12-23] MEDS: ceFAZolin 2000MG 2,000 MG/15 ML SYR IV SCH ×2 (07:29→17:29)
[2023-12-23] MEDS ORDERED: diphenhydrAMINE 50 MG/ML VIAL ONE (08:23)
[2023-12-23] MEDS ORDERED: GLYCOPYRROLATE 0.2 MG/ML VIAL ONE (08:23)
[2023-12-23] MEDS ORDERED: ONDANSETRON INJ 2 MG/ML 2 ML VIAL ONE (08:23)
[2023-12-23] MEDS ORDERED: ROCURONIUM BROMIDE 10 MG/ML 5 ML VIAL IV ONE (08:23)
[2023-12-23] MEDS ORDERED: PROPOFOL IV EMULSION 10 MG/ML 20 ML VIAL IV ONE (08:23)
[2023-12-23] MEDS ORDERED: ePHEDrine sulfate 50 MG/5 ML SYR ONE (08:31)
[2023-12-23] MEDS ORDERED: PHENYLEPHRINE HCL 10 MG/ML VIAL ONE (08:31)
[2023-12-23] MEDS ORDERED: ePHEDrine sulfate 50 MG/ML AMP IV PRN (09:08)
[2023-12-23] MEDS ORDERED: HYDROmorphone INJ 2 MG/ML SYR/VIAL IV PRN (09:08)
[2023-12-23] MEDS ORDERED: fentaNYL citrate PF 100 MCG/2 ML VIAL IV PRN (09:08)
[2023-12-23] MEDS ORDERED: ONDANSETRON INJ 2 MG/ML 2 ML VIAL IV PRN ×2 (09:08→12:16)
[2023-12-23] MEDS ORDERED: ATROPINE SULFATE 0.1 MG/ML 10ML SYR IV PRN (09:08)
[2023-12-23] MEDS ORDERED: PROMETHAZINE HCL 6.25 MG in SODIUM CHLORIDE 0.9% 50 ML IV PRN (09:08)
[2023-12-23] MEDS: TRANEXAMIC ACID 1,000 MG **IV Intra-op IV SCH (09:41)
[2023-12-23] MEDS ORDERED: SUGAMMADEX SODIUM 200 MG/2 ML VIAL IV ONE (09:51)
--- NOTE | 2023-12-23 10:26 | Operative Report ---
Post Operative Report Pre & Post Diagnosis Operation Date: 12/23/23 07:15 Pre-Op Diagnosis: Right Shoulder Osteoarthritis, rotator cuff arthropathy, proximal biceps rupture Post-Op Diagnosis: Right Shoulder Osteoarthritis, rotator cuff arthropathy, proximal biceps rupture I identified the patient and participated in the time-out.: Yes Procedure Operation Date: 12/23/23 07:15 Actual Procedures p Right Shoulder Reverse Total Shoulder Arthroplasty(Right) - Bassam Spain MD Surgeon Bassam Spain MD Geospatial Applications Developer Gallito LIM Estimated Blood Loss 200 Findings Consistent with Post-Op Diagnosis Specimens Bone cuts Drains 2 Hemovac Anesthesia Type General Regional Complications none Disposition Disposition: Recovery Room Indications 78-year-old male with chronic right shoulder pain failed conservative management. Patient has a chronic rotator cuff tear and has developed advanced rotator cuff arthropathy [id number] in the subacromial space and glenohumeral space with [place] 4 classification. Patient has chronic ruptured biceps. Description of Procedure The patient was taken to the operating room and anesthetized under regional block and general anesthetic. The patient was positioned on the operating table in a 30 beach chair position with a towel roll under the medial border of the right scapula. The arm was draped free to be able to manipulate the shoulder as needed. The right upper extremity was prepped and draped in usual sterile fashion. Exam demonstrated generalized old bruising of the skin around the forearm and hand but approximately the skin was intact in the incisional area. Patient had a forward flexion to 165 degrees with good internal and external rotation of the arm. Chronic atrophy noted. Trtq-[id number] cogwheel crepitation noted. An anterior deltopectoral approach was performed. A longitudinal incision was made in the deltopectoral interval. The skin was incised sharply. Subcutaneous flaps were elevated off the fascia. The cephalic vein was dissected out and retracted lateral with the deltoid. The clavipectoral fascia was divided at the lateral margin of the conjoined tendon and extended up to the CA ligament. The following findings were noted: Patient had chronic bursitis which was resected visualizing the massive rotator cuff tear with about 1/3 to 50% of the s ubscapularis being intact only inferiorly along with some of the capsule. The supraspinatus was torn and retracted the infraspinatus was torn retracted patient still teres minor. There were osteophytes noted around the greater tuberosity. There are osteophytes of the biceps groove area. There were some small to moderate inferior and posterior osteophytes along the humeral neck. Humeral head was eburnated bone. Long head the biceps tendon was ruptured and retracted distally.. The upper centimeter of the pectoralis was released for inferior exposure. A self-retaining retractor was placed. The subscapularis tendon and capsule was then taken down off of the lesser tuberosity subperiosteally with a peel technique staying on bone and on the neck of the humerus. a Vicryl traction suture was placed and a subperiosteal dissection was performed along the neck of the humerus as the arm was gradually externally rotated exposing the humeral head. The humeral head findings demonstrated completely eburnated bone as well as the glenoid which was completely eburnated bone with no cartilage remaining.. retractors were readjusted and the inferior osteophytes were all resected using an artist chisel. A Mcnamara elevator was used to assist in releasing the capsule of the neck of the humerus. A Fukuda retractor was placed into the joint retracting the humeral head posterior. Glenoid findings demonstrated concentric wear type pattern with a large glenoid with complete eburnation. The degenerative glenoid labrum was resected. Some of the inflamed synovial tissue was resected. An anterior-inferior and posterior inferior capsular release were performed with electrocautery and a Mcnamara elevator on bone with the axillary nerve protected inferiorly by the retractor. Attention was then taken to the humeral preparation. The cutting guide was placed into the humeral head. It was positioned at 20 of retroversion. Oscillating saw was used to resect the humeral head giving the cut above the level of the posterior rotator cuff insertion site. The humerus was then prepared for the stem. I used the ascend flex stem from [employer]. The sizing broaches were used followed by trial broa ches up to a size 6B long which had the appropriate fit and fill. The appropriate sized cut protector was placed. The humerus was then retracted posterior to the glenoid. The glenoid was sized for a 29 mm baseplate.. The guide for the baseplate was positioned in a 10 inferior tilt and the central drill hole was made. The reamer for the 29 mm baseplate was used. The central drill was widened for the peg. The aequalis 29 mm hydroxyapatite coated standard post baseplate was impacted into position. The base plate was transfixed with superior and inferior locking screws and anterior and posterior compression screws with stable fixation. The fan reamer was used for the 42 millimeter glenoid sphere. After irrigation the 42 glenoid sphere was impacted onto the baseplate and the security screw was tightened. Attention was taken back to the humerus. The cut protector was removed and the +0 high offset humeral tray trial was assembled to the trial stem rotated appropriately to get bony coverage and then screwed in position. A trial reduction was performed. A +9 trial insert demonstrated good stability and no shuck. The trials were removed. 3 drill holes are made into the harder bone in the bicipital groove area and 3 #5 FiberWire sutures were placed transosseously. The canal was irrigated with pulsatile lavage with saline solution. The final component was assembled. The final component was ascend Flex 5B long stem to the +0 high offset humeral tray with a +6 mm, 42 mm reversed polyethylene insert. This was then impacted into the humerus with a tight press-fit. It was reduced to the glenoid sphere. Stability was verified. Subscapularis was repaired with the #5 FiberWire sutures using Marcelino-James suture technique. Lateral row soft tissue repair was performed with #2 FiberWire [id number] sutures. The pectoralis was repaired with #2 FiberWire [id number] sutures. The arm was taken through a range of motion which demonstrated 160 degrees forward flexion 100 degrees abduction and 80 degrees external rotation without any tension on repair. The implant was stable through the range of motion tested. The wound was copiously irrigated. 2 Hemovac drains were placed. The deltopectoral interval was closed with ljunpy-nt-fuyfl #1 Vicryl sutures. The subcutaneous tissues were closed with 2-0 Vicryl sutures. The skin was closed with surgical jazmin. Sterile dressings were applied and a shoulder immobilizer. Gallito LIM, my physician media assistant acted as first assist throughout the procedure .He performed functions including patient positioning, arm positioning, prepping and draping, soft tissue retraction, instrument management, suture management and performed the subcutaneous and skin closure and will participate in the postoperative care of the patient. I attest to the content of the Intraoperative Record and any orders documented therein. Any exceptions are noted below.
--- NOTE | 2023-12-23 11:34 | XRay Report ---
XR shoulder RT min 2V routine CLINICAL HISTORY: Post shoulder surgery COMPARISON STUDY: None. FINDINGS: Status post reverse total shoulder arthroplasty. The hardware is intact. No fracture or dis location. Skin jazmin and surgical drains are in place. IMPRESSION: Status post reverse right total shoulder arthroplasty. No evidence for hardware complica tion. ACT 112: Negative or not required by law. Electronically signed by: Bassem Jose M.D. 12/23/2023 11:32 AM
[2023-12-23] MEDS ORDERED: diphenhydrAMINE Capsule 25 MG CAP PO PRN (12:16)
[2023-12-23] MEDS ORDERED: ALUMINUM/MAGNESIUM SUSP 30 ML UDC PO PRN (12:16)
[2023-12-23] MEDS ORDERED: ALBUTEROL HFA 8 GM INHALER INH PRN (12:16)
[2023-12-23] MEDS ORDERED: bisacodyL 10 MG SUPP PR PRN (12:16)
[2023-12-23] MEDS ORDERED: HYDROmorphone INJ 0.5 MG/0.5 ML SYR IV PRN (12:16)
[2023-12-23] MEDS ORDERED: METOCLOPRAMIDE HCL INJ 5 MG/ML 2 ML VIAL IV PRN (12:16)
[2023-12-23] MEDS ORDERED: NALOXONE HCL 0.4 MG/1 ML VIAL/CARP IV PRN (12:16)
[2023-12-23] MEDS ORDERED: NITROGLYCERIN SL 0.4 MG/TAB TAB SL PRN (12:16)
[2023-12-23] MEDS ORDERED: MAGNESIUM HYDROXIDE SUSP 30 ML UDC PO PRN (12:16)
[2023-12-23] MEDS ORDERED: oxyCODONE HCL IR 5 MG TAB (IMMEDIATE RELEASE) PO PRN (12:16)
--- NOTE | 2023-12-23 12:26 | Anesthesiology Progress Note ---
Date of Service December 23, 2023 Anesthesia Post Procedure Vital Signs Vital Signs: Temp Pulse Resp BP Pulse Ox O2 Del Method O2 Flow Rate 12/23/23 11:45 72 20 117/64 95 Nasal Cannula 2 12/23/23 11:30 36.4 C L 72 17 120/63 92 Room Air 0 12/23/23 11:20 36.4 C L 77 24 100/80 92 Room Air 0 12/23/23 11:10 73 24 127/52 L 92 Room Air 0 12/23/23 11:00 69 24 123/64 91 Room Air 0 12/23/23 10:50 76 24 119/70 98 Oxymask 4 12/23/23 10:40 71 22 124/65 99 Oxymask 4 12/23/23 10:31 36.0 C L 78 21 117/80 98 Oxymask 8 12/23/23 05:56 36.8 C 59 L 22 133/68 96 Room Air Transfer of Care Handoff Completed per policy Notes Mental Status: alert / awake / arousable and participated in evaluation Patient Amnestic to Procedure: Yes Nausea / Vomiting: adequately controlled Pain: adequately controlled Airway Patency, RR, SpO2: stable & adequate BP & HR: stable & adequate Hydration State: stable & adequate Anesthetic Complications: no major complications apparent
[2023-12-23] MEDS: SODIUM CHLORIDE 0.9% 1,000 ML IV SCH (12:58)
[2023-12-23] MEDS: TRANEXAMIC ACID / 0.7% NACL 1,000 MG/100 ML BAG IV SCH (17:29)
[2023-12-23] MEDS: SENNA 8.6 MG TAB PO SCH (20:07)
[2023-12-23] MEDS: FERROUS SULFATE 325 MG TAB PO SCH (20:08)
[2023-12-23] MEDS: DOCUSATE SODIUM 100 MG CAP PO SCH (20:08)
[2023-12-23] MEDS: APIXABAN 5 MG TABLET PO SCH (20:08)
[2023-12-23] MEDS: BETAMETHASONE DIP AUG (DIPROLENE) 0.05% CR 50 GM TUBE EXT SCH (20:09)
[2023-12-23] MEDS ORDERED: NON-FORMULARY MEDICATION (Budesonide-Glycopyr-Formoterol [Breztri Aerosphere] 160-9-4.8 mc INH SCH (21:00)
[2023-12-24 03:12] VITALS: TEMP 97.7; O2SAT 92
[2023-12-24] MEDS: LEVOTHYROXINE SODIUM 25 MCG TABLET PO SCH (05:24)
[2023-12-24 06:29] LABS: Basophils # (auto) 0.02 K/uL (0.00-0.20); Basophils % (auto) 0.2 %; Hematocrit (blood only) 30.2 % (42.0-52.0); Hemoglobin 9.8 g/dl (14.0-18.0); Immature Granulocytes # (auto) 0.05 K/uL (0.01-0.20); Immature Granulocytes % (auto) 0.6 %; Lymphocytes # (auto) 0.67 K/uL (1.20-3.40); Lymphocytes % (auto) 7.6 %; Mean Corpuscular Hemoglobin 32.2 pg (25.0-34.0); Mean Corpuscular Hgb Conc 32.5 g/dL (32.0-36.0); Mean Corpuscular Volume 99.3 fL (80.0-100.0); Mean Platelet Volume 9.6 fL (9.4-12.4); Monocytes # (auto) 1.24 K/uL (0.11-0.59); Monocytes % (auto) 14.1 %; Neutrophils # (auto) 6.83 K/uL (1.40-6.50); Neutrophils % (auto) 77.5 %; Platelet Count 255 K/uL (130-400); RDW Coefficient of Variation 14.7 % (11.5-14.5); RDW Standard Deviation 54.2 fL (36.4-46.3); Red Blood Count 3.04 M/uL (4.70-6.10); White Blood Count 8.81 K/ul (4.8-10.8)
[2023-12-24 06:41] LABS: BUN Creatinine Ratio 21.2 (10-20); Calcium 8.5 mg/dl (8.6-10.3); Creatinine Clr Calc Pharmacy 57.1 ml/min; Est GFR (African American) 60.3 ml/min; Potassium 4.7 mmol/L (3.5-5.1)
[2023-12-24 07:12] VITALS: BP 146/77; PULSE 98; RESP 16
[2023-12-24] MEDS: UMECLIDINIUM/VILANTEROL 62.5/25MCG 7 PUFFS/INHALER INH SCH (08:10)
[2023-12-24] MEDS: LOSARTAN POTASSIUM 50 MG TAB PO SCH (08:10)
[2023-12-24] MEDS: FLUTICASONE FUROATE 200MCG 14 PUFFS/INHALER INH SCH (08:10)
[2023-12-24] MEDS: POTASSIUM CHLORIDE 10 MEQ TABCR PO SCH (08:10)
[2023-12-24] MEDS: ISOSORBIDE MONO EXTENDED REL 30 MG TABCR PO SCH (08:10)
[2023-12-24] MEDS: CEROVITE ADV FORMULA TAB PO SCH (08:11)
[2023-12-24] MEDS: METOPROLOL SUCC 50MG EXT REL TAB PO SCH (08:11)
[2023-12-24] MEDS: FUROSEMIDE 40 MG TAB PO SCH (08:11)
[2023-12-24] MEDS: MULTIVITAMIN TAB PO SCH (08:11)
[2023-12-24] MEDS: ASPIRIN 81 MG ECTAB PO SCH (08:11)
[2023-12-24] MEDS: amLODIPine BESYLATE 5 MG TAB PO SCH (08:11)
[2023-12-24] MEDS: SPIRONOLACTONE 25 MG TAB PO SCH (08:11)
[2023-12-24] MEDS: ATORVASTATIN 20 MG TAB PO SCH (08:11)
[2023-12-24] MEDS: AMIODARONE 200 MG TAB PO SCH (08:11)
--- NOTE | 2023-12-24 08:17 | Orthopedic Progress Note ---
Date of Service December 24, 2023 Assessment & Plan (1) Rotator cuff tear arthropathy of right shoulder: Plan: Postop day 1 right shoulder reverse shoulder replacement. Will change his dressing today and there was some leakage around where the drain tube was with typical postop bleeding. Patient had 2 skin tears where the bandage was inferior to his incision. These were dressed with new gauze dressings with paper tape. Redress his incisional area which looked very benign and in good condition and no drainage coming from the incisional area. Gauze dressings were placed over there and an ABD. Placed paper tape on all bandages to help avoid any further skin tears on his very thin preoperatively compromised skin. I discussed with him that he can change dressing in 48 hours and use paper tape and antibiotic ointment on the areas of the skin tears. He has had skin tears like this before and is familiar with the treatment. I will cover him with some oral antibiotics as a prophylaxis upon discharge. He will do home exercises as instructed like he did on his other shoulder. Patient cleared for discharge today. Admission and Anticipated Discharge Date Admission Date: December 23, 2023 Subjective Patient feels well no complaints. Review of Systems Review of Systems: No chest pain shortness of breath Physical Exam Musculoskeletal: Bandage was reinforced by nursing staff. No drainage out of Hemovac. Distal neurological exam intact circulation intact. Skin: Thin bruise skin some of this was present preoperatively. Results & Data Vital Signs (Past 12 Hours) Vital Signs Temp Pulse Resp BP Pulse Ox O2 Del Method O2 Flow Rate 12/24/23 07:45 Room Air 12/24/23 07:11 36.5 C 98 H 16 146/77 H 92 Room Air 12/24/23 03:06 36.5 C 77 20 136/70 92 Nasal Cannula 2 12/23/23 21:43 36.6 C 81 20 164/65 H 94 Nasal Cannula 2 Diagnostic Findings Implant well aligned normally located
--- NOTE | 2023-12-30 07:36 | Discharge Summary ---
Date of Service December 30, 2023 Admission HPI Per Admitting Provider 78-year-old male with chronic progressive right shoulder pain failed conservative management. Patient denies headaches, sweats, fevers, chills, double vision, blurred vision, cough, sore throat, dysphagia, chest pain, sob at rest, wheezing, n/v/d/c, fatigue, urinary symptoms, mood disorders. ROS positive for foot numbness, shortness of breath with physical labor, anemia, arthritic symptoms neck and low back. Principal Diagnosis Right shoulder osteoarthritis Discharge Exam Constitutional WD/WN, vitals as above no acute distress Musculoskeletal Shoulder: + surgical incision (Dressing C/D/I); no deformity, no skin erythema and no ecchymosis Neurologic normal touch/pain/proprioception Psychiatric A+Ox3, euthymic affect Speech: normal rate/rhythm/volume of speech Discharge Data Allergies Allergy/AdvReac Type Severity Reaction Status Date / Time banana Allergy Severe eyes swell Verified 12/23/23 05:49 shut No Known Drug Allergies AdvReac Unknown Unknown Verified 12/23/23 05:49 Procedures Performed Operation Date: 12/23/23 07:15 Actual Procedures p Right Shoulder Reverse Total Shoulder Arthroplasty(Right) - Bassam Spain MD Ordered Studies 12/23/23 05:00 US - OR guided needle placemen Routine Hospital Course (1) Rotator cuff tear arthropathy of right shoulder: Postop day 1 right shoulder reverse shoulder replacement. Will change his dressing today and there was some leakage around where the drain tube was with typical postop bleeding. Patient had 2 skin tears where the bandage was inferior to his incision. These were dressed with new gauze dressings with paper tape. Redress his incisional area which looked very benign and in good condition and no drainage coming from the incisional area. Gauze dressings were placed over there and an ABD. Placed paper tape on all bandages to help avoid any further skin tears on his very thin preoperatively compromised skin. I discussed with him that he can change dressing in 48 hours and use paper tape and antibiotic ointment on the areas of the skin tears. He has had skin tears like this before and is familiar with the treatment. I will cover him with some oral antibiotics as a prophylaxis upon discharge. He will do home exercises as instructed like he did on his other shoulder. Patient cleared for discharge to day. Total Time Total Time Spent Total Time Spent (In Minutes): 20 Discharge Plan Discharge Items Patient Disposition: Home - Self-Care Reason For Visit: Right Shoulder Osteoarthritis Discharge Diagnosis: Right shoulder osteoarthritis Activity: Per Instructions section Non-emergency contact: Surgeon Call non-emergency contact if: your pain is not controlled, your pain is worsening and your temperature is above 101 Follow-up/Referrals: Villa Duff MD [Primary Care Provider] - Diet: Regular Addtl Attending Provider Instructions: ACTIVITY RECOMMENDATIONS: SELF CARE INSTRUCTIONS AFTER TOTAL SHOULDER ARTHROPLASTY REVERSE A. You may do daily exercises as taught in physical therapy while in hospital. No lifting with the operative arm. B. You are to wear your sling/immobilizer at all times EXCEPT when performing your daily exercises and for hygiene purposes. C. You may perform dry, daily dressing changes. Please keep your incision covered. You may shower 48 hours after surgery. Do not apply soap or any ointment/lotions directly over incision. Do not soak incision in bath tub/swimming pool. D. You may use ice as needed to operative shoulder. SPECIAL CARE INSTRUCTIONS: VERY IMPORTANT TO READ AND REVIEW A. There are a few signs you need to watch for after you are home. Call [facility] at [phone] if you experience any of the followin. Increased severe shoulder pain. Some pain is expected especially when you exercise. 2. Increased swelling in you shoulder or arm; pain or swelling in either upper extremity. 3. Any fluid drainage from the incision. 4. Shortness of breath or chest pain. B. Please call [facility] at [phone] if you have any questions or concerns about your operation or recovery. C. Call your physician if: 1. Temperature is greater than 101 degrees (F). 2. Pain is not relieved by prescribed pain medications. 3. Increase drainage or redness from incision. 4. Unanswered questions or concerns. FOLLOW UP VISIT: Please call [facility] at [phone] to schedule a follow up appointment with Dr. Spain or his PA in 12-14 days from your surgery date. Pending Studies at Discharge: No Stand-Alone Forms: My [employer] Medications and DC Order Prescriptions: New oxycodone-acetaminophen [Percocet] 5-325 mg tablet 1 tab PO Q4H PRN (Reason: pain) Qty: 18 0RF Rx Instructions: Initial therapy. Bassam Spain MD supervising. Date of surgery 12/23/2023. cefadroxil 500 mg capsule 500 mg PO Q12H Qty: 28 0RF Continued amlodipine 10 mg tablet 10 mg PO QAM multivitamin tablet 1 tab PO QAM EyeProtect [id number],160-113-100 [id number] tablet 1 tab PO QAM spironolactone 25 mg tablet 25 mg PO QAM betamethasone dipropionate 0.05 % cream 1 applic TOP BID Qty: 45 0RF Rx Instructions: Apply to areas of the legs twice daily x 2 weeks as directed. isosorbide mononitrate 30 mg tablet extended release 24 hr 30 mg PO QAM nitroglycerin [Nitrostat] 0.4 mg Tablet, Sublingual 0.4 mg sublingual PRN Qty: 1 3RF furosemide 40 mg tablet 40 mg PO QAM potassium chloride 10 mEq tablet,ER particles/crystals 10 meq PO QAM ferrous sulfate 325 mg (65 mg iron) tablet 325 mg PO BID Qty: 60 3RF atorvastatin 40 mg tablet 20 mg PO QAM amiodarone 200 mg tablet 100 mg PO QAM metoprolol succinate 100 mg tablet extended release 24 hr 50 mg PO QAM losartan [Cozaar] 100 mg tablet 100 mg PO QAM aspirin 81 mg Tablet 81 mg PO QAM Eliquis 5 mg Tablet 5 mg PO BID levothyroxine 25 mcg tablet 25 mcg PO QAM albuterol sulfate 90 mcg/actuation HFA aerosol inhaler 2 inh INHALATION QID PRN (Reason: sob) Breztri Aerosphere 160-9-4.8 mcg/actuation Hfa Aerosol Inhaler 2 inh INHALATION BID Discontinued acetaminophen [Tylenol Extra Strength] 500 mg Tablet 1,000 mg PO Q8 Qty: 60 0RF Discharge Orders: Discharge Order (Routine); Ordered 12/24/23 Ordered By: Gallito Florence Admission Data Admit Date/Time: 12/23/23 10:39 Attending Provider: Bassam Spain Admit Provider: Bassam Spain Primary Care Provider: Villa Duff Other Interventions: Discharge Summary Assessment (RN) Last Done: 12/24/23 11:07
== END 2023-12-24 11:51 | disposition home or self-care (01) ==
LOC: 3N 04:57 → ASU 04:57
DX: M66.821 Spontaneous rupture of other tendons, right upper arm; J44.9 Chronic obstructive pulmonary disease, unspecified; Z87.891 Personal history of nicotine dependence; I50.9 Heart failure, unspecified; Z91.018 Allergy to other foods; I11.0 Hypertensive heart disease with heart failure; I48.91 Unspecified atrial fibrillation; Z95.810 Presence of automatic (implantable) cardiac defibrillator; I25.2 Old myocardial infarction; E78.5 Hyperlipidemia, unspecified; M19.011 Primary osteoarthritis, right shoulder; G47.33 Obstructive sleep apnea (adult) (pediatric); Z87.19 Personal history of other diseases of the digestive system; Z79.82 Long term (current) use of aspirin; Z79.899 Other long term (current) drug therapy; Z79.51 Long term (current) use of inhaled steroids; Z79.01 Long term (current) use of anticoagulants